=== PATIENT | male | born 1940 | race Caucasian/White ===

== ENCOUNTER 2016-06-24 12:53 | Emergency (ER) | payer BC ==
[~2016-06-24] VITALS: Ht 177.8 cm; Wt 77.2 kg
[~2016-06-24 12:53] MED LIST: ACET650S10 PO; BECL0.3A INH; CETI10TA84 PO; CRG125 PO; MGNO400 PO
[2016-06-24 13:03] VITALS: TEMP 37.3; Ht 177.8 cm; Wt 77.2 kg
[2016-06-24] MEDS ORDERED: ACETAMINOPHEN 325 MG TAB PO STA (14:11)
[2016-06-24] MEDS ORDERED: CYCLOBENZAPRINE HCL 10 MG TAB PO STA (14:11)
[2016-06-24] MEDS ORDERED: TRAMADOL HCL 50 MG TAB PO STA (14:11)
--- NOTE | 2016-06-24 14:40 | EMERGENCY ROOM VISIT NOTE ---
History Report prepared by Kimi: Lashawn Dickinson Under the Supervision of: Dr. Maxwell Aly M.D. First contact with patient: 14:04 Chief Complaint: HEAD PAIN Stated Complaint: SEVERE HEAD PAIN History of Present Illness The patient is a 76 year old male who presents to the Emergency Room with complaints of worsening head pain over the past week. The patient states that the pain initially started in his left ear and radiated down the side of his left neck and left shoulder. Since then, it has also spread through the top of his head and down the right side of his head and neck. This morning, he had difficulty getting out of bed due to his symptoms. He notes that the pain is worse when he talks for a while and seems to improve with rest. The patient also notes that he had right arm pain recently that radiated from his shoulder all the way down his arm. The patient had similar symptoms when he was camping this past January and was hospitalized overnight. He has since been following up with his PCP regarding his symptoms but has not seen any specialists. He has been on a muscle relaxer in the past with some relief of his pain. He has also had physical therapy. He had physical therapy a week ago and his pain seemed to get worse afterwards. The patient does not recall any trauma or falls that could have caused his symptoms to flare up. Per patient's , the patient's pain seems to be worse during this flare up than it was in January initially. He had an MRI on April 15 of the C-spine which revealed arthritis and bone spurs but was otherwise unrevealing. The patient takes diazepam at night but it has not helped his symptoms. He has not used a neck collar. He has a history of hemophilia. Source of History: patient Onset: a few days ago Position: head Timing: worsening Modifying Factors (Worsening): other (talking) Modifying Factors (Relieving): rest Associated Symptoms: + neck pain Review of Systems See HPI for pertinent positives & negatives. A total of 10 systems reviewed and were otherwise negative. Past Medical & Surgical Medical Problems: (1) Chronic Kidney Disease, Unspecified (2) Diaphragmatic Hernia (3) Elevated troponin (4) Esophageal Reflux (5) Factor VIII deficiency hemophilia (6) Gout Nos (7) Hypertension Nos (8) Intractable headache (9) Von Willebrand's Disease (10) Von Willebrand's Disease Surgical Problems: (1) History of cholecystectomy Family History Cancer Diabetes mellitus Gallbladder disease Heart disease Hypertension Social History Smoking Status: Unknown if Ever Smoked Alcohol Use: none Marital Status: Housing Status: lives with significant other Occupation Status: retired Current/Historical Medications Scheduled Allopurinol (Zyloprim), 200 MG PO DAILY Aspirin (Aspirin Chewable), 81 MG PO DAILY Atorvastatin (Lipitor), 80 MG PO HS Beclomethasone Dip (Qvar), 2 PUFF INH BID Dorzolamide Hcl (Trusopt Oph), 1 DROP OPB HS Duloxetine Hcl (Cymbalta), 30 MG PO DAILY Esomeprazole Magnesium (Nexium), 40 MG PO DAILY Finasteride (Proscar), 5 MG PO DAILY Magnesium Oxide (Magnesium-Oxide), 400 MG PO BID Metolazone (Metolazone), 5 MG PO DAILY Multiple Vitamins W/ Minerals (Centrum Silver Adult 50+), 1 TAB PO DAILY [place]-3 Fatty Acids ([place] 3), 1 CAP PO DAILY Oxybutynin Chloride (Oxybutynin Chloride), 5 MG PO TID Scheduled PRN Acetaminophen (Tylenol), 1,000 MG PO Q6 PRN for Pain Aminocaproic Acid (Amicar), 500 MG PO UD PRN for coagulation Carvedilol (Carvedilol), 12.5 MG PO BID PRN for HR > 55 BPM Diazepam (Valium), 2-4 MG PO Q6H PRN for Pain Nitroglycerin (Nitrostat), 0.4 MG SL UD PRN for Chest Pain Tizanidine Hcl (Zanaflex), 1 TAB PO TID PRN for Muscle Spasms Tramadol (Ultram), 50 MG PO Q6H PRN for Pain Allergies Coded Allergies: Adhesives (Verified Allergy, Unknown, BANDAID, 06/24/16) Codeine (Verified Allergy, Unknown, SOB/ N/V, 06/24/16) Homatropine (Unverified Allergy, Unknown, UNKNOWN, 06/24/16) Horse Serum Proteins (Unverified Allergy, Unknown, ILLNESS, 06/24/16) Hydrocodone (Unverified Allergy, Unknown, UNKNOWN, 06/24/16) Niacin (Unverified Allergy, Unknown, UNKNOWN, 06/24/16) Tetanus Toxoid (Verified Allergy, Unknown, 06/24/16) Uncoded Allergies: RECOMBINENT FACTOR 8 (Allergy, Unknown, 05/08/05) Physical Exam Vital Signs Date Time Temp Pulse Resp B/P Pulse Ox O2 Delivery O2 Flow Rate FiO2 06/24/16 16:48 66 18 136/79 96 Room Air 06/24/16 15:02 66 18 139/76 96 Room Air 06/24/16 13:03 37.3 81 20 160/94 99 Room Air Physical Exam GENERAL: Patient is in no acute distress. HEENT: No acute trauma, normocephalic atraumatic, mucous membranes moist, no nasal congestion, no scleral icterus. NECK: Trachea is midline. No stridor. Patient has pain to move his head in any direction and desires to hold his head still. There is some discomfort to palpate the posterior neck muscles bilaterally and they do seem in spasm. There is no adenopathy. LUNGS: Clear to auscultation bilaterally, no wheeze, no rhonchi, breath sounds equal. HEART: Without murmurs gallops or rubs, regular rate and rhythm. ABDOMEN: Soft, nontender, bowel sounds positive, no hernias, no peritonitis. EXTREMITIES: No cyanosis or edema, full range of motion of all the joints without pain or difficulty, no signs for acute trauma. +2 radial pulse in both upper extremities. NEUROLOGIC: Oriented x 3, no acute motor or sensory deficits, no focal weakness. SKIN: No rash, no jaundice, no diaphoresis. Medical Decision & Procedures ER Provider Diagnostic Interpretation: Radiology results and stated below per my review and radiologist interpretation: MRI OF THE CERVICAL SPINE 6 VIEWS: CLINICAL HISTORY: Chronic neck pain. FINDINGS: AP, lateral, bilateral oblique, Avilez', and odontoid views of the cervical spine are correlated with CT scan of the cervical spine dated 01/18/2016. The skeletal structures are osteopenic. There is no radiographic evidence of fracture or malalignment. Vertebral body height is maintained throughout the cervical spine. There is minimal anterolisthesis of C4-C5. Alignment is otherwise preserved. There is mild straightening of the cervical lordosis. Anterior osteophytes are noted in the lower cervical region. The odontoid process and lateral masses appear intact. The spinolaminar line is preserved. Productive degenerative change is noted at the atlantodental articulation. There is moderate degenerative disc space narrowing at C5-C6 and C6-C7. Posterior disc osteophyte complex at these levels likely contribute to acquired compromise of the central canal. There is bilateral neural foraminal stenosis seen at C5-C6 and C6-C7 on the oblique views. The prevertebral soft tissues are within normal limits. Calcification is incidentally noted in the nuchal ligament. The partially imaged apical lung parenchyma appears clear. IMPRESSION: 1. No acute bony abnormality is seen involving the cervical spine. There has been no significant change from prior studies. 2. Osteopenia and spondylotic change as above, greatest at C5-C6 and C6-C7. Dictated: 06/24/2016 4:12 PM Transcribed: 06/24/2016 4:40 PM [id number] Electronically signed by: Maxwell Simon M.D. 06/24/2016 4:50 PM Dictated Date/Time: 06/24/2016 4:12 PM SPINE ONE VIEW, ANY LEVEL CLINICAL HISTORY: COLLAR trauma. Pain. COMPARISON STUDY: 11/28/2013 FINDINGS: Degenerative change. No acute bony abnormality. IMPRESSION: No acute process lateral single projection of the cervical spine Electronically signed by: Jr Ramachandran M.D. 06/24/2016 3:11 PM Dictated Date/Time: 06/24/2016 3:10 PM Medications Administered Medications (Trade) Dose Ordered Sig/Braxton Route Start Time Stop Time Status Last Admin Dose Admin Acetaminophen (Tylenol Tab) 650 mg NOW STAT PO 06/24/16 14:11 06/24/16 14:24 DC 06/24/16 14:38 650 MG Cyclobenzaprine HCl (Flexeril Tab) 5 mg NOW STAT PO 06/24/16 14:11 06/24/16 14:24 DC 06/24/16 14:37 5 MG Tramadol HCl (Ultram Tab) 50 mg NOW STAT PO 06/24/16 14:11 06/24/16 14:24 DC 06/24/16 14:38 50 MG ED Course 1405: The patient was evaluated in room C1. A complete history and physical exam was performed. 1411: Ordered Ultram 50 mg PO, Flexeril Tab 5 mg PO, Tylenol Tab 650 mg PO. 1420: I discussed the case with Dr. Yoder. 1520: I reassessed the patient. He feels better with stiffer collar on but will also try a soft one to see which feels better. 1644: Reevaluated the patient. He was feeling better in the soft collar and after the medications. Discussed results and discharge instructions: He verbalized understanding and agreement. The patient is ready for discharge. Medical Decision Differential includes muscle spasm , nerve impingement, arthritis, cervical disc disease, intracranial bleeding, trauma, cervical fracture, stroke. The patient presents with bilateral posterior neck pain with pain radiating to his head. This has been an ongoing issue since late last year. The patient started physical therapy last week and he thinks that the activity and exercises he's been doing have worsened his discomfort. He describes the pain as severe. He does not want to turn his head because turning his head causes things do worsen. He has not suffered a fall or trauma. There's been no fever. He had some pain down the right arm at one point yesterday, this has resolved. No right arm weakness. I discussed the case with the patient's primary doctor, Dr. Yoder. The patient has been following with Dr. Yoder for this issue. He recommended a C- spine series which was done, this showed significant arthritis, no fracture or bony malalignment. The patient was placed in a soft collar, he felt better in this collar. He received oral Tylenol, oral tramadol and oral Flexeril. The patient is being discharged on a muscle relaxer, tramadol, heat to the neck and also the soft collar for support. He will be seeing his doctor in the office in a few days. It does appear that the patient's symptoms are from spasm of his posterior neck muscles. [place] Drug Monitoring Program Search Results: patient reviewed within database, no issues identified Consults Time Called: 1413 Consulting Physician: Dr. Yoder Returned Call: 1420 I discussed the case with him. Impression Primary Impression: Headache Additional Impression: Neck pain Scribe Attestation The scribe's documentation has been prepared under my direction and personally reviewed by me in its entirety. I confirm that the note above accurately reflects all work, treatment, procedures, and medical decision making performed by me. Departure Information Dispostion Home / Self-Care Prescriptions Tizanidine Hcl (ZANAFLEX) 4 Mg Tab 1 TAB PO TID Y for Muscle Spasms for 10 Days, #30 TAB Prov: Maxwell Aly M.D. 06/24/16 Tramadol (Ultram) 50 Mg Tab 50 MG PO Q6H Y for Pain, #15 TAB Prov: Maxwell Aly M.D. 06/24/16 Referrals Timothy Yoder M.D. (PCP) Patient Instructions My [facility] Additional Instructions use Zanaflex 3x per day as needed to relax the muscles tramadol 1 tab every 6 hours for pain may use tylenol otc for pain control as well heat to the neck will help contact Dr. Yoder tomorrow for an appt in the office Problem Qualifiers
--- NOTE | 2016-06-24 15:12 | DIAGNOSTIC IMAGING REPORT ---
SPINE ONE VIEW, ANY LEVEL CLINICAL HISTORY: COLLAR trauma. Pain. COMPARISON STUDY: 11/28/2013 FINDINGS: Degenerative change. No acute bony abnormality. IMPRESSION: No acute process lateral single projection of the cervical spine Electronically signed by: Jr Ramachandran M.D. 06/24/2016 3:11 PM Dictated Date/Time: 06/24/2016 3:10 PM
--- NOTE | 2016-06-24 16:40 | DIAGNOSTIC IMAGING REPORT ---
MRI OF THE CERVICAL SPINE 6 VIEWS: CLINICAL HISTORY: Chronic neck pain. FINDINGS: AP, lateral, bilateral oblique, Avilez', and odontoid views of the cervical spine are correlated with CT scan of the cervical spine dated 01/18/2016. The skeletal structures are osteopenic. There is no radiographic evidence of fracture or malalignment. Vertebral body height is maintained throughout the cervical spine. There is minimal anterolisthesis of C4-C5. Alignment is otherwise preserved. There is mild straightening of the cervical lordosis. Anterior osteophytes are noted in the lower cervical region. The odontoid process and lateral masses appear intact. The spinolaminar line is preserved. Productive degenerative change is noted at the atlantodental articulation. There is moderate degenerative disc space narrowing at C5-C6 and C6-C7. Posterior disc osteophyte complex at these levels likely contribute to acquired compromise of the central canal. There is bilateral neural foraminal stenosis seen at C5-C6 and C6-C7 on the oblique views. The prevertebral soft tissues are within normal limits. Calcification is incidentally noted in the nuchal ligament. The partially imaged apical lung parenchyma appears clear. IMPRESSION: 1. No acute bony abnormality is seen involving the cervical spine. There has been no significant change from prior studies. 2. Osteopenia and spondylotic change as above, greatest at C5-C6 and C6-C7. Dictated: 06/24/2016 4:12 PM Transcribed: 06/24/2016 4:40 PM Anusha Electronically signed by: Maxwell Simon M.D. 06/24/2016 4:50 PM Dictated Date/Time: 06/24/2016 4:12 PM
[2016-06-24 16:48] VITALS: BP 136/79; PULSE 66; O2SAT 96
[2016-06-24] MEDS ORDERED: TRAM-10 PO (16:58)
[2016-06-24] MEDS ORDERED: TIZA4TAB3 PO (16:58)
[2016-06-30] MEDS ORDERED: PRD20 PO (09:25)
[2016-06-30] MEDS ORDERED: NRV5 PO ×2 (09:28→09:35)
[2016-08-11] MEDS ORDERED: ASPCH81X PO (09:07)
[2016-08-11] MEDS ORDERED: OMEG12006 PO (09:21)
[2016-08-11] MEDS ORDERED: ATOR-26 PO (09:21)
[2016-08-11] MEDS ORDERED: AMIN1TAB5 PO (09:21)
[2016-08-11] MEDS ORDERED: CYM/30 PO (13:17)
[2016-08-11] MEDS ORDERED: ALLO100T PO (13:17)
[2016-08-11] MEDS ORDERED: ZRX5 PO (13:21)
[2016-08-11] MEDS ORDERED: DTR5 PO (13:21)
[2016-08-11] MEDS ORDERED: MULT-845 PO (13:30)
[2016-08-11] MEDS ORDERED: FINA5TAB PO (13:54)
== END 2016-06-24 17:19 | disposition home or self-care (01) ==
LOC: C.EDB 12:55 → C.EDC 17:19
DX: R51 Headache (principal); M54.2 Cervicalgia; N18.9 Chronic kidney disease, unspecified; K21.9 Gastro-esophageal reflux disease without esophagitis; M10.9 Gout, unspecified; I12.9 Hypertensive chronic kidney disease with stage 1 through stage 4 chronic kidney disease, or unspecified chronic kidney disease; D68.0 Von Willebrand disease; Z79.82 Long term (current) use of aspirin

== ENCOUNTER → 2016-06-27 | Outpatient (CLI) | payer BC ==
[~2016-06-27] MED LIST changes: +ACET-1256 PO; -ACET650S10 PO; +ALLO100T PO; +AMIN1TAB5 PO; +ASPCH81X PO; +ATOR-26 PO; -BECL0.3A INH; +BRIM0.2S18 OPB; -CETI10TA84 PO; +CYM/30 PO; +DIAZ2TAB PO; +DORZ2SOL17 OPB; +DTR5 PO; +FINA5TAB PO; +MULT-845 PO; +NRV5 PO; +NTRGSL/4 SL; +NXM/40 PO; +OMEG12006 PO; +PRD20 PO; +PRED10TA PO; +QVRINH40 INH; +TIZA4TAB3 PO; +TRAM-10 PO; +XLTOPS OPB; +ZNF/4 PO; +ZRX5 PO
--- NOTE | 2016-06-27 17:03 | DIAGNOSTIC IMAGING REPORT ---
LEFT WRIST MIN 3 VIEWS ROUTINE CLINICAL HISTORY: M54.12 Cervical radiculopathy pain. Neuropathy. COMPARISON: None. DISCUSSION: Moderate generalized degenerative change. Minimal calcification triangular fibrocartilage. No erosive process. There is no evidence for soft tissue swelling. IMPRESSION: Moderate generalized degenerative change. No acute bony abnormality. Electronically signed by: Jr Ramachandran M.D. 06/27/2016 5:02 PM Dictated Date/Time: 06/27/2016 4:59 PM
== END | disposition home or self-care (01) ==
LOC: C.RAD1850 15:49
PROVIDERS: ATTEND Internal Medicine
DX: M54.12 Radiculopathy, cervical region (principal)

== ENCOUNTER 2016-06-28 11:50 | Inpatient (IN) | payer BC, OTHER ==
[~2016-06-28] VITALS: Ht 170.2 cm; Wt 78.4 kg
[~2016-06-28 11:50] MED LIST changes: -ACET-1256 PO; -ALLO100T PO; -AMIN1TAB5 PO; -ASPCH81X PO; -ATOR-26 PO; -BRIM0.2S18 OPB; -CYM/30 PO; -DIAZ2TAB PO; -DORZ2SOL17 OPB; -DTR5 PO; -FINA5TAB PO; -MULT-845 PO; -NRV5 PO; -NTRGSL/4 SL; -NXM/40 PO; -OMEG12006 PO; -PRD20 PO; -PRED10TA PO; -QVRINH40 INH; -XLTOPS OPB; -ZNF/4 PO; -ZRX5 PO
[2016-06-28] MEDS ORDERED: MoRPHine SULFATE 10 MG/ML CARP/VIAL IV STA (12:35)
[2016-06-28] MEDS ORDERED: SODIUM CHLORIDE 0.9% 500ML 500 ML IV STA (12:35)
[2016-06-28] MEDS ORDERED: MoRPHine SULFATE 2 MG/ML CARP ONE (12:51)
[2016-06-28] MEDS ORDERED: MoRPHine SULFATE 4 MG/ML 1 ML CARP\\VIAL ONE (12:51)
[2016-06-28 13:03] LABS: HEMATOCRIT 29.5 % (42-52); MEAN CELL VOLUME 86.5 fL (80-100); MEAN CORPUSCULAR HEMOGLOBIN 31.4 pg (25-34); MEAN CORPUSCULAR HGB CONC 36.3 g/dl (32-36); MEAN PLATELET VOLUME 9.6 fL (7.4-10.4); PLATELET COUNT 198 K/uL (130-400); RED BLOOD COUNT 3.41 M/uL (4.7-6.1); WHITE BLOOD COUNT 8.96 K/uL (4.8-10.8)
[2016-06-28 13:25] LABS: PARTIAL THROMBOPLASTIN RATIO 1.8; PROTHROMBIN TIME (PATIENT) 10.7 SECONDS (9.0-12.0)
[2016-06-28 13:26] LABS: BASO % 0.2 %; BASO ABS # 0.02 K/uL (0-0.2); CALCIUM 9.2 mg/dl (8.5-10.1); COMPLETE YES; EOS % 0.9 %; IG% 0.3 %; LYMPH % 11.5 %; LYMPH ABS # 1.03 K/uL (1.2-3.4); MONO % 7.4 %; NEUT % 79.7 %; POTASSIUM 3.8 mmol/L (3.5-5.1)
[2016-06-28 13:31] LABS: URIC ACID 4.4 mg/dl (2.6-7.2)
--- NOTE | 2016-06-28 13:32 | DIAGNOSTIC IMAGING REPORT ---
SINGLE VIEW CHEST CLINICAL HISTORY: Left arm pain. FINDINGS: An AP, portable, upright chest radiograph is compared to study dated 01/18/2016. Correlation is made with chest CT dated 10/25/2011. The heart is enlarged and there is atherosclerotic calcification of the thoracic aorta. The pulmonary vasculature is noncongested. Chronic interstitial thickening is similar to previous. No airspace consolidation or pleural effusion is seen. There is minimal dependent atelectasis at the left lung base. No pneumothorax is seen. The skeletal structures are osteopenic. The bony thorax is grossly intact. IMPRESSION: Cardiomegaly with no acute cardiopulmonary abnormality. Electronically signed by: Maxwell Simon M.D. 06/28/2016 1:30 PM Dictated Date/Time: 06/28/2016 1:29 PM
--- NOTE | 2016-06-28 13:35 | DIAGNOSTIC IMAGING REPORT ---
CT OF THE HEAD WITHOUT CONTRAST CLINICAL HISTORY: Headache. COMPARISON STUDY: Head CT January 18, 2016. CT DOSE: 638.56 mGycm TECHNIQUE: Helical axial images of the head were obtained without IV contrast. Automated exposure control was utilized for the study. FINDINGS: No acute intracranial hemorrhage, midline shift or mass effect is present. Brain volume is normal. Ventricular system is normal. Dc-white differentiation is maintained. There are no findings to suggest acute dural sinus thrombosis or acute territorial infarct. White matter hypodensity suggests small vessel disease. Visualized portions of the mastoid air cells are clear. There is minimal mucosal thickening of the ethmoid sinuses. IMPRESSION: No acute intracranial findings. Electronically signed by: Hernán Estrada M.D. 06/28/2016 1:34 PM Dictated Date/Time: 06/28/2016 1:32 PM
--- NOTE | 2016-06-28 13:48 | DIAGNOSTIC IMAGING REPORT ---
LEFT WRIST 4 VIEWS CLINICAL HISTORY: Left wrist pain. FINDINGS: 4 views of left wrist are compared to study performed one day previously on 06/27/2016. The skeletal structures are osteopenic. No fracture is identified. Minimal narrowing is seen at the radiocarpal articulation. There is mild arthritic change at the first carpometacarpal joint. Mild soft tissue swelling is present around the wrist. There is atherosclerotic calcification of the regional arteries. A ring is noted on the fourth finger. IMPRESSION: 1. Mild soft tissue swelling with no acute bony abnormality seen in the left wrist. There has been no significant change from yesterday. 2. Osteopenia and mild degenerative change as above. Electronically signed by: Maxwell Simon M.D. 06/28/2016 1:47 PM Dictated Date/Time: 06/28/2016 1:45 PM
[2016-06-28] MEDS ORDERED: METHYLPREDNISOLONE IV 60 MG in SYRINGE 0 ML IV STA (13:49)
[2016-06-28 17:14] LABS: URINE APPEARANCE CLEAR (CLEAR); URINE BILIRUBIN NEG (NEG); URINE COLOR YELLOW; URINE EPITHELIAL CELL AUTO 0-5 /lpf (0-5); URINE NITRITE NEG (NEG); URINE PH 6.5 (4.5-7.5); URINE SPECIFIC GRAVITY 1.013 (1.000-1.030); UROBILINOGEN NEG (NEG)
[2016-06-28 17:15] LABS: MANUAL MICROSCOPIC REQUIRED? NO; REVIEW REQ? NO
--- NOTE | 2016-06-28 17:15 | CONSULTATION REPORT ---
DATE OF CONSULTATION: 06/28/2016 REASON FOR CONSULT: Left wrist pain. HISTORY OF PRESENT ILLNESS: The patient is a 76-year-old white male with history of left wrist pain over the last several days that has worsened to the point where he cannot move his wrist and the patient is somewhat of a poor historian; however, he has been having aches and pains off and on, mostly around his head and neck region for some time now that come and go, but he feels they seem to be progressing over the last several days though he seems focused on his left wrist which began hurting a few days ago. He states that the pain worsened and he has been unable to use the wrist and wanted to be seen. He denies any mechanical falls, no overt swelling or bruising of the area. He has not bump the wrist in any way that he knows of. PAST MEDICAL HISTORY: CAD with myocardial infarction in the past with stenting, hemophilia, and history of gout. PAST SURGICAL HISTORY: Chest wall tumor excision, cholecystectomy, above noted cardiac catheterization with stent placement. FAMILY HISTORY: CAD. SOCIAL HISTORY: The patient is . Does not use tobacco or alcohol. MEDICATIONS: Acetaminophen 1000 mg p.o. q. 6 hours p.r.n., allopurinol 200 mg p.o. daily, Amicar 500 mg p.o. as directed p.r.n., aspirin 81 mg p.o. daily, atorvastatin 80 mg p.o. at bedtime, beclomethasone 2 puffs inhaled b.i.d., carvedilol one p.o. b.i.d. p.r.n., diazepam 2-4 mg p.o. q. 6 hours p.r.n., Trusopt ophthalmic 2% one drop OPB at bedtime, Cymbalta 30 mg p.o. daily, Nexium 40 mg p.o. daily, finasteride 5 mg p.o. daily, Mag-Ox 400 mg p.o. b.i.d., metolazone 5 mg p.o. daily, multivitamin 1 tab p.o. daily, nitroglycerin 0.4 mg sublingually as directed p.r.n., omega 3 one cap p.o. daily, oxybutynin 5 mg p.o. t.i.d., Zanaflex 1 tab p.o. t.i.d., tramadol 50 mg q. 6 hours p.r.n. ALLERGIES: ADHESIVES, CODEINE, HOMATROPINE, HORSE SERUM PROTEINS, HYDROCODONE, NIACIN, RECOMBINANT FACTOR 8, TETANUS TOXOID. REVIEW OF SYSTEMS: No recent fevers or chills. No unusual night sweats. No shortness of breath or chest pain. No increased cough or sputum production. No nausea, vomiting, diarrhea. The patient does relate a history of musculoskeletal pain mostly surrounding the head and neck area which has been ongoing for off and on for the last few weeks. No hematuria, pyuria, or dysuria. No seizures. PHYSICAL EXAMINATION: EXTREMITIES: On examination of the patient's left wrist, there is some noticeable swelling in the dorsum of the wrist compared to the right. He has very minimal erythema noted. He has minimal ability to flex and extend the wrist at this time actively. I can get him to go through a little bit of passive range of motion a little bit more but it essentially causing him moderate pain in the left wrist. He has no pain whatsoever with passive extension of any of his fingers that travels up over the dorsum of hand into the wrist. He can make almost a full fist, but this causes him discomfort in the wrist as he tries to complete that. Sensation is intact with all of his fingers and he has full range of motion of all of his fingers at this time of the left hand. He has no palmar erythema, no pain in the hypothenar eminences or in the thenar eminences and most of his pain is dorsally and none on the volar aspect. I can find one spot over the carpal radial joint that is exquisitely tender when doing deep palpation making the patient jump a little bit with pain. He has some mild joint pain over the lateral portion of his ulnar joint, but is minimal at best. LABORATORY VALUES: White count is 8.96, H\T\H is 10.7 and 29.5. Sed rate is 55. Chemistry shows a BUN of 40 and a creatinine of 2.0, alkaline phosphatase is 119 and a C-reactive protein is 3.16, PTT is 46.6, INR is 1.0, uric acid is 4.4 and essentially normal. IMAGING DATA: X-rays of the left wrist and essentially show some mild soft tissue swelling over the dorsum of the wrist with no fracture or significant bony changes and mild degenerative changes are noted. ASSESSMENT: Possible infected left wrist joint versus gouty flare versus hemarthrosis. PLAN: I discussed the case with Dr. Damaso Magdaleno who was fiberglass insulation installer this evening. Plans will be to aspirate the left carpal radial joint and try and see if we can get any fluid from the joint and send it off for possible microbiology and/or cell count if we have enough fluid. PROCEDURES DONE IN THE EMERGENCY ROOM: At this point in time, the area over the distal radius at the joint line was palpated and the most tender spot was found and marked with a pressure indentation at that point. Alcohol swabs were used to wipe the area and then 3 Betadine swabs were used to cleanse tears as well. These were let to dry. A 20-gauge needle was then inserted into the radial joint successfully and approximately 1 mL of light yellow fluid was withdrawn that was slightly blood tinged and only slightly cloudy at bedside. The needle was then withdrawn and pressure was applied to the aspiration site and then 2 x 2 dressing with Coban was placed on the aspiration site. The patient tolerated the procedure well. Dr. Tobin was notified of the aspirate, which will be sent for above noted cell count if possible with crystal analysis and/or microbiology. Dr. Magdaleno is fiberglass insulation installer this evening and can be notified of the pending results. [facility]
[2016-06-28 17:36] LABS: SYNOVIAL FLUID MONONUC RELAT 7.8 %; SYNOVIAL FLUID POLYNUC RELAT 92.2 %
[2016-06-28 17:37] LABS: SYNOVIAL FLUID APPEARANCE CLOUDY; SYNOVIAL FLUID COLOR PALE YELLOW
[2016-06-28] MEDS ORDERED: VANCOMYCIN INJ 1,500 MG in SODIUM CHLORIDE 0.9% 500ML 500 ML IV STA (19:29)
[2016-06-28] MEDS ORDERED: CEFTRIAXONE SOD INJ 1 GM ADDVIAL IV STA (19:29)
--- NOTE | 2016-06-28 20:24 | EMERGENCY ROOM VISIT NOTE ---
History Report prepared by Kimi: Maged Tomas Under the Supervision of: Dr. Cristhian Tobin D.O. First contact with patient: 12:19 Chief Complaint: HAND PAIN/INJURY Stated Complaint: SEVERE PAIN L HAND/ARM, HEAD AND SHOULDERS History of Present Illness The patient is a 76 year old male who presents to the Emergency Room with complaints of persistent severe left arm pain for the past four days. The pain is mostly localized to the wrist area, but shoots up the arm. The patient was in the ED on Friday for head, neck, and shoulder pain. He also finds it difficult to move his fingers secondary to pain. The patient saw his PCP for these symptoms. He had a negative X-ray of the hand, and is scheduled for a CT head. The patient has a prescription for Tramadol. His last dose was at 0930 this morning. The patient has had intermittent pain since January in his head and neck. As per his , the patient has a history of memory impairment. He usually complains of head, neck and shoulder pain, and the arm pain is new. The patient has a history of gout, but cannot recall if his current pain feels like gout. He does take allopurinol. Patient denies change in vision, fevers, chest pain, shortness of breath, nausea, vomiting, diarrhea, and pain with urination. Source of History: patient, spouse/significant other Onset: four days ago Position: arm (left) Symptom Intensity: severe Timing: other (persistent) Associated Symptoms: No SOB, No chest pain, No diarrhea, No fevers, No melena, No nausea, No urinary symptoms Review of Systems See HPI for pertinent positives & negatives. A total of 10 systems reviewed and were otherwise negative. Past Medical & Surgical Medical Problems: (1) Chronic Kidney Disease, Unspecified (2) Diaphragmatic Hernia (3) Elevated troponin (4) Esophageal Reflux (5) Factor VIII deficiency hemophilia (6) Gout Nos (7) Hypertension Nos (8) Intractable headache (9) Von Willebrand's Disease (10) Von Willebrand's Disease Surgical Problems: (1) History of cholecystectomy Family History Cancer Diabetes mellitus Gallbladder disease Heart disease Hypertension Social History Smoking Status: Never Smoker Alcohol Use: none Marital Status: Housing Status: lives with significant other Occupation Status: retired Current/Historical Medications Scheduled Allopurinol (Zyloprim), 200 MG PO DAILY Aspirin (Aspirin Chewable), 81 MG PO DAILY Atorvastatin (Lipitor), 80 MG PO HS Beclomethasone Dip (Qvar), 2 PUFF INH BID Dorzolamide Hcl (Trusopt Oph), 1 DROP OPB HS Duloxetine Hcl (Cymbalta), 30 MG PO DAILY Esomeprazole Magnesium (Nexium), 40 MG PO DAILY Finasteride (Proscar), 5 MG PO DAILY Magnesium Oxide (Magnesium-Oxide), 400 MG PO BID Metolazone (Metolazone), 5 MG PO DAILY Multiple Vitamins W/ Minerals (Centrum Silver Adult 50+), 1 TAB PO DAILY [place]-3 Fatty Acids ([place] 3), 1 CAP PO DAILY Oxybutynin Chloride (Oxybutynin Chloride), 5 MG PO TID Scheduled PRN Acetaminophen (Tylenol), 1,000 MG PO Q6 PRN for Pain Aminocaproic Acid (Amicar), 500 MG PO UD PRN for coagulation Carvedilol (Carvedilol), 12.5 MG PO BID PRN for HR > 55 BPM Diazepam (Valium), 2-4 MG PO Q6H PRN for Pain Nitroglycerin (Nitrostat), 0.4 MG SL UD PRN for Chest Pain Tizanidine Hcl (Zanaflex), 1 TAB PO TID PRN for Muscle Spasms Tramadol (Ultram), 50 MG PO Q6H PRN for Pain Allergies Coded Allergies: Adhesives (Verified Allergy, Unknown, BANDAID, 06/28/16) Codeine (Verified Allergy, Unknown, SOB/ N/V, 06/28/16) Homatropine (Unverified Allergy, Unknown, UNKNOWN, 06/28/16) Horse Serum Proteins (Unverified Allergy, Unknown, ILLNESS, 06/28/16) Hydrocodone (Unverified Allergy, Unknown, UNKNOWN, 06/28/16) Niacin (Unverified Allergy, Unknown, UNKNOWN, 06/28/16) Tetanus Toxoid (Verified Allergy, Unknown, 06/28/16) Uncoded Allergies: RECOMBINENT FACTOR 8 (Allergy, Unknown, 05/08/05) Physical Exam Vital Signs Date Time Temp Pulse Resp B/P Pulse Ox O2 Delivery O2 Flow Rate FiO2 06/28/16 19:18 84 18 144/78 96 Room Air 06/28/16 17:01 88 18 141/78 91 Room Air 06/28/16 14:09 73 20 172/77 99 Room Air 06/28/16 12:08 36.8 53 16 132/72 97 Room Air Physical Exam GENERAL: Sitting up in bed, disheveled, crying, holding left wrist. EYE EXAM: normal conjunctiva, PERRL and EOM's intact OROPHARYNX: no exudate, no erythema, lips, buccal mucosa, and tongue normal and mucous membranes are moist NECK: supple, no adenopathy, mild left paraspinal tenderness and pain with movement of the neck. LUNGS: Clear to auscultation. Normal chest wall mechanics HEART: no murmurs, S1 normal and S2 normal ABDOMEN: abdomen soft, non-tender, normo-active bowel sounds, no masses, no rebound or guarding. BACK: Back is symmetrical on inspection and there is no deformity, no midline tenderness, no CVA tenderness. SKIN: no rashes and no bruising UPPER EXTREMITIES: full passive range of motion of the left elbow and shoulder without tenderness, significantly tender with range of motion of the left wrist with swelling, no significant erythema, joint is warm, grasp intact along with abduction of the digits, radial pulse 2/4, gross sensation intact. LOWER EXTREMITIES: No pitting edema. NEURO EXAM: No gross weakness of arms exception of the left wrist, alert, unable to recall complete history, at baseline per . Medical Decision & Procedures ER Provider Diagnostic Interpretation: Xray results per the radiologist and my interpretation. Other results have been interpreted by the radiologist and reviewed by me. SINGLE VIEW CHEST CLINICAL HISTORY: Left arm pain. FINDINGS: An AP, portable, upright chest radiograph is compared to study dated 01/18/2016. Correlation is made with chest CT dated 10/25/2011. The heart is enlarged and there is atherosclerotic calcification of the thoracic aorta. The pulmonary vasculature is noncongested. Chronic interstitial thickening is similar to previous. No airspace consolidation or pleural effusion is seen. There is minimal dependent atelectasis at the left lung base. No pneumothorax is seen. The skeletal structures are osteopenic. The bony thorax is grossly intact. IMPRESSION: Cardiomegaly with no acute cardiopulmonary abnormality. Electronically signed by: Maxwell Simon M.D. 06/28/2016 1:30 PM Dictated Date/Time: 06/28/2016 1:29 PM LEFT WRIST 4 VIEWS CLINICAL HISTORY: Left wrist pain. FINDINGS: 4 views of left wrist are compared to study performed one day previously on 06/27/2016. The skeletal structures are osteopenic. No fracture is identified. Minimal narrowing is seen at the radiocarpal articulation. There is mild arthritic change at the first carpometacarpal joint. Mild soft tissue swelling is present around the wrist. There is atherosclerotic calcification of the regional arteries. A ring is noted on the fourth finger. IMPRESSION: 1. Mild soft tissue swelling with no acute bony abnormality seen in the left wrist. There has been no significant change from yesterday. 2. Osteopenia and mild degenerative change as above. Electronically signed by: Maxwell Simon M.D. 06/28/2016 1:47 PM Dictated Date/Time: 06/28/2016 1:45 CT OF THE HEAD WITHOUT CONTRAST CLINICAL HISTORY: Headache. COMPARISON STUDY: Head CT January 18, 2016. CT DOSE: 638.56 mGycm TECHNIQUE: Helical axial images of the head were obtained without IV contrast. Automated exposure control was utilized for the study. FINDINGS: No acute intracranial hemorrhage, midline shift or mass effect is present. Brain volume is normal. Ventricular system is normal. Dc-white differentiation is maintained. There are no findings to suggest acute dural sinus thrombosis or acute territorial infarct. White matter hypodensity suggests small vessel disease. Visualized portions of the mastoid air cells are clear. There is minimal mucosal thickening of the ethmoid sinuses. IMPRESSION: No acute intracranial findings. Electronically signed by: Hernán Estrada M.D. 06/28/2016 1:34 PM Dictated Date/Time: 06/28/2016 1:32 PM Laboratory Results 06/28/16 12:30 Red Blood Count 3.41, Mean Corpuscular Volume 86.5, Mean Corpuscular Hemoglobin 31.4, Mean Corpuscular Hemoglobin Concent 36.3, Mean Platelet Volume 9.6, Neutrophils (%) (Auto) 79.7, Lymphocytes (%) (Auto) 11.5, Monocytes (%) (Auto) 7.4, Eosinophils (%) (Auto) 0.9, Basophils (%) (Auto) 0.2, Neutrophils # (Auto) 7.14, Lymphocytes # (Auto) 1.03, Monocytes # (Auto) 0.66, Eosinophils # (Auto) 0.08, Basophils # (Auto) 0.02 06/28/16 12:30 Test 06/28/16 12:30 06/28/16 15:45 06/28/16 16:50 White Blood Count 8.96 K/uL (4.8-10.8) Red Blood Count 3.41 M/uL (4.7-6.1) Hemoglobin 10.7 g/dL (14.0-18.0) Hematocrit 29.5 % (42-52) Mean Corpuscular Volume 86.5 fL (80-100) Mean Corpuscular Hemoglobin 31.4 pg (25-34) Mean Corpuscular Hemoglobin Concent 36.3 g/dl (32-36) Platelet Count 198 K/uL (130-400) Mean Platelet Volume 9.6 fL (7.4-10.4) Neutrophils (%) (Auto) 79.7 % Lymphocytes (%) (Auto) 11.5 % Monocytes (%) (Auto) 7.4 % Eosinophils (%) (Auto) 0.9 % Basophils (%) (Auto) 0.2 % Neutrophils # (Auto) 7.14 K/uL (1.4-6.5) Lymphocytes # (Auto) 1.03 K/uL (1.2-3.4) Monocytes # (Auto) 0.66 K/uL (0.11-0.59) Eosinophils # (Auto) 0.08 K/uL (0-0.5) Basophils # (Auto) 0.02 K/uL (0-0.2) RDW Standard Deviation 43.6 fL (36.4-46.3) RDW Coefficient of Variation 13.8 % (11.5-14.5) Immature Granulocyte % (Auto) 0.3 % Immature Granulocyte # (Auto) 0.03 K/uL (0.00-0.02) Erythrocyte Sedimentation Rate 55 mm/hr (0-14) Prothrombin Time 10.7 SECONDS (9.0-12.0) Prothromb Time International Ratio 1.0 (0.9-1.1) Activated Partial Thromboplast Time 46.6 SECONDS (21.0-31.0) Partial Thromboplastin Ratio 1.8 Anion Gap 12.0 mmol/L (3-11) Est Creatinine Clear Calc Drug Dose 29.4 ml/min Estimated GFR () 36.5 Estimated GFR (Non- 31.5 BUN/Creatinine Ratio 20.0 (10-20) Uric Acid 4.4 mg/dl (2.6-7.2) Calcium Level 9.2 mg/dl (8.5-10.1) Total Bilirubin 0.5 mg/dl (0.2-1) Direct Bilirubin 0.2 mg/dl (0-0.2) Aspartate Amino Transf (AST/SGOT) 20 U/L (15-37) Alanine Aminotransferase (ALT/SGPT) 23 U/L (12-78) Alkaline Phosphatase 119 U/L (45-117) C-Reactive Protein 3.16 mg/dl (0-0.29) Total Protein 6.9 gm/dl (6.4-8.2) Albumin 3.2 gm/dl (3.4-5.0) Synovial Fluid Source L WRIST Synovial Fluid Color PALE YELLOW Synovial Fluid Appearance CLOUDY Synovial Fluid WBC 61009 /uL (0-200) Synovial Fluid RBC 85744 /uL Synovial Fluid Polynuclear WBCs % 92.2 % Synovial Fluid Mononuclear WBCs % 7.8 % Urine Color YELLOW Urine Appearance CLEAR (CLEAR) Urine pH 6.5 (4.5-7.5) Urine Specific Sutton 1.013 (1.000-1.030) Urine Protein NEG (NEG) Urine Glucose (UA) NEG (NEG) Urine Ketones NEG (NEG) Urine Occult Blood NEG (NEG) Urine Nitrite NEG (NEG) Urine Bilirubin NEG (NEG) Urine Urobilinogen NEG (NEG) Urine Leukocyte Esterase NEG (NEG) Urine WBC (Auto) 0 /hpf (0-5) Urine RBC (Auto) 0-4 /hpf (0-4) Urine Hyaline Casts (Auto) 0 /lpf (0-5) Urine Epithelial Cells (Auto) 0-5 /lpf (0-5) Urine Bacteria (Auto) NEG (NEG) Laboratory results per my review. Medications Administered Medications (Trade) Dose Ordered Sig/Braxton Route Start Time Stop Time Status Last Admin Dose Admin Sodium Chloride (Nss 500ml) 500 ml @ 999 mls/hr Q31M STAT IV 06/28/16 12:35 06/28/16 13:05 DC 06/28/16 12:56 999 MLS/HR Morphine Sulfate (MoRPHine SULFATE INJ) 4 mg STK-MED ONCE .ROUTE 06/28/16 12:51 06/28/16 12:53 DC 06/28/16 12:58 4 MG Morphine Sulfate 2 mg 2 mg STK-MED ONCE .ROUTE 06/28/16 12:51 06/28/16 12:53 DC 06/28/16 12:57 2 MG Methylprednisolone Sodium Succinate 60 mg/Syringe 0.96 ml @ 1.5 mls/min NOW STAT IV 06/28/16 13:49 06/28/16 13:51 DC 06/28/16 14:14 1.5 MLS/MIN Vancomycin HCl/ Sodium Chloride (Vancomycin Inj/ Nss 500ml) 530 ml @ 200 mls/hr ONE STAT IV 06/28/16 19:29 06/28/16 22:07 06/28/16 20:16 200 MLS/HR Ceftriaxone Sodium (Rocephin Inj) 1 gm NOW STAT IV 06/28/16 19:29 06/28/16 19:31 DC 06/28/16 19:46 1 GM ED Course ED COURSE: Vital signs were reviewed and showed bradycardia. The patients medical record was reviewed The above diagnostic studies were performed and reviewed. ED treatments and interventions as stated above. 1221: The patient was evaluated in room B9. A complete history and physical examination was performed. 1230: Patient's records show that he has had a headache for several weeks that is worse after PT. He had an MRI of the C-spine on April 15 that showed arthritis and bone spurs. He also had X-rays of the neck that showed no obvious fractures. 1235: NSS 500 ml @ 999 mls/hr, Morphine Sulfate 6 mg IV. 1250: Discussed the case with the estimation manager ENT at [facility]. 1349: Methylprednisolone Sodium Succinate 60 mg 0.96 ml @ 1.5 mls/hr. 1355: The patient is much more comfortable. He does not have head or neck pain as long as he isn't moving. His wrist is still painful on palpation. 1409: Spoke with Juan Morton PA-C, Orthopedics. The patient will be evaluated. 1625: Spoke with Dr. Magdaleno, Orthopedics. He recommended outpatient follow up. 1835: Discussed the case with Pathology. 192: Pathology is in with the patient now. 1927: Spoke with pathology again. There were no crystals present in the synovial fluid. 192: Rocephin 1 gm IV, Vancomycin 1500 mg / NSS 530 ml @ 200 mls/hr. 1931: Updated the patient. 2011: Discussed the case with Dr. Mcmahon, [facility] Hospitalist. The patient will be evaluated. 2029: Upon reevaluation, the patient is stable.I discussed my findings with the patient and he understands and agrees with the treatment plan. Based on the patients age, coexisting illnesses, exam and lab findings the decision to treat as an inpatient was made. The patient remained stable while under my care. The patient will be evaluated for further management. Medical Decision Differential diagnosis: Etiologies such as fracture, dislocation, neurovascular compromise, compartment syndrome, soft tissue injury, as well as others were entertained. Patient is a 76-year-old male who presents the ER for severe left arm pain. Patient is difficult to obtain history from. He gives a history of neck and headaches which has been present since January intermittently. I discussed this with his primary care doctor. On my exam his main complaint is his left arm pain which appears to be focal around his left wrist. There is swelling and mild erythema. As he is a hemophiliac along with a history of gout I obtain a uric acid level and said and CRP. Said and CRP were elevated. Uric acid was normal. X-rays were unremarkable. Good pulses. Discussed case with orthopedics and was evaluated bedside. Tap was performed by orthopedics. He has a white count of 66,000. We are unable to obtain a uric acid and consequently I called the pathologist. He was gracious enough to come in and read the smear. He reported no crystals to me via the phone. This will be entered into the computer later. Based on this I favor that this likely infected joint. Uncertain of the true cause of this. He was given Rocephin and vancomycin. I admitted him to internal medicine with the orthopedic consult and place. There is no significant leukocytosis. He does have a chronic anemia. He also has chronic CKD on labs. Consults Time Called: 1240 Consulting Physician: ENT Returned Call: 1250 1250: Discussed the case with the estimation manager ENT at [facility]. Additional Consults: Time Called: 1400 Consulted Physician: Juan Morton PA-C, Orthopedics. Returned Call: 1409 Additional Comments: 1409: Spoke with Juan Brunomer, PA-C, Orthopedics. The patient will be evaluated. Time Called: 1620 Consulted Physician: Dr. Magdaleno, Orthopedics Returned Call: 1625 Additional Comments: 162: Spoke with Dr. Magdaleno, Orthopedics. He says it is unlikely that the patient has a septic joint and recommends that the patient follows up as an outpatient. Impression Primary Impression: Septic joint of left wrist Additional Impressions: CKD (chronic kidney disease) Anemia Scribe Attestation The scribe's documentation has been prepared under my direction and personally reviewed by me in its entirety. I confirm that the note above accurately reflects all work, treatment, procedures, and medical decision making performed by me. Departure Information Dispostion Being Evaluated By Hospitalist Referrals Timothy Yoder M.D. (PCP) Patient Instructions My [facility] Problem Qualifiers Primary Impression: Septic joint of left wrist Septic arthritis organism: due to unspecified organism Qualified Codes: M00.9 - Pyogenic arthritis, unspecified Additional Impressions: CKD (chronic kidney disease) Chronic kidney disease stage: unspecified stage Qualified Codes: N18.9 - Chronic kidney disease, unspecified Anemia Anemia type: unspecified type Qualified Codes: D64.9 - Anemia, unspecified
[2016-06-28] MEDS ORDERED: DIAZEPAM 2MG TAB PO PRN (20:30)
[2016-06-28] MEDS ORDERED: NITROGLYCERIN 0.4 MG SL PER TAB CHARGE SL PRN (20:30)
[2016-06-28] MEDS ORDERED: MoRPHine SULFATE 4 MG/ML 1 ML CARP\\VIAL IV PRN (20:30)
[2016-06-28] MEDS ORDERED: AMINOCAPROIC ACID 500 MG TAB PO PRN (20:30)
[2016-06-28] MEDS ORDERED: CARVEDILOL 12.5 MG TAB PO PRN (20:30)
[2016-06-28] MEDS ORDERED: TRAMADOL HCL 50 MG TAB PO PRN (20:30)
[2016-06-28] MEDS ORDERED: POLYETHYLENE (MIRALAX) 17 GM PACK PO PRN (20:45)
[2016-06-28] MEDS ORDERED: ACETAMINOPHEN 325 MG TAB PO PRN (20:45)
[2016-06-28] MEDS ORDERED: ONDANSETRON INJ 2 MG/ML 2 ML VIAL IV PRN (20:45)
[2016-06-28] MEDS ORDERED: MAGNESIUM HYDROXIDE SUSP 30 ML UDC PO PRN (20:45)
[2016-06-28] MEDS ORDERED: ALUMINUM/MAGNESIUM/SIMETH (MAALOX MAX) 30 ML UDC PO PRN (20:45)
[2016-06-28] MEDS ORDERED: VANCOMYCIN INJ 1,000 MG in SODIUM CHLORIDE 0.9% 250ML 250 ML IV SCH (21:00)
[2016-06-28 22:00] VITALS: BP 167/81; PULSE 93; TEMP 36.9; Ht 170.2 cm; Wt 78.4 kg
--- NOTE | 2016-06-28 22:46 | HISTORY & PHYSICAL EXAMINATION ---
DATE OF ADMISSION: 06/28/2016 REASON FOR ADMISSION: Septic arthritis of the left wrist. HISTORY OF PRESENT ILLNESS: This is a 76-year-old male. He has history of CAD, CKD, hemophilia. The patient has had pain and swelling in his left wrist for approximately 1 week, which he initially thought was a gout flare. This persisted and he presented to his primary physician for evaluation. He was sent to the hospital where he was evaluated by orthopedics who performed an aspiration of the joint. Initial results did confirm a septic arthritis of the left wrist. He is admitted for IV antibiotics, pending culture results. He does not have any current fevers. Denies shortness of breath, chest pain or dysuria. PAST MEDICAL HISTORY: 1. Hemophilia. 2. CAD. The patient had an PA in February 2015, requiring a stent. 3. Major depressive disorder with a history of psychiatric admissions. 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 5. Gout. 6. Hep-C, which was treated. 7. GERD. 8. History of cataracts. 9. CKD III, baseline creatinine is approximately 2. 10. Von Willebrand's disease. 11. History of cholecystectomy. 12. Glaucoma. 13. Asthma. 14. BPH. MEDICATIONS: 1. Multivitamin daily. 2. Allopurinol 200 mg daily. 3. Amicar 500 mg p.r.n. 4. Aspirin 81 mg daily. 5. Lipitor 80 mg at bedtime. 6. QVAR 2 puffs b.i.d. 7. Carvedilol 12.5 mg b.i.d. 8. Valium 2 mg q. 6 hours p.r.n. 9. Dorzolamide 2% OPB at bedtime. 10. Duloxetine 30 mg daily. 11. Omeprazole 40 mg daily. 12. Proscar 5 mg daily. 13. Magnesium oxide 400 mg b.i.d. 14. Metolazone 5 mg daily. 15. NTG p.r.n. 16. Fish oil capsules daily 17. Oxybutynin chloride 5 mg t.i.d. 18. Tizanidine 4 mg t.i.d. p.r.n. 19. Tramadol 50 mg q. 6 hours p.r.n. SOCIAL HISTORY: The patient does not drink or smoke. He lives with family. FAMILY HISTORY: Positive for unspecified cancer, diabetes, hypertension and CAD. REVIEW OF SYSTEMS: A complete review of systems was performed and is negative, aside from what is listed in the HPI. PHYSICAL EXAMINATION: VITAL SIGNS: Blood pressure is 147/78, heart rate 84, respirations 18, satting 96% on room air. The patient is afebrile. GENERAL: This is a pleasant elderly male, who is awake, alert, oriented x3 and in no distress. HEAD AND NECK: No JVD, bruits, thrush or icterus. HEART: S1, S2 regular. No murmurs. LUNGS: Clear to auscultation bilaterally. ABDOMEN: Nontender, nondistended. Bowel sounds present. EXTREMITIES: No clubbing, cyanosis or edema. There is erythema overlying the left wrist, which has been pressure bandaged due to his hemophilia following aspiration. NEUROLOGIC: He is ambulatory and maintains coordination; does not exhibit any focal deficits. SKIN: Negative for rashes or ulcers, aside from erythema overlying at the left wrist joint. LABORATORY DATA: White count 8.9, hemoglobin 10.7, platelets 198. Sodium 138, potassium 3.8, chloride 102, CO2 24, BUN 40, creatinine 2, glucose 132. The fluid aspirated [place] [address]. Culture results are pending. ASSESSMENT AND PLAN: This is a 76-year-old male, with a history of hemophilia, CAD, CKD, gout, who presents with left wrist pain and is diagnosed with septic arthritis. The patient will be admitted with the followin. Septic arthritis. The joint was aspirated. We are pending culture results. We will monitor for hemorrhage at the site of the aspiration, the patient will receive ceftriaxone and vancomycin, pending the culture results. He received morphine for pain control. 2. Coronary artery disease. No current evidence of acute coronary syndrome. The patient has a statin sensitivity. We will hold his ASA for 1 day, considering his joint aspiration and underlying hemophilia, he will receive omega-3 fatty acids and a beta-marco a, as scheduled. 3. Chronic kidney disease. Creatinine is at baseline. Labs will be trended. 4. Depression. We will continue his home medications. 5. Regarding his hemophilia, again, we will monitor for bleeding. He has a listed ALLERGY TO RECOMBINANT FACTOR VIII. However, he has tolerated that with the addition of steroids in the past, so that this can be administered, if necessary. The total time for this admit, including chart review, discussion with the ER physician, review of labs, imaging, previous records, discussion with the patient and family, 38 minutes. The patient is a full code. SCDs only will be employed for prophylaxis, considering his underlying Hemophilia. MTDD
[2016-06-28] MEDS ORDERED: VANCOMYCIN CONSULT ACTIVE PRN (23:15)
[2016-06-28] MEDS: DORZOLAMIDE HCL 2% OPH SOLN 10 ML BTL OPB SCH (23:15)
[2016-06-28] MEDS: OXYBUTYNIN CHLORIDE 5 MG TAB PO SCH (23:15)
[2016-06-28] MEDS: MAGNESIUM OXIDE 400 MG TAB PO SCH (23:15)
[2016-06-28] MEDS: BECLOMETHASONE HFA 40 MCG INHALER INH SCH (23:15)
[2016-06-28] MEDS: ATORVASTATIN 40 MG TAB PO SCH (23:16)
[2016-06-28 23:29] VITALS: BP 158/76; PULSE 86; TEMP 36.8; O2SAT 91
[2016-06-29 06:14] LABS: HEMATOCRIT 27.1 % (42-52); MEAN CELL VOLUME 88.9 fL (80-100); MEAN CORPUSCULAR HEMOGLOBIN 31.1 pg (25-34); MEAN CORPUSCULAR HGB CONC 35.1 g/dl (32-36); MEAN PLATELET VOLUME 10.2 fL (7.4-10.4); PLATELET COUNT 202 K/uL (130-400); RED BLOOD COUNT 3.05 M/uL (4.7-6.1); WHITE BLOOD COUNT 8.67 K/uL (4.8-10.8)
[2016-06-29 06:47] LABS: BUN/CREATININE RATIO 21.4 (10-20); CALCIUM 8.7 mg/dl (8.5-10.1); CREATININE 1.8 mg/dl (0.60-1.40); POTASSIUM 3.8 mmol/L (3.5-5.1)
[2016-06-29 07:32] VITALS: BP 128/66; PULSE 56; TEMP 36.6; O2SAT 94
[2016-06-29] MEDS: BECLOMETHASONE HFA 40 MCG INHALER INH SCH ×2 (08:10→21:48)
[2016-06-29] MEDS: ASPIRIN 81 MG ECTAB PO SCH (08:11)
[2016-06-29] MEDS: FINASTERIDE 5 MG TAB PO SCH (08:12)
[2016-06-29] MEDS: PANTOprazole SOD 40 MG TAB PO SCH (08:12)
[2016-06-29] MEDS: ALLOPURINOL 100 MG TAB PO SCH (08:13)
[2016-06-29] MEDS: OXYBUTYNIN CHLORIDE 5 MG TAB PO SCH ×3 (08:14→21:48)
[2016-06-29] MEDS: METOLAZONE 5 MG TAB PO SCH (08:14)
[2016-06-29] MEDS: DULOXETINE (CYMBALTA) 30 MG CAP PO SCH (08:14)
[2016-06-29] MEDS: CEFTRIAXONE SOD INJ 1 GM in DEXTROSE 5% ADD-VANTAGE 50ML 50 ML IV SCH (08:15)
[2016-06-29] MEDS: MAGNESIUM OXIDE 400 MG TAB PO SCH ×2 (08:15→21:48)
[2016-06-29] MEDS ORDERED: OMEGA PO SCH (09:00)
--- NOTE | 2016-06-29 09:01 | Progress Note ---
Subjective Date of Service: Jun 29, 2016. Subjective Pt evaluation today including: conversation w/ patient, conversation w/ family , physical exam, chart review, lab review, review of studies, review of inpatient medication list Voiding: no voiding problems Patient reported left wrist pain and swelling is significantly improving, has no limitation range of motions, no fever and chill Problem List Medical Problems: (1) Anemia Status: Acute (2) Anxiety Status: Acute (3) CKD (chronic kidney disease) Status: Acute (4) Headache Status: Acute (5) Hyperventilation Status: Acute (6) Hypomagnesemia Status: Acute (7) Neck pain Status: Acute (8) Precordial chest pain Status: Acute (9) Septic joint of left wrist Status: Acute (10) SOB (shortness of breath) Status: Acute Review of Systems Constitutional: No chills, No fatigue, No fever, No problem reported, No sweats , No weakness, No weight loss Eyes: No diplopia, No discharge, No eye pain, No redness, No worsening of vision ENT: No dental problems, No hearing loss, No nasal symptoms, No sore throat, No tinnitus, No trouble swallowing, No unusual epistaxis Respiratory: No cough, No dyspnea at rest, No dyspnea on exertion, No hemoptysis, No shortness of breath, No sputum, No wheezing Cardiac: No PND, No chest pain, No claudication, No edema, No orthopnea, No palpitations Abdomen: No constipation, No diarrhea, No nausea, No pain, No vomiting Musculoskeletal: No calf pain, No joint pain, No muscle pain, No swelling Male : No dysuria, No hematuria, No incontinence, No nocturia more than once/ night, No slowing stream, No urinary frequency Neurologic: No balance problems, No memory loss, No numbness/tingling, No paralysis, No vertigo, No weakness Psychiatric: No anhedonism, No anxiety, No depression symptoms, No insomnia, No substance abuse Heme: No abnormal bleeding/bruising, No clotting problems, No night sweats, No swollen lymph nodes Endo: No excessive thirst, No excessive urination, No fatigue Skin: No bleeding, No color change, No itch, No new/changing skin lesions, No rash Objective Vital Signs Date Time Temp Pulse Resp B/P Pulse Ox O2 Delivery O2 Flow Rate FiO2 06/29/16 07:40 Room Air 06/29/16 07:32 36.6 56 16 128/66 94 Room Air 06/28/16 23:29 36.8 86 16 158/76 91 Room Air 06/28/16 22:00 36.9 93 16 167/81 Room Air 06/28/16 21:00 85 18 143/75 96 Room Air 06/28/16 19:18 84 18 144/78 96 Room Air 06/28/16 17:01 88 18 141/78 91 Room Air 06/28/16 14:09 73 20 172/77 99 Room Air 06/28/16 12:08 36.8 53 16 132/72 97 Room Air Physical Exam General Appearance: WD/WN, no apparent distress Eyes: normal inspection, PERRL, EOMI, sclerae normal ENT: normal ENT inspection, hearing grossly normal, pharynx normal Neck: supple, no adenopathy, thyroid normal, no JVD, no carotid bruits, trachea midline Respiratory/Chest: chest non-tender, lungs clear, normal breath sounds, no respiratory distress, no accessory muscle use Cardiovascular: regular rate, rhythm, no edema, no gallop, no JVD, no murmur Abdomen: normal bowel sounds, non tender, soft, no organomegaly, no pulsatile mass Extremities: normal range of motion, non-tender, normal inspection, no pedal edema, no calf tenderness, normal capillary refill, pelvis stable, + pertinent finding (left wrist local in dressing after aspiration, no tender/ no red, local no swelling) 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, no motor/sensory deficits, alert, normal mood/affect, oriented x 3 Skin: normal color, warm/dry, no rash Lymphatic: no adenopathy Laboratory Results Last 24 Hours Test 06/28/16 12:30 06/28/16 15:45 06/28/16 16:50 06/29/16 05:25 White Blood Count 8.96 K/uL 8.67 K/uL Red Blood Count 3.41 M/uL 3.05 M/uL Hemoglobin 10.7 g/dL 9.5 g/dL Hematocrit 29.5 % 27.1 % Mean Corpuscular Volume 86.5 fL 88.9 fL Mean Corpuscular Hemoglobin 31.4 pg 31.1 pg Mean Corpuscular Hemoglobin Concent 36.3 g/dl 35.1 g/dl Platelet Count 198 K/uL 202 K/uL Mean Platelet Volume 9.6 fL 10.2 fL Neutrophils (%) (Auto) 79.7 % Lymphocytes (%) (Auto) 11.5 % Monocytes (%) (Auto) 7.4 % Eosinophils (%) (Auto) 0.9 % Basophils (%) (Auto) 0.2 % Neutrophils # (Auto) 7.14 K/uL Lymphocytes # (Auto) 1.03 K/uL Monocytes # (Auto) 0.66 K/uL Eosinophils # (Auto) 0.08 K/uL Basophils # (Auto) 0.02 K/uL RDW Standard Deviation 43.6 fL 44.1 fL RDW Coefficient of Variation 13.8 % 13.6 % Immature Granulocyte % (Auto) 0.3 % Immature Granulocyte # (Auto) 0.03 K/uL Erythrocyte Sedimentation Rate 55 mm/hr Prothrombin Time 10.7 SECONDS Prothromb Time International Ratio 1.0 Activated Partial Thromboplast Time 46.6 SECONDS Partial Thromboplastin Ratio 1.8 Sodium Level 138 mmol/L 141 mmol/L Potassium Level 3.8 mmol/L 3.8 mmol/L Chloride Level 102 mmol/L 103 mmol/L Carbon Dioxide Level 24 mmol/L 25 mmol/L Anion Gap 12.0 mmol/L 13.0 mmol/L Blood Urea Nitrogen 40 mg/dl 39 mg/dl Creatinine 2.00 mg/dl 1.80 mg/dl Est Creatinine Clear Calc Drug Dose 29.4 ml/min 32.6 ml/min Estimated GFR () 36.5 41.4 Estimated GFR (Non- 31.5 35.8 BUN/Creatinine Ratio 20.0 21.4 Random Glucose 132 mg/dl 125 mg/dl Uric Acid 4.5 mg/dl Calcium Level 9.2 mg/dl 8.7 mg/dl Total Bilirubin 0.5 mg/dl Direct Bilirubin 0.2 mg/dl Aspartate Amino Transf (AST/SGOT) 20 U/L Alanine Aminotransferase (ALT/SGPT) 23 U/L Alkaline Phosphatase 119 U/L C-Reactive Protein 3.16 mg/dl Total Protein 6.9 gm/dl Albumin 3.2 gm/dl Synovial Fluid Source L WRIST Synovial Fluid Color PALE YELLOW Synovial Fluid Appearance CLOUDY Synovial Fluid WBC 78104 /uL Synovial Fluid RBC 22349 /uL Synovial Fluid Polynuclear WBCs % 92.2 % Synovial Fluid Mononuclear WBCs % 7.8 % Synovial Fluid Crystals Urine Color YELLOW Urine Appearance CLEAR Urine pH 6.5 Urine Specific Thomas 1.013 Urine Protein NEG Urine Glucose (UA) NEG Urine Ketones NEG Urine Occult Blood NEG Urine Nitrite NEG Urine Bilirubin NEG Urine Urobilinogen NEG Urine Leukocyte Esterase NEG Urine WBC (Auto) 0 /hpf Urine RBC (Auto) 0-4 /hpf Urine Hyaline Casts (Auto) 0 /lpf Urine Epithelial Cells (Auto) 0-5 /lpf Urine Bacteria (Auto) NEG Test 06/29/16 08:40 Assessment and Plan 76-year-old male, admitted on 06/28/2016 with the hospital septic left wrist arthritis with left wrist pain and is diagnosed with septic arthritis. Left wrist pain with possible Septic arthritis. Other differential diagnosis include gout or pseudogout , He has history of gout The joint was aspirated. White blood cells in the synovial fluid was more than 65,000, We are pending culture results. Continue current antibiotics ceftriaxone and vancomycin, follow-up culture results. He received morphine for pain control. Patient has no fever or chill, no leukocytosis, ESR CRP lactase was not checked , we'll order Possible has gout, with history of gout, got 1 dose of Solu-Medrol in the emergency known, I will give oral prednisone for the gout flaring treatment, GI prophylaxis ordered I will not give any colchicine for now because patient has impaired renal function which has risk of worsening renal function, actually patient's condition is improving , so not consider colchicine for now Coronary artery disease. Chronic kidney disease. Depression. 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 GI and DVT prophylaxis is ordered Out of bed and walk, discussed with orthopedic surgeon Continued [facility] stay due to: multiple IV medications needed Discharge planning: home
--- NOTE | 2016-06-29 09:22 | ORTHOPEDIC CONSULTATION ---
DATE OF CONSULTATION: 06/29/2016 DATE OF CONSULTATION: 06/29/2016. CHIEF COMPLAINT: Left wrist pain. HISTORY OF PRESENT ILLNESS: This patient is a 76-year-old male who was admitted through the medical service last night for suspected septic arthritis of the left wrist. He has an extensive history which includes coronary artery disease, chronic kidney disease, hemophilia, who presented with swelling and pain in his left wrist for approximately 1 week. He has been treated by his primary physician and was not getting better when he presented to the Emergency Room. He was actually seen by our physician's cafeteria assistant last evening and aspirated for 1 mL of cloudy fluid for what was suspected to be an acute attack of gout. The patient was subsequently admitted and placed on IV antibiotics; however, he did not have any history of fever, chills or any other systemic symptoms to suggest infection. Today, the patient is much more comfortable in bed. He is moving his wrist and states the pain is less. PAST MEDICAL HISTORY AND MEDICATIONS: See recent history. Note, patient is on allopurinol chronically for history of gout. PHYSICAL EXAMINATION: The patient today is in bed. He has his arm behind his head. He can flex and move his wrist. There is a small bandage on the wrist. Today, I can move the wrist without really any discomfort and there is no significant erythema. LABORATORY VALUES: Microbiology Gram stain shows moderate WBCs and no organisms seen. The fluid analysis showed 65,000 white cells with 12,000 red cells. There was a shift in the fluid with 92 polys. X-rays of the wrist were essentially unremarkable. IMPRESSION: It is very doubtful that this patient would have an acute septic arthritis without some type of source. The patient has a history of gout and the most likely diagnosis is gouty arthritis of the wrist. Currently, the patient is on vancomycin pending the results of his cultures. He is not under any treatment right now for an acute attack of gout. With the history of hemophilia I would avoid Indocin. Recommend either using colchicine or prednisone to treat this inflammatory flare. Again, this is highly unlikely to be septic arthritis. The patient has no constitutional symptoms, has no fever and his white count is normal. Granted there are white cells in the fluid but this would be typical for gout. We will follow him along with you, but again recommend treatment for acute attack of gout. Thank you for this consult.
[2016-06-29] MEDS: VANCOMYCIN INJ 1,200 MG in SODIUM CHLORIDE 0.9% 250ML 250 ML IV SCH (11:36)
--- NOTE | 2016-06-29 11:39 | Pharmacy Progress Note ---
Pharmacy Antibiotic Consult Date of Service: Jun 29, 2016. Pharmacy Dosing Scope Pharmacy is consulted to initiate Vancomycin IV dosing therapy, order appropriate labs and adjust drug dose/frequency. Subjective The patient is a 76 year old male admitted on Jun 28, 2016 at 20:39. Objective Height (Feet): 5 Height (Inches): 7.00 Weight (Kilograms): 78.400 Lab Results (24hrs): Item Value Date Time Random Vancomycin Level 15.3 mcg/ml 06/29/16 0840 Laboratory Tests Test 06/28/16 12:30 06/29/16 05:25 BUN/Creatinine Ratio 20.0 21.4 Blood Urea Nitrogen 40 mg/dl 39 mg/dl Creatinine 2.00 mg/dl 1.80 mg/dl White Blood Count 8.96 K/uL 8.67 K/uL Red Blood Count 3.41 M/uL Hemoglobin 10.7 g/dL Hematocrit 29.5 % Mean Corpuscular Volume 86.5 fL Mean Corpuscular Hemoglobin 31.4 pg Mean Corpuscular Hemoglobin Concent 36.3 g/dl Platelet Count 198 K/uL Mean Platelet Volume 9.6 fL Neutrophils (%) (Auto) 79.7 % Lymphocytes (%) (Auto) 11.5 % Monocytes (%) (Auto) 7.4 % Eosinophils (%) (Auto) 0.9 % Basophils (%) (Auto) 0.2 % Neutrophils # (Auto) 7.14 K/uL Lymphocytes # (Auto) 1.03 K/uL Monocytes # (Auto) 0.66 K/uL Eosinophils # (Auto) 0.08 K/uL Basophils # (Auto) 0.02 K/uL Micro Results: Item Value Date Time Gram Stain - Final Resulted 06/28/16 1545 Joint Fluid/Space (Synovial) Wrist GRAM STAIN Final 06/28/16-1847 RESULT MODERATE WBCs SEEN Assessment & Plan Assessment * 76 y/o M on empiric IV Vancomycin and Ceftriaxone (not a consult) for possible L wrist septic arthritis. Orthopedics was consulted and they do not think this is septic arthritis as patient does not have any systemic s/sx infection. They are suspecting that the patient's problem is related to gout. Culture from synovial aspiration is pending. * Patient with CKD. Most recent sCr = 1.8 mg/mL with estimated CrCl ~33 mL/ min. * Patient received Vancomycin 1500mg (~20mg/kg) IV x 1 on 06/28 @ 2016 as a loading dose. * Random Vancomycin level (obtained ~12 hours after last dose) on 06/29 @ 0840 was 15.3 mcg/mL * Patient appears to be eliminating Vancomycin much more rapidly than would be anticipated based on his renal function. His "peak" Vancomycin level was likely ~27 mcg/mL. His estimated half-life based on population pharmacokinetics was ~22 hours. However, it appears that it may actually be ~ 14 hours (based on random level obtained 12 hours after dose). Given the random level, patient is due for another dose. Plan * Initiate Vancomycin 1200mg (~15mg/kg) IV q16 * Goal Vancomycin trough 15-20 mcg/mL (higher trough for joint infection) * Trough level ordered for 06/30 @ 1930 (only prior to the 3rd dose and therefore not reflective of steady state but would like to assess dosing regimen earlier due to patient's age, renal function, and dosing more frequently than his estimated half-life). Pharmacy will continue to follow and will adjust dose/frequency as necessary. Thank you
[2016-06-29 15:08] VITALS: BP 157/73; PULSE 62; TEMP 36.7; O2SAT 94
[2016-06-29] MEDS: DORZOLAMIDE HCL 2% OPH SOLN 10 ML BTL OPB SCH (21:48)
[2016-06-29] MEDS: ATORVASTATIN 40 MG TAB PO SCH (21:48)
[2016-06-29 23:24] VITALS: BP 182/76; PULSE 58; TEMP 36.8; O2SAT 93
[2016-06-29 23:25] VITALS: BP 176/79
[2016-06-29 23:56] VITALS: BP 183/85; PULSE 62
[2016-06-30] VITALS (9 sets, daily range): BP systolic 152–194; BP diastolic 71–86; PULSE 60–71; TEMP 36.6; O2SAT 98–99
[2016-06-30] MEDS ORDERED: HydrALAZINE HCL 20 MG/ML VIAL IV. PRN (03:15)
[2016-06-30] MEDS ORDERED: HydrALAZINE HCL 20 MG/ML VIAL ONE (03:23)
[2016-06-30] MEDS: VANCOMYCIN INJ 1,200 MG in SODIUM CHLORIDE 0.9% 250ML 250 ML IV SCH (04:39)
[2016-06-30 06:34] LABS: CREATININE 1.7 mg/dl (0.60-1.40)
[2016-06-30] MEDS: BECLOMETHASONE HFA 40 MCG INHALER INH SCH (07:28)
[2016-06-30] MEDS: ASPIRIN 81 MG ECTAB PO SCH (07:29)
[2016-06-30] MEDS: ALLOPURINOL 100 MG TAB PO SCH (07:29)
[2016-06-30] MEDS: PANTOprazole SOD 40 MG TAB PO SCH (07:29)
[2016-06-30] MEDS: MAGNESIUM OXIDE 400 MG TAB PO SCH (07:29)
[2016-06-30] MEDS: DULOXETINE (CYMBALTA) 30 MG CAP PO SCH (07:29)
[2016-06-30] MEDS: OXYBUTYNIN CHLORIDE 5 MG TAB PO SCH ×2 (07:30→13:51)
[2016-06-30] MEDS: FINASTERIDE 5 MG TAB PO SCH (07:30)
[2016-06-30] MEDS: METOLAZONE 5 MG TAB PO SCH (07:30)
[2016-06-30] MEDS: CEFTRIAXONE SOD INJ 1 GM in DEXTROSE 5% ADD-VANTAGE 50ML 50 ML IV SCH (08:24)
[2016-06-30] MEDS ORDERED: PRD20 PO (09:25)
[2016-06-30] MEDS ORDERED: NRV5 PO ×2 (09:28→09:35)
[2016-06-30] MEDS ORDERED: AMLODIPINE BESYLATE 5 MG TAB PO ONE ×2 (09:30→09:45)
--- NOTE | 2016-06-30 09:42 | Discharge Instructions ---
Discharge Instructions Admission Reason for Admission: Septic Arthritis Discharge Discharge Diagnosis / Problem: Left wrist pain with possible from gout Discharge Goals Goal(s): Decrease discomfort, Improve function, Increase independence, Improve disease control, Learn about illness, Diagnostic testing, Therapeutic intervention, Prevent Disease Progression, Specific goals Activity Recommendations Activity Limitations: resume your previous activity . Instructions / Follow-Up Instructions / Follow-Up you have left wrist arthritis likely from gout I am giving you oral prednisone tapering dose for the gout flaring treatment your testing so far has no indication for septic arthritis, however , you need to follow up with Dr. Yoder in 2-3 days to make sure everything is ok you have accelerated hypertension, I add new medication of Amlodipine - take medication as instructed, never overdose or any misuse, or take with alcohol, because misuse of medicine may cause organ damage or , call your primary care physician if have questions of medicaitons. - call your primary care physician OR go to local emergency room if has any fever/chill, chest pain, shortness of breathing, nausea/vomiting/abdominal pain , facial droop/slurry speech/local weakness, or if has any questions. - fall precaution - diet as instructed - you should understand that it is important to follow up the above instruction , and "not following the above instruction" may cause delayed or missed care of your medical conditions which may cause permanent organ damage and even . Current Hospital Diet Patient's current hospital diet: AHA Diet (Heart Healthy) Discharge Diet Recommended Diet: AHA Diet (Heart Healthy) Pending Studies Studies pending at discharge: no Medical Emergencies . Who to Call and When: Medical Emergencies: If at any time you feel your situation is an emergency, please call 911 immediately. . Non-Emergent Contact Non-Emergency issues call your: Primary Care Provider . . "Provider Documentation" section prepared by Parvez De La Rosa. VTE Core Measure Inpt VTE Proph given/why not?: SCD's
--- NOTE | 2016-06-30 16:35 | Discharge Summary ---
Discharge Summary Admission Date: Jun 28, 2016 at 20:39 Discharge Date: Jun 30, 2016 Principal Diagnosis: left wrist arthritis likely from gout Problems/Secondary Diagnoses: accelerated hypertension Immunizations: Have You Had Influenza Vaccine: Yes History of Tetanus Vaccine?: No History of Pneumococcal: 2000 History of Hepatitis B Vaccine: No Procedures: Left wrist joint aspiration Consultations: Orthopedic Medication Reconciliation New Medications: Amlodipine Besylate (Amlodipine Besylate) 5 Mg Tab 2.5 MG PO DAILY, #30 TAB Prednisone (Prednisone) 20 Mg Tab 40 MG PO Q12 for 7 Days, #11 TAB 2 tab po bid for 1 day then 1 tab po bid for 2 days then 1 tab po daily for 2 day thne 1/2 tab po daily for 2 day then stop Continued Medications: Acetaminophen (Tylenol) 500 Mg Tab 1000 MG PO Q6 PRN for Pain, TAB Allopurinol (Zyloprim) 100 Mg Tab 200 MG PO DAILY, TAB Aminocaproic Acid (Amicar) 500 Mg Tab 500 MG PO UD PRN for coagulation Aspirin (Aspirin Chewable) 81 Mg Chew 81 MG PO DAILY Atorvastatin (Lipitor) 80 Mg Tab 80 MG PO HS, TAB Beclomethasone Dip (Qvar) 120 Puffs/4800 Mcg Aers 2 PUFF INH BID Carvedilol (Carvedilol) 12.5 Mg Tab 12.5 MG PO BID PRN for HR > 55 BPM for 30 Days, #60 TAB 3 Refills Diazepam (Valium) 2 Mg Tab 2-4 MG PO Q6H PRN for Pain Dorzolamide Hcl (Trusopt Oph) 2 % Vidhya 1 DROP OPB HS Duloxetine Hcl (Cymbalta) 30 Mg Cap 30 MG PO DAILY, CAP Esomeprazole Magnesium (Nexium) 40 Mg Capcr 40 MG PO DAILY Finasteride (Proscar) 5 Mg Tab 5 MG PO DAILY, TAB Magnesium Oxide (Magnesium-Oxide) 400 Mg Tab 400 MG PO BID for 30 Days, 6 Refills Metolazone (Metolazone) 5 Mg Tab 5 MG PO DAILY Multiple Vitamins W/ Minerals (Centrum Silver Adult 50+) 1 Tab Tab 1 TAB PO DAILY Nitroglycerin (Nitrostat) 0.4 Mg Tab 0.4 MG SL UD PRN for Chest Pain PLACE ONE TABLET UNDER THE TONGUE EVERY 5 MINUTES FOR UP TO 3 DOSES OVER 15 MINUTES IF NEEDED FOR CHEST PAIN [place]-3 Fatty Acids ([place] 3) 1 Cap Cap 1 CAP PO DAILY Oxybutynin Chloride (Oxybutynin Chloride) 5 Mg Tab 5 MG PO TID Tizanidine Hcl (Zanaflex) 4 Mg Tab 1 TAB PO TID PRN for Muscle Spasms for 10 Days, #30 TAB Tramadol (Ultram) 50 Mg Tab 50 MG PO Q6H PRN for Pain, #15 TAB Discharge Exam Doing well, no pain, no swelling no limited range of motion in left wrist Review of Systems: Constitutional: No chills, No fatigue, No fever, No problem reported, No sweats, No weakness, No weight loss Eyes: No diplopia, No discharge, No eye pain, No problem reported, No redness, No worsening of vision ENT: No dental problems, No hearing loss, No nasal symptoms, No problem reported, No sore throat, No tinnitus, No trouble swallowing, No unusual epistaxis Respiratory: No cough, No dyspnea at rest, No dyspnea on exertion, No hemoptysis, No problem reported, No shortness of breath, No sputum, No wheezing Cardiovascular: No PND, No chest pain, No claudication, No edema, No orthopnea, No palpitations, No problem reported Abdomen: No GI bleeding, No constipation, No diarrhea, No nausea, No pain, No problem reported, No vomiting Musculoskeletal: No calf pain, No joint pain, No muscle pain, No problem reported, No swelling Genitourinary - Male: No dysuria, No hematuria, No impotence, No lesions, No penile discharge, No problem reported, No urinary frequency, No urinary hesitancy, No urinary incontinence, No urinary retention, No urinary urgency Neurologic: No balance problems, No memory loss, No numbness/tingling, No paralysis, No problem reported, No vertigo, No weakness Psychiatric: No anhedonism, No anxiety, No depression symptoms, No insomnia , No problem reported, No substance abuse Endocrine: No excessive thirst, No excessive urination, No fatigue, No problem reported Integumentary: No bleeding, No color change, No itch, No new/changing skin lesions, No problem reported, No rash Hospital Course 76-year-old male, admitted on 06/28/2016 with the possible septic left wrist arthritis with left wrist pain and is diagnosed with septic arthritis. Left wrist pain with possible Septic arthritis. Other differential diagnosis include gout or pseudogout , He has history of gout The joint was aspirated. White blood cells in the synovial fluid was more than 65,000, culture has no growth Has been on antibiotics ceftriaxone and vancomycin, which will be discontinued He received morphine for pain control. Patient has no fever or chill, no leukocytosis, Possible has gout, with history of gout, got 1 dose of Solu-Medrol in the emergency known, give oral prednisone for the gout flaring treatment, Seems responds well , continue tapering dose of prednisone upon discharge GI prophylaxis ordered I did not give any colchicine because patient has impaired renal function which has risk of worsening renal function, actually patient's left wrist pain condition has been improving , so not consider colchicine for now Coronary artery disease. Chronic kidney disease. Depression. 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 GI and DVT prophylaxis is ordered Out of bed and walk, discussed with orthopedic surgeon Instructions / Follow-Up you have left wrist arthritis likely from gout I am giving you oral prednisone tapering dose for the gout flaring treatment your testing so far has no indication for septic arthritis, however , you need to follow up with Dr. Yoder in 2-3 days to make sure everything is ok you have accelerated hypertension, I add new medication of Amlodipine - take medication as instructed, never overdose or any misuse, or take with alcohol, because misuse of medicine may cause organ damage or , call your primary care physician if have questions of medicaitons. - call your primary care physician OR go to local emergency room if has any fever/chill, chest pain, shortness of breathing, nausea/vomiting/abdominal pain , facial droop/slurry speech/local weakness, or if has any questions. - fall precaution - diet as instructed - you should understand that it is important to follow up the above instruction , and "not following the above instruction" may cause delayed or missed care of your medical conditions which may cause permanent organ damage and even . Total Time Spent: Less than 30 minutes This includes examination of the patient, discharge planning, medication reconciliation, and communication with other providers. Discharge Instructions Please refer to the electronic Patient Visit Report (Discharge Instructions) for additional information. Additional Copies To Chano Magdaleno M.D.; Timothy Yoder M.D.
[2016-06-30] MEDS ORDERED: VANCOMYCIN TROUGH ONE (19:30)
[2016-07-01] MEDS ORDERED: AMLODIPINE BESYLATE 5 MG TAB PO SCH ×2 (09:00)
[2016-08-11] MEDS ORDERED: ASPCH81X PO (09:07)
[2016-08-11] MEDS ORDERED: ATOR-26 PO (09:21)
[2016-08-11] MEDS ORDERED: OMEG12006 PO (09:21)
[2016-08-11] MEDS ORDERED: AMIN1TAB5 PO (09:21)
[2016-08-11] MEDS ORDERED: CYM/30 PO (13:17)
[2016-08-11] MEDS ORDERED: ALLO100T PO (13:17)
[2016-08-11] MEDS ORDERED: DTR5 PO (13:21)
[2016-08-11] MEDS ORDERED: ZRX5 PO (13:21)
[2016-08-11] MEDS ORDERED: MULT-845 PO (13:30)
[2016-08-11] MEDS ORDERED: FINA5TAB PO (13:54)
== END 2016-06-30 15:45 | disposition home or self-care (01) | DRG 553 ==
LOC: ENRESERVDT → ENRESERVTM → C.EDB 11:52 → C.MSW 20:39
PROVIDERS: ADMIT Internal Medicine; ATTEND Hospitalist
PROC: 0R9P3ZX Drainage of Left Wrist Joint, Percutaneous Approach, Diagnostic (ICD-10-PCS; principal; 2016-06-28)
DX: M10.9 Gout, unspecified (principal); D66 Hereditary factor VIII deficiency; J45.909 Unspecified asthma, uncomplicated; I12.9 Hypertensive chronic kidney disease with stage 1 through stage 4 chronic kidney disease, or unspecified chronic kidney disease; N18.3 Chronic kidney disease, stage 3 (moderate); K21.9 Gastro-esophageal reflux disease without esophagitis; F32.9 Major depressive disorder, single episode, unspecified; I25.10 Atherosclerotic heart disease of native coronary artery without angina pectoris; N40.0 Benign prostatic hyperplasia without lower urinary tract symptoms; H40.9 Unspecified glaucoma; I25.2 Old myocardial infarction; Z95.5 Presence of coronary angioplasty implant and graft; Z86.19 Personal history of other infectious and parasitic diseases; Z88.8 Allergy status to other drugs, medicaments and biological substances; Z79.82 Long term (current) use of aspirin; Z79.51 Long term (current) use of inhaled steroids; Z79.891 Long term (current) use of opiate analgesic; M54.12 Radiculopathy, cervical region

== ENCOUNTER → 2016-07-15 | Outpatient (CLI) | payer BC ==
[~2016-07-15] MED LIST changes: +ACET-1256 PO; +ALLO100T PO; +AMIN1TAB5 PO; +ASPCH81X PO; +ATOR-26 PO; +BRIM0.2S18 OPB; +CYM/30 PO; +DIAZ2TAB PO; +DORZ2SOL17 OPB; +DTR5 PO; +FINA5TAB PO; +MULT-845 PO; +NRV5 PO; +NTRGSL/4 SL; +NXM/40 PO; +OMEG12006 PO; +PRD20 PO; +PRED10TA PO; +QVRINH40 INH; -TIZA4TAB3 PO; +XLTOPS OPB; +ZNF/4 PO; +ZRX5 PO
[2016-07-15 17:35] LABS: HEMATOCRIT 31.6 % (42-52); MEAN CELL VOLUME 92.1 fL (80-100); MEAN CORPUSCULAR HEMOGLOBIN 30.6 pg (25-34); MEAN CORPUSCULAR HGB CONC 33.2 g/dl (32-36); MEAN PLATELET VOLUME 10.2 fL (7.4-10.4); PLATELET COUNT 164 K/uL (130-400); RED BLOOD COUNT 3.43 M/uL (4.7-6.1); WHITE BLOOD COUNT 8.45 K/uL (4.8-10.8)
[2016-07-15 18:04] LABS: BASO % 0.1 %; BASO ABS # 0.01 K/uL (0-0.2); COMPLETE YES; EOS % 1.1 %; IG% 0.4 %; LYMPH % 13.3 %; LYMPH ABS # 1.12 K/uL (1.2-3.4); MONO % 6.5 %; NEUT % 78.6 %
== END | disposition home or self-care (01) ==
LOC: C.LAB1850 17:01
PROVIDERS: ATTEND Internal Medicine
DX: D64.9 Anemia, unspecified (principal)

== ENCOUNTER 2016-08-11 14:30 | Emergency (ER) | payer BC ==
[~2016-08-11] VITALS: Ht 170.2 cm; Wt 88.2 kg
[~2016-08-11 14:30] MED LIST changes: -ACET-1256 PO; -BRIM0.2S18 OPB; -DIAZ2TAB PO; -DORZ2SOL17 OPB; -NTRGSL/4 SL; -NXM/40 PO; -PRED10TA PO; -QVRINH40 INH; -XLTOPS OPB; -ZNF/4 PO
[2016-08-11] MEDS ORDERED: ACET-1256 PO (14:31)
[2016-08-11] MEDS ORDERED: QVRINH40 INH (14:31)
[2016-08-11 14:32] VITALS: TEMP 36.7; Ht 170.2 cm; Wt 88.2 kg
--- NOTE | 2016-08-11 14:56 | EMERGENCY ROOM VISIT NOTE ---
History Report prepared by Kimi: Oscar Bush Under the Supervision of: Dr. Dustin Ward D.O. First contact with patient: 14:40 Chief Complaint: BLEEDING Stated Complaint: BLEEDING, HAD A BLOOD DISORDER History of Present Illness The patient is a 76 year old male who presents to the Emergency Room with concerns over worsening bleeding that began on Friday, four days prior to this visit. The patient states that he was trying to fix a light in the ground when he fell backwards onto his backside. He states that the bruising on his back and sides has not stopped worsening since this episode. He denies hitting his head during the fall or lose consciousness, and has not experienced any recent headaches. The patient did see Ophthalmology on to resolve the bleeding in his right eye. 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 The patient does note that he seems to have some increased fluid on his legs lately. Source of History: patient Onset: Four days Position: back Quality: other (Bleeding/Bruising) Timing: worsening Associated Symptoms: No LOC, No headache Review of Systems See HPI for pertinent positives & negatives. A total of 10 systems reviewed and were otherwise negative. Past Medical & Surgical Medical Problems: (1) Chronic Kidney Disease, Unspecified (2) Diaphragmatic Hernia (3) Elevated troponin (4) Esophageal Reflux (5) Factor VIII deficiency hemophilia (6) Gout Nos (7) Hypertension Nos (8) Intractable headache (9) Septic arthritis (10) Von Willebrand's Disease (11) Von Willebrand's Disease Surgical Problems: (1) History of cholecystectomy Family History Cancer Diabetes mellitus Gallbladder disease Heart disease Hypertension Social History Smoking Status: Never Smoker Alcohol Use: none Marital Status: Housing Status: lives with significant other Occupation Status: retired Current/Historical Medications Scheduled Allopurinol (Zyloprim), 200 MG PO DAILY Amlodipine Besylate (Amlodipine Besylate), 2.5 MG PO DAILY Aspirin (Aspirin Chewable), 81 MG PO DAILY Atorvastatin (Lipitor), 80 MG PO HS Beclomethasone Dip (Qvar), 2 PUFF INH BID Brimonidine Tartrate (Brimonidine Tartrate), 1 DROP OPB UD Dorzolamide Hcl (Trusopt Oph), 1 DROP OPB HS Duloxetine Hcl (Cymbalta), 30 MG PO DAILY Esomeprazole Magnesium (Nexium), 40 MG PO DAILY Finasteride (Proscar), 5 MG PO DAILY Latanoprost (Latanoprost), 1 DROP OPB UD Magnesium Oxide (Magnesium-Oxide), 400 MG PO BID Metolazone (Metolazone), 5 MG PO DAILY Multiple Vitamins W/ Minerals (Centrum Silver Adult 50+), 1 TAB PO DAILY Bowbells-3 Fatty Acids (Bowbells 3), 1 CAP PO DAILY Oxybutynin Chloride (Oxybutynin Chloride), 5 MG PO TID Prednisone (Prednisone), 10 MG PO TAPER UD Scheduled PRN Acetaminophen (Tylenol), 1,000 MG PO Q6 PRN for Pain Aminocaproic Acid (Amicar), 500 MG PO UD PRN for coagulation Carvedilol (Carvedilol), 12.5 MG PO BID PRN for HR > 55 BPM Diazepam (Valium), 2-4 MG PO Q6H PRN for Pain Nitroglycerin (Nitrostat), 0.4 MG SL UD PRN for Chest Pain Tizanidine (Tizanidine HCl), 4 MG PO TID PRN for Muscle Spasms Allergies Coded Allergies: Adhesives (Verified Allergy, Unknown, BANDAID, 06/28/16) Antihemophilic Factor (Verified Allergy, Unknown, UNKNOWN, 06/28/16) Codeine (Verified Allergy, Unknown, SOB/ N/V, 06/28/16) Homatropine (Unverified Allergy, Unknown, UNKNOWN, 06/28/16) Horse Serum Proteins (Unverified Allergy, Unknown, ILLNESS, 06/28/16) Hydrocodone (Unverified Allergy, Unknown, UNKNOWN, 06/28/16) Niacin (Unverified Allergy, Unknown, UNKNOWN, 06/28/16) Tetanus Toxoid (Verified Allergy, Unknown, 06/28/16) Physical Exam Vital Signs Date Time Temp Pulse Resp B/P Pulse Ox O2 Delivery O2 Flow Rate FiO2 08/11/16 15:42 60 18 137/78 96 Room Air 08/11/16 15:30 57 18 130/63 95 Room Air 08/11/16 15:24 61 08/11/16 14:32 36.7 68 20 136/79 96 Room Air Physical Exam GENERAL: Patient is awake, alert, and in no acute distress. Patient is resting comfortably and showing no signs of anxiety EYES: There is right periorbital ecchymosis with hemorrhagic chemosis noted. No tenderness in the periorbital region. The pupils are round and reactive. EARS, NOSE, MOUTH AND THROAT: The nose is without any evidence of any deformity. Mucous membranes are moist tongue is midline NECK: The neck is nontender and supple. RESPIRATORY: Normal respiratory effort is noted there is no evidence of wheezing rhonchi or rales CARDIOVASCULAR: Regular rate and rhythm noted there no murmurs rubs or gallops normal S1 normal S2 GASTROINTESTINAL: The abdomen is soft. Bowel sounds are present in all quadrants. Abdomen is nontender PELVIS: The Pelvis is stable. No tenderness to palpation is noted. BACK: No midline tenderness or or step-off noted range of motion in flexion extension as well as rotation no signs of muscle spasm noted MUSCULOSKELETAL/EXTREMITIES: There is full range of motion in the right shoulder. Ecchymosis is noted in the axilla and the right lateral chest wall and in the RUE. Pulses were equal and symmetric. There is no evidence of gross deformity full range of motion is noted in the hips and shoulders SKIN: No pedal edema was noted. There is no obvious evidence of any rash. There are no petechiae, pallor or cyanosis noted. NEUROLOGIC: Patient is awake alert and oriented x3 strength is symmetric patellar reflexes are 2+ bilaterally Medical Decision & Procedures ER Provider Diagnostic Interpretation: Radiology results as stated below per my review and radiologist interpretation: CHEST 2 VIEWS ROUTINE CLINICAL HISTORY: Shoulder and chest pain status post trauma COMPARISON STUDY: 06/28/2016 FINDINGS: The heart is at the upper limits of normal in size. There is no failure. There is no focal pulmonary consolidation.[ No pleural effusions are visualized. There is no pneumothorax. IMPRESSION: No active disease in the chest. Electronically signed by: Trey Amaro M.D. 08/11/2016 4:11 PM Dictated Date/Time: 08/11/2016 4:09 PM RIGHT SHOULDER MIN 2 VIEWS ROUTINE CLINICAL HISTORY: Right shoulder pain status post trauma COMPARISON: None. DISCUSSION: The bones are osteopenic. There are mild degenerative changes present. No fractures or dislocations are visualized. IMPRESSION: No fractures or dislocations identified. Electronically signed by: Trey Amaro M.D. 08/11/2016 4:12 PM Dictated Date/Time: 08/11/2016 4:11 PM Laboratory Results 08/11/16 15:06 Red Blood Count 3.05, Mean Corpuscular Volume 92.8, Mean Corpuscular Hemoglobin 30.8, Mean Corpuscular Hemoglobin Concent 33.2, Mean Platelet Volume 10.1, Neutrophils (%) (Auto) 75.7, Lymphocytes (%) (Auto) 14.5, Monocytes (%) (Auto) 7.0, Eosinophils (%) (Auto) 1.8, Basophils (%) (Auto) 0.1, Neutrophils # (Auto) 6.77, Lymphocytes # (Auto) 1.30, Monocytes # (Auto) 0.63, Eosinophils # (Auto) 0.16, Basophils # (Auto) 0.01 08/11/16 15:06 Test 08/11/16 15:06 White Blood Count 8.95 K/uL (4.8-10.8) Red Blood Count 3.05 M/uL (4.7-6.1) Hemoglobin 9.4 g/dL (14.0-18.0) Hematocrit 28.3 % (42-52) Mean Corpuscular Volume 92.8 fL (80-100) Mean Corpuscular Hemoglobin 30.8 pg (25-34) Mean Corpuscular Hemoglobin Concent 33.2 g/dl (32-36) Platelet Count 108 K/uL (130-400) Mean Platelet Volume 10.1 fL (7.4-10.4) Neutrophils (%) (Auto) 75.7 % Lymphocytes (%) (Auto) 14.5 % Monocytes (%) (Auto) 7.0 % Eosinophils (%) (Auto) 1.8 % Basophils (%) (Auto) 0.1 % Neutrophils # (Auto) 6.77 K/uL (1.4-6.5) Lymphocytes # (Auto) 1.30 K/uL (1.2-3.4) Monocytes # (Auto) 0.63 K/uL (0.11-0.59) Eosinophils # (Auto) 0.16 K/uL (0-0.5) Basophils # (Auto) 0.01 K/uL (0-0.2) RDW Standard Deviation 57.1 fL (36.4-46.3) RDW Coefficient of Variation 16.8 % (11.5-14.5) Immature Granulocyte % (Auto) 0.9 % Immature Granulocyte # (Auto) 0.08 K/uL (0.00-0.02) Prothrombin Time 10.8 SECONDS (9.0-12.0) Prothromb Time International Ratio 1.0 (0.9-1.1) Activated Partial Thromboplast Time 36.7 SECONDS (21.0-31.0) Partial Thromboplastin Ratio 1.4 Anion Gap 8.0 mmol/L (3-11) Est Creatinine Clear Calc Drug Dose 41.6 ml/min Estimated GFR () 47.8 Estimated GFR (Non- 41.2 BUN/Creatinine Ratio 20.5 (10-20) Calcium Level 8.1 mg/dl (8.5-10.1) Total Bilirubin 0.8 mg/dl (0.2-1) Direct Bilirubin 0.2 mg/dl (0-0.2) Aspartate Amino Transf (AST/SGOT) 18 U/L (15-37) Alanine Aminotransferase (ALT/SGPT) 35 U/L (12-78) Alkaline Phosphatase 83 U/L (45-117) Total Protein 5.6 gm/dl (6.4-8.2) Albumin 2.9 gm/dl (3.4-5.0) Laboratory results per my review. Medications Administered Medications (Trade) Dose Ordered Sig/Braxton Route Start Time Stop Time Status Last Admin Dose Admin Antihemophilic/ von Willebr. Factors/Syringe (Antihemo/ Vonwillebrand Factor/Syringe) ml @ 4 mls/min 1545 ONCE IV 08/11/16 15:45 08/11/16 15:46 DC 08/11/16 15:32 4 MLS/MIN ED Course 1447: The patient was evaluated in room A9B. A complete history and physical examination were performed. 1515: Ordered Antihemophilic 2,320. 1545: Ordered Antihemophili @ 4 mL/min per Protocol. 1633: Upon reevaluation, the patient is resting in bed. I discussed the results and treatment plan with him. he verbalized agreement of the treatment plan. The patient was discharged home. Medical Decision Nursing notes reviewed. Additional history is obtained from the patient's family member. The patient is a 76-year-old male who presented to the emergency department for an evaluation of pain and ecchymosis over his right chest right shoulder and right eye. The patient has a history of hemophilia. 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 The patient did not have any decreased range of motion in the shoulder. He did have significant hemorrhagic chemosis in his right eye but he had no visual difficulties was already seen by an marine service operator. The patient did not have a headache or any focal neurologic deficits. He did not want to have a CAT scan of the head and I'm not sure that this is indicated at this time. I discussed the patient's factor VIII dosing with the pharmacist. I also used the patient's bleeding disorder plan of care that his brought with him. The patient was treated in the emergency department. He was encouraged to rest and avoid any strenuous activity. He was also encouraged follow-up with his primary care physician for further evaluation or return the emergency Department immediately if symptoms change worsen or the need arises. The patient was found have some anemia as well as elevation in his creatinine however these were not significantly changed from baseline for him. Impression Primary Impression: Hematoma of right chest wall Additional Impressions: Periorbital ecchymosis of right eye Hemophilia A Scribe Attestation The scribe's documentation has been prepared under my direction and personally reviewed by me in its entirety. I confirm that the note above accurately reflects all work, treatment, procedures, and medical decision making performed by me. Departure Information Dispostion Home / Self-Care Referrals Timothy Yoder M.D. (PCP) Forms HOME CARE DOCUMENTATION FORM, IMPORTANT VISIT INFORMATION Patient Instructions My [facility] Additional Instructions Call your school custodian tomorrow to schedule follow-up appointment. Rest and avoid any strenuous activity. Return to the emergency apartment immediately if any signs of head injury develop or if need arises. Problem Qualifiers Primary Impression: Hematoma of right chest wall Encounter type: initial encounter Qualified Codes: S20.211A - Contusion of right front wall of thorax, initial encounter Additional Impressions: Periorbital ecchymosis of right eye Encounter type: initial encounter Qualified Codes: S00.11XA - Contusion of right eyelid and periocular area, initial encounter
[2016-08-11] MEDS ORDERED: FACTOR 8/HUMATE-P/RECOMBINATE ONE (15:15)
[2016-08-11 15:19] LABS: HEMATOCRIT 28.3 % (42-52); MEAN CELL VOLUME 92.8 fL (80-100); MEAN CORPUSCULAR HEMOGLOBIN 30.8 pg (25-34); MEAN CORPUSCULAR HGB CONC 33.2 g/dl (32-36); MEAN PLATELET VOLUME 10.1 fL (7.4-10.4); PLATELET COUNT 108 K/uL (130-400); RED BLOOD COUNT 3.05 M/uL (4.7-6.1); WHITE BLOOD COUNT 8.95 K/uL (4.8-10.8)
[2016-08-11] MEDS ORDERED: XLTOPS OPB (15:26)
[2016-08-11] MEDS ORDERED: PRED10TA PO (15:26)
[2016-08-11] MEDS ORDERED: ZNF/4 PO (15:26)
[2016-08-11] MEDS ORDERED: BRIM0.2S18 OPB (15:26)
[2016-08-11 15:29] LABS: PARTIAL THROMBOPLASTIN RATIO 1.4; PROTHROMBIN TIME (PATIENT) 10.8 SECONDS (9.0-12.0)
[2016-08-11 15:39] LABS: BASO % 0.1 %; BASO ABS # 0.01 K/uL (0-0.2); BUN/CREATININE RATIO 20.5 (10-20); CALCIUM 8.1 mg/dl (8.5-10.1); COMPLETE YES; CREATININE 1.6 mg/dl (0.60-1.40); EOS % 1.8 %; IG% 0.9 %; LYMPH % 14.5 %; NEUT % 75.7 %; POTASSIUM 4.2 mmol/L (3.5-5.1)
[2016-08-11] MEDS ORDERED: HUMATE P IV ONE ×2 (15:45)
--- NOTE | 2016-08-11 16:12 | DIAGNOSTIC IMAGING REPORT ---
CHEST 2 VIEWS ROUTINE CLINICAL HISTORY: Shoulder and chest pain status post trauma COMPARISON STUDY: 06/28/2016 FINDINGS: The heart is at the upper limits of normal in size. There is no failure. There is no focal pulmonary consolidation.[ No pleural effusions are visualized. There is no pneumothorax. IMPRESSION: No active disease in the chest. Electronically signed by: Trey Amaro M.D. 08/11/2016 4:11 PM Dictated Date/Time: 08/11/2016 4:09 PM
--- NOTE | 2016-08-11 16:14 | DIAGNOSTIC IMAGING REPORT ---
RIGHT SHOULDER MIN 2 VIEWS ROUTINE CLINICAL HISTORY: Right shoulder pain status post trauma COMPARISON: None. DISCUSSION: The bones are osteopenic. There are mild degenerative changes present. No fractures or dislocations are visualized. IMPRESSION: No fractures or dislocations identified. Electronically signed by: Trey Amaro M.D. 08/11/2016 4:12 PM Dictated Date/Time: 08/11/2016 4:11 PM
[2016-08-11 17:00] VITALS: BP 140/76; PULSE 68; O2SAT 98
[2016-08-11] MEDS ORDERED: DORZ2SOL17 OPB (18:00)
[2016-08-11] MEDS ORDERED: NTRGSL/4 SL (19:42)
[2016-08-11] MEDS ORDERED: DIAZ2TAB PO (22:30)
[2016-08-11] MEDS ORDERED: NXM/40 PO (22:30)
== END 2016-08-11 17:09 | disposition home or self-care (01) ==
LOC: C.EDB 14:31 → C.EDA 17:09
DX: S20.211A Contusion of right front wall of thorax, initial encounter (principal); S00.11XA Contusion of right eyelid and periocular area, initial encounter; W19.XXXA Unspecified fall, initial encounter; D66 Hereditary factor VIII deficiency; N18.9 Chronic kidney disease, unspecified; K21.9 Gastro-esophageal reflux disease without esophagitis; M10.9 Gout, unspecified; I12.9 Hypertensive chronic kidney disease with stage 1 through stage 4 chronic kidney disease, or unspecified chronic kidney disease; Z80.9 Family history of malignant neoplasm, unspecified; Z83.3 Family history of diabetes mellitus; Z83.79 Family history of other diseases of the digestive system; Z82.49 Family history of ischemic heart disease and other diseases of the circulatory system; Z79.82 Long term (current) use of aspirin; Z79.52 Long term (current) use of systemic steroids; Z79.899 Other long term (current) drug therapy

== ENCOUNTER → 2016-08-26 | Outpatient (CLI) | payer BC ==
[~2016-08-26] MED LIST changes: +ACET-1256 PO; +BRIM0.2S18 OPB; +DIAZ2TAB PO; +DORZ2SOL17 OPB; +NMN10 PO; +NTRGSL/4 SL; +NXM/40 PO; +OXYC-57 PO; -PRD20 PO; +PRED10TA PO; +QVRINH40 INH; -TRAM-10 PO; +XLTOPS OPB; +ZNF/4 PO
[2016-08-26 15:00] LABS: BASO % 0.3 %; BASO ABS # 0.02 K/uL (0-0.2); COMPLETE YES; EOS % 1.2 %; IG% 1.4 %; LYMPH % 14.7 %; LYMPH ABS # 1.06 K/uL (1.2-3.4); MEAN CORPUSCULAR HEMOGLOBIN 30.6 pg (25-34); MEAN CORPUSCULAR HGB CONC 32.9 g/dl (32-36); MEAN PLATELET VOLUME 9.7 fL (7.4-10.4); MONO % 8.9 %; NEUT % 73.5 %; PLATELET COUNT 173 K/uL (130-400); RED BLOOD COUNT 3.01 M/uL (4.7-6.1); WHITE BLOOD COUNT 7.22 K/uL (4.8-10.8)
[2016-08-26 15:32] LABS: THYROID STIMULATING HORMONE 1.42 uIu/ml (0.300-4.500)
[2016-08-30 10:39] LABS: CREATININE UR 56.7 mg/dL (20-370); VITAMIN B1 WHOLE BLD** 5042X 135 nmol/L (78-185)
--- NOTE | 2016-08-30 13:05 | CODING QUERY MEDICAL NECESSITY ---
CQSUPPORTING DIAGNOSIS NEEDED A supporting diagnosis is required for the test/procedure performed on this patient in order for us to be reimbursed by the patient's insurance. Please provide a supporting diagnosis for the following test/procedure listed below next to the test name along with your signature. *If there is no additional diagnosis for this patient that would support the following test/procedure please document that below next to the test/procedure. Test(s)/Procedure(s) that require a supporting diagnosis: DOS 08/26/16 SCREENING SEXUALLY TRANSMITTED DISEASE-TREPONEMAL AB SCREENING PELON THURSTON IS A PA PLEASE HAVE THE SUPERVISING PHYSICIAN SIGN THE QUERY THANKS YOU Provider Signature: Date: Thank you Kayla Betts Health Information Management Once completed, please kindly fax back to [phone] For questions please call [phone]
== END | disposition home or self-care (01) ==
LOC: C.LAB1850 13:16
PROVIDERS: ATTEND Physician Assistant
DX: M54.12 Radiculopathy, cervical region (principal); R41.3 Other amnesia; R20.0 Anesthesia of skin

== ENCOUNTER → 2016-09-20 | Outpatient (CLI) | payer BC ==
--- NOTE | 2016-09-20 09:19 | DIAGNOSTIC IMAGING REPORT ---
BILATERAL CAROTID DOPPLER STUDY HISTORY: I25.10 Coronary artery disease, occlusive COMPARISON: None. TECHNIQUE: Real-time, grayscale, and color Doppler sonography of the carotid arteries was performed. Imaging reviewed in the transverse and longitudinal planes. All measurements were calculated based on NASCET criteria. FINDINGS: Antegrade flow is seen in the bilateral vertebral arteries. The brachial pressures are hemodynamically similar. Mild plaque formation bilaterally The peak systolic velocity within the right ICA is 61. The right systolic ratio is 1.2. The peak systolic velocity within the left ICA is 49. The left systolic ratio is 0.9. IMPRESSION: No hemodynamically significant stenosis seen within the carotid arteries. Electronically signed by: Jr Ramachandran M.D. 09/20/2016 9:18 AM Dictated Date/Time: 09/20/2016 9:16 AM
== END | disposition home or self-care (01) ==
LOC: C.ULTRBC 08:33
PROVIDERS: ATTEND Surgery
DX: I25.10 Atherosclerotic heart disease of native coronary artery without angina pectoris (principal)

== ENCOUNTER → 2016-10-21 | Outpatient (CLI) | payer BC ==
--- NOTE | 2016-10-21 09:07 | DIAGNOSTIC IMAGING REPORT ---
MRI OF THE BRAIN WITHOUT CONTRAST CLINICAL HISTORY: NUMBNESS, MEMORY LOSS HEADACHES COMPARISON STUDY: None. FINDINGS: Sagittal T1, axial diffusion, proton density and T2 weighted axial, coronal FLAIR, and axial T1-weighted images were acquired. No intra or extra-axial mass lesions are visualized Axial diffusion-weighted images reveal no evidence of acute or subacute infarction. There is no evidence of ventricular dilatation. Proton density T2-weighted and FLAIR images reveal scattered foci of increased T2 signal within the white matter, likely on a small vessel basis. 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 There are no abnormal flow voids. IMPRESSION: 1. No acute intracranial findings 2. No evidence of intracranial mass on this noncontrast study 3. No evidence of acute or subacute infarction 4. Old left temporal lobe infarct 5. Scattered foci of increased T2 signal within the white matter likely on a small vessel basis Electronically signed by: Trey Amaro M.D. 10/21/2016 9:06 AM Dictated Date/Time: 10/21/2016 9:03 AM
== END | disposition home or self-care (01) ==
LOC: C.MRI 07:45
PROVIDERS: ATTEND Physician Assistant
DX: R41.3 Other amnesia (principal); R20.0 Anesthesia of skin; R90.82 White matter disease, unspecified

== ENCOUNTER → 2016-11-22 | Outpatient (CLI) | payer BC ==
[~2016-11-22] MED LIST changes: -NMN10 PO; -OXYC-57 PO
[2016-11-22 12:06] LABS: BASO % 0.3 %; BASO ABS # 0.02 K/uL (0-0.2); COMPLETE YES; EOS % 3.7 %; HEMATOCRIT 29.1 % (42-52); IG% 0.4 %; LYMPH ABS # 1.33 K/uL (1.2-3.4); MEAN CELL VOLUME 93.6 fL (80-100); MEAN CORPUSCULAR HEMOGLOBIN 29.9 pg (25-34); MEAN PLATELET VOLUME 10.4 fL (7.4-10.4); MONO % 7.1 %; NEUT % 70.5 %; PLATELET COUNT 189 K/uL (130-400); RED BLOOD COUNT 3.11 M/uL (4.7-6.1); WHITE BLOOD COUNT 7.37 K/uL (4.8-10.8)
[2016-11-22 12:24] LABS: FERRITIN 265.1 ng/ml (8.0-388.0)
[2016-11-27 13:37] LABS: ALBUMIN 3.5 G/DL (3.8-4.8); GAMMA GLOBULIN 0.8 G/DL (0.8-1.7); HAPTOGLOBIN TC 45427W 173 MG/DL (43-212); HEPATITIS C VIRAL RNA BY PCR <15 NOT DETECTED IU/ML (<15); HEPATITIS C VIRAL RNA(LOG) PCR <1.18 NOT DETECTED LOG IU/ML (<1.18); TOTAL PROTEIN 6.1 G/DL (6.2-8.3)
== END | disposition home or self-care (01) ==
LOC: C.LAB1850 10:06
PROVIDERS: ATTEND Internal Medicine
DX: I10 Essential (primary) hypertension (principal)

== ENCOUNTER → 2017-01-08 | Outpatient (CLI) | payer BC ==
[~2017-01-08] MED LIST changes: -NRV5 PO
[2017-01-08 12:14] LABS: BASO % 0.3 %; BASO ABS # 0.02 K/uL (0-0.2); COMPLETE YES; EOS % 2.2 %; HEMATOCRIT 29.8 % (42-52); IG% 0.6 %; LYMPH % 16.5 %; LYMPH ABS # 1.04 K/uL (1.2-3.4); MEAN CELL VOLUME 92.8 fL (80-100); MEAN CORPUSCULAR HEMOGLOBIN 31.5 pg (25-34); MEAN CORPUSCULAR HGB CONC 33.9 g/dl (32-36); MEAN PLATELET VOLUME 10.5 fL (7.4-10.4); MONO % 8.6 %; NEUT % 71.8 %; PLATELET COUNT 168 K/uL (130-400); RED BLOOD COUNT 3.21 M/uL (4.7-6.1); WHITE BLOOD COUNT 6.31 K/uL (4.8-10.8)
[2017-01-08 13:14] LABS: ALT/SGPT 21 U/L (12-78); AST/SGOT 20 U/L (15-37); BLOOD UREA NITROGEN 28 mg/dl (7-18); BUN/CREATININE RATIO 15.7 (10-20); CALCIUM 8.7 mg/dl (8.5-10.1); CARBON DIOXIDE 28 mmol/L (21-32); CHLORIDE 108 mmol/L (98-107); GLUCOSE 98 mg/dl (70-99); POTASSIUM 3.8 mmol/L (3.5-5.1); SODIUM 143 mmol/L (136-145)
[2017-01-08 13:16] LABS: ALB/GLOB RATIO 1.1 (0.9-2); ALKALINE PHOSPHATASE 121 U/L (45-117)
--- NOTE | 2017-01-14 12:45 | CODING QUERY NO DIAGNOSIS ---
TREATMENT RENDERED WITHOUT A DIAGNOSIS 40 To promote full compliance with coding requirements relating to patient care, physician participation is requested in all cases of dropper tank storage uncertainty. Please assist us with providing a diagnosis/symptom for the test(s) below: A diagnosis/symptom was not documented on your Order. A valid diagnosis/symptom is required to bill all insurances. Please remember that we are unable to code a diagnosis of rule out, probable, possible, questionable, or suspected. DOS 01/08/17 Tests that require a diagnosis: * CBC W/AUTO DIFF DIAGNOSIS: * COMPREHENSIVE METABOLIC DIAGNOSIS: Provider Signature: Date: Thank you Ayana Ramey Health Information Management Once completed, please kindly fax back to [phone] For questions please call [phone]
== END | disposition home or self-care (01) ==
LOC: C.LAB1850 11:09
PROVIDERS: ATTEND Internal Medicine Hematology & Oncology
DX: N18.9 Chronic kidney disease, unspecified (principal); D63.1 Anemia in chronic kidney disease

== ENCOUNTER → 2017-01-27 | Outpatient (CLI) | payer BC ==
[2017-01-27 13:12] LABS: HEMATOCRIT 30.9 % (42-52)
== END | disposition home or self-care (01) ==
LOC: C.LAB1850 12:04
PROVIDERS: ATTEND Internal Medicine
DX: N18.9 Chronic kidney disease, unspecified (principal); D64.9 Anemia, unspecified

== ENCOUNTER → 2017-02-10 | Outpatient (CLI) | payer BC ==
[2017-02-10 13:01] LABS: BASO % 0.4 %; BASO ABS # 0.02 K/uL (0-0.2); COMPLETE YES; EOS % 2.5 %; HEMATOCRIT 33.1 % (42-52); IG% 0.2 %; LYMPH % 19.8 %; MEAN CELL VOLUME 93.5 fL (80-100); MEAN CORPUSCULAR HEMOGLOBIN 29.9 pg (25-34); MEAN PLATELET VOLUME 10.3 fL (7.4-10.4); MONO % 8.5 %; NEUT % 68.6 %; PLATELET COUNT 166 K/uL (130-400); RED BLOOD COUNT 3.54 M/uL (4.7-6.1); WHITE BLOOD COUNT 5.55 K/uL (4.8-10.8)
[2017-02-10 13:22] LABS: BLOOD UREA NITROGEN 29 mg/dl (7-18); BUN/CREATININE RATIO 14.3 (10-20); CALCIUM 9.2 mg/dl (8.5-10.1); CARBON DIOXIDE 25 mmol/L (21-32); CHLORIDE 109 mmol/L (98-107); GLUCOSE 103 mg/dl (70-99); POTASSIUM 4.2 mmol/L (3.5-5.1); SODIUM 142 mmol/L (136-145)
== END | disposition home or self-care (01) ==
LOC: C.LAB1850 11:27
PROVIDERS: ATTEND Internal Medicine
DX: D64.9 Anemia, unspecified (principal)

== ENCOUNTER → 2017-02-24 | Outpatient (CLI) | payer BC | END | disposition home or self-care (01) | LOC: C.LAB1850 12:24 | PROVIDERS: ATTEND Urology | DX: N40.1 Benign prostatic hyperplasia with lower urinary tract symptoms (principal) ==

== ENCOUNTER → 2017-03-31 | Outpatient (CLI) | payer BC ==
[2017-03-31 14:43] LABS: BASO % 0.6 %; BASO ABS # 0.03 K/uL (0-0.2); COMPLETE YES; EOS % 1.9 %; HEMATOCRIT 36.6 % (42-52); IG% 0.2 %; LYMPH % 18.6 %; MEAN CELL VOLUME 91.7 fL (80-100); MEAN CORPUSCULAR HEMOGLOBIN 30.3 pg (25-34); MEAN CORPUSCULAR HGB CONC 33.1 g/dl (32-36); MEAN PLATELET VOLUME 10.8 fL (7.4-10.4); MONO % 10.4 %; NEUT % 68.3 %; PLATELET COUNT 142 K/uL (130-400); RED BLOOD COUNT 3.99 M/uL (4.7-6.1); WHITE BLOOD COUNT 5.37 K/uL (4.8-10.8)
[2017-03-31 14:57] LABS: ALT/SGPT 28 U/L (12-78); BLOOD UREA NITROGEN 25 mg/dl (7-18); BUN/CREATININE RATIO 13.3 (10-20); CALCIUM 9.3 mg/dl (8.5-10.1); CARBON DIOXIDE 26 mmol/L (21-32); CHLORIDE 104 mmol/L (98-107); CHOLESTEROL 92 mg/dl (0-200); CREATININE 1.84 mg/dl (0.60-1.40); GLUCOSE 100 mg/dl (70-99); POTASSIUM 4.1 mmol/L (3.5-5.1); SODIUM 140 mmol/L (136-145)
[2017-03-31 15:07] LABS: ALKALINE PHOSPHATASE 161 U/L (45-117); AST/SGOT 23 U/L (15-37); CHOLESTEROL/HDL RATIO 1.9; FERRITIN 139.2 ng/ml (8.0-388.0); HDL CHOLESTEROL 48 mg/dl; LDL CHOLESTEROL CALCULATED 17 mg/dl; TOTAL IRON BINDING CAPACITY 254 mcg/dl (250-450); TRIGLYCERIDES 135 mg/dl (0-150); VERY LOW DENSITY LIPOPROT CALC 27 mg/dl
== END | disposition home or self-care (01) ==
LOC: C.LAB1850 13:19
PROVIDERS: ATTEND Internal Medicine
DX: M54.12 Radiculopathy, cervical region (principal)

== ENCOUNTER 2017-04-14 12:14 | Emergency (ER) | payer BC ==
[~2017-04-14] VITALS: Ht 170.2 cm; Wt 79.7 kg
[~2017-04-14 12:14] MED LIST changes: -NMN10 PO; -OXYC-57 PO
[2017-04-14 12:20] VITALS: Ht 170.2 cm; Wt 79.7 kg
[2017-04-14] MEDS ORDERED: OXYCODONE/ACETAMINOPHEN 5-325 TAB PO ONE (13:00)
[2017-04-14] MEDS ORDERED: NMN10 PO (13:16)
[2017-04-14 14:14] VITALS: TEMP 36.2
--- NOTE | 2017-04-14 14:32 | DIAGNOSTIC IMAGING REPORT ---
SINGLE VIEW PELVIS; 2 VIEWS RIGHT HIP CLINICAL HISTORY: Right hip pain. No history of trauma. FINDINGS: An AP view of the pelvis with AP and frog-leg views of the right hip are compared to study dated 12/06/2013. The skeletal structures are osteopenic. No fracture is seen in the hips or bony pelvis. Mild to moderate arthritic change and joint space narrowing is noted in the hips. The sacroiliac joints appear preserved. A small presumed osteochondroma is again seen in the right supra-acetabular region. Lumbosacral spondylosis is partially imaged. Enthesophytes arise from the anterior superior iliac spine bilaterally. There is no bowel obstruction. The overlying soft tissues are normal in appearance. IMPRESSION: 1. No acute bony abnormality seen in the hips or pelvis. 2. Osteopenia and degenerative change as above. Electronically signed by: Maxwell Simon M.D. 04/14/2017 2:30 PM Dictated Date/Time: 04/14/2017 2:28 PM
[2017-04-14] MEDS ORDERED: OXYC-57 PO (14:45)
--- NOTE | 2017-04-14 14:56 | EMERGENCY ROOM VISIT NOTE ---
History Report prepared by Kimi: Hong Castillo Under the Supervision of: Dr. Liam Ma D.O. First contact with patient: 12:49 Chief Complaint: HIP PAIN Stated Complaint: EXTREME PAIN IN BOTH HIPS,LEGS AND ANKLES History of Present Illness The patient is a 76 year old male who presents to the Emergency Room with complaints of constant right hip pain for the past three months which worsened today. He currently rates his discomfort as a 9/10 in severity. The patient states that he was at a basketball game yesterday watching in the stands, and he could not get comfortable, though today the pain was much worse. The patient also states that he has pain in the left his which is not as bad, and he also states that the pain is worsened with sneezing. He states that the pain goes down his leg to his ankle. He states that he has seen different doctors for the pain, and he was given muscles relaxers and Tylenol, and he has not had any physical therapy. The patient denies any recent falls or traumas. The patient has a history of dementia and hemophilia, though he does not have diabetes. Source of History: patient Onset: 3 months ago worsened today Position: other (right hip) Symptom Intensity: 9/10 Timing: constant, worsening Modifying Factors (Worsening): other (sneezing) Review of Systems See HPI for pertinent positives & negatives. A total of 10 systems reviewed and were otherwise negative. Past Medical & Surgical Medical Problems: (1) Chronic Kidney Disease, Unspecified (2) Diaphragmatic Hernia (3) Elevated troponin (4) Esophageal Reflux (5) Factor VIII deficiency hemophilia (6) Gout Nos (7) Hypertension Nos (8) Intractable headache (9) Septic arthritis (10) Von Willebrand's Disease (11) Von Willebrand's Disease Surgical Problems: (1) History of cholecystectomy Family History Cancer Diabetes mellitus Gallbladder disease Heart disease Hypertension Social History Smoking Status: Never Smoker Alcohol Use: none Marital Status: Housing Status: lives with significant other Occupation Status: retired Current/Historical Medications Scheduled Allopurinol (Zyloprim), 200 MG PO DAILY Aspirin (Aspirin Chewable), 81 MG PO QAM Atorvastatin (Lipitor), 80 MG PO HS Beclomethasone Dip (Qvar), 2 PUFF INH BID Brimonidine Tartrate (Brimonidine Tartrate), 1 DROP OPB UD Dorzolamide Hcl (Trusopt Oph), 1 DROP OPB HS Duloxetine Hcl (Cymbalta), 30 MG PO QAM Esomeprazole Magnesium (Nexium), 40 MG PO DAILY Finasteride (Proscar), 5 MG PO DAILY Latanoprost (Latanoprost), 1 DROP OPB HS Magnesium Oxide (Magnesium-Oxide), 400 MG PO BID Memantine (Namenda), 10 MG PO BID Metolazone (Metolazone), 5 MG PO DAILY Multiple Vitamins W/ Minerals (Centrum Silver Adult 50+), 1 TAB PO QAM Austin-3 Fatty Acids (Austin 3), 1 CAP PO QAM Oxybutynin Chloride (Oxybutynin Chloride), 5 MG PO TID Prednisone (Prednisone), 10 MG PO TAPER UD Scheduled PRN Acetaminophen (Tylenol), 1,000 MG PO Q6 PRN for Pain Aminocaproic Acid (Amicar), 500 MG PO UD PRN for coagulation Carvedilol (Carvedilol), 12.5 MG PO BID PRN for HR > 55 BPM Diazepam (Valium), 2-4 MG PO Q6H PRN for Pain Nitroglycerin (Nitrostat), 0.4 MG SL UD PRN for Chest Pain Oxycodone/Acetaminophen 5MG/325MG (Percocet 5MG/325MG), 1 TAB PO Q12 PRN for Pain Tizanidine (Tizanidine HCl), 4 MG PO TID PRN for Muscle Spasms Allergies Coded Allergies: Adhesives (Verified Allergy, Unknown, BANDAID-SKIN IRRITATION, 09/16/16) Antihemophilic Factor (Verified Allergy, Unknown, see comments for details from 08/13/16, 09/16/16) 08/13/16: spoke with [facility] at [facility] (Rachell Mcduffie phone: [phone]). Pt DOES NOT have von Willebrand Disease. He is Factor-8 deficient. 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 This still needs to be confirmed. AJodon. Update: Avoid 1st generation Factor-8 replacement products includikng Recombinate) Note: if have to use Humate-P, make sure it's dosed on Factor-8 units (not vWF units) Codeine (Verified Allergy, Unknown, SOB/ N/V, 09/16/16) Homatropine (Unverified Allergy, Unknown, UNKNOWN, 09/16/16) Horse Serum Proteins (Unverified Allergy, Unknown, ILLNESS-ALMOST IN , 09/16/16) Hydrocodone (Unverified Allergy, Unknown, UNKNOWN, 09/16/16) Niacin (Unverified Allergy, Unknown, SKIN FLUSH, 09/16/16) Tetanus Toxoid (Verified Allergy, Unknown, ILLNESS-ALMOST IN , 09/16/16) Physical Exam Vital Signs Date Time Temp Pulse Resp B/P (MAP) Pulse Ox O2 Delivery O2 Flow Rate FiO2 04/14/17 14:14 36.2 64 19 158/77 100 Room Air 04/14/17 12:20 36.4 65 16 164/79 98 Room Air Physical Exam CONSTITUTIONAL/VITAL SIGNS: Reviewed / noted above. GENERAL: Non-toxic in appearance. INTEGUMENTARY: Warm, dry, and Alligator. HEAD: Normocephalic. EYES: without scleral icterus or trauma. ENT/OROPHARYNX: clear and moist. LYMPHADENOPATHY/NECK: Is supple without lymphadenopathy or meningismus. RESPIRATORY: Lungs clear and equal. CARDIOVASCULAR: Regular rate and rhythm. GI/ABDOMEN: Soft and nontender. No organomegaly or pulsatile mass. No rebound or guarding. Normal bowel sounds. EXTREMITIES: No discomfort with full range of motion of the right hip, right knee, and right ankle. No pain with axial loading of the right leg. No obvious trauma or infection. Warm and well perfused. BACK: No CVA tenderness. NEUROLOGICAL: Intact without focal deficits. PSYCHIATRIC: normal affect. MUSCULOSKELETAL: Normally developed with good muscle tone. Medical Decision & Procedures ER Provider Diagnostic Interpretation: Radiology results as stated below per my review and radiologist interpretation: SINGLE VIEW PELVIS; 2 VIEWS RIGHT HIP CLINICAL HISTORY: Right hip pain. No history of trauma. FINDINGS: An AP view of the pelvis with AP and frog-leg views of the right hip are compared to study dated 12/06/2013. The skeletal structures are osteopenic. No fracture is seen in the hips or bony pelvis. Mild to moderate arthritic change and joint space narrowing is noted in the hips. The sacroiliac joints appear preserved. A small presumed osteochondroma is again seen in the right supra-acetabular region. Lumbosacral spondylosis is partially imaged. Enthesophytes arise from the anterior superior iliac spine bilaterally. There is no bowel obstruction. The overlying soft tissues are normal in appearance. IMPRESSION: 1. No acute bony abnormality seen in the hips or pelvis. 2. Osteopenia and degenerative change as above. Electronically signed by: Maxwell Simon M.D. 04/14/2017 2:30 PM Dictated Date/Time: 04/14/2017 2:28 PM Medications Administered Medications (Trade) Dose Ordered Sig/Braxton Route Start Time Stop Time Status Last Admin Dose Admin Oxycodone/ Acetaminophen (Percocet 5-325mg Tab) 1 tab NOW ONCE PO 04/14/17 13:00 04/14/17 13:01 DC 04/14/17 13:23 1 TAB ED Course 1249: Previous medical records were reviewed. The patient was evaluated in room B11. A complete history and physical examination was performed. 1300: Oxycodone/ Acetaminophen 1 Tab PO 1435: On reevaluation, the patient is stable and doing well. I discussed the results and findings with the patient. He verbalized agreement of the treatment plan. He was discharged home. Medical Decision Differential diagnosis: Etiologies such as fracture, dislocation, neurovascular compromise, compartment syndrome, soft tissue injury, as well as others were entertained. This is a 76-year-old male who presents to the ED with a chief complaint of right hip pain that he has had for the past 2-3 months. He states that he has seen Dr. Yoder for this but the medication that was prescribed did not seem to help. He reports that he is currently only taking Tylenol or Motrin for pain. The patient states that it is uncomfortable to get in certain positions. He reports that there is not been any recent trauma. He denies any fevers or chills. His exam reveals normal vital signs. He has no significant discomfort with full range of motion of the right hip, knee, ankle. The patient has normal vascularity. The patient has an unremarkable x-ray of the pelvis and right hip. The patient was given a Percocet here. He states this did help his pain. He will be discharged on Percocet. Medication Reconcilliation Current Medication List: was personally reviewed by me Blood Pressure Screening Patient's blood pressure: Elevated blood pressure Blood pressure disposition: Referred to PCP Impression Primary Impression: Right hip pain Scribe Attestation The scribe's documentation has been prepared under my direction and personally reviewed by me in its entirety. I confirm that the note above accurately reflects all work, treatment, procedures, and medical decision making performed by me. Departure Information Dispostion Home / Self-Care Prescriptions Oxycodone/Acetaminophen 5MG/325MG (PERCOCET 5MG/325MG) Tab 1 TAB PO Q12 Y for Pain, #20 TAB Prov: Liam Ma D.O. 04/14/17 Referrals Timothy Yoder M.D. (PCP) Forms HOME CARE DOCUMENTATION FORM, IMPORTANT VISIT INFORMATION, WORK / SCHOOL INSTRUCTIONS Patient Instructions My [facility] Additional Instructions Follow-up with your doctor for further care and evaluation in 1-2 days. Return to the emergency department for worsening or new symptoms or any concerns. You have been examined and treated today on an emergency basis only. This is not a substitute for, or an effort to provide, complete comprehensive medical care. It is impossible to recognize and treat all injuries or illnesses in a single emergency department visit. It is therefore important that you follow up closely with your doctor. Call as soon as possible for an appointment. Percocet as prescribed. No driving within 12 hours of use. Do not take additional Tylenol while taking Percocet. See your doctor for orthopedic referral and for physical therapy referral.
[2017-04-14 15:24] VITALS: BP 131/71; PULSE 82; O2SAT 95
== END 2017-04-14 15:34 | disposition home or self-care (01) ==
LOC: C.EDB 12:15
DX: M25.551 Pain in right hip (principal); M25.552 Pain in left hip; F03.90 Unspecified dementia, unspecified severity, without behavioral disturbance, psychotic disturbance, mood disturbance, and anxiety; D66 Hereditary factor VIII deficiency; N18.9 Chronic kidney disease, unspecified; K21.9 Gastro-esophageal reflux disease without esophagitis; I12.9 Hypertensive chronic kidney disease with stage 1 through stage 4 chronic kidney disease, or unspecified chronic kidney disease; Z79.82 Long term (current) use of aspirin; Z79.899 Other long term (current) drug therapy; Z86.19 Personal history of other infectious and parasitic diseases; Z82.49 Family history of ischemic heart disease and other diseases of the circulatory system; Z83.3 Family history of diabetes mellitus; Z83.79 Family history of other diseases of the digestive system

== ENCOUNTER → 2017-04-14 | Outpatient (CLI) | payer BC ==
[~2017-04-14] MED LIST changes: +NMN10 PO; +OXYC-57 PO
[2017-04-14 13:07] LABS: HEMATOCRIT 34.2 % (42-52)
== END | disposition home or self-care (01) ==
LOC: C.LAB1850 11:40
PROVIDERS: ATTEND Internal Medicine
DX: N18.9 Chronic kidney disease, unspecified (principal); D64.9 Anemia, unspecified

== ENCOUNTER 2017-04-18 13:46 | Emergency (ER) | payer BC ==
[~2017-04-18] VITALS: Ht 170.2 cm; Wt 81.2 kg
[~2017-04-18 13:46] MED LIST changes: +NMN10 PO; +OXYC-57 PO
[2017-04-18 13:48] VITALS: TEMP 36.4; Ht 170.2 cm; Wt 81.2 kg
[2017-04-18] MEDS ORDERED: FENTANYL CITRATE INJ 50 MCG/1 ML 2 ML VIAL IV STA (14:41)
[2017-04-18] MEDS ORDERED: ONDANSETRON INJ 2 MG/ML 2 ML VIAL IV STA (14:41)
[2017-04-18 15:03] LABS: HEMATOCRIT 31.2 % (42-52); MEAN CELL VOLUME 89.9 fL (80-100); MEAN CORPUSCULAR HEMOGLOBIN 31.1 pg (25-34); MEAN CORPUSCULAR HGB CONC 34.6 g/dl (32-36); MEAN PLATELET VOLUME 11.1 fL (7.4-10.4); PLATELET COUNT 171 K/uL (130-400); RED BLOOD COUNT 3.47 M/uL (4.7-6.1); WHITE BLOOD COUNT 8.06 K/uL (4.8-10.8)
[2017-04-18 15:13] LABS: PARTIAL THROMBOPLASTIN RATIO 1.6; PROTHROMBIN TIME (PATIENT) 10.8 SECONDS (9.0-12.0)
--- NOTE | 2017-04-18 15:16 | DIAGNOSTIC IMAGING REPORT ---
R ELBOW MIN 3 VIEWS ROUTINE CLINICAL HISTORY: RIGHT, EVAL PAIN AFTER FALL trauma. Pain. COMPARISON: None. DISCUSSION: Deformity distal humerus presumably secondary to old trauma. No well-defined acute bony abnormality. No significant joint effusion. No fat fluid level. There is no evidence for soft tissue swelling. IMPRESSION: No acute process. Mild deformity distal humerus most likely secondary to old trauma. The above report was generated using voice recognition software. It may contain grammatical, syntax or spelling errors. Electronically signed by: Jr Ramachandran M.D. 04/18/2017 3:14 PM Dictated Date/Time: 04/18/2017 3:14 PM
--- NOTE | 2017-04-18 15:17 | DIAGNOSTIC IMAGING REPORT ---
R SHOULDER MIN 2 VIEWS ROUTINE CLINICAL HISTORY: RIGHT, FALL YESTERDAY, R ARM PAIN trauma. Pain. COMPARISON: None. DISCUSSION: Generalized degenerative changes of glenohumeral and acromioclavicular joints. Narrowing acromiohumeral space indicating indicative of a deterioration of the rotator cuff. No abnormal soft tissue calcifications. There is no evidence for soft tissue swelling. IMPRESSION: Moderate generalized degenerative change of the right shoulder. Narrowing of the acromiohumeral joint space suggesting deterioration of the rotator cuff. The above report was generated using voice recognition software. It may contain grammatical, syntax or spelling errors. Electronically signed by: Jr Ramachandran M.D. 04/18/2017 3:16 PM Dictated Date/Time: 04/18/2017 3:15 PM
[2017-04-18 15:19] LABS: BUN/CREATININE RATIO 15.2 (10-20); CALCIUM 8.9 mg/dl (8.5-10.1); CREATININE 2.03 mg/dl (0.60-1.40); POTASSIUM 3.5 mmol/L (3.5-5.1)
[2017-04-18 15:30] LABS: BASO % 0.2 %; BASO ABS # 0.02 K/uL (0-0.2); COMPLETE YES; IG% 0.4 %; LYMPH % 19.9 %; MONO % 8.8 %; NEUT % 69.7 %; OVALOCYTES 1+
--- NOTE | 2017-04-18 15:33 | DIAGNOSTIC IMAGING REPORT ---
HEAD WITHOUT CONTRAST (CT) CT DOSE: HISTORY: Trauma. Mental status change. EVAL TRAUMA TECHNIQUE: Multiaxial CT images of the head were performed without the use of intravenous contrast. A dose lowering technique was utilized adhering to the principles of ALARA. Comparison: 06/28/2016 Findings: Moderate mucosal thickening of the maxillary and ethmoid sinuses. The calvarium and skull base are intact. The ventricles and sulci are within normal limits. There is no mass, hematoma, midline shift, or acute infarct. Impression: No acute intracranial abnormality. The above report was generated using voice recognition software. It may contain grammatical, syntax or spelling errors. Electronically signed by: Jr Ramachandran M.D. 04/18/2017 3:32 PM Dictated Date/Time: 04/18/2017 3:31 PM
--- NOTE | 2017-04-18 15:35 | DIAGNOSTIC IMAGING REPORT ---
CERVICAL SPINE W/O CT DOSE: 1125.23 mGy.cm HISTORY: Trauma NECK PAIN AFTER A FALL TECHNIQUE: Multiaxial CT images of the cervical spine were performed and reformatted in the sagittal and coronal plane without the use of contrast. A dose lowering technique was utilized adhering to the principles of ALARA. COMPARISON: 01/18/2016 FINDINGS: No fractures. No subluxation. Prevertebral soft tissues and the C1-C2 interval are intact. No pneumothorax. Degenerative disc changes throughout. Minimal grade 1 anterolisthesis C4 on C5 felt to be on the basis of degenerative changes of posterior elements. No acute posttraumatic abnormality. IMPRESSION: No fractures within the cervical spine. Degenerative change. The above report was generated using voice recognition software. It may contain grammatical, syntax or spelling errors. Electronically signed by: Jr Ramachandran M.D. 04/18/2017 3:34 PM Dictated Date/Time: 04/18/2017 3:32 PM
[2017-04-18] MEDS ORDERED: FACTOR 8/HUMATE-P/RECOMBINATE ONE (16:15)
[2017-04-18] MEDS ORDERED: [UNRECOGNIZED DRUG - MIXTURE] IV SCH (16:15)
--- NOTE | 2017-04-18 16:41 | EMERGENCY ROOM VISIT NOTE ---
History First contact with patient: 13:57 Chief Complaint: FALL Stated Complaint: FELL YESTERDAY, CANT MOVE R SHOULDER, PAIN History of Present Illness Patient is a 76-year-old white male with factor VIII deficiency, coronary artery disease status post IN and stenting, hypertension, chronic kidney disease , GERD, gout, dyslipidemia, BPH, dementia, among other medical problems who is brought to the emergency department by his for evaluation of right shoulder pain after a fall 24 hours ago. Patient is felt to be a poor historian secondary to his dementia, but he provides the history with help from his . Patient was reportedly on the deck with their dog on a leash, when he lost his balance and fell. He denies that the dog pulled him. He denies that he was lightheaded or dizzy or experiencing any palpitations prior to the fall. He does feel that he got both of his arms up to brace his fall. He feels like he has complete recollection of the incident. He may have bumped his head or face slightly, but he did not lose consciousness. There is no epistaxis or bleeding from the face or mouth. He had immediate onset of right shoulder pain. He called for his but she did not hear him. He was unable to get up for a few minutes, but was ultimately able to get up on his own and went back into his house. He can complains of pain in the right shoulder that radiates towards the right elbow. It is worse with any attempts at movement. It got worse this morning. He had tramadol and Tylenol several hours ago. He rates his pain a 9/10. Upon further questioning, the patient does admit to a mild right-sided headache. He has some neck pain with range of motion as well. He denies any chest or rib pain. No shortness of breath. He normally does not walk with the assistance of a cane or a walker, but apparently he should. 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 There has been no vomiting, patient's reports that cognitively, there has been no significant change from his baseline. Review of Systems Review of systems as per HPI. All other systems reviewed were negative. 10 systems reviewed. Past Medical/Surgical History Medical Problems: (1) SOLEDAD (acute kidney injury) (2) Anemia (3) Anxiety (4) Chronic Kidney Disease, Unspecified (5) Chronic Kidney Disease, Unspecified (6) Chronic Kidney Disease, Unspecified (7) Contusion of buttock (8) Diaphragmatic Hernia (9) Elevated troponin (10) Esophageal Reflux (11) Factor VIII deficiency hemophilia (12) Gout Nos (13) Headache (14) Hemophilia (15) Hemophilia (16) Hyperkalemia (17) Hypertension Nos (18) Hyperventilation (19) Hypomagnesemia (20) Intractable headache (21) NSTEMI (non-ST elevated myocardial infarction) (22) Sciatica, right side (23) Sciatica, right side (24) Septic arthritis (25) STEMI (ST elevation myocardial infarction) (26) Von Willebrand's Disease (27) Von Willebrand's Disease Surgical Problems: (1) History of cholecystectomy Electronic medical records are reviewed and summarized as above/below. See Problem List. Family History Cancer Diabetes mellitus Gallbladder disease Heart disease Hypertension Social History Smoking Status: Never Smoker Alcohol Use: none Marital Status: Housing Status: lives with significant other Occupation Status: retired Current/Historical Medications Scheduled Allopurinol (Zyloprim), 200 MG PO DAILY Aspirin (Aspirin Chewable), 81 MG PO QAM Atorvastatin (Lipitor), 80 MG PO HS Beclomethasone Dip (Qvar), 2 PUFF INH BID Brimonidine Tartrate (Brimonidine Tartrate), 1 DROP OPB UD Dorzolamide Hcl (Trusopt Oph), 1 DROP OPB HS Duloxetine Hcl (Cymbalta), 30 MG PO QAM Esomeprazole Magnesium (Nexium), 40 MG PO DAILY Finasteride (Proscar), 5 MG PO DAILY Latanoprost (Latanoprost), 1 DROP OPB HS Magnesium Oxide (Magnesium-Oxide), 400 MG PO BID Memantine (Namenda), 10 MG PO BID Metolazone (Metolazone), 5 MG PO DAILY Multiple Vitamins W/ Minerals (Centrum Silver Adult 50+), 1 TAB PO QAM Drumore-3 Fatty Acids (Drumore 3), 1 CAP PO QAM Oxybutynin Chloride (Oxybutynin Chloride), 5 MG PO TID Prednisone (Prednisone), 10 MG PO TAPER UD Scheduled PRN Acetaminophen (Tylenol), 1,000 MG PO Q6 PRN for Pain Aminocaproic Acid (Amicar), 500 MG PO UD PRN for coagulation Carvedilol (Carvedilol), 12.5 MG PO BID PRN for HR > 55 BPM Diazepam (Valium), 2-4 MG PO Q6H PRN for Pain Nitroglycerin (Nitrostat), 0.4 MG SL UD PRN for Chest Pain Oxycodone/Acetaminophen 5MG/325MG (Percocet 5MG/325MG), 1 TAB PO Q12 PRN for Pain Tizanidine (Tizanidine HCl), 4 MG PO TID PRN for Muscle Spasms Physical Exam Vital Signs Date Time Temp Pulse Resp B/P (MAP) Pulse Ox O2 Delivery O2 Flow Rate FiO2 04/18/17 17:02 61 16 127/71 93 Room Air 04/18/17 16:43 60 18 143/66 95 Room Air 04/18/17 15:02 52 18 140/64 97 Room Air 04/18/17 13:48 36.4 59 20 155/75 98 Room Air Physical Exam GENERAL: Patient is a well-appearing 76-year-old white male who is awake and alert and in moderate distress due to his right shoulder pain. HEENT: Head - normocephalic and atraumatic. Pupils are equal, round, and reactive to light. Extraocular eye muscles are intact and sclera are anicteric. Ears - bilaterally patent canals with no evidence of hemotympanum. Nose - moist nasal mucosa without evidence of trauma or discharge. Mouth - moist buccal mucosa with no trauma to the teeth or signs of malocclusion. Neck: The neck is supple and there is no pain to palpation over the posterior cervical spine and no obvious step-offs or deformities. There is no JVD or tracheal deviation. Chest: There are no signs of deformities, contusions or abrasions to the chest wall. There is no obvious crepitus or paradoxical chest rise. Heart: Regular rate, and regular rhythm. Lungs: Breath sounds equal and clear to auscultation without wheezes, rales, or rhonchi heard. Abdomen: Soft, completely nontender, nondistended, with good bowel sounds. There is no sign of trauma such as contusions, abrasions or penetrations. There are no palpable pulsatile masses or hepatosplenomegaly. There is no guarding, rigidity, or rebound noted. Pelvis: Stable to rock and compression. Extremities: Examination of the right upper extremity no mild generalized soft tissue swelling of the proximal humerus, which is globally tender to palpation. There is no palpable hematoma, no visible ecchymosis. He has discomfort with any attempt at range of motion of the right upper extremity. He does not have any pain over the clavicle or the acromioclavicular joint. He does have some reproducible tenderness in the right trapezius muscle distribution. Shoulder range of motion is unable to be assessed due to patient guarding. He does report some discomfort to palpation over the lateral aspect of the right elbow, but elbow passively can be flexed and extended, pronated and supinated fully. The right upper extremity is neurovascularly intact. Distal pulses are easily palpable. No other obvious trauma, deformities, contusions, or edema. There are easily palpable peripheral pulses. Neuro: The patient is awake and alert and easily able to follow commands. Muscle strength is 5 out of 5 in the remaining 3 extremities. Patient is alert , oriented 4. No other gross neurologic deficits noted. Back: The entire thoracic, lumbar, and sacral spine were palpated. No discomfort over the thoracic spine and lumbar spine. There are no obvious step- offs or deformities noted. There are no obvious signs of trauma such as contusions abrasions penetrations noted to the back. Medical Decision & Procedures ER Provider Diagnostic Interpretation: HEAD WITHOUT CONTRAST (CT) CT DOSE: HISTORY: Trauma. Mental status change. EVAL TRAUMA TECHNIQUE: Multiaxial CT images of the head were performed without the use of intravenous contrast. A dose lowering technique was utilized adhering to the principles of ALARA. Comparison: 06/28/2016 Findings: Moderate mucosal thickening of the maxillary and ethmoid sinuses. The calvarium and skull base are intact. The ventricles and sulci are within normal limits. There is no mass, hematoma, midline shift, or acute infarct. Impression: No acute intracranial abnormality. CERVICAL SPINE W/O CT DOSE: 1125.23 mGy.cm HISTORY: Trauma NECK PAIN AFTER A FALL TECHNIQUE: Multiaxial CT images of the cervical spine were performed and reformatted in the sagittal and coronal plane without the use of contrast. A dose lowering technique was utilized adhering to the principles of ALARA. COMPARISON: 01/18/2016 FINDINGS: No fractures. No subluxation. Prevertebral soft tissues and the C1-C2 interval are intact. No pneumothorax. Degenerative disc changes throughout. Minimal grade 1 anterolisthesis C4 on C5 felt to be on the basis of degenerative changes of posterior elements. No acute posttraumatic abnormality. IMPRESSION: No fractures within the cervical spine. Degenerative change. R ELBOW MIN 3 VIEWS ROUTINE CLINICAL HISTORY: RIGHT, EVAL PAIN AFTER FALL trauma. Pain. COMPARISON: None. DISCUSSION: Deformity distal humerus presumably secondary to old trauma. No well-defined acute bony abnormality. No significant joint effusion. No fat fluid level. There is no evidence for soft tissue swelling. IMPRESSION: No acute process. Mild deformity distal humerus most likely secondary to old trauma. R SHOULDER MIN 2 VIEWS ROUTINE CLINICAL HISTORY: RIGHT, FALL YESTERDAY, R ARM PAIN trauma. Pain. COMPARISON: None. DISCUSSION: Generalized degenerative changes of glenohumeral and acromioclavicular joints. Narrowing acromiohumeral space indicating indicative of a deterioration of the rotator cuff. No abnormal soft tissue calcifications. There is no evidence for soft tissue swelling. IMPRESSION: Moderate generalized degenerative change of the right shoulder. Narrowing of the acromiohumeral joint space suggesting deterioration of the rotator cuff. Laboratory Results 04/18/17 14:45 Red Blood Count 3.47, Mean Corpuscular Volume 89.9, Mean Corpuscular Hemoglobin 31.1, Mean Corpuscular Hemoglobin Concent 34.6, Mean Platelet Volume 11.1, Neutrophils (%) (Auto) 69.7, Lymphocytes (%) (Auto) 19.9, Monocytes (%) (Auto) 8.8, Eosinophils (%) (Auto) 1.0, Basophils (%) (Auto) 0.2, Neutrophils # (Auto) 5.62, Lymphocytes # (Auto) 1.60, Monocytes # (Auto) 0.71, Eosinophils # (Auto) 0.08, Basophils # (Auto) 0.02 04/18/17 14:45 Test 04/18/17 14:45 White Blood Count 8.06 K/uL (4.8-10.8) Red Blood Count 3.47 M/uL (4.7-6.1) Hemoglobin 10.8 g/dL (14.0-18.0) Hematocrit 31.2 % (42-52) Mean Corpuscular Volume 89.9 fL (80-100) Mean Corpuscular Hemoglobin 31.1 pg (25-34) Mean Corpuscular Hemoglobin Concent 34.6 g/dl (32-36) Platelet Count 171 K/uL (130-400) Mean Platelet Volume 11.1 fL (7.4-10.4) Neutrophils (%) (Auto) 69.7 % Lymphocytes (%) (Auto) 19.9 % Monocytes (%) (Auto) 8.8 % Eosinophils (%) (Auto) 1.0 % Basophils (%) (Auto) 0.2 % Neutrophils # (Auto) 5.62 K/uL (1.4-6.5) Lymphocytes # (Auto) 1.60 K/uL (1.2-3.4) Monocytes # (Auto) 0.71 K/uL (0.11-0.59) Eosinophils # (Auto) 0.08 K/uL (0-0.5) Basophils # (Auto) 0.02 K/uL (0-0.2) RDW Standard Deviation 48.8 fL (36.4-46.3) RDW Coefficient of Variation 14.9 % (11.5-14.5) Immature Granulocyte % (Auto) 0.4 % Immature Granulocyte # (Auto) 0.03 K/uL (0.00-0.02) Ovalocytes 1+ Prothrombin Time 10.8 SECONDS (9.0-12.0) Prothromb Time International Ratio 1.0 (0.9-1.1) Activated Partial Thromboplast Time 42.4 SECONDS (21.0-31.0) Partial Thromboplastin Ratio 1.6 Anion Gap 10.0 mmol/L (3-11) Est Creatinine Clear Calc Drug Dose 31.6 ml/min Estimated GFR () 35.8 Estimated GFR (Non- 30.9 BUN/Creatinine Ratio 15.2 (10-20) Calcium Level 8.9 mg/dl (8.5-10.1) Total Bilirubin 0.7 mg/dl (0.2-1) Aspartate Amino Transf (AST/SGOT) 18 U/L (15-37) Alanine Aminotransferase (ALT/SGPT) 19 U/L (12-78) Alkaline Phosphatase 136 U/L (45-117) Total Protein 6.4 gm/dl (6.4-8.2) Albumin 3.2 gm/dl (3.4-5.0) Globulin 3.2 gm/dl (2.5-4.0) Albumin/Globulin Ratio 1.0 (0.9-2) Medications Administered Medications (Trade) Dose Ordered Sig/Braxton Route Start Time Stop Time Status Last Admin Dose Admin Fentanyl Citrate (Fentanyl Inj) 50 mcg NOW STAT IV 04/18/17 14:41 04/18/17 14:44 DC 04/18/17 15:04 50 MCG Ondansetron HCl (Zofran Inj) 4 mg NOW STAT IV 04/18/17 14:41 04/18/17 14:44 DC 04/18/17 15:03 4 MG Antihemophilic Factor 3260 inter.unit/Syringe ml @ 10 mls/min TODAY@1615 IV 04/18/17 16:15 04/18/17 18:00 04/18/17 16:42 10 MLS/MIN ED Course The patient was seen and evaluated as above. Old records were reviewed, including his ED visit from just 4 days ago, at which point he was here for right hip pain that had been several months in duration and was attributed to "sciatica." The patient had an allergic reaction to the oxycodone and has not had any since area and Present History and physical exam were reviewed with attending physician and ED course workup was agreed upon. IV lock was initiated. CBC, coags and CMP were drawn. The patient was medicated with fentanyl 50 g IV for pain. He was medicated with Zofran to prevent nausea. Right shoulder and right elbow x-rays were obtained. Head and cervical spine CTs were performed. Laboratory studies note a chronic, stable anemia, H&H is 10.8 and 31.2, platelet count 171,000. Coags are within normal limits. Electrolytes are without significant abnormality. The abdomen is 2.03, stable and consistent with his chronic kidney disease. LFTs are normal. Right shoulder and right elbow x-rays and noted mild arthritic changes, chronic in nature, no evidence for acute fracture or dislocation. Head and cervical spine CT were negative for acute fracture or bony abnormality. X-ray findings were reviewed with the patient and his . The patient seemed more comfortable with the IV fentanyl on board, and was moving the right arm more freely to position himself on the bed, and to grasp his cup. I was able to speak with VIRGINIA Gusman with the patient's hemophilia clinic, she is familiar with the patient and well versed with his situation. We did review his bleeding disorder plan of care, a copy of which is in the chart. It was her recommendation given his delayed presentation, that the patient should be dosed at 100% of his factor VIII. With help from ED Pharmacist, Dasia, we were able to confirm that there was Hemofil-M Factor VIII concentrate in our pharmacy , specifically reserved for him. There were 4 vials, which is enough for 2 doses at the 100% level. The patient was treated with 3260 international units of Hemofil-M Factor VIII concentrate. It was the Uzma's recommendation, given the roughly 12 hour half-life, that repeat dosing should be clinically based, and she suspected that 1 dose would be inadequate, and that he should be rechecked in the morning, and if he is still experiencing pain and swelling, he should receive an additional dose of the factor VIII. This was discussed with the patient and his and she was in agreement. Treatment plan was also reviewed with attending physician. The patient IV lock was left in place, with anticipation for repeat dosing tomorrow morning. With regards to the right shoulder, the patient was placed in an arm sling to use for comfort. He cannot tolerate narcotics due to a codeine allergy, and has tramadol at home that they will use in addition to Tylenol and ice. Differential diagnoses entertained included shoulder dislocation, clavicle fracture, proximal humerus fracture, AC separation, joint effusion, hemarthrosis , soft tissue injury including rotator cuff tear, hematoma, C-spine fracture, ligamentous injury, acute intracranial bleed, among others. The patient was discharged home with his in stable condition. He will return to the Emergency Department are morning for reassessment. Medical Decision See ED Course. Medication Reconcilliation Current Medication List: was personally reviewed by me Blood Pressure Screening Patient's blood pressure: Normal blood pressure Blood pressure disposition: Did not require urgent referral Impression Primary Impression: Right shoulder injury Additional Impressions: Fall Factor VIII deficiency Departure Information Referrals Timothy Yoder M.D. (PCP) Patient Instructions My [facility] Additional Instructions DO NOT drive, drink alcohol, operate machinery, or perform dangerous activities today. You were given medications in the ER that can affect your ability to safely function or operate a vehicle. Tramadol (Ultram) 50mg: Take 1-2 pills every four hours for breakthrough pain. Avoid alcohol, operating machinery or dangerous equipment, working on ladders or roofs, DRIVING, or situations where being under the influence may be dangerous. It is recommended to use an somo-azn-qzpegar stool softener such as Colace, 100mg twice daily while taking this medication to avoid constipation. Acetaminophen(Tylenol) may be used for fever or pain. Use 1000mg every six hours as needed. Avoid using more than 3000mg in a 24 hour period. This medication can be taken if you need to drive, work, or perform activities which may be dangerous when taking narcotic pain medication. Ice compresses for 20 minutes at a time four times daily for 2-3 days. Use the sling as instructed. Remove your arm from the sling 4-6 times a day and move all the joints around to keep them loose. Rest and elevate your injury. Continue current medications. Return to the ER immediately for any numbness, tingling, severe pain, extreme swelling in the extremity or as needed. Return to the emergency department Friday, 04/19, for reevaluation, and likely repeat dose of factor VIII. Problem Qualifiers
[2017-04-18 17:02] VITALS: BP 127/71; PULSE 61; O2SAT 93
== END 2017-04-18 17:24 | disposition home or self-care (01) ==
LOC: C.EDB 13:47 → C.EDD 17:24
DX: S49.91XA Unspecified injury of right shoulder and upper arm, initial encounter (principal); W19.XXXA Unspecified fall, initial encounter; D66 Hereditary factor VIII deficiency; I25.10 Atherosclerotic heart disease of native coronary artery without angina pectoris; I25.2 Old myocardial infarction; I12.9 Hypertensive chronic kidney disease with stage 1 through stage 4 chronic kidney disease, or unspecified chronic kidney disease; N18.9 Chronic kidney disease, unspecified; F03.90 Unspecified dementia, unspecified severity, without behavioral disturbance, psychotic disturbance, mood disturbance, and anxiety; N40.0 Benign prostatic hyperplasia without lower urinary tract symptoms; M10.9 Gout, unspecified; E78.5 Hyperlipidemia, unspecified; F41.9 Anxiety disorder, unspecified; K21.9 Gastro-esophageal reflux disease without esophagitis; Z90.49 Acquired absence of other specified parts of digestive tract; Z83.3 Family history of diabetes mellitus; Z82.49 Family history of ischemic heart disease and other diseases of the circulatory system; Z79.82 Long term (current) use of aspirin; Z79.899 Other long term (current) drug therapy

== ENCOUNTER 2017-04-19 10:09 | Emergency (ER) | payer BC ==
[2017-04-19] MEDS ORDERED: SODIUM CHLORIDE 0.9% 1000ML 1,000 ML IV STA (10:53)
--- NOTE | 2017-04-19 10:53 | EMERGENCY ROOM VISIT NOTE ---
History Report prepared by Kimi: Tonny Moore Under the Supervision of: Dr. Tommy Hernandez M.D. First contact with patient: 10:43 Chief Complaint: OTHER COMPLAINT Stated Complaint: FACTOR TREATMENT History of Present Illness The patient is a 76 year old male who presents to the Emergency Room with complaints of persistent extremity pain after a mechanical fall that occurred 2 days ago. Per the patient's , the patient has a history of hemophilia. The patient has had chronic hip pain for a few months, and then fell 2 days ago on their wooden deck, and ever since then he has had right arm and shoulder pain. His pain has been "extreme", and has had trouble using his right arm. Per the patient's , the patient is also very confused that is worse from his baseline dementia. The patient was seen here yesterday after the fall, and had an x-ray of his right arm and shoulder done. He had a factor 8 treatment here yesterday, and was supposed to get another treatment today. Per the patient's , the patient has never hurt his right shoulder before. Source of History: patient, spouse/significant other Onset: 2 days ago Position: other (global - extremity pain) Symptom Intensity: extreme pain Quality: other (history of hemophilia) Timing: other (persistent) Note: Associated symptoms: Worsened confusion. Right arm and shoulder pain. Hip pain for a few months. Review of Systems See HPI for pertinent positives and negatives. A total of ten systems were reviewed and were otherwise negative. 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 (12) Gout Nos (13) Headache (14) Hemophilia (15) Hemophilia (16) Hyperkalemia (17) Hypertension Nos (18) Hyperventilation (19) Hypomagnesemia (20) Intractable headache (21) NSTEMI (non-ST elevated myocardial infarction) (22) Sciatica, right side (23) Sciatica, right side (24) Septic arthritis (25) STEMI (ST elevation myocardial infarction) (26) Von Willebrand's Disease (27) Von Willebrand's Disease Surgical Problems: (1) History of cholecystectomy Family History Cancer Diabetes mellitus Gallbladder disease Heart disease Hypertension Social History Smoking Status: Never Smoker Alcohol Use: none Marital Status: Housing Status: lives with significant other Occupation Status: retired Current/Historical Medications Scheduled Allopurinol (Zyloprim), 200 MG PO DAILY Aspirin (Aspirin Chewable), 81 MG PO QAM Atorvastatin (Lipitor), 80 MG PO HS Beclomethasone Dip (Qvar), 2 PUFF INH BID Brimonidine Tartrate (Brimonidine Tartrate), 1 DROP OPB UD Dorzolamide Hcl (Trusopt Oph), 1 DROP OPB HS Duloxetine Hcl (Cymbalta), 30 MG PO QAM Esomeprazole Magnesium (Nexium), 40 MG PO DAILY Finasteride (Proscar), 5 MG PO DAILY Latanoprost (Latanoprost), 1 DROP OPB HS Magnesium Oxide (Magnesium-Oxide), 400 MG PO BID Memantine (Namenda), 10 MG PO BID Metolazone (Metolazone), 5 MG PO DAILY Multiple Vitamins W/ Minerals (Centrum Silver Adult 50+), 1 TAB PO QAM Florence-3 Fatty Acids (Florence 3), 1 CAP PO QAM Oxybutynin Chloride (Oxybutynin Chloride), 5 MG PO TID Prednisone (Prednisone), 10 MG PO TAPER UD Scheduled PRN Acetaminophen (Tylenol), 1,000 MG PO Q6 PRN for Pain Aminocaproic Acid (Amicar), 500 MG PO UD PRN for coagulation Carvedilol (Carvedilol), 12.5 MG PO BID PRN for HR > 55 BPM Diazepam (Valium), 2-4 MG PO Q6H PRN for Pain Nitroglycerin (Nitrostat), 0.4 MG SL UD PRN for Chest Pain Oxycodone/Acetaminophen 5MG/325MG (Percocet 5MG/325MG), 1 TAB PO Q12 PRN for Pain Tizanidine (Tizanidine HCl), 4 MG PO TID PRN for Muscle Spasms Allergies Coded Allergies: Adhesives (Verified Allergy, Unknown, BANDAID-SKIN IRRITATION, 09/16/16) Antihemophilic Factor (Verified Allergy, Unknown, see comments for details from 08/13/16, 09/16/16) 08/13/16: spoke with [facility] at [facility] (Rachell Mcduffie phone: [phone]). Pt DOES NOT have von Willebrand Disease. He is Factor-8 deficient. 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 This still needs to be confirmed. AJhammad. Update: Avoid 1st generation Factor-8 replacement products includikng Recombinate) Note: if have to use Humate-P, make sure it's dosed on Factor-8 units (not vWF units) Codeine (Verified Allergy, Unknown, SOB/ N/V, 09/16/16) Homatropine (Unverified Allergy, Unknown, UNKNOWN, 09/16/16) Horse Serum Proteins (Unverified Allergy, Unknown, ILLNESS-ALMOST IN , 09/16/16) Hydrocodone (Unverified Allergy, Unknown, UNKNOWN, 09/16/16) Niacin (Unverified Allergy, Unknown, SKIN FLUSH, 09/16/16) Tetanus Toxoid (Verified Allergy, Unknown, ILLNESS-ALMOST IN , 09/16/16) Physical Exam Vital Signs Date Time Temp Pulse Resp B/P (MAP) Pulse Ox O2 Delivery O2 Flow Rate FiO2 04/19/17 13:48 36.5 80 22 154/92 96 04/19/17 13:43 36.5 80 22 154/92 96 04/19/17 13:30 154/92 04/19/17 13:09 80 22 96 Nasal Cannula 4.0 04/19/17 13:00 150/69 04/19/17 12:41 137/69 04/19/17 12:39 81 23 100 04/19/17 12:09 77 29 99 04/19/17 12:04 74 04/19/17 10:25 36.5 68 20 131/82 100 Room Air Physical Exam GENERAL: Awake, alert and oriented x2, demented at baseline. Uncomfortable appearing but no acute distress. HENT: Normocephalic, atraumatic. Oropharynx dry mm otherwise unremarkable. EYES: Normal conjunctiva. Sclera non-icteric. NECK: Supple. No nuchal rigidity. FROM. No JVD. RESPIRATORY: Clear to auscultation. CARDIAC: Regular rate, normal rhythm. Extremities warm and well perfused. Pulses equal. ABDOMEN: Soft, non-distended. No tenderness to palpation. No rebound or guarding. No masses. RECTAL: Deferred. MUSCULOSKELETAL: Pain limiting with active and passive range of motion in the right shoulder and elbow. Distal PMS intact. Full range of motion at the hips bilaterally. Chest examination reveals no tenderness. LOWER EXTREMITIES: Calves are equal size bilaterally and non-tender. No edema. No discoloration. NEURO: Alert and oriented x2, demented at baseline. Moving all extremities although right shoulder and elbow ROM limited 2/2 pain. SKIN: No rash or jaundice noted. Medical Decision & Procedures ER Provider Diagnostic Interpretation: Radiology results as stated below per my review and radiologist interpretation: R SHOULDER MIN 2 VIEWS ROUTINE CLINICAL HISTORY: Right shoulder pain following fall. COMPARISON: Right shoulder radiograph April 18, 2017. FINDINGS: No acute fracture is identified. Elevation of the right humeral head may reflect a chronic rotator cuff tear. There is moderate arthritis of the acromioclavicular and glenohumeral joints. IMPRESSION: No acute fracture or dislocation of the right shoulder. Electronically signed by: Hernán Estrada M.D. 04/19/2017 12:09 PM Dictated Date/Time: 04/19/2017 12:08 PM R ELBOW MIN 3 VIEWS ROUTINE CLINICAL HISTORY: Right elbow pain following fall. COMPARISON: Right elbow radiographs April 18, 2017. FINDINGS: Alignment of the right elbow is anatomic. No acute fracture is identified. Sensitivity for detection of joint effusion is diminished on this exam but a joint effusion is not identified. IMPRESSION: No acute fracture. Electronically signed by: Hernán Estrada M.D. 04/19/2017 12:10 PM Dictated Date/Time: 04/19/2017 12:[address] OF THE HEAD WITHOUT CONTRAST CLINICAL HISTORY: Fall. Confusion. COMPARISON STUDY: Head CT April 18, 2017 and June 28, 2016 and MRI of the brain October 21, 2016. TECHNIQUE: Helical axial images of the head were obtained without IV contrast. Automated exposure control was utilized for the study. A dose lowering technique was utilized adhering to the principles of ALARA. FINDINGS: No acute intracranial hemorrhage, midline shift or mass effect is present. Ventricular system is normal for age. Basilar cisterns are patent. There are no extra-axial collections. White matter hypodensity suggests small vessel disease. There are no findings to suggest acute dural sinus thrombosis or acute territorial infarct. There is moderate mucosal thickening of the frontal, ethmoid and left maxillary sinuses. Mastoid air cells are clear. IMPRESSION: 1. No acute intracranial findings. 2. No calvarial fracture. 3. Moderate frontal, ethmoid and left maxillary sinus mucosal thickening. Electronically signed by: Hernán Estrada M.D. 04/19/2017 12:57 PM Dictated Date/Time: 04/19/2017 12:[address] OF THE CERVICAL SPINE WITHOUT CONTRAST CLINICAL HISTORY: Neck pain following fall. COMPARISON STUDY: Cervical spine CT April 18, 2017. TECHNIQUE: Helical axial images of the cervical spine were obtained without IV contrast. Sagittal and coronal reconstructions were viewed. A dose lowering technique was utilized adhering to the principles of ALARA. FINDINGS: Slight anterolisthesis of C4 on C5 is chronic. This is likely due to facet arthrosis. There is no cervical spine fracture or subluxation. The craniocervical junction is intact. There is moderate multilevel degenerative disc disease and facet arthrosis of the cervical spine. IMPRESSION: No acute cervical spine fracture or subluxation. Electronically signed by: Hernán Estrada M.D. 04/19/2017 1:02 PM Dictated Date/Time: 04/19/2017 12:57 PM Laboratory Results 04/19/17 11:10 Red Blood Count 3.72, Mean Corpuscular Volume 91.4, Mean Corpuscular Hemoglobin 30.9, Mean Corpuscular Hemoglobin Concent 33.8, Mean Platelet Volume 10.5, Neutrophils (%) (Auto) 70.6, Lymphocytes (%) (Auto) 19.0, Monocytes (%) (Auto) 8.6, Eosinophils (%) (Auto) 1.3, Basophils (%) (Auto) 0.2, Neutrophils # (Auto) 6.36, Lymphocytes # (Auto) 1.71, Monocytes # (Auto) 0.78, Eosinophils # (Auto) 0.12, Basophils # (Auto) 0.02 04/19/17 11:24 Test 04/19/17 11:10 04/19/17 11:24 04/19/17 12:05 White Blood Count 9.02 K/uL (4.8-10.8) Red Blood Count 3.72 M/uL (4.7-6.1) Hemoglobin 11.5 g/dL (14.0-18.0) Hematocrit 34.0 % (42-52) Mean Corpuscular Volume 91.4 fL (80-100) Mean Corpuscular Hemoglobin 30.9 pg (25-34) Mean Corpuscular Hemoglobin Concent 33.8 g/dl (32-36) Platelet Count 179 K/uL (130-400) Mean Platelet Volume 10.5 fL (7.4-10.4) Neutrophils (%) (Auto) 70.6 % Lymphocytes (%) (Auto) 19.0 % Monocytes (%) (Auto) 8.6 % Eosinophils (%) (Auto) 1.3 % Basophils (%) (Auto) 0.2 % Neutrophils # (Auto) 6.36 K/uL (1.4-6.5) Lymphocytes # (Auto) 1.71 K/uL (1.2-3.4) Monocytes # (Auto) 0.78 K/uL (0.11-0.59) Eosinophils # (Auto) 0.12 K/uL (0-0.5) Basophils # (Auto) 0.02 K/uL (0-0.2) RDW Standard Deviation 50.0 fL (36.4-46.3) RDW Coefficient of Variation 15.0 % (11.5-14.5) Immature Granulocyte % (Auto) 0.3 % Immature Granulocyte # (Auto) 0.03 K/uL (0.00-0.02) Tear Drop Cells 1+ Ovalocytes 1+ Prothrombin Time 10.7 SECONDS (9.0-12.0) Prothromb Time International Ratio 1.0 (0.9-1.1) Activated Partial Thromboplast Time 33.6 SECONDS (21.0-31.0) Partial Thromboplastin Ratio 1.3 Anion Gap 8.0 mmol/L (3-11) Estimated GFR () 32.5 Estimated GFR (Non- 28.1 BUN/Creatinine Ratio 14.2 (10-20) Calcium Level 9.6 mg/dl (8.5-10.1) Total Bilirubin 1.1 mg/dl (0.2-1) Direct Bilirubin 0.3 mg/dl (0-0.2) Aspartate Amino Transf (AST/SGOT) 18 U/L (15-37) Alanine Aminotransferase (ALT/SGPT) 19 U/L (12-78) Alkaline Phosphatase 150 U/L (45-117) Total Protein 7.0 gm/dl (6.4-8.2) Albumin 3.5 gm/dl (3.4-5.0) Lipase 207 U/L (73-393) Urine Color YELLOW Urine Appearance CLEAR (CLEAR) Urine pH >= 9.0 (4.5-7.5) Urine Specific [place] 1.009 (1.000-1.030) Urine Protein 1+ (NEG) Urine Glucose (UA) NEG (NEG) Urine Ketones NEG (NEG) Urine Occult Blood NEG (NEG) Urine Nitrite NEG (NEG) Urine Bilirubin NEG (NEG) Urine Urobilinogen NEG (NEG) Urine Leukocyte Esterase NEG (NEG) Urine WBC (Auto) 1-5 /hpf (0-5) Urine RBC (Auto) 0-4 /hpf (0-4) Urine Hyaline Casts (Auto) 1-5 /lpf (0-5) Urine Epithelial Cells (Auto) 10-20 /lpf (0-5) Urine Bacteria (Auto) NEG (NEG) Laboratory results reviewed by me Medications Administered Medications (Trade) Dose Ordered Sig/Braxton Route Start Time Stop Time Status Last Admin Dose Admin Sodium Chloride 1,000 ml @ 125 mls/hr Q8H STAT IV 04/19/17 10:53 04/19/17 14:35 DC 04/19/17 10:53 125 MLS/HR Antihemophilic Factor 3260 inter.unit/Syringe 20 ml @ 10 mls/min NOW ONCE IV 04/19/17 11:15 04/19/17 11:16 DC 04/19/17 11:51 10 MLS/MIN Fentanyl Citrate (Fentanyl Inj) 50 mcg NOW STAT IV 04/19/17 11:20 04/19/17 11:21 DC 04/19/17 12:41 50 MCG ECG Indication: altered mental status Rate (beats per minute): 65 Rhythm: normal sinus Findings: no acute ischemic change, other (normal axis) ED Course 1044: The patient was evaluated in room C4. A complete history and physical exam was performed. 1053: Ordered NSS 1000 ml @ 125 mls/hr IV. 1100: Ordered Factor 8/Humate-P/Recombinate 1 N/A. 1120: Ordered Fentanyl Inj 50 mcg IV. 1234: I discussed the patient with Dr. Tiara Urbano [facility] - he is familiar with the patient. I also discussed the patient with Dr. Perez - [facility] - he will accept the patient for ED transfer for evaluation of possible hemarthrosis. 1245: Upon reexamination, the patient was resting. I discussed the test results and treatment plan with him and his . The patient expressed understanding and agreement with the plan. He will be transferred to the ED at [facility]. Medical Decision I reviewed the patient's past medical history, medications, and the nursing notes as described above. Differential diagnosis includes but is not limited to: fracture, dislocation, ligamentous injury, hemarthrosis. Patient is a 76-year-old gentleman with a past medical history of hemophilia A who presents to the emergency department with persistent right shoulder and elbow pain after being seen in the emergency department yesterday for a presumed mechanical fall onto his right shoulder and elbow per history of present illness. On yesterday's ED visit the patient's hemophilia clinic at [facility] was consulted and recommended administration of factor VIII per his treatment plan, which was subsequently reserved and in stock for the patient here. He is instructed to return for reevaluation and repeat dose if still with pain. On exam here the patient has significant pain even with passive range of motion in the right elbow and right shoulder. Plain films without any gross effusion. However given patient's significant pain repeat dose of factor VIII was given. Repeat CT head as well given that reports the patient's baseline dementia is slightly worse over the past week. CT head shows no bleed. CT cspine negative for acute fx. Patient unable to go home due to significant pain however given the patient's significant pain and concern that he may require repeat doses of factor VIII,of which he was given his last dose of reserved supply that is here, [place] [facility] [place]. Case was discussed with Dr. Menjivar welder 2nd shift at [facility] who is familiar with the patient, who agrees it is reasonable to admit the patient at [facility] for further observation and possible repeat dose of factor VIII. Case was additionally discussed with Dr. Perez in the ED who accepts the patient for transfer. Patient transferred via ALS. Medication Reconcilliation Current Medication List: was personally reviewed by me Blood Pressure Screening Patient's blood pressure: Normal blood pressure Consults Time Called: 1230 Consulting Physician: Dr. Tiara Alford hematology and Dr. Chris Alford Returned Call: 1234 I discussed the patient with Dr. Tiara Alford hematology - he is familiar with the patient. I also discussed the patient with Dr. Chris [facility] - he will accept the patient for ED transfer for evaluation of possible hemarthrosis. Impression Primary Impression: Hemarthrosis Critical Care I have personally spent greater than 35 minutes of critical care time in the direct management of this patient. This includes bedside care, interpretation of diagnostic studies, and testing, discussion with consultants, patient, and family members, and other required patient management activities. This 35 minutes is in excess of all separately billable procedures. Scribe Attestation The scribe's documentation has been prepared under my direction and personally reviewed by me in its entirety. I confirm that the note above accurately reflects all work, treatment, procedures, and medical decision making performed by me. Departure Information Dispostion Transfer Acute Care Facility (to [facility]) Referrals No Doctor, Assigned (PCP) Patient Instructions My [facility]
[2017-04-19] MEDS ORDERED: FACTOR 8/HUMATE-P/RECOMBINATE ONE (11:00)
[2017-04-19] MEDS ORDERED: [UNRECOGNIZED DRUG - MIXTURE] IV ONE (11:15)
[2017-04-19] MEDS ORDERED: FENTANYL CITRATE INJ 50 MCG/1 ML 2 ML VIAL IV STA (11:20)
[2017-04-19 11:29] LABS: MEAN CELL VOLUME 91.4 fL (80-100); MEAN CORPUSCULAR HEMOGLOBIN 30.9 pg (25-34); MEAN CORPUSCULAR HGB CONC 33.8 g/dl (32-36); MEAN PLATELET VOLUME 10.5 fL (7.4-10.4); PLATELET COUNT 179 K/uL (130-400); RED BLOOD COUNT 3.72 M/uL (4.7-6.1); WHITE BLOOD COUNT 9.02 K/uL (4.8-10.8)
[2017-04-19 11:40] LABS: PARTIAL THROMBOPLASTIN RATIO 1.3; PROTHROMBIN TIME (PATIENT) 10.7 SECONDS (9.0-12.0)
[2017-04-19 11:48] LABS: BASO % 0.2 %; BASO ABS # 0.02 K/uL (0-0.2); COMPLETE YES; EOS % 1.3 %; IG% 0.3 %; LYMPH ABS # 1.71 K/uL (1.2-3.4); MONO % 8.6 %; NEUT % 70.6 %; OVALOCYTES 1+; TEAR DROP CELLS 1+
[2017-04-19 11:59] LABS: ALKALINE PHOSPHATASE 150 U/L (45-117); ALT/SGPT 19 U/L (12-78); AST/SGOT 18 U/L (15-37); BLOOD UREA NITROGEN 31 mg/dl (7-18); BUN/CREATININE RATIO 14.2 (10-20); CALCIUM 9.6 mg/dl (8.5-10.1); CARBON DIOXIDE 29 mmol/L (21-32); CHLORIDE 102 mmol/L (98-107); GLUCOSE 94 mg/dl (70-99); POTASSIUM 4.3 mmol/L (3.5-5.1); SODIUM 139 mmol/L (136-145)
--- NOTE | 2017-04-19 12:10 | DIAGNOSTIC IMAGING REPORT ---
R SHOULDER MIN 2 VIEWS ROUTINE CLINICAL HISTORY: Right shoulder pain following fall. COMPARISON: Right shoulder radiograph April 18, 2017. FINDINGS: No acute fracture is identified. Elevation of the right humeral head may reflect a chronic rotator cuff tear. There is moderate arthritis of the acromioclavicular and glenohumeral joints. IMPRESSION: No acute fracture or dislocation of the right shoulder. Electronically signed by: Hernán Estrada M.D. 04/19/2017 12:09 PM Dictated Date/Time: 04/19/2017 12:08 PM
--- NOTE | 2017-04-19 12:11 | DIAGNOSTIC IMAGING REPORT ---
R ELBOW MIN 3 VIEWS ROUTINE CLINICAL HISTORY: Right elbow pain following fall. COMPARISON: Right elbow radiographs April 18, 2017. FINDINGS: Alignment of the right elbow is anatomic. No acute fracture is identified. Sensitivity for detection of joint effusion is diminished on this exam but a joint effusion is not identified. IMPRESSION: No acute fracture. Electronically signed by: Hernán Estrada M.D. 04/19/2017 12:10 PM Dictated Date/Time: 04/19/2017 12:09 PM
[2017-04-19 12:18] LABS: URINE APPEARANCE CLEAR (CLEAR); URINE BILIRUBIN NEG (NEG); URINE COLOR YELLOW; URINE NITRITE NEG (NEG); URINE PH >= 9.0 (4.5-7.5); URINE SPECIFIC GRAVITY 1.009 (1.000-1.030); UROBILINOGEN NEG (NEG); ZZURINE CULT IF INDIC CATH NO
[2017-04-19 12:27] LABS: MANUAL MICROSCOPIC REQUIRED? NO; REVIEW REQ? NO; SULFASALICYLIC ACID POS (NEG)
--- NOTE | 2017-04-19 12:58 | DIAGNOSTIC IMAGING REPORT ---
CT OF THE HEAD WITHOUT CONTRAST CLINICAL HISTORY: Fall. Confusion. COMPARISON STUDY: Head CT April 18, 2017 and June 28, 2016 and MRI of the brain October 21, 2016. TECHNIQUE: Helical axial images of the head were obtained without IV contrast. Automated exposure control was utilized for the study. A dose lowering technique was utilized adhering to the principles of ALARA. FINDINGS: No acute intracranial hemorrhage, midline shift or mass effect is present. Ventricular system is normal for age. Basilar cisterns are patent. There are no extra-axial collections. White matter hypodensity suggests small vessel disease. There are no findings to suggest acute dural sinus thrombosis or acute territorial infarct. There is moderate mucosal thickening of the frontal, ethmoid and left maxillary sinuses. Mastoid air cells are clear. IMPRESSION: 1. No acute intracranial findings. 2. No calvarial fracture. 3. Moderate frontal, ethmoid and left maxillary sinus mucosal thickening. Electronically signed by: Hernán Estrada M.D. 04/19/2017 12:57 PM Dictated Date/Time: 04/19/2017 12:53 PM
--- NOTE | 2017-04-19 13:04 | DIAGNOSTIC IMAGING REPORT ---
CT OF THE CERVICAL SPINE WITHOUT CONTRAST CLINICAL HISTORY: Neck pain following fall. COMPARISON STUDY: Cervical spine CT April 18, 2017. TECHNIQUE: Helical axial images of the cervical spine were obtained without IV contrast. Sagittal and coronal reconstructions were viewed. A dose lowering technique was utilized adhering to the principles of ALARA. FINDINGS: Slight anterolisthesis of C4 on C5 is chronic. This is likely due to facet arthrosis. There is no cervical spine fracture or subluxation. The craniocervical junction is intact. There is moderate multilevel degenerative disc disease and facet arthrosis of the cervical spine. IMPRESSION: No acute cervical spine fracture or subluxation. Electronically signed by: Hernán Estrada M.D. 04/19/2017 1:02 PM Dictated Date/Time: 04/19/2017 12:57 PM
[2017-04-19 13:48] VITALS: BP 154/92; PULSE 80; TEMP 36.5; O2SAT 96
== END 2017-04-19 13:47 | disposition short-term general hospital (02) ==
LOC: C.EDB 10:10 → C.EDC 13:47
DX: S43.401A Unspecified sprain of right shoulder joint, initial encounter (principal); W18.30XA Fall on same level, unspecified, initial encounter; F03.90 Unspecified dementia, unspecified severity, without behavioral disturbance, psychotic disturbance, mood disturbance, and anxiety; D66 Hereditary factor VIII deficiency; I12.9 Hypertensive chronic kidney disease with stage 1 through stage 4 chronic kidney disease, or unspecified chronic kidney disease; N18.9 Chronic kidney disease, unspecified; M10.9 Gout, unspecified; F41.9 Anxiety disorder, unspecified; K21.9 Gastro-esophageal reflux disease without esophagitis; I25.2 Old myocardial infarction; Z90.49 Acquired absence of other specified parts of digestive tract; Z83.3 Family history of diabetes mellitus; Z82.49 Family history of ischemic heart disease and other diseases of the circulatory system; Z79.82 Long term (current) use of aspirin; Z79.899 Other long term (current) drug therapy

== ENCOUNTER → 2017-05-09 | Outpatient (CLI) | payer BC ==
[~2017-05-09] MED LIST changes: -DORZ2SOL17 OPB; +DORZ2SOL19 OPB
[2017-05-09 16:14] LABS: HEMATOCRIT 33.3 % (42-52); HEMOGLOBIN 11.2 g/dL (14.0-18.0)
[2017-05-09 16:48] LABS: BLOOD UREA NITROGEN 36 mg/dl (7-18); CALCIUM 9.2 mg/dl (8.5-10.1); CARBON DIOXIDE 26 mmol/L (21-32); GLUCOSE 126 mg/dl (70-99); POTASSIUM 3.7 mmol/L (3.5-5.1); SODIUM 140 mmol/L (136-145)
== END | disposition home or self-care (01) ==
LOC: C.LAB1850 15:36
PROVIDERS: ATTEND Physician Assistant
DX: N18.9 Chronic kidney disease, unspecified (principal)

== ENCOUNTER → 2017-06-09 | Outpatient (CLI) | payer BC ==
[~2017-06-09] MED LIST changes: +DORZ2SOL17 OPB; -DORZ2SOL19 OPB
[2017-06-09 14:42] LABS: HEMATOCRIT 32.4 % (42-52); HEMOGLOBIN 10.8 g/dL (14.0-18.0)
== END | disposition home or self-care (01) ==
LOC: C.LAB1850 12:13
PROVIDERS: ATTEND Internal Medicine
DX: D64.9 Anemia, unspecified (principal); N18.9 Chronic kidney disease, unspecified

== ENCOUNTER → 2017-06-30 | Outpatient (CLI) | payer BC ==
[2017-06-30 15:39] LABS: BASO % 0.5 %; BASO ABS # 0.03 K/uL (0-0.2); EOS ABS # 0.13 K/uL (0-0.5); HEMATOCRIT 35.3 % (42-52); HEMOGLOBIN 11.9 g/dL (14.0-18.0); IG# 0.01 K/uL (0.00-0.02); LYMPH % 21.7 %; LYMPH ABS # 1.38 K/uL (1.2-3.4); MEAN CELL VOLUME 94.1 fL (80-100); MEAN CORPUSCULAR HEMOGLOBIN 31.7 pg (25-34); MEAN CORPUSCULAR HGB CONC 33.7 g/dl (32-36); MEAN PLATELET VOLUME 10.5 fL (7.4-10.4); MONO % 8.3 %; MONO ABS # 0.53 K/uL (0.11-0.59); NEUT % 67.3 %; NEUT ABS # 4.27 K/uL (1.4-6.5); PLATELET COUNT 153 K/uL (130-400); RED CELL DISTRIBUTION WIDTH SD 51.3 fL (36.4-46.3); WHITE BLOOD COUNT 6.35 K/uL (4.8-10.8)
[2017-06-30 16:25] LABS: ALBUMIN 3.6 gm/dl (3.4-5.0); ALT/SGPT 18 U/L (12-78); AST/SGOT 16 U/L (15-37); BLOOD UREA NITROGEN 32 mg/dl (7-18); CALCIUM 9.2 mg/dl (8.5-10.1); CARBON DIOXIDE 27 mmol/L (21-32); CREATININE 1.93 mg/dl (0.60-1.40); GLUCOSE 87 mg/dl (70-99); SODIUM 141 mmol/L (136-145)
[2017-06-30 16:28] LABS: ALKALINE PHOSPHATASE 121 U/L (45-117)
== END | disposition home or self-care (01) ==
LOC: C.LAB1850 14:11
PROVIDERS: ATTEND Internal Medicine
DX: D63.1 Anemia in chronic kidney disease (principal)

== ENCOUNTER 2018-12-21 19:19 | Inpatient (IN) ==
[2018-12-21 19:38] LABS: Basophils # (auto) 0.02 K/uL (0-0.2); Basophils % (auto) 0.3 %; Eosinophils % (auto) 2.7 %; Hematocrit (blood only) 38.4 % (42-52); Hemoglobin 13.2 g/dL (14.0-18.0); Immature Granulocytes # (auto) 0.02 K/uL (0.00-0.02); Immature Granulocytes % (auto) 0.3 %; Lymphocytes # (auto) 1.54 K/uL (1.2-3.4); Mean Corpuscular Hgb Conc 34.4 g/dL (32-36); Mean Corpuscular Volume 90.6 fL (80-100); Mean Platelet Volume 9.9 fL (7.4-10.4); Monocytes # (auto) 0.51 K/uL (0.11-0.59); Monocytes % (auto) 6.9 %; Neutrophils # (auto) 5.05 K/uL (1.4-6.5); Neutrophils % (auto) 68.8 %; Platelet Count 170 K/uL (130-400); RDW Coefficient of Variation 15.9 % (11.5-14.5); Red Blood Count 4.24 M/uL (4.7-6.1); White Blood Count 7.34 K/uL (4.8-10.8)
[2018-12-21 19:51] LABS: Partial Thromboplastin Ratio 1.5; Partial Thromboplastin Time 41.9 Seconds (21.0-31.0); Prothrombin Time 10.3 Seconds (9.0-12.0)
[2018-12-21 19:55] LABS: Albumin Level 3.9 gm/dl (3.4-5.0); BUN Creatinine Ratio 14.7 (10-20); Calcium 9.5 mg/dl (8.5-10.1); Creatinine Clr Calc Pharmacy 28.3 ml/min; Est GFR (African American) 30.5; Est GFR (Non-African American) 26.4; Potassium 3.7 mmol/L (3.5-5.1)
[2018-12-21 19:57] LABS: Albumin Globulin Ratio 1.1 (0.9-2); Bilirubin,Total 0.7 mg/dl (0.2-1); Globulin 3.7 gm/dl (2.5-4.0); Total Protein 7.6 gm/dl (6.4-8.2)
--- NOTE | 2018-12-21 20:03 | CT Scan Report ---
HEAD CT NONCONTRAST CT DOSE: 537.48 mGy.cm HISTORY: fall TECHNIQUE: Multiaxial CT images of the head were performed without the use of intravenous contrast. A utomated exposure control was utilized for this study. A dose lowering technique was utilized adheri ng to the principles of ALARA. Comparison: Head CT 05/06/2018. Findings: The paranasal sinuses and mastoid air cells are clear. The calvarium and skull base are int act. There is no mass, hematoma, midline shift, acute infarct. White matter hypodensity is nonspecifi c but suggestive of microvascular ischemic change. The ventricles and sulci demonstrate mild age-rela martell involutional changes. 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 This remains unc hanged. Impression: No significant change compared to the prior study. No acute intracranial abnormality. Electronically signed by: Austen Renee M.D. 12/21/2018 8:01 PM
--- NOTE | 2018-12-21 20:08 | XRay Report ---
XR chest 1V portable HISTORY: Sepsis COMPARISON: Chest 05/06/2018. FINDINGS: There are low lung volumes. A few bibasilar linear densities favor subsegmental atelectasis are scarring. This is similar to the prior study. No new focal lung consolidations to suggest pneumo tim. No evidence for pulmonary edema. The heart remains mildly enlarged. No pleural effusions. No pne umothorax. IMPRESSION: No significant change compared to the prior study. No acute process. Stable mild cardiomegaly. Electronically signed by: Austen Renee M.D. 12/21/2018 8:07 PM
[2018-12-21 22:08] LABS: Appearance Urine Clear (Clear); Bacteria Urine Automated Negative (Negative); Bilirubin Urine Negative (Negative); Blood Urine Negative (Negative); Cast Urine Automated 0 /lpf (0-5); Color Urine Yellow; Epithelial Cell Urine Auto 0-5 /lpf (0-5); Glucose Urine UA Negative (Negative); Ketones Urine Negative (Negative); Leukocyte Esterase Urine Negative (Negative); Nitrite Urine Negative (Negative); RBC Urine Automated 0-4 /hpf (0-4); Specific Gravity Urine 1.013 (1.000-1.030); Urobilinogen Urine Negative (Negative); WBC Urine Automated 0 /hpf (0-5); pH Urine 7.5 (4.5-7.5)
[2018-12-21 22:15] LABS: Protein Urine 3+ (Negative)
--- NOTE | 2018-12-22 00:11 | Emergency Department Note ---
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 The patient reports that he had fallen a week ago. He states that he has right forearm laceration and pain. Patient was taken to the PCPs office where he was found to have a new murmur and found to have pitting edema and they noted EKG changes in the inferior leads. They sent him over here for admission and further evaluation of these findings. He denies any headache, neck pain, chest pain, shortness of breath, nausea, vomiting, or abdominal pain. He reports that he has pain in right shoulder. He notes that he has swelling in left leg. Home Medications Home Medications Medication Instructions Recorded Confirmed Type acetaminophen [Tylenol Extra 1,000 mg PO Q6H PRN 05/06/18 12/21/18 History Strength] allopurinol 200 mg PO DAILY 05/06/18 12/21/18 History amlodipine 5 mg PO Q12H 05/06/18 12/21/18 History aspirin 81 mg PO DAILY 05/06/18 12/21/18 History atorvastatin 80 mg PO HS 05/06/18 12/21/18 History beclomethasone dipropionate [Qvar 2 puff INHALATION BID 05/06/18 12/21/18 Hist ory RediHaler] brimonidine 1 drp OPB Q12H 05/06/18 12/21/18 History carvedilol 6.25 mg PO BID 05/06/18 12/21/18 History diazepam 2 mg PO HS 05/06/18 12/21/18 History dorzolamide 1 drp OPB TID 05/06/18 12/21/18 History duloxetine 30 mg PO QAM 05/06/18 12/21/18 History esomeprazole magnesium 40 mg PO DAILY 05/06/18 12/21/18 History finasteride 5 mg PO DAILY 05/06/18 12/21/18 History latanoprost 1 drp OPB HS 05/06/18 12/21/18 History magnesium oxide 400 mg PO BID 05/06/18 12/21/18 History memantine 10 mg PO BID 05/06/18 12/21/18 History metolazone 5 mg PO DAILY 05/06/18 12/21/18 History lkyozjiajkfg-ncyhxsaf-fhwgei 1 tab PO DAILY 05/06/18 12/21/18 History [Multivitamin 50 Plus] nitroglycerin [Nitrostat] 0.4 mg SUBLINGUAL Q5M PRN 05/06/18 12/21/18 History omega-3 fatty acids 1,000 mg PO QAM 05/06/18 12/21/18 History oxybutynin chloride 5 mg PO TID 05/06/18 12/21/18 History tizanidine 4 mg PO TID PRN 05/06/18 12/21/18 History Allergies Allergy/AdvReac Type Severity Reaction Status Date / Time adhesive Allergy Unknown BANDAID-SKIN Verified 12/21/18 21:45 IRRITATION antihemophilic factor Allergy Unknown reaction Verified 12/21/18 21:46 (FVIII) rec, full length to recombinate products made in hamster, mice codeine Allergy Unknown SOB/ N/V Verified 12/21/18 21:46 homatropine Allergy Unknown UNKNOWN Unverified 12/21/18 21:47 Horse/Equine Containing Allergy Unknown ILLNESS-ALMOST Unverified 12/21/18 21:46 Products IN 1950S hydrocodone Allergy Unknown UNKNOWN Unverified 12/21/18 21:47 niacin Allergy Unknown SKIN FLUSH Unverified 12/21/18 21:47 tetanus toxoid, adsorbed Allergy Unknown ILLNESS-ALMOST Verified 12/21/18 21:47 IN 1950S Past Med/Surg History Medical History Sciatica, right side (Chronic) Hemophilia (Chronic) Family History Other No significant family history Social History Preferred Language: Syrian Feels Safe at Home: Yes Smoking Status: Never smoker Review of Systems See HPI for pertinent positives & negatives. and A total of 10 systems reviewed and were otherwise negative Physical Exam Vital Signs Vital Signs - 24 hr 12/21/18 19:31 12/21/18 19:39 12/21/18 20:19 Temperature 36.6 C Temperature Source Oral Sepsis Recent Fever Within 48 Hours No Sepsis New/Unexplained Change in Mental Status No Sepsis Action Taken by Nursing No Action Required Pulse Rate 67 Pulse Rate [Apical] 61 Respiratory Rate 18 18 Respiratory Effort / Characteristics Respiratory Depth Blood Pressure 179/114 H Blood Pressure [Left Arm] 153/72 H Blood Pressure Mean 135 Blood Pressure Mean [Left Arm] 99 Pulse Oximetry 100 100 95 Oxygen Delivery Method Room Air Room Air Room Air 12/21/18 21:10 12/21/18 22:07 12/21/18 22:31 Temperature Temperature Source Sepsis Recent Fever Within 48 Hours Sepsis New/Unexplained Change in Mental Status Sepsis Action Taken by Nursing Pulse Rate Pulse Rate [Apical] 66 62 57 L Respiratory Rate 18 18 18 Respiratory Effort / Characteristics Non-Labored Respiratory Depth Normal Blood Pressure Blood Pressure [Left Arm] 157/70 H 179/84 H 169/89 H Blood Pressure Mean Blood Pressure Mean [Left Arm] 99 115 115 Pulse Oximetry 94 95 95 Oxygen Delivery Method Room Air Room Air Room Air 12/21/18 23:30 Temperature Temperature Source Sepsis Recent Fever Within 48 Hours Sepsis New/Unexplained Change in Mental Status Sepsis Action Taken by Nursing Pulse Rate Pulse Rate [Apical] 54 L Respiratory Rate 18 Respiratory Effort / Characteristics Respiratory Depth Blood Pressure Blood Pressure [Left Arm] 148/69 H Blood Pressure Mean Blood Pressure Mean [Left Arm] 95 Pulse Oximetry 94 Oxygen Delivery Method Room Air GENERAL: alert, sitting up in bed, chronically-ill appearing, no distress, non- toxic EYE EXAM: normal conjunctiva OROPHARYNX: no exudate, no erythema, lips, buccal mucosa, and tongue normal and mucous membranes are moist NECK: supple, no nuchal rigidity, no adenopathy, non-tender LUNGS: Clear to auscultation. Normal chest wall mechanics HEART: Positive JAMEEL, S1 normal and S2 normal ABDOMEN: abdomen soft, non-tender, normo-active bowel sounds, no masses, no rebound or guarding. SKIN: Laceration on right dorsal surface of forearm. Multiple brusining on abdomen and upper extremities. UPPER EXTREMITIES: upper extremities are grossly normal. LOWER EXTREMITIES: Mild pitting edema. NEURO EXAM: Awake, alert, and oriented to place, not year, cranial nerves II-XII grossly intact, normal speech, no gross weakness of arms, no gross weakness of legs. Course ED COURSE: Vital signs were reviewed and showed hypertension The patients medical record was reviewed The above diagnostic studies were performed and reviewed. ED treatments and interventions as stated above. . Based on the patients age, coexisting illnesses, exam and lab findings the d ecision to treat as an inpatient was made. The patient remained stable while under my care. 1924: The patient was evaluated in room B12B, and a complete history and physical examination were performed. 2029: I reevaluated the patient and updated him on his results. 2099: I discussed the patient's case with Dr. Kacie Hayes [facility] Hospitalist, she will accept the patient for further evaluation. Consultations Consultation #1: Dr. Kacie Hayes [facility] Hospitalist Time: 21:00 Medical Decision Making Differential Diagnosis Differential diagnosis: Etiologies such as metabolic, infection, hypo/hyperglycemia, electrolyte abnormalities, cardiac sources, intracerebral event, toxicologic, neurologic, as well as others were entertained. Medical Records Attestation: I reviewed the patient's medical records. Home Medications Current Medication List: was personally reviewed by me Laboratory Data Attestation: I reviewed the patient's lab results. Result diagrams: 12/21/18 19:04 12/21/18 19:04 Lab Results 12/21/18 12/21/18 12/21/18 Range/Units 19:04 19:04 19:04 WBC 7.34 (4.8-10.8) K/uL RBC 4.24 L (4.7-6.1) M/uL Hgb 13.2 L (14.0-18.0) g/dL Hct 38.4 L (42-52) % MCV 90.6 (80-100) fL MCH 31.1 (25-34) pg MCHC 34.4 (32-36) g/dL RDW Std Deviation 52.0 H (36.4-46.3) fL RDW Coeff of Agatha 15.9 H (11.5-14.5) % Plt Count 170 (130-400) K/uL MPV 9.9 (7.4-10.4) fL Immature Gran % (Auto) 0.3 % Neut % (Auto) 68.8 % Lymph % (Auto) 21.0 % Alcorn % (Auto) 6.9 % Eos % (Auto) 2.7 % Baso % (Auto) 0.3 % Immature Gran # (Auto) 0.02 (0.00-0.02) K/uL Neut # (Auto) 5.05 (1.4-6.5) K/uL Lymph # (Auto) 1.54 (1.2-3.4) K/uL Alcorn # (Auto) 0.51 (0.11-0.59) K/uL Eos # (Auto) 0.20 (0-0.5) K/uL Baso # (Auto) 0.02 (0-0.2) K/uL PT 10.3 (9.0-12.0) Seconds INR 1.0 (0.9-1.1) APTT 41.9 H (21.0-31.0) Seconds PTT Ratio 1.5 Sodium 142 (136-145) mmol/L Potassium 3.7 (3.5-5.1) mmol/L Chloride 106 (98-107) mmol/L Carbon Dioxide 28 (21-32) mmol/L Anion Gap 8.0 (3-11) BUN 34 H (7-18) mg/dl Creatinine 2.29 H (0.6-1.4) mg/dl Est Cr Clr Drug Dosing 28.3 ml/min Est GFR ( Amer) 30.5 Est GFR (Non-Af Amer) 26.4 BUN/Creatinine Ratio 14.7 (10-20) Glucose 115 H (70-99) mg/dl Lactate (0.4-2.0) mmol/L Calcium 9.5 (8.5-10.1) mg/dl Total Bilirubin 0.7 (0.2-1) mg/dl AST 27 (15-37) U/L ALT 33 (12-78) U/L Alkaline Phosphatase 182 H (45-117) U/L Troponin I (0-0.045) ng/ml Total Protein 7.6 (6.4-8.2) gm/dl Albumin 3.9 (3.4-5.0) gm/dl Globulin 3.7 (2.5-4.0) gm/dl Albumin/Globulin Ratio 1.1 (0.9-2) Urine Color Urine Appearance (Clear) Urine pH (4.5-7.5) Ur Specific [place] (1.000-1.030) Urine Protein (Negative) Urine Glucose (UA) (Negative) Urine Ketones (Negative) Urine Blood (Negative) Urine Nitrite (Negative) Urine Bilirubin (Negative) Urine Urobilinogen (Negative) Ur Leukocyte Esterase (Negative) Urine WBC (Auto) (0-5) /hpf Urine RBC (Auto) (0-4) /hpf U Hyaline Cast (Auto) (0-5) /lpf U Epithel Cells (Auto) (0-5) /lpf Urine Bacteria (Auto) (Negative) 12/21/18 12/21/18 12/21/18 Range/Units 19:52 20:42 22:00 WBC (4.8-10.8) K/uL RBC (4.7-6.1) M/uL Hgb (14.0-18.0) g/dL Hct (42-52) % MCV (80-100) fL MCH (25-34) pg MCHC (32-36) g/dL RDW Std Deviation (36.4-46.3) fL RDW Coeff of Agatha (11.5-14.5) % Plt Count (130-400) K/uL MPV (7.4-10.4) fL Immature Gran % (Auto) % Neut % (Auto) % Lymph % (Auto) % Alcorn % (Auto) % Eos % (Auto) % Baso % (Auto) % Immature Gran # (Auto) (0.00-0.02) K/uL Neut # (Auto) (1.4-6.5) K/uL Lymph # (Auto) (1.2-3.4) K/uL Alcorn # (Auto) (0.11-0.59) K/uL Eos # (Auto) (0-0.5) K/uL Baso # (Auto) (0-0.2) K/uL PT (9.0-12.0) Seconds INR (0.9-1.1) APTT (21.0-31.0) Seconds PTT Ratio Sodium (136-145) mmol/L Potassium (3.5-5.1) mmol/L Chloride (98-107) mmol/L Carbon Dioxide (21-32) mmol/L Anion Gap (3-11) BUN (7-18) mg/dl Creatinine (0.6-1.4) mg/dl Est Cr Clr Drug Dosing ml/min Est GFR ( Amer) Est GFR (Non-Af Amer) BUN/Creatinine Ratio (10-20) Glucose (70-99) mg/dl Lactate 1.4 (0.4-2.0) mmol/L Calcium (8.5-10.1) mg/dl Total Bilirubin (0.2-1) mg/dl AST (15-37) U/L ALT (12-78) U/L Alkaline Phosphatase (45-117) U/L Troponin I < 0.015 (0-0.045) ng/ml Total Protein (6.4-8.2) gm/dl Albumin (3.4-5.0) gm/dl Globulin (2.5-4.0) gm/dl Albumin/Globulin Ratio (0.9-2) Urine Color Yellow Urine Appearance Clear (Clear) Urine pH 7.5 (4.5-7.5) Ur Specific [place] 1.013 (1.000-1.030) Urine Protein 3+ H (Negative) Urine Glucose (UA) Negative (Negative) Urine Ketones Negative (Negative) Urine Blood Negative (Negative) Urine Nitrite Negative (Negative) Urine Bilirubin Negative (Negative) Urine Urobilinogen Negative (Negative) Ur Leukocyte Esterase Negative (Negative) Urine WBC (Auto) 0 (0-5) /hpf Urine RBC (Auto) 0-4 (0-4) /hpf U Hyaline Cast (Auto) 0 (0-5) /lpf U Epithel Cells (Auto) 0-5 (0-5) /lpf Urine Bacteria (Auto) Negative (Negative) Imaging Data Radiologist's Impression: Radiology results as stated below per my review and the radiologist's interpretation: HEAD CT NONCONTRAST CT DOSE: 537.48 mGy.cm HISTORY: fall TECHNIQUE: Multiaxial CT images of the head were performed without the use of intravenous contrast. Automated exposure control was utilized for this study. A dose lowering technique was utilized adhering to the principles of ALARA. Comparison: Head CT 05/06/2018. Findings: The paranasal sinuses and mastoid air cells are clear. The calvarium and skull base are intact. There is no mass, hematoma, midline shift, acute infarct. White matter hypodensity is nonspecific but suggestive of microvascular ischemic change. The ventricles and sulci demonstrate mild age-related involutional changes. 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 This remains unchanged. Impression: No significant change compared to the prior study. No acute intracranial abnormality. Electronically signed by: Austen Renee M.D. 12/21/2018 8:01 PM XR chest 1V portable HISTORY: Sepsis COMPARISON: Chest 05/06/2018. FINDINGS: There are low lung volumes. A few bibasilar linear densities favor subsegmental atelectasis are scarring. This is similar to the prior study. No new focal lung consolidations to suggest pneumonia. No evidence for pulmonary edema. The heart remains mildly enlarged. No pleural effusions. No pneumothorax. IMPRESSION: No significant change compared to the prior study. No acute process. Stable mild cardiomegaly. Electronically signed by: Austen Renee M.D. 12/21/2018 8:07 PM ECG Data Attestation: I personally reviewed and interpreted this ECG as follows: Indication: weakness Rate (beats per minute): 64 Rhythm: sinus rhythm Findings: + other (normal aixs, ST changes in inferior leads, ST wave changes in anterior and lateral leads), + RBBB and + T-wave inversion (septal); no PVC Comparison ECG Date: from (05/06/18) Change: the following changes noted (lateral, anterior, inferior leads worsened) Blood Pressure Blood Pressure Findings: Elevated blood pressure Blood Pressure Disposition: further management by hospitalist NEELA Gerber Patient is a 78-year-old male who presents the ER for new systolic ejection murmur along with pitting edema in the lower extremities and JVD along with EKG changes from the PCPs office. IV was established blood work was obtained. Labs show no significant leukocytosis or anemia. BMP was remarkable for creatinine of 2.29 consistent with previous. LFTs bilirubin and troponin was negative. UA was negative. CT head was unremarkable. Chest x-ray unremarkable. EKG did not feel was significant change from previous. Patient does have a new systolic ejection murmur upon review of his previous chart and auscultation. He does have some mild JVD. Based on this and being sent in by the PCP to discuss with the hospitalist for possible observation for echo in the a.m. Impression & Plan Newly recognized murmur, Fall, Abrasion of arm, right Discharge Plan Visit Data Chief Complaint: Weakness ED Provider: Cristhian Tobin Discharge Problem: Newly recognized murmur, Fall, Abrasion of arm, right Patient Disposition: Being Evaluated by Hospitalist Forms Stand Alone Forms: My [facility] Prescriptions Prescriptions: No Action latanoprost 0.005 % drops 1 drp OPB HS RF: 0 atorvastatin 80 mg tablet 80 mg PO HS RF: 0 carvedilol 6.25 mg Tablet 6.25 mg PO BID RF: 0 omega-3 fatty acids 1,000 mg Capsule 1,000 mg PO QAM RF: 0 tizanidine 4 mg Tablet 4 mg PO TID PRN (Reason: Muscle Spasm) RF: 0 metolazone 5 mg tablet 5 mg PO DAILY RF: 0 amlodipine 5 mg tablet 5 mg PO Q12H RF: 0 allopurinol 100 mg tablet 200 mg PO DAILY RF: 0 acetaminophen [Tylenol Extra Strength] 500 mg Tablet 1,000 mg PO Q6H PRN (Reason: Pain) RF: 0 diazepam 2 mg Tablet 2 mg PO HS RF: 0 esomeprazole magnesium 40 mg capsule,delayed release(DR/EC) 40 mg PO DAILY RF: 0 brimonidine 0.2 % drops 1 drp OPB Q12H RF: 0 nitroglycerin [Nitrostat] 0.4 mg Tablet, Sublingual 0.4 mg Sublingual Q5M PRN (Reason: Chest Pain) RF: 0 aspirin 81 mg Tablet,Chewable 81 mg PO DAILY RF: 0 oxybutynin chloride 5 mg tablet 5 mg PO TID RF: 0 finasteride 5 mg tablet 5 mg PO DAILY RF: 0 dorzolamide 2 % drops 1 drp OPB TID RF: 0 Multivitamin 50 Plus Tablet 1 tab PO DAILY RF: 0 memantine 10 mg tablet 10 mg PO BID RF: 0 duloxetine 30 mg capsule,delayed release(DR/EC) 30 mg PO QAM RF: 0 Qvar RediHaler 80 mcg/actuation HFA aerosol breath activated 2 puff Inhalation BID RF: 0 magnesium oxide 400 mg magnesium Tablet 400 mg PO BID RF: 0 Referrals Referrals: Timothy Yoder MD [Primary Care Provider] - Discharge Problem: Fall Qualifiers: Encounter type: initial encounter Qualified Code(s): W19.XXXA - Unspecified fall, initial encounter Abrasion of arm, right Qualifiers: Encounter type: initial encounter Qualified Code(s): S40.811A - Abrasion of right upper arm, initial encounter The scribe's documentation has been prepared under my direction and personally reviewed by me in its entirety. I confirm that the note above accurately reflects all work, treatment, procedures, and medical decision making performed by me.
--- NOTE | 2018-12-22 01:18 | History & Physical Report ---
Date of Service December 22, 2018 Assessment & Plan (1) Weakness: 78-year-old male was admitted on 22 December 2018 after reportedly being referred by his primary care provider for weakness and a newly diagnosed heart murmur. History is significantly limited by patient's underlying dementia and lack of access to caregivers at time of admission. Please see ED record for further background. Weakness: Per report. Patient has underlying dementia and presently is unsure why he was sent over to the hospital. He notes occasional recent falls but denies any current pains or focal weakness. No overt focal extremity weakness on exam, though he moves all extremities slowly. Question of underlying spasticity (and he is on tizanidine at home). - In ED, afebrile, borderline bradycardic, moderately hypertensive, with mildly decreased room SpO2. WBC 7, Lactate 1.4. Hemoglobin 13 (recent comparisons around 11). Troponin negative. 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 pCXR suggestive of atelectasis and cardiomegaly without acute findings. Newly diagnosed systolic ejection murmur, BLE pitting edema, inferior lead EKG changes: By report. Patient denies any chest pain or difficulty breathing. In ED, EKG NSR 64 with RBBB (appears similar to comparison in Apr 2018) but no ST segment abnormalities seen. - Will order an echocardiogram. Keep on hall monitor. Check a TSH in the morning. Ongoing medical issues: - Hypertension: Continue home amlodipine, aspirin, atorvastatin, Coreg, - Asthma: Continue home qvar. - Gallbladder disease: Chronically elevated alk phos, admit AP 182. - Gout: Continue home allopurinol. - Chronic kidney disease, proteinuria: Admit Cr 2.29 with comparisons perhaps around 2.0. Proteinuria on UA. - Dementia: Continue home amantadine. - GERD: Continue home omeprazole. - History of hemophilia A and von Willebrand's disease. Question of history of hepatitis. Code status: Full code. Diet: Heart healthy. DVT prophy: SCDs. Holding chemical prophylaxis due to history of hemophilia. PT/OT: Ordered. Disbo: Admit to PCU (as telemetry beds are currently occupied). (2) Newly recognized murmur: (3) Peripheral edema: (4) Hypertension: (5) Abrasion of arm, right: (6) Asthma: (7) Gallbladder disease: (8) Gout: (9) Chronic kidney disease (CKD): (10) Dementia: (11) GERD (gastroesophageal reflux disease): (12) Hemophilia: (13) Von Willebrand disease: History of Present Illness Primary Care Provider: Timothy Yoder MD 78-year-old male presents the emergency department after reportedly being referred from his primary care provider's office after being found to have a new murmur, pitting edema, and EKG changes in the inferior leads. The patient himself has underlying dementia. He says that he is not sure why he was brought over to the hospital and presently denies any acute pain or concerns. He also notes that his takes care of him but that she has already gone home for the evening. Per the medical record: - Past medical history includes anemia, lower extremity edema, cellulitis of foot, ingrown toenails, hemophilia A, peripheral vascular disease, plantar fasciitis, arthritis, asthma, gallbladder disease, gout, hearing difficulty, heart disease, hepatitis, hypertension, neuropathy, GERD, and STEMI, von Willebrand's disease. - Past surgical history includes cholecystectomy, coronary stent, shoulder repair. - Social history includes no reported history of tobacco or alcohol use. Lives at home with . Allergies Allergy/AdvReac Type Severity Reaction Status Date / Time adhesive Allergy Unknown BANDAID-SKIN Verified 12/21/18 21:45 IRRITATION antihemophilic factor Allergy Unknown reaction Verified 12/21/18 21:46 (FVIII) rec, full length to recombinate products made in hamster, mice codeine Allergy Unknown SOB/ N/V Verified 12/21/18 21:46 homatropine Allergy Unknown UNKNOWN Unverified 12/21/18 21:47 Horse/Equine Containing Allergy Unknown ILLNESS-ALMOST Unverified 12/21/18 21:46 Products IN 1950 hydrocodone Allergy Unknown UNKNOWN Unverified 12/21/18 21:47 niacin Allergy Unknown SKIN FLUSH Unverified 12/21/18 21:47 tetanus toxoid, adsorbed Allergy Unknown ILLNESS-ALMOST Verified 12/21/18 21:47 IN 1950 Home Medications Home Medications Medication Instructions Recorded Confirmed Type acetaminophen [Tylenol Extra 1,000 mg PO Q6H PRN 05/06/18 12/21/18 History Strength] allopurinol 200 mg PO DAILY 05/06/18 12/21/18 History amlodipine 5 mg PO Q12H 05/06/18 12/21/18 History aspirin 81 mg PO DAILY 05/06/18 12/21/18 History atorvastatin 80 mg PO HS 05/06/18 12/21/18 History beclomethasone dipropionate [Qvar 2 puff INHALATION BID 05/06/18 12/21/18 History RediHaler] brimonidine 1 drp OPB Q12H 05/06/18 12/21/18 History carvedilol 6.25 mg PO BID 05/06/18 12/21/18 History diazepam 2 mg PO HS 05/06/18 12/21/18 History dorzolamide 1 drp OPB TID 05/06/18 12/21/18 History duloxetine 30 mg PO QAM 05/06/18 12/21/18 History esomeprazole magnesium 40 mg PO DAILY 05/06/18 12/21/18 History finasteride 5 mg PO DAILY 05/06/18 12/21/18 History latanoprost 1 drp OPB HS 05/06/18 12/21/18 History magnesium oxide 400 mg PO BID 05/06/18 12/21/18 History memantine 10 mg PO BID 05/06/18 12/21/18 History metolazone 5 mg PO DAILY 05/06/18 12/21/18 History sudkondatiln-ubopkucl-nbztub 1 tab PO DAILY 05/06/18 12/21/18 History [Multivitamin 50 Plus] nitroglycerin [Nitrostat] 0.4 mg SUBLINGUAL Q5M PRN 05/06/18 12/21/18 History omega-3 fatty acids 1,000 mg PO QAM 05/06/18 12/21/18 History oxybutynin chloride 5 mg PO TID 05/06/18 12/21/18 History tizanidine 4 mg PO TID PRN 05/06/18 12/21/18 History Past Med/Surg History Medical History Sciatica, right side (Chronic) Hemophilia (Chronic) Family History Other No significant family history Social History (Reviewed 12/21/18 @ 21:08 by Nidhi Chicas Preferred Language: Turkish Communication Ability: Effective Beliefs That Will Affect Care: None Current Living Situation: Spouse Other Information That Helps Us Care for You: No Feels Safe at Home: Yes Safety Concerns: Feels Safe At This Time Smoking Status: Unknown if ever smoked Hx Alcohol Use: No Hx Substance Use: No Review of Systems Review of Systems: Unable to obtain full ROS due to underlying dementia. Limited ROS is negative for any chest pain, shortness of breath, abdominal pain, recent vomiting or diarrhea, known acute bleeding, or extremity pains. Physical Exam Physical Exam: GENERAL: Awake, alert but pleasantly confused, oriented to self and month/year, in no acute distress HENT: Normocephalic, atraumatic. Oropharynx slightly dry. EYES: Normal conjunctiva. Sclera non-icteric. NECK: Inspection normal. CARDIAC: +S1S2 regular but borderline bradycardia, positive 2/6 systolic murmur. RESPIRATORY: Clear to auscultation. No wheezes or rales. Normal respiratory effort. GI: +BS, soft, non-distended. No tenderness to palpation. No rebound or guarding. There is a significant contusion overlying the right upper quadrant. EXTREMITIES: No calf tenderness. Moving all extremities slowly. Some question of underlying muscle spasticity. Positive skin avulsive injury to the dorsal right forearm that is presently dressed and not actively bleeding. 2+ bilateral lower extremity pitting edema to shins. NEURO: No gross neuro deficits. Moving all four extremities on command with distal strength 5/5 throughout. Results & Data Vital Signs (Past 12 Hours) Vital Signs Temp Pulse Pulse Resp BP BP Pulse Ox 12/22/18 01:02 56 L 18 137/93 96 12/21/18 23:30 54 L 18 148/69 H 94 12/21/18 22:31 57 L 18 169/89 H 95 12/21/18 22:07 62 18 179/84 H 95 12/21/18 21:10 66 18 157/70 H 94 12/21/18 20:19 61 18 153/72 H 95 12/21/18 19:39 100 12/21/18 19:31 36.6 C 67 18 179/114 H 100 Laboratory Results 12/21/18 12/21/18 12/21/18 Range/Units 22:00 20:42 19:52 WBC (4.8-10.8) K/uL RBC (4.7-6.1) M/uL Hgb (14.0-18.0) g/dL Hct (42-52) % MCV (80-100) fL MCH (25-34) pg MCHC (32-36) g/dL RDW Std Deviation (36.4-46.3) fL RDW Coeff of Agatha (11.5-14.5) % Plt Count (130-400) K/uL MPV (7.4-10.4) fL Immature Gran % (Auto) % Neut % (Auto) % Lymph % (Auto) % Johnston % (Auto) % Eos % (Auto) % Baso % (Auto) % Immature Gran # (Auto) (0.00-0.02) K/uL Neut # (Auto) (1.4-6.5) K/uL Lymph # (Auto) (1.2-3.4) K/uL Johnston # (Auto) (0.11-0.59) K/uL Eos # (Auto) (0-0.5) K/uL Baso # (Auto) (0-0.2) K/uL PT (9.0-12.0) Seconds INR (0.9-1.1) APTT (21.0-31.0) Seconds PTT Ratio Sodium (136-145) mmol/L Potassium (3.5-5.1) mmol/L Chloride (98-107) mmol/L Carbon Dioxide (21-32) mmol/L Anion Gap (3-11) BUN (7-18) mg/dl Creatinine (0.6-1.4) mg/dl Est Cr Clr Drug Dosing ml/min Est GFR ( Amer) Est GFR (Non-Af Amer) BUN/Creatinine Ratio (10-20) Glucose (70-99) mg/dl Lactate 1.4 (0.4-2.0) mmol/L Calcium (8.5-10.1) mg/dl Total Bilirubin (0.2-1) mg/dl AST (15-37) U/L ALT (12-78) U/L Alkaline Phosphatase (45-117) U/L Troponin I < 0.015 (0-0.045) ng/ml Total Protein (6.4-8.2) gm/dl Albumin (3.4-5.0) gm/dl Globulin (2.5-4.0) gm/dl Albumin/Globulin Ratio (0.9-2) Urine Color Yellow Urine Appearance Clear (Clear) Urine pH 7.5 (4.5-7.5) Ur Specific Kinnear 1.013 (1.000-1.030) Urine Protein 3+ H (Negative) Urine Glucose (UA) Negative (Negative) Urine Ketones Negative (Negative) Urine Blood Negative (Negative) Urine Nitrite Negative (Negative) Urine Bilirubin Negative (Negative) Urine Urobilinogen Negative (Negative) Ur Leukocyte Esterase Negative (Negative) Urine WBC (Auto) 0 (0-5) /hpf Urine RBC (Auto) 0-4 (0-4) /hpf U Hyaline Cast (Auto) 0 (0-5) /lpf U Epithel Cells (Auto) 0-5 (0-5) /lpf Urine Bacteria (Auto) Negative (Negative) 12/21/18 12/21/18 12/21/18 Range/Units 19:04 19:04 19:04 WBC 7.34 (4.8-10.8) K/uL RBC 4.24 L (4.7-6.1) M/uL Hgb 13.2 L (14.0-18.0) g/dL Hct 38.4 L (42-52) % MCV 90.6 (80-100) fL MCH 31.1 (25-34) pg MCHC 34.4 (32-36) g/dL RDW Std Deviation 52.0 H (36.4-46.3) fL RDW Coeff of Agatha 15.9 H (11.5-14.5) % Plt Count 170 (130-400) K/uL MPV 9.9 (7.4-10.4) fL Immature Gran % (Auto) 0.3 % Neut % (Auto) 68.8 % Lymph % (Auto) 21.0 % Johnston % (Auto) 6.9 % Eos % (Auto) 2.7 % Baso % (Auto) 0.3 % Immature Gran # (Auto) 0.02 (0.00-0.02) K/uL Neut # (Auto) 5.05 (1.4-6.5) K/uL Lymph # (Auto) 1.54 (1.2-3.4) K/uL Johnston # (Auto) 0.51 (0.11-0.59) K/uL Eos # (Auto) 0.20 (0-0.5) K/uL Baso # (Auto) 0.02 (0-0.2) K/uL PT 10.3 (9.0-12.0) Seconds INR 1.0 (0.9-1.1) APTT 41.9 H (21.0-31.0) Seconds PTT Ratio 1.5 Sodium 142 (136-145) mmol/L Potassium 3.7 (3.5-5.1) mmol/L Chloride 106 (98-107) mmol/L Carbon Dioxide 28 (21-32) mmol/L Anion Gap 8.0 (3-11) BUN 34 H (7-18) mg/dl Creatinine 2.29 H (0.6-1.4) mg/dl Est Cr Clr Drug Dosing 28.3 ml/min Est GFR ( Amer) 30.5 Est GFR (Non-Af Amer) 26.4 BUN/Creatinine Ratio 14.7 (10-20) Glucose 115 H (70-99) mg/dl Lactate (0.4-2.0) mmol/L Calcium 9.5 (8.5-10.1) mg/dl Total Bilirubin 0.7 (0.2-1) mg/dl AST 27 (15-37) U/L ALT 33 (12-78) U/L Alkaline Phosphatase 182 H (45-117) U/L Troponin I (0-0.045) ng/ml Total Protein 7.6 (6.4-8.2) gm/dl Albumin 3.9 (3.4-5.0) gm/dl Globulin 3.7 (2.5-4.0) gm/dl Albumin/Globulin Ratio 1.1 (0.9-2) Urine Color Urine Appearance (Clear) Urine pH (4.5-7.5) Ur Specific Kinnear (1.000-1.030) Urine Protein (Negative) Urine Glucose (UA) (Negative) Urine Ketones (Negative) Urine Blood (Negative) Urine Nitrite (Negative) Urine Bilirubin (Negative) Urine Urobilinogen (Negative) Ur Leukocyte Esterase (Negative) Urine WBC (Auto) (0-5) /hpf Urine RBC (Auto) (0-4) /hpf U Hyaline Cast (Auto) (0-5) /lpf U Epithel Cells (Auto) (0-5) /lpf Urine Bacteria (Auto) (Negative) Code Status & VTE Plan Code Status Full code VTE Prophylaxis Plan VTE Prophylaxis will be ordered: Yes Supervising Physician Co-Signing Physician Notes Patient seen and examined, chart reviewed, case discussed with Dr. Mello and I agree with his assessment and plan as documented above. Briefly, patient is a 78yo C male who was sent by his PCP for newly discovered cardiac murmur and bilateral LE pitting edema, report of EKG changes in the inferior leads. Patient denies prior history of LE edema. He denies CP, weight gain, orthopnea. He does note a decrease in his exercise tolerance and becoming more easily short of breath over the last 1-2 months. No additional complaints. Patient is pleasantly demented On exam he is afebrile, hemodynamically stable, NAD Skin - intact HEENT - no JVD Heart - +S1/S2, regular, 3/6 JAMEEL at 2nd right ICS, no radiation to carotids or precordium Lungs - CTA, no rales/rhonchi/wheezes Abd - +BS, soft, NT/ND Ext - 2+ pitting edema of bilateral LEs to knees Labs and images reviewed. EKG with no acute ischemic changes. Assessment/Plan: 78yo C male sent by PCP due to concern for new onset CHF - edema +new cardiac murmur EKG changes -Check 2D echo -Check urine protein:Cr ratio -Telemetry monitoring -Remainder of plan as above PG Care Time/CCT Total # of Minutes Spent Total Time Spent with Patient: Total time spent is greater than 50% in coordination of care (as documented) at patient's floor/unit and/or counseling patient: Resident Activity Tracking Resident Involvement: Resident Care Provided Care Provided: Adult Hospital Medicine (1) Abrasion of arm, right Encounter type: initial encounter Qualified Code(s): S40.811A - Abrasion of right upper arm, initial encounter
[2018-12-22] MEDS ORDERED: NITROGLYCERIN SL 0.4 MG/TAB TAB SL PRN (02:26)
[2018-12-22] MEDS ORDERED: TIZANIDINE HCL 4 MG TABLET PO PRN (02:26)
[2018-12-22] MEDS ORDERED: ACETAMINOPHEN 500 MG TAB PO PRN (02:26)
[2018-12-22] MEDS: AMLODIPINE BESYLATE 5 MG TAB PO SCH ×2 (03:51→15:59)
[2018-12-22 06:38] LABS: BUN Creatinine Ratio 14.6 (10-20); Creatinine Clr Calc Pharmacy 25.4 ml/min; Est GFR (African American) 30.1; Est GFR (Non-African American) 25.9; Potassium 3.6 mmol/L (3.5-5.1)
[2018-12-22] MEDS ORDERED: PANTOprazole 40 MG TAB PO SCH (09:00)
[2018-12-22] MEDS ORDERED: BECLOMETHASONE DIP HFA 80 MCG 8.7G INH INH SCH (09:00)
[2018-12-22] MEDS ORDERED: ALLOPURINOL 100 MG TAB PO SCH (09:00)
[2018-12-22] MEDS ORDERED: metOLazone 5 MG TABLET PO SCH (09:00)
[2018-12-22] MEDS ORDERED: BRIMONIDINE TARTRATE 0.2% 5ML OPB SCH (09:00)
[2018-12-22] MEDS ORDERED: DULOXETINE HCL 30 MG CAP PO SCH (09:00)
[2018-12-22] MEDS ORDERED: MAGNESIUM OXIDE 400 MG TAB PO SCH (09:00)
[2018-12-22] MEDS ORDERED: CEROVITE ADV FORMULA TAB PO SCH (09:00)
[2018-12-22] MEDS ORDERED: FINASTERIDE 5 MG TAB PO SCH (09:00)
[2018-12-22] MEDS ORDERED: ASPIRIN 81 MG ECTAB PO SCH (09:00)
[2018-12-22] MEDS ORDERED: BRIMONIDINE TART 0.2% OP SOLN PER DROP CHARGE OPB SCH (09:00)
[2018-12-22] MEDS ORDERED: MEMANTINE HCL 10 MG TAB PO SCH (09:00)
[2018-12-22] MEDS ORDERED: OMEGA-3 (PURIFIED FISH OIL) 1 GM CAP PO SCH (09:00)
[2018-12-22] MEDS ORDERED: CARVEDILOL 6.25 MG TAB PO SCH (09:00)
[2018-12-22] MEDS: DORZOLAMIDE HCL 2% OPH SOLN 10 ML BTL OPB SCH ×2 (09:10→15:56)
[2018-12-22] MEDS: OXYBUTYNIN CHLORIDE 5 MG TAB PO SCH ×2 (09:15→15:56)
[2018-12-22] MEDS ORDERED: LATANOPROST 0.005% OP SOLN 2.5 ML BTL OPB SCH (21:00)
[2018-12-22] MEDS ORDERED: ATORVASTATIN 40 MG TAB PO SCH (21:00)
[2018-12-22] MEDS ORDERED: diazePAM 2 MG TABLET PO SCH (21:00)
--- NOTE | 2018-12-28 21:36 | Discharge Summary ---
Date of Service December 22, 2018 Admission HPI Per Admitting Provider 78-year-old male presents the emergency department after reportedly being referred from his primary care provider's office after being found to have a new murmur, pitting edema, and EKG changes in the inferior leads. The patient himself has underlying dementia. He says that he is not sure why he was brought over to the hospital and presently denies any acute pain or concerns. He also notes that his takes care of him but that she has already gone home for the evening. Per the medical record: - Past medical history includes anemia, lower extremity edema, cellulitis of foot, ingrown toenails, hemophilia A, peripheral vascular disease, plantar fasciitis, arthritis, asthma, gallbladder disease, gout, hearing difficulty, heart disease, hepatitis, hypertension, neuropathy, GERD, and STEMI, von Willebrand's disease. - Past surgical history includes cholecystectomy, coronary stent, shoulder repair. - Social history includes no reported history of tobacco or alcohol use. Lives at home with . Principal Diagnosis weakness Discharge Exam GENERAL: Awake, alert oriented to self and month/year, in no acute distress HENT: Normocephalic, atraumatic. EYES: Normal conjunctiva. Sclera non-icteric. NECK: Inspection normal. CARDIAC: +S1S2 regular but borderline bradycardia, positive 2/6 systolic murmur. RESPIRATORY: Clear to auscultation. No wheezes or rales. Normal respiratory effort. GI: +BS, soft, non-distended. No tenderness to palpation. No rebound or guarding. There is a significant contusion overlying the right upper quadrant. EXTREMITIES: No calf tenderness. Moving all extremities slowly. Some question of underlying muscle spasticity. Positive skin avulsive injury to the dorsal right forearm that is presently dressed and not actively bleeding. 2+ bilateral lower extremity pitting edema to shins. NEURO: No gross neuro deficits. Moving all four extremities on command with distal strength 5/5 throughout. Discharge Data Allergies Allergy/AdvReac Type Severity Reaction Status Date / Time adhesive Allergy Unknown BANDAID-SKIN Verified 12/21/18 21:45 IRRITATION antihemophilic factor Allergy Unknown reaction Verified 12/21/18 21:46 (FVIII) rec, full length to recombinate products made in hamster, mice codeine Allergy Unknown SOB/ N/V Verified 12/21/18 21:46 homatropine Allergy Unknown UNKNOWN Unverified 12/21/18 21:47 Horse/Equine Containing Allergy Unknown ILLNESS-ALMOST Unverified 12/21/18 21:46 Products IN 1950S hydrocodone Allergy Unknown UNKNOWN Unverified 12/21/18 21:47 niacin Allergy Unknown SKIN FLUSH Unverified 12/21/18 21:47 tetanus toxoid, adsorbed Allergy Unknown ILLNESS-ALMOST Verified 12/21/18 21:47 IN 1949'S Consultations 12/21/18 22:43 ED Decision to Admit Stat Ordered Studies 12/21/18 19:31 CT head/brain wo con Stat Hospital Course (1) Weakness: 78-year-old male was admitted on 22 December 2018 after reportedly being referred by his primary care provider for weakness and a newly diagnosed heart murmur. History is significantly limited by patient's underlying dementia and lack of access to caregivers at time of admission. Please see ED record for further background. Weakness: Per report. Patient has underlying dementia and presently is unsure why he was sent over to the hospital. He notes occasional recent falls but denies any current pains or focal weakness. No overt focal extremity weakness on exam, though he moves all extremities slowly. Question of underlying spasticity (and he is on tizanidine at home). - In ED, afebrile, borderline bradycardic, moderately hypertensive, with mildly decreased room SpO2. WBC 7, Lactate 1.4. Hemoglobin 13 (recent comparisons around 11). Troponin negative. 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 pCXR suggestive of atelectasis and cardiomegaly without acute findings. Hospital course: Patient was seen by his PCP. Appears to be back to his baseline. Murmur also odes not appear to be different. Patient was not sent in by PCP office, but by an urgent care. No changes on Echocardiogram. Patient will be discharged home. agrees with plan. Newly diagnosed systolic ejection murmur, BLE pitting edema, inferior lead EKG changes: By report. Patient denies any chest pain or difficulty breathing. Patient appears to be at baseline. Ongoing medical issues: - Hypertension: Continue home amlodipine, aspirin, atorvastatin, Coreg, - Asthma: Continue home qvar. - Gallbladder disease: Chronically elevated alk phos, admit AP 182. - Gout: Continue home allopurinol. - Chronic kidney disease, proteinuria: Admit Cr 2.29 with comparisons perhaps around 2.0. Proteinuria on UA. - Dementia: Continue home amantadine. - GERD: Continue home omeprazole. - History of hemophilia A and von Willebrand's disease. Question of history of hepatitis. Code status: Full code. Diet: Heart healthy. DVT prophy: SCDs. Holding chemical prophylaxis due to history of hemophilia. (2) Newly recognized murmur: (3) Peripheral edema: (4) Hypertension: (5) Abrasion of arm, right: (6) Asthma: (7) Gallbladder disease: (8) Gout: (9) Chronic kidney disease (CKD): (10) Dementia: (11) GERD (gastroesophageal reflux disease): (12) Hemophilia: (13) Von Willebrand disease: Total Time Total Time Spent Total Time Spent (In Minutes): 32 Total Time Includes: Examination of the Patient, Discharge Planning and Medicati on Reconciliation Discharge Plan Discharge Items Patient Disposition: Home - Self-Care Reason For Visit: WEAKNESS Discharge Diagnosis: New murmur Discharge Goals: Decrease discomfort Activity: Resume your previous activity Non-emergency contact: Primary Care Provider Call non-emergency contact if: you have any medication questions Follow-up/Referrals: Timothy Yoder MD [Primary Care Provider] - Diet: Heart Healthy Addtl Provider Instructions: You were seen by your PCP during the hospital stay. It appears you are at your baseline. Echo did not reveal any new structural damage. Ok to discharge Prescriptions: Continued latanoprost 0.005 % drops 1 drp OPB HS RF: 0 atorvastatin 80 mg tablet 80 mg PO HS RF: 0 carvedilol 6.25 mg Tablet 6.25 mg PO BID RF: 0 omega-3 fatty acids 1,000 mg Capsule 1,000 mg PO QAM RF: 0 tizanidine 4 mg Tablet 4 mg PO TID PRN (Reason: Muscle Spasm) RF: 0 metolazone 5 mg tablet 5 mg PO DAILY RF: 0 amlodipine 5 mg tablet 5 mg PO Q12H RF: 0 allopurinol 100 mg tablet 200 mg PO DAILY RF: 0 acetaminophen [Tylenol Extra Strength] 500 mg Tablet 1,000 mg PO Q6H PRN (Reason: Pain) RF: 0 diazepam 2 mg Tablet 2 mg PO HS RF: 0 esomeprazole magnesium 40 mg capsule,delayed release(DR/EC) 40 mg PO DAILY RF: 0 brimonidine 0.2 % drops 1 drp OPB Q12H RF: 0 nitroglycerin [Nitrostat] 0.4 mg Tablet, Sublingual 0.4 mg Sublingual Q5M PRN (Reason: Chest Pain) RF: 0 aspirin 81 mg Tablet,Chewable 81 mg PO DAILY RF: 0 oxybutynin chloride 5 mg tablet 5 mg PO TID RF: 0 finasteride 5 mg tablet 5 mg PO DAILY RF: 0 dorzolamide 2 % drops 1 drp OPB TID RF: 0 Multivitamin 50 Plus Tablet 1 tab PO DAILY RF: 0 memantine 10 mg tablet 10 mg PO BID RF: 0 duloxetine 30 mg capsule,delayed release(DR/EC) 30 mg PO QAM RF: 0 beclomethasone dipropionate 80 mcg/actuation HFA aerosol breath activated 2 puff Inhalation BID RF: 0 magnesium oxide 400 mg magnesium Tablet 400 mg PO BID RF: 0 Stand-Alone Forms: [facility] Discharge Orders: Discharge Order (Routine); Ordered 12/22/18 Ordered By: Tre Olivarez Admission Data Admit Date/Time: 12/22/18 01:07 Attending Provider: Tre Olivarez Admit Provider: Kleber Mello Primary Care Provider: Timothy Yoder Other Providers: Chen Paulson Service: Telemetry Other Interventions: Discharge Summary Assessment (RN) Last Done: 12/22/18 18:38 DC Date/Time DO NOT enter until pt leaves facility: 12/22/18 19:05
== END 2018-12-22 19:05 | disposition home or self-care (01) | DRG 315 ==
LOC: ED 19:19 → 2S 12-22 01:07 → SUATTDRO 12-22 01:07 → 2S 12-22 02:21

== ENCOUNTER 2019-01-29 14:35 | Observation (INO) ==
[2019-01-29 15:16] LABS: Basophils # (auto) 0.03 K/uL (0-0.2); Basophils % (auto) 0.3 %; Eosinophils # (auto) 0.15 K/uL (0-0.5); Eosinophils % (auto) 1.6 %; Hemoglobin 12.2 g/dL (14.0-18.0); Immature Granulocytes # (auto) 0.03 K/uL (0.00-0.02); Immature Granulocytes % (auto) 0.3 %; Lymphocytes # (auto) 1.55 K/uL (1.2-3.4); Lymphocytes % (auto) 16.5 %; Mean Corpuscular Hemoglobin 30.3 pg (25-34); Mean Platelet Volume 10.7 fL (7.4-10.4); Monocytes # (auto) 0.67 K/uL (0.11-0.59); Monocytes % (auto) 7.2 %; Neutrophils # (auto) 6.94 K/uL (1.4-6.5); Neutrophils % (auto) 74.1 %; Platelet Count 189 K/uL (130-400); RDW Coefficient of Variation 16.1 % (11.5-14.5); RDW Standard Deviation 54.1 fL (36.4-46.3); Red Blood Count 4.02 M/uL (4.7-6.1); White Blood Count 9.37 K/uL (4.8-10.8)
--- NOTE | 2019-01-29 15:22 | CT Scan Report ---
CT head/brain wo con CLINICAL HISTORY: headache COMPARISON STUDY: 12/21/2018 TECHNIQUE: Axial CT of the brain is performed from the vertex to the skull base. IV contrast was not administered for this examination. A dose lowering technique was utilized adhering to the principles of ALARA. CT DOSE: 537.48 mGy.cm FINDINGS: No intra or extra-axial mass lesions are visualized. There is no CT evidence of acute cortical infarc tion. There is no evidence of midline shift. There is no acute hemorrhage. No calvarial fractures ar e visualized. There are patchy white matter hypodensities likely on a small vessel basis. There is no evidence of pathologic ventricular dilatation. There is no evidence of acute sinusitis IMPRESSION: No acute intracranial findings Electronically signed by: Trey Amaro M.D. 01/29/2019 3:21 PM
[2019-01-29 15:31] LABS: Alanine Aminotransferase 21 U/L (12-78); Albumin Level 3.8 gm/dl (3.4-5.0); Aspartate Aminotransferase 18 U/L (15-37); BUN Creatinine Ratio 15.9 (10-20); Blood Urea Nitrogen 37 mg/dl (7-18); Carbon Dioxide 27 mmol/L (21-32); Chloride 107 mmol/L (98-107); Creatinine Clr Calc Pharmacy 27.4 ml/min; Est GFR (African American) 29.6; Est GFR (Non-African American) 25.5; Glucose 95 mg/dl (70-99); Lipase 272 U/L (73-393); Magnesium 1.5 mg/dl (1.8-2.4); Potassium 3.8 mmol/L (3.5-5.1); Sodium 140 mmol/L (136-145)
--- NOTE | 2019-01-29 15:33 | XRay Report ---
XR chest 1V portable CLINICAL HISTORY: Atypical chest pain COMPARISON STUDY: 12/21/2018 FINDINGS: The heart is at the upper limits of normal in size. There is no failure. There is no focal pulmonary consolidation. There are no pleural effusions.[ IMPRESSION: No active disease in the chest. Electronically signed by: Trey Amaro M.D. 01/29/2019 3:32 PM
[2019-01-29] MEDS ORDERED: MAGNESIUM SULFATE / D5W 1 GM/100 ML BAG IV ONE (15:39)
[2019-01-29 15:42] LABS: Alkaline Phosphatase 160 U/L (45-117); Bilirubin,Total 0.6 mg/dl (0.2-1); Globulin 3.7 gm/dl (2.5-4.0); NT Pro B Type Natriuretic Pept 1920 pg/ml (0-1800); Total Protein 7.5 gm/dl (6.4-8.2); Troponin I < 0.015 ng/ml (0-0.045)
[2019-01-29] MEDS ORDERED: NITROGLYCERIN 2% OINTMENT 30GM TUBE EXT STA (16:49)
--- NOTE | 2019-01-29 20:36 | History & Physical Report ---
Date of Service January 29, 2019 Assessment & Plan (1) Unstable angina: 78 yo M PMHx CAD, CKD stage 3, GERD, Gout, Asthma, hypomagnesemia, dementia admitted for possible unstable angina, without chest pain at this time. Questionable Unstable Angina - Troponin ordered at 8AM, follow ups Q4H until 8AM tomorrow morning. - Cardiology consult placed with Dr. Nichols; pt follows with Paras Cheney in the outpatient setting. - Continue home carvedilol 6.25mg BID, amlodipine 5mg BID, metolazone 5mg daily, atorvastatin 80mg daily. - Heparin 5000u BID. - Nitro PRN. EKG PRN chest pain. - Mg 1.5 in ED, given 1000mg IV. Will check AM. CKD - at baseline Cr at this time. - BMP AM. HTN - Continue home medications. - [id number] at this time. Asthma - Continue home Qvar Gout - Continue home allopurinol 100mg daily Dispo: Telemetry FEN: Heart Healthy Diet, Magnesium repleted will recheck tomorrow AM DVT ppx: SCDs, Heparin 5000u SQ BID Code Status: FULL CODE (2) GERD (gastroesophageal reflux disease): (3) Chronic kidney disease (CKD): (4) Gout: (5) Asthma: (6) Hypertension: (7) Dementia: History of Present Illness Chief Complaint: chest pain Primary Care Provider: Timothy Yoder MD 78 yo M PMHx CAD, CKD stage 3, GERD, Gout, Asthma, hypomagnesemia, dementia presented initially to the ED with his with complaints of chest pain and headaches. In ED trops negative, EKG without ST changes or signs of active ischemia, CXR negative for infection, PE. CTHead negative for bleed. HR 50s, BP 150s/70s. Admit team consulted. Some history to follow provided by as the patient has fairly profound dementia. On interview pt reports that he has some discomfort in his chest which is worst when he sits up, otherwise is comfortable lying down. No shortness of breath. No diaphoresis. No fevers or chills. No abdominal pain, nausea, vomiting, diarrhea, constipation. Allergies Allergy/AdvReac Type Severity Reaction Status Date / Time adhesive Allergy Unknown BANDAID-SKIN Verified 01/29/19 16:47 IRRITATION antihemophilic factor Allergy Unknown reaction Verified 01/29/19 16:47 (FVIII) rec, full length to recombinate products made in hamster, mice antihemophilic factor VIII, Allergy Unknown Verified 01/29/19 16:47 human recombinant [From Recombinate] codeine Allergy Unknown SOB/ N/V Verified 01/29/19 16:47 homatropine Allergy Unknown UNKNOWN Unverified 01/29/19 16:47 Horse/Equine Containing Allergy Unknown ILLNESS-ALMOST Unverified 01/29/19 16:47 Products IN 1949'S hydrocodone Allergy Unknown UNKNOWN Unverified 01/29/19 16:47 niacin Allergy Unknown SKIN FLUSH Unverified 01/29/19 16:47 tetanus toxoid, adsorbed Allergy Unknown ILLNESS-ALMOST Verified 01/29/19 16:47 IN Home Medications Home Medications Medication Instructions Recorded Confirmed Type allopurinol 100 mg tablet 200 mg PO DAILY #180 tab 01/26/19 01/29/19 History amlodipine 5 mg tablet 5 mg PO BID #180 tab 01/26/19 01/29/19 History atorvastatin 80 mg tablet 80 mg PO DAILY #90 tab 01/26/19 01/29/19 History beclomethasone diprop 80 2 puffs INHALATION BID #3 gm 01/26/19 01/29/19 History mcg/actuation HFA breath activated aerosol brimonidine 0.2 % eye drops 1 drops OP TID ml 01/26/19 01/29/19 History carvedilol 6.25 mg tablet 6.25 mg PO BID #180 tab 01/26/19 01/29/19 History darbepoetin martha 200 mcg/mL in 200 mcg SUBCUT .Q2W #0 ml 01/26/19 01/29/19 History polysorbate injection diazepam 2 mg tablet 2 mg PO Q6H PRN #270 tab 01/26/19 01/29/19 History dorzolamide 2 % eye drops 1 drops OP TID ml 01/26/19 01/29/19 History duloxetine 30 mg capsule,delayed 30 mg PO DAILY cap 01/26/19 01/29/19 History release esomeprazole magnesium 40 mg 40 mg PO DAILY #90 cap 01/26/19 01/29/19 History capsule,delayed release finasteride 5 mg tablet 5 mg PO DAILY #90 tab 01/26/19 01/29/19 History latanoprost 0.005 % eye drops 1 drops OP DAILY ml 01/26/19 01/29/19 History magnesium 400 mg (as magnesium 400 mg PO BID tab 01/26/19 01/29/19 History oxide) tablet memantine 10 mg tablet 10 mg PO BID #180 tab 01/26/19 01/29/19 History metolazone 5 mg tablet 5 mg PO DAILY #90 tab 01/26/19 01/29/19 History nitroglycerin 0.4 mg sublingual 0.4 mg SL Q5M PRN #25 tab 01/26/19 01/29/19 History tablet oxybutynin chloride 5 mg tablet 5 mg PO TID #270 tab 01/26/19 01/29/19 History acetaminophen [Tylenol Extra 1,000 mg PO Q6H PRN 01/29/19 01/29/19 History Strength] aspirin 81 mg PO DAILY 01/29/19 01/29/19 History Past Med/Surg History Medical History Dyslipidemia Chest pain CAD (coronary artery disease) GERD (gastroesophageal reflux disease) Dementia Chronic kidney disease (CKD) Gout Gallbladder disease Asthma Hypertension Peripheral edema Weakness Newly recognized murmur (Acute) Fall (Acute) Abrasion of arm, right (Acute) Hemophilia (Resolved) STEMI (ST elevation myocardial infarction) (Resolved) SOLEDAD (acute kidney injury) (Resolved) Hyperkalemia (Resolved) Sciatica, right side (Chronic) Sciatica, right side (Resolved) Contusion of buttock (Resolved) Hemophilia (Chronic) Hyperventilation (Resolved) Hypomagnesemia (Resolved) Elevated troponin (Resolved) Intractable headache (Resolved) Anemia (Resolved) Septic arthritis (Resolved) Surgical History S/P coronary artery stent placement No pertinent past surgical history Family History Other No significant family history Social History Preferred Language: Guatemalan Communication Ability: Effective Design Architect Required: No Beliefs That Will Affect Care: None Current Living Situation: Spouse Current Living Situation Comment: House Other Information That Helps Us Care for You: No Feels Safe at Home: Yes Safety Concerns: Feels Safe At This Time Smoking Status: Never smoker Do You Dip or Chew Tobacco: No ; Second Hand Exposure: No ; Hx Alcohol Use: No Hx Substance Use: No Review of Systems Constitutional: no fever and no chills Respiratory: no cough, no dyspnea and no wheezing Cardiovascular: + chest pain and + edema (some edema but not increased from his baseline.); no palpitations and no syncope Additional Comments: pain starts in center of chest and sometimes go up towards the neck. Gastrointestinal: no abdominal pain, no nausea, no vomiting, no constipation and no diarrhea/loose stools Genitourinary: no dysuria and no hematuria Integumentary: no rash Physical Exam Constitutional: WD/WN, vitals as above Eyes: PERRL, conjunctivae normal, anicteric sclerae ENMT: external ear and nose normal, oropharynx normal Respiratory: normal respiratory effort, lungs clear to auscultation Cardiovascular: Rate/Rhythm: regular rate and regular rhythm Heart Sounds: no murmur Extremities: + edema (1+ peripheral edema bilateral LE) Gastrointestinal (Abdomen): normal bowel sounds, soft, nontender, no hepa tosplenomegaly Skin: no rashes, warm and dry Psychiatric: demented at baseline, alert, somewhat confused. Results & Data Vital Signs (Past 12 Hours) Vital Signs Temp Pulse Resp BP Pulse Ox 01/29/19 20:18 56 L 15 156/71 H 94 01/29/19 19:30 56 L 15 156/71 H 94 01/29/19 19:00 68 26 H 148/75 H 94 01/29/19 18:30 56 L 15 159/77 H 97 01/29/19 18:00 60 16 159/79 H 96 01/29/19 17:30 56 L 24 142/74 H 96 01/29/19 17:00 58 L 18 142/73 H 93 01/29/19 16:30 60 15 142/74 H 94 01/29/19 16:00 60 14 145/71 H 94 01/29/19 15:30 54 L 20 145/71 H 95 01/29/19 15:22 55 L 15 144/71 H 95 01/29/19 15:00 64 15 139/72 95 01/29/19 14:42 36.9 C 53 L 16 151/73 H 97 Laboratory Results Laboratory Results - last 24 hr 01/29/19 01/29/19 15:00 15:00 WBC 9.37 RBC 4.02 L Hgb 12.2 L Hct 37.0 L MCV 92.0 MCH 30.3 MCHC 33.0 RDW Std Deviation 54.1 H RDW Coeff of Agatha 16.1 H Plt Count 189 MPV 10.7 H Immature Gran % (Auto) 0.3 Neut % (Auto) 74.1 Lymph % (Auto) 16.5 Preston % (Auto) 7.2 Eos % (Auto) 1.6 Baso % (Auto) 0.3 Immature Gran # (Auto) 0.03 H Neut # (Auto) 6.94 H Lymph # (Auto) 1.55 Preston # (Auto) 0.67 H Eos # (Auto) 0.15 Baso # (Auto) 0.03 Sodium 140 Potassium 3.8 Chloride 107 Carbon Dioxide 27 Anion Gap 6.0 BUN 37 H Creatinine 2.35 H Est Cr Clr Drug Dosing 27.4 Est GFR ( Amer) 29.6 Est GFR (Non-Af Amer) 25.5 BUN/Creatinine Ratio 15.9 Glucose 95 Calcium 9.0 Magnesium 1.5 L Total Bilirubin 0.6 AST 18 ALT 21 Alkaline Phosphatase 160 H Troponin I < 0.015 NT-Pro-B Natriuret Pep 1920 H Total Protein 7.5 Albumin 3.8 Globulin 3.7 Albumin/Globulin Ratio 1.0 Lipase 272 TSH 1.630 Diagnostic Findings CTHead 01/29/19: IMPRESSION: No acute intracranial findings CXR 01/29/19: IMPRESSION: No active disease in the chest. Code Status & VTE Plan Code Status FULL CODE VTE Prophylaxis Plan VTE Prophylaxis will be ordered: Yes Supervising Physician Co-Signing Physician Notes Attending addendum: I have supervised the medical residents activities, and agree with the H&P unless as otherwise noted. Assessment and Plan: Unstable angina/hypertension- The patient will be admitted to telemetry for serial cardiac enzymes, serial EKG's, cardiac rhythm monitoring and a 2-D echocardiogram with Dopplers. Continue carvedilol 6.5 mg p.o. twice daily, amlodipine 5 mg p.o. twice daily, metolazone 5 mg p.o. daily with hold parameters. Nitroglycerin sublingual PRN. Optimize magnesium level. Cardiology consult with Dr. Nichols. Hyperlipidemia- Continue atorvastatin 80 mg daily Check a fasting lipid panel and hemoglobin A1c. Remaining orders and notations as noted. PG Care Time/CCT Total # of Minutes Spent Total Time Spent with Patient: Total time spent is greater than 50% in coordination of care (as documented) at patient's floor/unit and/or counseling patient: Resident Activity Tracking Resident Involvement: Resident Care Provided Care Provided: [facility] (1) Gout Chronicity: chronic Gout etiology: unspecified cause Gout site: unspecified site Presence of tophus: without tophus Qualified Code(s): M1A.9XX0 - Chronic gout, unspecified, without tophus (tophi) (2) Dementia Dementia behavioral disturbance: without behavioral disturbance Dementia type: unspecified type Qualified Code(s): F03.90 - Unspecified dementia without behavioral disturbance (3) Chronic kidney disease (CKD) Chronic kidney disease stage: stage 3 (moderate) Qualified Code(s): N18.3 - Chronic kidney disease, stage 3 (moderate) (4) GERD (gastroesophageal reflux disease) Esophagitis presence: esophagitis presence not specified Qualified Code(s): K21.9 - Gastro-esophageal reflux disease without esophagitis (5) Hypertension Hypertension type: essential hypertension Qualified Code(s): I10 - Essential (primary) hypertension (6) Asthma Asthma complication type: unspecified Asthma persistence: intermittent Asthma severity: unspecified severity Qualified Code(s): J45.20 - Mild intermittent asthma, uncomplicated
[2019-01-29] MEDS ORDERED: NITROGLYCERIN SL 0.4 MG/TAB TAB SL PRN (20:39)
[2019-01-29] MEDS ORDERED: ACETAMINOPHEN 500 MG TAB PO PRN (20:39)
[2019-01-29] MEDS ORDERED: diazePAM 2 MG TABLET PO PRN (20:39)
[2019-01-29] MEDS ORDERED: MAGNESIUM HYDROXIDE SUSP 30 ML UDC PO PRN (20:39)
[2019-01-29] MEDS ORDERED: ACETAMINOPHEN 325 MG TAB PO PRN (20:39)
[2019-01-29] MEDS ORDERED: ALUMINUM/MAGNESIUM SUSP 30 ML UDC PO PRN (20:39)
[2019-01-29] MEDS ORDERED: POLYETHYLENE (MIRALAX) 17 GM PACK PO PRN (20:39)
[2019-01-29] MEDS ORDERED: BRIMONIDINE TART 0.2% OP SOLN PER DROP CHARGE OP SCH (21:00)
--- NOTE | 2019-01-29 21:53 | Communication Note ---
Date of Service: January 29, 2019 I personally interviewed and examined the patient. I agree with history of present illness and physical exam mentioned above, I also performed my own history taking and examination. Past medical history and review of system has been obtained by myself I reviewed all pertinent labs and studies Reviewed current medications I discussed and formulated of the assessment and plan mentioned above. Please refer to the Summary mentioned below. 78-year-old man with past medical history of chronic kidney disease stage III, gout, GERD, asthma, advanced dementia and coronary artery disease with known lesion and stable angina that he has been treating with sublingual nitro. History taking is very challenging due to patient baseline dementia, but in the last 2 days he has been requiring much more nitroglycerin sublingual, his has been giving it to him constantly and he also started to develop the pain on rest. Again history taking is not very accurate with him but it seems that his pain gets worse when he sits up. Patient came to the ED and will since his pain started to be coming addressed and he is requiring much more sublingual nitro will be admitted with unstable angina. Review of system Unobtainable due to patient dementia, unfortunately the has already left. But he was able to say that he gets some substernal chest tightness worse with leaning forward. Assessment CAD with unstable angina Continue sublingual nitro Trend troponin Consult regional office coordinator Aspirin and statin Check hemoglobin A1c and lipids panel Hypertension/CKD/asthma All appears to be stable at this time continue home meds. General Appearance: not in acute distress Eyes: normal Sclerae, extraocular muscle intact ENT: hearing grossly normal Neck: supple Respiratory/Chest: normal air entry bilateral ,no respiratory distress, no accessory muscle use Cardiovascular: regular rate, rhythm, no murmur Abdomen: non tender, soft, no masses Extremities: no edema musculoskeletal: no significant swelling or inflammation in any joint Neurologic/Psychiatric: Awake alert oriented times place and person moves all extremities sensation intact cranial nerves II-12 appear to be intact Skin: normal color, warm/dry, no rash Pratik Jack MD, [facility]
[2019-01-29] MEDS: OXYBUTYNIN CHLORIDE 5 MG TAB PO SCH (22:40)
[2019-01-29] MEDS: MEMANTINE HCL 10 MG TAB PO SCH (22:41)
[2019-01-29] MEDS: CARVEDILOL 6.25 MG TAB PO SCH (22:41)
[2019-01-29] MEDS: BECLOMETHASONE DIP HFA 80 MCG 8.7G INH INH SCH (22:42)
[2019-01-29] MEDS: AMLODIPINE BESYLATE 5 MG TAB PO SCH (22:42)
[2019-01-29] MEDS: DORZOLAMIDE HCL 2% OPH SOLN 10 ML BTL OP SCH (22:42)
[2019-01-29] MEDS: HEPARIN SOD 5,000 UNIT/0.5 ML VIAL SQ SCH (22:43)
--- NOTE | 2019-01-29 23:58 | Emergency Department Note ---
Entered by Rekha Solomon acting as a scribe for Quin Nicole DO History of Present Illness General Chief complaint: Chest Pain Stated complaint: CHEST PAIN Time Seen by Provider: 01/29/19 14:50 Source: patient and family () History of Present Illness Onset (ago): day(s) (several) Location: chest Pain Consistency: + intermittent Maximum Pain Intensity: 1 Relieved By: + medication (nitroglycerin ) Associated symptoms: no denies other symptoms (loss of consciousness, a cold, sweating), no fever/chills and no nausea/vomiting The patient is a 78 year old male who presents to the Emergency Room with complaints of intermittent chest pain beginning several days ago. The patient's notes the patient was told to come to the ER by his relief worker Paras Cheney. The patient's states she has been giving the patient nitroglycerin several times a day for the past several days. She notes the nitroglycerin temporarily relieves the patient's pain. The patient also reports an intermitten t headache, with increased frequency in the past few days. He denies sweating, nausea, loss of consciousness, fever, chills, and a cold. The patient's reports a history of a IN two years ago, and had stents placed. 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 She states the patient has been gritting his teeth since having dementia. No other change in medications or recent illness. She states patient has had prior episodes of chest pain although these were usually with exertion. Home Medications Home Medications Medication Instructions Recorded Confirmed Type allopurinol 100 mg tablet 200 mg PO DAILY #180 tab 01/26/19 01/29/19 History amlodipine 5 mg tablet 5 mg PO BID #180 tab 01/26/19 01/29/19 History atorvastatin 80 mg tablet 80 mg PO DAILY #90 tab 01/26/19 01/29/19 History beclomethasone diprop 80 2 puffs INHALATION BID #3 gm 01/26/19 01/29/19 History mcg/actuation HFA breath activated aerosol brimonidine 0.2 % eye drops 1 drops OP TID ml 01/26/19 01/29/19 History carvedilol 6.25 mg tablet 6.25 mg PO BID #180 tab 01/26/19 01/29/19 History darbepoetin martha 200 mcg/mL in 200 mcg SUBCUT .Q2W #0 ml 01/26/19 01/29/19 History polysorbate injection diazepam 2 mg tablet 2 mg PO Q6H PRN #270 tab 01/26/19 01/29/19 History dorzolamide 2 % eye drops 1 drops OP TID ml 01/26/19 01/29/19 History duloxetine 30 mg capsule,delayed 30 mg PO DAILY cap 01/26/19 01/29/19 History release esomeprazole magnesium 40 mg 40 mg PO DAILY #90 cap 01/26/19 01/29/19 History capsule,delayed release finasteride 5 mg tablet 5 mg PO DAILY #90 tab 01/26/19 01/29/19 History latanoprost 0.005 % eye drops 1 drops OP DAILY ml 01/26/19 01/29/19 History magnesium 400 mg (as magnesium 400 mg PO BID tab 01/26/19 01/29/19 History oxide) tablet memantine 10 mg tablet 10 mg PO BID #180 tab 01/26/19 01/29/19 History metolazone 5 mg tablet 5 mg PO DAILY #90 tab 01/26/19 01/29/19 History nitroglycerin 0.4 mg sublingual 0.4 mg SL Q5M PRN #25 tab 01/26/19 01/29/19 History tablet oxybutynin chloride 5 mg tablet 5 mg PO TID #270 tab 01/26/19 01/29/19 History acetaminophen [Tylenol Extra 1,000 mg PO Q6H PRN 01/29/19 01/29/19 History Strength] aspirin 81 mg PO DAILY 01/29/19 01/29/19 History Allergies Allergy/AdvReac Type Severity Reaction Status Date / Time adhesive Allergy Unknown BANDAID-SKIN Verified 01/29/19 16:47 IRRITATION antihemophilic factor Allergy Unknown reaction Verified 01/29/19 16:47 (FVIII) rec, full length to recombinate products made in hamster, mice antihemophilic factor VIII, Allergy Unknown Verified 01/29/19 16:47 human recombinant [From Recombinate] codeine Allergy Unknown SOB/ N/V Verified 01/29/19 16:47 homatropine Allergy Unknown UNKNOWN Unverified 01/29/19 16:47 Horse/Equine Containing Allergy Unknown ILLNESS-ALMOST Unverified 01/29/19 16:47 Products IN 1950'S hydrocodone Allergy Unknown UNKNOWN Unverified 01/29/19 16:47 niacin Allergy Unknown SKIN FLUSH Unverified 01/29/19 16:47 tetanus toxoid, adsorbed Allergy Unknown ILLNESS-ALMOST Verified 01/29/19 16:47 IN Past Med/Surg History Medical History Von Willebrand disease GERD (gastroesophageal reflux disease) Dementia Chronic kidney disease (CKD) Gout Gallbladder disease Asthma Hypertension Peripheral edema Weakness Newly recognized murmur (Acute) Fall (Acute) Abrasion of arm, right (Acute) Hemophilia (Resolved) STEMI (ST elevation myocardial infarction) (Resolved) SOLEDAD (acute kidney injury) (Resolved) Hyperkalemia (Resolved) Sciatica, right side (Chronic) Sciatica, right side (Resolved) Contusion of buttock (Resolved) Hemophilia (Chronic) Hyperventilation (Resolved) Hypomagnesemia (Resolved) Elevated troponin (Resolved) Intractable headache (Resolved) Anemia (Resolved) Septic arthritis (Resolved) Surgical History No pertinent past surgical history Family History Other No significant family history Social History Preferred Language: Sami Communication Ability: Effective Racing Secretary Required: No Beliefs That Will Affect Care: None Current Living Situation: Spouse Current Living Situation Comment: House Other Information That Helps Us Care for You: No Feels Safe at Home: Yes Safety Concerns: Feels Safe At This Time Smoking Status: Never smoker Do You Dip or Chew Tobacco: No ; Second Hand Exposure: No ; Hx Alcohol Use: No Hx Substance Use: No Review of Systems See HPI for pertinent positives & negatives. and A total of 10 systems reviewed and were otherwise negative Physical Exam Vital Signs Vital Signs - 24 hr 01/29/19 14:42 01/29/19 15:00 01/29/19 15:22 Temperature 36.9 C Temperature Source Oral Sepsis Recent Fever Within 48 Hours No Sepsis New/Unexplained Change in Mental Status No Sepsis Action Taken by Nursing No Action Required Pulse Rate 53 L 64 55 L Pulse Rate from SpO2 Sensor 59 L 55 L Respiratory Rate 16 15 15 Blood Pressure 151/73 H 139/72 144/71 H Blood Pressure Mean 99 94 95 Pulse Oximetry 97 95 95 Oxygen Delivery Method Room Air Room Air 01/29/19 15:30 01/29/19 16:00 01/29/19 16:30 Temperature Temperature Source Sepsis Recent Fever Within 48 Hours Sepsis New/Unexplained Change in Mental Status Sepsis Action Taken by Nursing Pulse Rate 54 L 60 60 Pulse Rate from SpO2 Sensor 54 L 61 60 Respiratory Rate 20 14 15 Blood Pressure 145/71 H 145/71 H 142/74 H Blood Pressure Mean 95 95 96 Pulse Oximetry 95 94 94 Oxygen Delivery Method Room Air Room Air Room Air 01/29/19 17:00 01/29/19 17:30 01/29/19 18:00 Temperature Temperature Source Sepsis Recent Fever Within 48 Hours Sepsis New/Unexplained Change in Mental Status Sepsis Action Taken by Nursing Pulse Rate 58 L 56 L 60 Pulse Rate from SpO2 Sensor 58 L 55 L 60 Respiratory Rate 18 24 16 Blood Pressure 142/73 H 142/74 H 159/79 H Blood Pressure Mean 96 96 105 Pulse Oximetry 93 96 96 Oxygen Delivery Method Room Air Room Air Room Air 01/29/19 18:30 01/29/19 19:00 01/29/19 19:30 Temperature Temperature Source Sepsis Recent Fever Within 48 Hours Sepsis New/Unexplained Change in Mental Status Sepsis Action Taken by Nursing Pulse Rate 56 L 68 56 L Pulse Rate from SpO2 Sensor 57 L 61 57 L Respiratory Rate 15 26 H 15 Blood Pressure 159/77 H 148/75 H 156/71 H Blood Pressure Mean 104 99 99 Pulse Oximetry 97 94 94 Oxygen Delivery Method Room Air Room Air GENERAL: alert, well appearing, well nourished, no distress, non-toxic EYE EXAM: normal conjunctiva, PERRL and EOM's grossly intact OROPHARYNX: no exudate, no erythema, lips, buccal mucosa, and tongue normal and mucous membranes are moist NECK: supple, no nuchal rigidity, no adenopathy, non-tender LUNGS: Clear to auscultation. Normal chest wall mechanics, no w/r/r HEART: no murmurs, S1 normal and S2 normal ABDOMEN: abdomen soft, non-tender, normo-active bowel sounds, no masses, no rebound or guarding. BACK: Back is symmetrical on inspection and there is no deformity, no midline tenderness, no CVA tenderness. SKIN: no rashes and no bruising UPPER EXTREMITIES: upper extremities are grossly normal. FROM, nml pulses b/l. LOWER EXTREMITIES: 2+ lower extremity edema. FROM, nml pulses b/l. NEURO EXAM: Patient pleasantly confused. Normal sensorium, cranial nerves II-XII grossly intact, normal speech, no gross weakness of arms, no gross weakness of legs. Gross sensation intact. Course 1500: Past medical records reviewed. The patient was evaluated in room C12B. A complete history and physical exam was performed. 1516: I reviewed the patient's recent cardiology note EMR. 1640: Discussed the patient's case with Dr. Post -[facility] Hospitalist. No heparin drip is needed at this time. 1646:Upon reevaluation, the patient is resting more comfortably. 1656: Upon reevaluation, I discussed findings and results with the patient. The patient verbalized agreement of the treatment plan. I spoke with Dr. Hamilton of the [facility] Hospitalist Service. The patient will be evaluated for further management and care. Administered Medications Amlodipine Besylate (Norvasc) 5 mg PO BID ZOE Stop: 02/28/19 20:59 Last Admin: 01/29/19 22:42 Dose: 5 mg Documented by: [id number] Beclomethasone Dipropionate (Qvar 80mcg) 2 puffs INH BID ZOE Stop: 02/28/19 20:59 Last Admin: 01/29/19 22:42 Dose: 2 puffs Documented by: [id number] Carvedilol (Coreg) 6.25 mg PO BID ZOE Stop: 02/28/19 20:59 Last Admin: 01/29/19 22:41 Dose: Not Given Documented by: [id number] Dorzolamide HCl (Trusopt 2% Oph) 1 drops OP TID ZOE Stop: 02/28/19 20:59 Last Admin: 01/29/19 22:42 Dose: 1 drops Documented by: [id number] Heparin Sodium (Porcine) (Heparin Sodium (Porcine)) 5,000 units SQ Q12 ZOE Stop: 02/28/19 20:59 Last Admin: 01/29/19 22:43 Dose: Not Given Documented by: [id number] Memantine (Namenda) 10 mg PO BID ZOE Stop: 02/28/19 20:59 Last Admin: 01/29/19 22:41 Dose: 10 mg Documented by: [id number] Oxybutynin Chloride (Ditropan) 5 mg PO TID ZOE Stop: 02/28/19 20:59 Last Admin: 01/29/19 22:40 Dose: 5 mg Documented by: [id number] Discontinued Medications Brimonidine Tartrate (Alphagan 0.2% (Per Drop Charge)) 1 drops OP TID ZOE Stop: 02/28/19 20:59 Last Admin: 01/29/19 23:18 Dose: Not Given Documented by: [id number] Magnesium Sulfate/Dextrose (Magnesium Sulfate / D5w) 1 gm in 100 mls @ 100 mls/hr IV ONE ONE Stop: 01/29/19 16:38 Last Infusion: 01/29/19 17:05 Dose: 0 mls/hr Documented by: [id number] Admin: 01/29/19 16:04 Dose: 100 mls/hr Documented by: [id number] Nitroglycerin (Nitro-Bid 2%) 1 inch EXT NOW STA Stop: 01/29/19 16:50 Last Admin: 01/29/19 16:52 Dose: 1 inch Documented by: [id number] Medical Decision Making Differential Diagnosis Differential diagnoses includes but is not limited to acute coronary syndrome, myocardial infarction, pericarditis, pulmonary embolus, aortic dissection, pneumonia, pneumothorax, musculoskeletal, shingles, esophageal. Medical Records Attestation: I reviewed the patient's medical records. Home Medications Current Medication List: was personally reviewed by me Laboratory Data Attestation: I reviewed the patient's lab results. Result diagrams: 01/29/19 15:00 01/29/19 15:00 Lab Results 01/29/19 01/29/19 Range/Units 15:00 15:00 WBC 9.37 (4.8-10.8) K/uL RBC 4.02 L (4.7-6.1) M/uL Hgb 12.2 L (14.0-18.0) g/dL Hct 37.0 L (42-52) % MCV 92.0 (80-100) fL MCH 30.3 (25-34) pg MCHC 33.0 (32-36) g/dL RDW Std Deviation 54.1 H (36.4-46.3) fL RDW Coeff of Agtaha 16.1 H (11.5-14.5) % Plt Count 189 (130-400) K/uL MPV 10.7 H (7.4-10.4) fL Immature Gran % (Auto) 0.3 % Neut % (Auto) 74.1 % Lymph % (Auto) 16.5 % [place] % (Auto) 7.2 % Eos % (Auto) 1.6 % Baso % (Auto) 0.3 % Immature Gran # (Auto) 0.03 H (0.00-0.02) K/uL Neut # (Auto) 6.94 H (1.4-6.5) K/uL Lymph # (Auto) 1.55 (1.2-3.4) K/uL [place] # (Auto) 0.67 H (0.11-0.59) K/uL Eos # (Auto) 0.15 (0-0.5) K/uL Baso # (Auto) 0.03 (0-0.2) K/uL Sodium 140 (136-145) mmol/L Potassium 3.8 (3.5-5.1) mmol/L Chloride 107 (98-107) mmol/L Carbon Dioxide 27 (21-32) mmol/L Anion Gap 6.0 (3-11) BUN 37 H (7-18) mg/dl Creatinine 2.35 H (0.6-1.4) mg/dl Est Cr Clr Drug Dosing 27.4 ml/min Est GFR ( Amer) 29.6 Est GFR (Non-Af Amer) 25.5 BUN/Creatinine Ratio 15.9 (10-20) Glucose 95 (70-99) mg/dl Calcium 9.0 (8.5-10.1) mg/dl Magnesium 1.5 L (1.8-2.4) mg/dl Total Bilirubin 0.6 (0.2-1) mg/dl AST 18 (15-37) U/L ALT 21 (12-78) U/L Alkaline Phosphatase 160 H (45-117) U/L Troponin I < 0.015 (0-0.045) ng/ml NT-Pro-B Natriuret Pep 1920 H (0-1800) pg/ml Total Protein 7.5 (6.4-8.2) gm/dl Albumin 3.8 (3.4-5.0) gm/dl Globulin 3.7 (2.5-4.0) gm/dl Albumin/Globulin Ratio 1.0 (0.9-2) Lipase 272 (73-393) U/L TSH 1.630 (0.300-4.500) uIu/ml Imaging Data Radiologist's Impression: Radiology results as stated below per my review and the radiologist's interpretation: CT head/brain wo con CLINICAL HISTORY: headache COMPARISON STUDY: 12/21/2018 TECHNIQUE: Axial CT of the brain is performed from the vertex to the skull base. IV contrast was not administered for this examination. A dose lowering technique was utilized adhering to the principles of ALARA. CT DOSE: 537.48 mGy.cm FINDINGS: No intra or extra-axial mass lesions are visualized. There is no CT evidence of acute cortical infarction. There is no evidence of midline shift. There is no acute hemorrhage. No calvarial fractures are visualized. There are patchy white matter hypodensities likely on a small vessel basis. There is no evidence of pathologic ventricular dilatation. There is no evidence of acute sinusitis IMPRESSION: No acute intracranial findings Electronically signed by: Trey Amaro M.D. 01/29/2019 3:21 PM XR chest 1V portable CLINICAL HISTORY: Atypical chest pain COMPARISON STUDY: 12/21/2018 FINDINGS: The heart is at the upper limits of normal in size. There is no failure. There is no focal pulmonary consolidation. There are no pleural effus ions.[ IMPRESSION: No active disease in the chest. Electronically signed by: Trey Amaro M.D. 01/29/2019 3:32 PM ECG Data Attestation: I personally reviewed and interpreted this ECG as follows: Indication: chest pain Rate (beats per minute): 51 Rhythm: sinus bradycardia Findings: + other (normal axis, low voltage throughout) and + RBBB; no ST depression, no ST elevation and no acute ischemic change Blood Pressure Blood Pressure Findings: Elevated blood pressure Blood Pressure Disposition: further management by hospitalist NEELA Narrative Patient well-appearing here initially had no pain on my evaluation. Patient did develop some pain while at rest and Nitropaste was applied with improvement of symptoms. Patient remained hemodynamically stable throughout. Patient with concerning story for possible unstable angina as his symptoms are now occurring at rest instead of just exertion. Patient with known multivessel coronary artery disease and one prior stent placement. Patient's troponin negative, BNP slightly elevated although I feel this is more likely secondary to his chronic kidney disease. Creatinine appears stable compared to prior. H&H appears stable compared to prior. I do not suspect PE, tamponade, effusion, occult pneumonia, AAA, dissection. I do not suspect hypertensive emergency. Patient and made aware of all results and were in agreement with plan. Case discussed with hospitalist for additional evaluation after my discussion with Dr. Post, patient's relief worker. Impression & Plan Unstable angina, Chronic kidney disease, Dementia Discharge Plan Visit Data *Final* Discharge Date/Time: 01/29/19 20:18 Chief Complaint: Chest Pain Stated Complaint: CHEST PAIN ED Provider: Quin Nicole Discharge Problem: Unstable angina, Chronic kidney disease, Dementia Patient Disposition: Admitted As Inpatient Discharge Instructions Interventions: ED Discharge Assessment Last Done: 01/29/19 20:18 Discharge Problem: Chronic kidney disease Qualifiers: Chronic kidney disease stage: unspecified stage Qualified Code(s): N18.9 - Chronic kidney disease, unspecified Dementia Qualifiers: Dementia type: unspecified type Dementia behavioral disturbance: without behavioral disturbance Qualified Code(s): F03.90 - Unspecified dementia without behavioral disturbance The scribe's documentation has been prepared under my direction and personally reviewed by me in its entirety. I confirm that the note above accurately reflects all work, treatment, procedures, and medical decision making performed by me.
[2019-01-30 04:16] LABS: Basophils # (auto) 0.04 K/uL (0-0.2); Basophils % (auto) 0.7 %; Eosinophils # (auto) 0.15 K/uL (0-0.5); Eosinophils % (auto) 2.5 %; Hematocrit (blood only) 31.6 % (42-52); Hemoglobin 10.5 g/dL (14.0-18.0); Immature Granulocytes # (auto) 0.01 K/uL (0.00-0.02); Immature Granulocytes % (auto) 0.2 %; Lymphocytes # (auto) 1.43 K/uL (1.2-3.4); Lymphocytes % (auto) 24.2 %; Mean Corpuscular Hemoglobin 30.3 pg (25-34); Mean Corpuscular Hgb Conc 33.2 g/dL (32-36); Mean Corpuscular Volume 91.1 fL (80-100); Mean Platelet Volume 10.1 fL (7.4-10.4); Monocytes # (auto) 0.37 K/uL (0.11-0.59); Monocytes % (auto) 6.3 %; Neutrophils % (auto) 66.1 %; Platelet Count 148 K/uL (130-400); Red Blood Count 3.47 M/uL (4.7-6.1)
[2019-01-30 04:32] LABS: BUN Creatinine Ratio 17.7 (10-20); Calcium 8.8 mg/dl (8.5-10.1); Creatinine Clr Calc Pharmacy 28.7 ml/min; Est GFR (African American) 31.9; Est GFR (Non-African American) 27.5; Magnesium 1.6 mg/dl (1.8-2.4)
[2019-01-30 04:44] LABS: Bilirubin,Total 0.5 mg/dl (0.2-1); Globulin 2.9 gm/dl (2.5-4.0); Total Protein 5.9 gm/dl (6.4-8.2)
[2019-01-30 07:40] LABS: Estimated Average Glucose 111 mg/dl; Hemoglobin A1C 5.5 % (4.5-5.6)
[2019-01-30] MEDS: BRIMONIDINE TARTRATE 0.2% 5ML OP SCH ×3 (09:22→20:56)
[2019-01-30] MEDS: DORZOLAMIDE HCL 2% OPH SOLN 10 ML BTL OP SCH ×3 (09:23→20:51)
[2019-01-30] MEDS: CARVEDILOL 6.25 MG TAB PO SCH ×2 (09:23→20:49)
[2019-01-30] MEDS: OXYBUTYNIN CHLORIDE 5 MG TAB PO SCH ×3 (09:24→20:54)
[2019-01-30] MEDS: ATORVASTATIN 40 MG TAB PO SCH (09:24)
[2019-01-30] MEDS: MEMANTINE HCL 10 MG TAB PO SCH ×2 (09:25→20:55)
[2019-01-30] MEDS: DULOXETINE HCL 30 MG CAP PO SCH (09:25)
[2019-01-30] MEDS: ASPIRIN 81 MG ECTAB PO SCH (09:25)
[2019-01-30] MEDS: PANTOprazole 40 MG TAB PO SCH (09:26)
[2019-01-30] MEDS: metOLazone 5 MG TABLET PO SCH (09:26)
[2019-01-30] MEDS: BECLOMETHASONE DIP HFA 80 MCG 8.7G INH INH SCH ×2 (09:27→20:50)
[2019-01-30] MEDS: AMLODIPINE BESYLATE 5 MG TAB PO SCH ×2 (09:28→20:55)
[2019-01-30] MEDS: FINASTERIDE 5 MG TAB PO SCH (09:28)
[2019-01-30] MEDS: ALLOPURINOL 100 MG TAB PO SCH (09:28)
[2019-01-30] MEDS: LATANOPROST 0.005% OP SOLN 2.5 ML BTL OP SCH (09:29)
[2019-01-30] MEDS: HEPARIN SOD 5,000 UNIT/0.5 ML VIAL SQ SCH (09:29)
--- NOTE | 2019-01-30 11:14 | Family Medicine Progress Note ---
Date of Service January 30, 2019 Assessment & Plan (1) Unstable angina: 78 yo M PMHx CAD, CKD stage 3, GERD, Gout, Asthma, hypomagnesemia, dementia admitted for possible unstable angina, without chest pain at this time. Questionable Unstable Angina - Troponins neg x4 - Cardiology consult placed with Dr. Nichols; pt follows with Paras Cheney in the outpatient setting. - Continue home carvedilol 6.25mg BID, amlodipine 5mg BID, metolazone 5mg daily, atorvastatin 80mg daily. - per cardiology consultation, intervention for chest pain at this time may provide more harm to patient than benefit. Added Ranexa 500 mg BID per their recommendation. - holding subQ Heparin DVT prophylaxis for now given pt's VWF history and low risk of clotting for now. - Nitro PRN. EKG PRN chest pain. - Mg 1.6 this AM. CKD - at baseline Cr 2.21 at this time. HTN - Continue home medications. - BP controlled at 138/68. Asthma - Continue home Qvar Gout - Continue home allopurinol 100mg daily Dispo: Telemetry FEN: Heart Healthy Diet, DVT ppx: SCDs, Code Status: FULL CODE (2) GERD (gastroesophageal reflux disease): (3) Chronic kidney disease (CKD): (4) Gout: (5) Asthma: (6) Hypertension: (7) Dementia: Supervising Physician Co-Signing Physician Notes I personally examined the patient and verified all steve points of history and exam, discussed case, and agree with decision making with Dr Perera. feeling ok now, but relates chest pain earlier. very limited HPI and ROS due to dementia vitals noted nad breathing unlabored. L sided intercostal reproducible tenderness decreased ROM - balanced ligamentous tension - improved some. pt tolerated well chest pain - does have MSK pain but can't rule out concomitant cardiac marry given limit in being able to take hx. agree w cardiology between vWF and CKD interventions would carry enough risk they should be reserved for basically severe NSTEMI or STEMI level ischemia, and agree adjusting med management somatic dysfunction rib region - OMT as above, voltaren gel otherwise as above Subjective Patient is a pleasant mildly demented 78-year-old here for complaints of chest pain per his . This morning he feels well is aware of person and place but intermittently thinks that it is the year 1997. He describes pain in his hips and low back as well as bilateral shoulder pain. When asked about chest pain specifically he does not comment on having any at the present moment. He denies any shortness of breath or trouble breathing. The was not in the room when I was able to see him so history was limited. Review of Systems Constitutional: see HPI Physical Exam Constitutional: Laying comfortably in bed with no acute distress Respiratory: Lungs are clear to auscultation bilaterally with no crackles, wheezes, rales, rhonchi. Does not appear to be in any respiratory distress and is breathing normally. Cardiovascular: Heart is regular rate and rhythm with no auscultated murmurs, click, gallops, or abnormal opening sounds. No peripheral calf tenderness or edema noted. Musculoskeletal: Patient was tender to palpation of bilateral costovertebral angles along ribs 4 through 8 anteriorly and also demonstrated some rib pain the mid clavicular region around the area of rib 5 and 6. It is possible that the patient's complaints of chest pain are largely musculoskeletal however given his dementia and poor history and reluctant to base treatment solely on these physical findings and his HPI. Results & Data Vital Signs (Past 12 Hours) Vital Signs Temp Pulse Resp BP BP Pulse Ox 01/30/19 11:07 36.4 C L 47 L 20 127/52 L 94 01/30/19 07:27 36.9 C 53 L 18 152/70 H 95 01/30/19 03:26 36.6 C 58 L 16 128/61 94 01/29/19 23:28 36.6 C 53 L 20 161/73 H 94 Laboratory Results WBC 5.90 K/uL (4.8-10.8) 01/30/19 04:07 RBC 3.47 M/uL (4.7-6.1) L 01/30/19 04:07 Hgb 10.5 g/dL (14.0-18.0) L 01/30/19 04:07 Hct 31.6 % (42-52) L 01/30/19 04:07 MCV 91.1 fL (80-100) 01/30/19 04:07 MCH 30.3 pg (25-34) 01/30/19 04:07 MCHC 33.2 g/dL (32-36) 01/30/19 04:07 RDW Std Deviation 53.0 fL (36.4-46.3) H 01/30/19 04:07 RDW Coeff of Agatha 16.0 % (11.5-14.5) H 01/30/19 04:07 Plt Count 148 K/uL (130-400) 01/30/19 04:07 MPV 10.1 fL (7.4-10.4) 01/30/19 04:07 Immature Gran % (Auto) 0.2 % 01/30/19 04:07 Neut % (Auto) 66.1 % 01/30/19 04:07 Lymph % (Auto) 24.2 % 01/30/19 04:07 [place] % (Auto) 6.3 % 01/30/19 04:07 Eos % (Auto) 2.5 % 01/30/19 04:07 Baso % (Auto) 0.7 % 01/30/19 04:07 Immature Gran # (Auto) 0.01 K/uL (0.00-0.02) 01/30/19 04:07 Neut # (Auto) 3.90 K/uL (1.4-6.5) 01/30/19 04:07 Lymph # (Auto) 1.43 K/uL (1.2-3.4) 01/30/19 04:07 [place] # (Auto) 0.37 K/uL (0.11-0.59) 01/30/19 04:07 Eos # (Auto) 0.15 K/uL (0-0.5) 01/30/19 04:07 Baso # (Auto) 0.04 K/uL (0-0.2) 01/30/19 04:07 Sodium 142 mmol/L (136-145) 01/30/19 04:07 Potassium 4.0 mmol/L (3.5-5.1) 01/30/19 04:07 Chloride 108 mmol/L (98-107) H 01/30/19 04:07 Carbon Dioxide 28 mmol/L (21-32) 01/30/19 04:07 Anion Gap 6.0 (3-11) 01/30/19 04:07 BUN 39 mg/dl (7-18) H 01/30/19 04:07 Creatinine 2.21 mg/dl (0.6-1.4) H 01/30/19 04:07 Est Cr Clr Drug Dosing 28.7 ml/min 01/30/19 04:07 Est GFR ( Amer) 31.9 01/30/19 04:07 Est GFR (Non-Af Amer) 27.5 01/30/19 04:07 BUN/Creatinine Ratio 17.7 (10-20) 01/30/19 04:07 Glucose 107 mg/dl (70-99) H 01/30/19 04:07 Estimat Average Glucose 111 mg/dl 01/30/19 04:07 Hemoglobin A1c 5.5 % (4.5-5.6) 01/30/19 04:07 Calcium 8.8 mg/dl (8.5-10.1) 01/30/19 04:07 Magnesium 1.6 mg/dl (1.8-2.4) L 01/30/19 04:07 Total Bilirubin 0.5 mg/dl (0.2-1) 01/30/19 04:07 AST 14 U/L (15-37) L 01/30/19 04:07 ALT 16 U/L (12-78) 01/30/19 04:07 Alkaline Phosphatase 137 U/L (45-117) H 01/30/19 04:07 Troponin I < 0.015 ng/ml (0-0.045) 01/30/19 10:04 NT-Pro-B Natriuret Pep 1920 pg/ml (0-1800) H 01/29/19 15:00 Total Protein 5.9 gm/dl (6.4-8.2) L D 01/30/19 04:07 Albumin 3.0 gm/dl (3.4-5.0) L 01/30/19 04:07 Globulin 2.9 gm/dl (2.5-4.0) 01/30/19 04:07 Albumin/Globulin Ratio 1.0 (0.9-2) 01/30/19 04:07 Triglycerides 187 mg/dl (0-150) H 01/30/19 04:07 Cholesterol 94 mg/dl (0-200) 01/30/19 04:07 LDL Cholesterol, Calc 20 mg/dl 01/30/19 04:07 VLDL Cholesterol, Calc 37 mg/dl 01/30/19 04:07 HDL Cholesterol 37 mg/dl 01/30/19 04:07 Cholesterol/HDL Ratio 3 09/21/19 04:07 Lipase 272 U/L (73-393) 01/29/19 15:00 TSH 1.630 uIu/ml (0.300-4.500) 01/29/19 15:00 PG Care Time/CCT Total # of Minutes Spent Total Time Spent with Patient: Total time spent is greater than 50% in coordination of care (as documented) at patient's floor/unit and/or counseling patient: Resident Activity Tracking Resident Involvement: Resident Care Provided Care Provided: [facility] Medicine (1) Gout Chronicity: chronic Gout etiology: unspecified cause Gout site: unspecified site Presence of tophus: without tophus Qualified Code(s): M1A.9XX0 - Chronic gout, unspecified, without tophus (tophi) (2) Dementia Dementia behavioral disturbance: without behavioral disturbance Dementia type: unspecified type Qualified Code(s): F03.90 - Unspecified dementia without behavioral disturbance (3) Chronic kidney disease (CKD) Chronic kidney disease stage: stage 3 (moderate) Qualified Code(s): N18.3 - Chronic kidney disease, stage 3 (moderate) (4) GERD (gastroesophageal reflux disease) Esophagitis presence: esophagitis presence not specified Qualified Code(s): K21.9 - Gastro-esophageal reflux disease without esophagitis (5) Hypertension Hypertension type: essential hypertension Qualified Code(s): I10 - Essential (primary) hypertension (6) Asthma Asthma complication type: unspecified Asthma persistence: intermittent Asthma severity: unspecified severity Qualified Code(s): J45.20 - Mild intermittent asthma, uncomplicated
--- NOTE | 2019-01-30 13:55 | Cardiology Consultation ---
Date of Consultation January 30, 2019 Assessment & Plan (1) CAD (coronary artery disease): Status post LAD PCI in 2015. Reported chest pain but given the fact that he is a very poor historian, details of the chest discomfort are not available. He does have residual CAD based on catheterization findings. GivenChallenges during his last cardiac catheterization, it has been recommended by interventional Cardiology to pursue intervention only if absolutely necessary such as STEMI or hemodynamic instability. In this circumstance, there is no objective findings to suggest ischemia as the cause of his chest pain. That being said, would treat medically for ischemic heart disease. He already is on high-dose calcium channel marco a. He is well beta blocked and did not tolerate higher doses of carvedilol. Nitroglycerin patch in place. Start Ranexa 500 mg twice daily. Continue high-intensity statin therapy. (2) Chest pain: Etiology uncertain as noted above. Starting Ranexa as above. Will defer to primary service to consider noncardiac possibilities. No objective findings at this time to suggest ischemia as the cause. (3) Dyslipidemia: Can continue high-intensity statin therapy. (4) S/P coronary artery stent placement: Continue anti-platelet therapy as above. Disposition: Dr. Post/Mr. Cheney will resume his cardiology care on Friday. In the meantime, please call for any other questions or concerns. Plan of care discussed with Dr. Trejo of the primary hospitalist service. 50 minutes spent, with greater than 50% time spent counseling patient, coordinating care, and discussing with primary service. Thank you for allowing me to participate in the care of your patient. Please call for any other questions or concerns. Sincerely, Honorio Nichols M.D. History of Present Illness Reason for Consultation: Chest pain Requesting Physician: Dr. Alfonso Jack Attending Physician: Cristhian Trejo DO History of Present Illness Mr. Hernandez is a pleasant 78-year-old gentleman with significant dementia, multivessel CAD with prior STEMI in 2015 status post LAD PCI, hypertension, dyslipidemia, and CKD. 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 Hemophilia previously complicated post stenting anti-platelet therapy requiring daily factor transfusions according to records. His primary electric sign wirer is Dr. Post and often is seen by Mr. Cheney. He has had the following studies/procedures: 1. Cardiac catheterization 03/09/2015: Mid LAD 99%. Distal LAD 70%. Ostial D2 70%. Mid circumflex tandem 80% lesions between OM1 and OM2. Ptku-oh-lierc collaterals. Proximal to mid RCA 100%. Mid LAD underwent PCI with 2.75 x 18 mm bare metal stent post dilated with stent balloon. D2 pinched by stent, slightly worse than prior. Unable to advance wire across RCA occlusion. 2. Echo 12/22/2018: Normal LV size, wall motion, systolic function. EF 60- 65%. Severe LVH. Mild left atrial dilation. Mild MR. Normal RVSP. He is quite demented and is unable to provide significant history. His is present at the bedside. She states that on Friday he developed chest dis comfort while sitting in a chair at rest. She gave nitroglycerin x1 and believes the chest pain quickly resolved as he did not want to take a second nitroglycerin. She states that he was holding his chest which indicated to her that he was having chest pain. He then agreed that he was having chest pain. He has had recurrent episodes since then, prompting evaluation and admission. He has had chest pain here according to nursing staff and his . Nitroglycerin patch in place but despite this, apparently continues to have chest discomfort at times. When asked by his if he was having chest pain while we were discussing his presentation, he did not initially indicate that he was having chest pain. In fact, he appeared to be quite comfortable while eating lunch. She inquired if you other times and he eventually stated yes that he was having chest pain, but once again appeared quite comfortable. When asked where his chest pain was, he initially pointed to his left abdomen and then later pointed to his right chest indicating that if he pushed in 1 focal area on his right lateral chest, the pain worsened. Nursing staff stated that when they were moving him in his bed and he was laying flat, he appeared to be more uncomfortable. His states that he has chronic dyspnea with exertion for a few years. He also has chronic but stable lower extremity edema. He is unable to characterize the pain. He indicated that he has occasional right-sided headache. Other history and review of systems are unobtainable due to dementia. His states that he forgets his grandchildren and at times also forgets his own Children's names. He continues to live at home with his . She uses a walker for ambulation. He is supposed to use a walker for ambulation but often does not use it. He apparently was on carvedilol 12.5 mg twice daily at 1 point but had dizziness. It was then reduced to 6.25 mg twice daily in the past. Review of systems: As above and otherwise unobtainable due to dementia. Family history: Brother with CAD in his 50s. Social history: his states that he does not smoke or consume alcohol. He lives at home with his . They have 2 children. His is present at the bedside. Allergies Allergy/AdvReac Type Severity Reaction Status Date / Time adhesive Allergy Unknown BANDAID-SKIN Verified 01/29/19 16:47 IRRITATION antihemophilic factor Allergy Unknown reaction Verified 01/29/19 16:47 (FVIII) rec, full length to recombinate products made in hamster, mice antihemophilic factor VIII, Allergy Unknown Verified 01/29/19 16:47 human recombinant [From Recombinate] codeine Allergy Unknown SOB/ N/V Verified 01/29/19 16:47 homatropine Allergy Unknown UNKNOWN Unverified 01/29/19 16:47 Horse/Equine Containing Allergy Unknown ILLNESS-ALMOST Unverified 01/29/19 16:47 Products IN 1950S hydrocodone Allergy Unknown UNKNOWN Unverified 01/29/19 16:47 niacin Allergy Unknown SKIN FLUSH Unverified 01/29/19 16:47 tetanus toxoid, adsorbed Allergy Unknown ILLNESS-ALMOST Verified 01/29/19 16:47 IN 1950S Home Medications Home Medications Medication Instructions Recorded Confirmed Type allopurinol 100 mg tablet 200 mg PO DAILY #180 tab 01/26/19 01/29/19 History amlodipine 5 mg tablet 5 mg PO BID #180 tab 01/26/19 01/29/19 History atorvastatin 80 mg tablet 80 mg PO DAILY #90 tab 01/26/19 01/29/19 History beclomethasone diprop 80 2 puffs INHALATION BID #3 gm 01/26/19 01/29/19 History mcg/actuation HFA breath activated aerosol brimonidine 0.2 % eye drops 1 drops OP TID ml 01/26/19 01/29/19 History carvedilol 6.25 mg tablet 6.25 mg PO BID #180 tab 01/26/19 01/29/19 History darbepoetin martha 200 mcg/mL in 200 mcg SUBCUT .Q2W #0 ml 01/26/19 01/29/19 History polysorbate injection diazepam 2 mg tablet 2 mg PO Q6H PRN #270 tab 01/26/19 01/29/19 History dorzolamide 2 % eye drops 1 drops OP TID ml 01/26/19 01/29/19 History duloxetine 30 mg capsule,delayed 30 mg PO DAILY cap 01/26/19 01/29/19 History release esomeprazole magnesium 40 mg 40 mg PO DAILY #90 cap 01/26/19 01/29/19 History capsule,delayed release finasteride 5 mg tablet 5 mg PO DAILY #90 tab 01/26/19 01/29/19 History latanoprost 0.005 % eye drops 1 drops OP DAILY ml 01/26/19 01/29/19 History magnesium 400 mg (as magnesium 400 mg PO BID tab 01/26/19 01/29/19 History oxide) tablet memantine 10 mg tablet 10 mg PO BID #180 tab 01/26/19 01/29/19 History metolazone 5 mg tablet 5 mg PO DAILY #90 tab 01/26/19 01/29/19 History nitroglycerin 0.4 mg sublingual 0.4 mg SL Q5M PRN #25 tab 01/26/19 01/29/19 History tablet oxybutynin chloride 5 mg tablet 5 mg PO TID #270 tab 01/26/19 01/29/19 History acetaminophen [Tylenol Extra 1,000 mg PO Q6H PRN 01/29/19 01/29/19 History Strength] aspirin 81 mg PO DAILY 01/29/19 01/29/19 History Patient History Medical History Dyslipidemia Chest pain CAD (coronary artery disease) Von Willebrand disease GERD (gastroesophageal reflux disease) Dementia Chronic kidney disease (CKD) Gout Gallbladder disease Asthma Hypertension Peripheral edema Weakness Newly recognized murmur (Acute) Fall (Acute) Abrasion of arm, right (Acute) Hemophilia (Resolved) STEMI (ST elevation myocardial infarction) (Resolved) SOLEDAD (acute kidney injury) (Resolved) Hyperkalemia (Resolved) Sciatica, right side (Chronic) Sciatica, right side (Resolved) Contusion of buttock (Resolved) Hemophilia (Chronic) Hyperventilation (Resolved) Hypomagnesemia (Resolved) Elevated troponin (Resolved) Intractable headache (Resolved) Anemia (Resolved) Septic arthritis (Resolved) Surgical History No pertinent past surgical history Family History Other No significant family history Social History Preferred Language: Hungarian Communication Ability: Effective 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 Alert. HEENT: Anicteric sclera. Neck: No JVD. Mild bilateral bruits. Normal carotid upstrokes bilaterally. Cardiac: PMI was nonpalpable. No ventricular heave. Regular. Normal S1-S2. 1/6 systolic murmur. No rubs, or gallops. Pulmonary: Clear to auscultation bilaterally without wheezes, rales, or rhonchi. Abdomen: Soft, nontender, nondistended, with normoactive bowel sounds. No bruits noted. Extremities: 2+ radial pulses bilaterally. 2+ posterior tibialis pulses bilate rally. Trace to 1+ bilateral lower extremity edema in dependent areas. No cyanosis. Chest: Possible tenderness right lateral chest wall without rash or mass palpable in that area. Results & Data Vital Signs (Past 12 Hours) Vital Signs Temp Pulse Resp BP BP Pulse Ox 01/30/19 11:07 36.4 C L 47 L 20 127/52 L 94 01/30/19 07:27 36.9 C 53 L 18 152/70 H 95 01/30/19 03:26 36.6 C 58 L 16 128/61 94 Laboratory Results Laboratory Results - last 24 hr 01/29/19 01/29/19 01/29/19 15:00 15:00 20:39 WBC 9.37 RBC 4.02 L Hgb 12.2 L Hct 37.0 L MCV 92.0 MCH 30.3 MCHC 33.0 RDW Std Deviation 54.1 H RDW Coeff of Agatha 16.1 H Plt Count 189 MPV 10.7 H Immature Gran % (Auto) 0.3 Neut % (Auto) 74.1 Lymph % (Auto) 16.5 [place] % (Auto) 7.2 Eos % (Auto) 1.6 Baso % (Auto) 0.3 Immature Gran # (Auto) 0.03 H Neut # (Auto) 6.94 H Lymph # (Auto) 1.55 [place] # (Auto) 0.67 H Eos # (Auto) 0.15 Baso # (Auto) 0.03 Sodium 140 Potassium 3.8 Chloride 107 Carbon Dioxide 27 Anion Gap 6.0 BUN 37 H Creatinine 2.35 H Est Cr Clr Drug Dosing 27.4 Est GFR ( Amer) 29.6 Est GFR (Non-Af Amer) 25.5 BUN/Creatinine Ratio 15.9 Glucose 95 Estimat Average Glucose Hemoglobin A1c Calcium 9.0 Magnesium 1.5 L Total Bilirubin 0.6 AST 18 ALT 21 Alkaline Phosphatase 160 H Troponin I < 0.015 < 0.015 NT-Pro-B Natriuret Pep 1920 H Total Protein 7.5 Albumin 3.8 Globulin 3.7 Albumin/Globulin Ratio 1.0 Triglycerides Cholesterol LDL Cholesterol, Calc VLDL Cholesterol, Calc HDL Cholesterol Cholesterol/HDL Ratio Lipase 272 TSH 1.630 01/30/19 01/30/19 01/30/19 00:25 04:07 04:07 WBC 5.90 RBC 3.47 L Hgb 10.5 L Hct 31.6 L MCV 91.1 MCH 30.3 MCHC 33.2 RDW Std Deviation 53.0 H RDW Coeff of Agatha 16.0 H Plt Count 148 MPV 10.1 Immature Gran % (Auto) 0.2 Neut % (Auto) 66.1 Lymph % (Auto) 24.2 [place] % (Auto) 6.3 Eos % (Auto) 2.5 Baso % (Auto) 0.7 Immature Gran # (Auto) 0.01 Neut # (Auto) 3.90 Lymph # (Auto) 1.43 [place] # (Auto) 0.37 Eos # (Auto) 0.15 Baso # (Auto) 0.04 Sodium 142 Potassium 4.0 Chloride 108 H Carbon Dioxide 28 Anion Gap 6.0 BUN 39 H Creatinine 2.21 H Est Cr Clr Drug Dosing 28.7 Est GFR ( Amer) 31.9 Est GFR (Non-Af Amer) 27.5 BUN/Creatinine Ratio 17.7 Glucose 107 H Estimat Average Glucose Hemoglobin A1c Calcium 8.8 Magnesium 1.6 L Total Bilirubin 0.5 AST 14 L ALT 16 Alkaline Phosphatase 137 H Troponin I < 0.015 NT-Pro-B Natriuret Pep Total Protein 5.9 L D Albumin 3.0 L Globulin 2.9 Albumin/Globulin Ratio 1.0 Triglycerides 187 H Cholesterol 94 LDL Cholesterol, Calc 20 VLDL Cholesterol, Calc 37 HDL Cholesterol 37 Cholesterol/HDL Ratio 3 Lipase TSH 01/30/19 01/30/19 01/30/19 04:07 04:07 10:04 WBC RBC Hgb Hct MCV MCH MCHC RDW Std Deviation RDW Coeff of Agatha Plt Count MPV Immature Gran % (Auto) Neut % (Auto) Lymph % (Auto) [place] % (Auto) Eos % (Auto) Baso % (Auto) Immature Gran # (Auto) Neut # (Auto) Lymph # (Auto) [place] # (Auto) Eos # (Auto) Baso # (Auto) Sodium Potassium Chloride Carbon Dioxide Anion Gap BUN Creatinine Est Cr Clr Drug Dosing Est GFR ( Amer) Est GFR (Non-Af Amer) BUN/Creatinine Ratio Glucose Estimat Average Glucose 111 Hemoglobin A1c 5.5 Calcium Magnesium Total Bilirubin AST ALT Alkaline Phosphatase Troponin I < 0.015 < 0.015 NT-Pro-B Natriuret Pep Total Protein Albumin Globulin Albumin/Globulin Ratio Triglycerides Cholesterol LDL Cholesterol, Calc VLDL Cholesterol, Calc HDL Cholesterol Cholesterol/HDL Ratio Lipase TSH Diagnostic Findings Echo report from 12/22/2018 reviewed as above. Cardiac catheterization report reviewed as above. Telemetry personally reviewed: Sinus. No arrhythmia. ECG personally reviewed: ECG 01/29/2019: Sinus bradycardia 51 bpm. RBBB. Chest x-ray 01/29/2019: No active disease per Radiology. Medications Administered Current Inpatient Medications Acetaminophen (Tylenol) 650 mg PO Q4H PRN PRN Reason: Pain or Fever Stop: 02/28/19 20:38 Al Hydrox/Mg Hydrox/Simethicone (Maalox) 15 ml PO Q4H PRN PRN Reason: Dyspepsia Stop: 02/28/19 20:38 Allopurinol (Zyloprim) 200 mg PO DAILY [facility] Stop: 03/01/19 08:59 Last Admin: 01/30/19 09:28 Dose: 200 mg Documented by: Amlodipine Besylate (Norvasc) 5 mg PO BID [facility] Stop: 02/28/19 20:59 Last Admin: 01/30/19 09:28 Dose: 5 mg Documented by: Aspirin (Ecotrin Ectab) 81 mg PO DAILY [facility] Stop: 03/01/19 08:59 Last Admin: 01/30/19 09:25 Dose: 81 mg Documented by: Atorvastatin Calcium (Lipitor) 80 mg PO DAILY [facility] Stop: 03/01/19 08:59 Last Admin: 01/30/19 09:24 Dose: 80 mg Documented by: Beclomethasone Dipropionate (Qvar 80mcg) 2 puffs INH BID [facility] Stop: 02/28/19 20:59 Last Admin: 01/30/19 09:27 Dose: 2 puffs Documented by: Brimonidine Tartrate (Alphagan 0.2%) 1 drops OP TID [facility] Stop: 03/01/19 08:59 Last Admin: 01/30/19 09:22 Dose: 1 drops Documented by: Carvedilol (Coreg) 6.25 mg PO BID [facility] Stop: 02/28/19 20:59 Last Admin: 01/30/19 09:23 Dose: 6.25 mg Documented by: Diazepam (Valium) 2 mg PO Q6H PRN PRN Reason: anxiety Stop: 02/28/19 20:38 Dorzolamide HCl (Trusopt 2% Oph) 1 drops OP TID [facility]OE Stop: 02/28/19 20:59 Last Admin: 01/30/19 09:23 Dose: 1 drops Documented by: Duloxetine HCl (Cymbalta) 30 mg PO DAILY [facility] Stop: 03/01/19 08:59 Last Admin: 01/30/19 09:25 Dose: 30 mg Documented by: Finasteride (Proscar) 5 mg PO DAILY [facility] Stop: 03/01/19 08:59 Last Admin: 01/30/19 09:28 Dose: 5 mg Documented by: Heparin Sodium (Porcine) (Heparin Sodium (Porcine)) 5,000 units SQ Q12 [facility] Stop: 02/28/19 20:59 Last Admin: 01/30/19 09:29 Dose: Not Given Documented by: Latanoprost (Xalatan Oph) 1 drops OP DAILY [facility] Stop: 03/01/19 08:59 Last Admin: 01/30/19 09:29 Dose: 1 drops Documented by: Magnesium Hydroxide (Milk Of Magnesia) 30 ml PO Q12H PRN PRN Reason: Constipation Stop: 02/28/19 20:38 Memantine (Namenda) 10 mg PO BID [facility]OE Stop: 02/28/19 20:59 Last Admin: 01/30/19 09:25 Dose: 10 mg Documented by: Metolazone (Zaroxolyn) 5 mg PO DAILY [facility] Stop: 03/01/19 08:59 Last Admin: 01/30/19 09:26 Dose: 5 mg Documented by: Nitroglycerin (Nitrostat) 0.4 mg SL Q5M PRN PRN Reason: chest pain Stop: 02/28/19 20:38 Oxybutynin Chloride (Ditropan) 5 mg PO TID [facility] Stop: 02/28/19 20:59 Last Admin: 01/30/19 09:24 Dose: 5 mg Documented by: Pantoprazole Sodium (Protonix) 40 mg PO QAM [facility] Stop: 03/01/19 08:59 Last Admin: 01/30/19 09:26 Dose: 40 mg Documented by: Polyethylene Glycol (Miralax Powder Packet) 17 gm PO DAILY PRN PRN Reason: Constipation Stop: 02/28/19 20:38 PG Care Time/CCT Total # of Minutes Spent Total Time Spent with Patient: Total time spent is greater than 50% in coordination of care (as documented) at patient's floor/unit and/or counseling patient:
[2019-01-30] MEDS ORDERED: Nursing to Pharmacy Communication ONE (16:40)
[2019-01-30] MEDS: RANOLAZINE 500 MG ER TAB PO SCH ×2 (17:00→21:57)
[2019-01-30 20:42] LABS: Appearance Urine Clear (Clear); Bacteria Urine Automated Negative (Negative); Bilirubin Urine Negative (Negative); Blood Urine Trace (Negative); Cast Urine Automated 0 /lpf (0-5); Color Urine Yellow; Glucose Urine UA Negative (Negative); Ketones Urine Negative (Negative); Leukocyte Esterase Urine Negative (Negative); Nitrite Urine Negative (Negative); Urobilinogen Urine Negative (Negative); pH Urine 7.5 (4.5-7.5)
[2019-01-30 20:52] LABS: Protein Urine 2+ (Negative)
[2019-01-31 07:34] LABS: Hematocrit (blood only) 32.3 % (42-52); Hemoglobin 10.6 g/dL (14.0-18.0); Mean Corpuscular Hemoglobin 29.9 pg (25-34); Mean Corpuscular Hgb Conc 32.8 g/dL (32-36); Mean Corpuscular Volume 91.2 fL (80-100); Mean Platelet Volume 10.5 fL (7.4-10.4); Platelet Count 169 K/uL (130-400); RDW Standard Deviation 53.8 fL (36.4-46.3); Red Blood Count 3.54 M/uL (4.7-6.1); White Blood Count 6.92 K/uL (4.8-10.8)
[2019-01-31] MEDS: DORZOLAMIDE HCL 2% OPH SOLN 10 ML BTL OP SCH ×2 (08:43→13:39)
[2019-01-31] MEDS: BECLOMETHASONE DIP HFA 80 MCG 8.7G INH INH SCH (08:45)
[2019-01-31] MEDS: ATORVASTATIN 40 MG TAB PO SCH (08:46)
[2019-01-31] MEDS: PANTOprazole 40 MG TAB PO SCH (08:46)
[2019-01-31] MEDS: FINASTERIDE 5 MG TAB PO SCH (08:47)
[2019-01-31] MEDS: CARVEDILOL 6.25 MG TAB PO SCH (08:47)
[2019-01-31] MEDS: DULOXETINE HCL 30 MG CAP PO SCH (08:47)
[2019-01-31] MEDS: metOLazone 5 MG TABLET PO SCH (08:48)
[2019-01-31] MEDS: AMLODIPINE BESYLATE 5 MG TAB PO SCH (08:48)
[2019-01-31] MEDS: ALLOPURINOL 100 MG TAB PO SCH (08:48)
[2019-01-31] MEDS: ASPIRIN 81 MG ECTAB PO SCH (08:48)
[2019-01-31] MEDS: OXYBUTYNIN CHLORIDE 5 MG TAB PO SCH ×2 (08:49→13:39)
[2019-01-31] MEDS: MEMANTINE HCL 10 MG TAB PO SCH (08:50)
[2019-01-31] MEDS: BRIMONIDINE TARTRATE 0.2% 5ML OP SCH ×2 (08:50→13:39)
[2019-01-31] MEDS: LATANOPROST 0.005% OP SOLN 2.5 ML BTL OP SCH (08:52)
--- NOTE | 2019-01-31 08:52 | Family Medicine Progress Note ---
Date of Service January 31, 2019 Subjective Pt continues to be a pleasant but unreliable historian. When asked about pain, he points to his hip and back before pointing to his 5th rib in the midclavicular region. He appears to be doing well overall today. Review of Systems Review of Systems: See HPI. Physical Exam Constitutional: well developed, well nourished and comfortable; no acute distress Respiratory: normal respiratory effort, lungs clear to auscultation no respiratory distress Auscultation: no crackles, no rales and no wheezes Cardiovascular: RRR, no murmur, no edema Musculoskeletal: Head/Neck/Chest: + localized rib tenderness (ribs 5 + 6 along midclavicular line); no chest tenderness (tenderness at costosternal angles resolved) Results & Data Vital Signs (Past 12 Hours) Vital Signs Temp Pulse Pulse Pulse Resp BP BP 01/31/19 07:34 36.6 C 59 L 18 149/71 H 01/31/19 03:01 37.1 C 65 16 128/55 L 01/31/19 00:00 53 L 01/30/19 23:02 37.0 C 53 L 18 149/68 H Pulse Ox 01/31/19 07:34 93 01/31/19 03:01 95 01/31/19 00:00 01/30/19 23:02 95 PG Care Time/CCT Total # of Minutes Spent Total Time Spent with Patient: Total time spent is greater than 50% in coordination of care (as documented) at patient's floor/unit and/or counseling patient:
[2019-01-31] MEDS: RANOLAZINE 500 MG ER TAB PO SCH (09:18)
--- NOTE | 2019-01-31 14:06 | Cardiology Progress Note ---
Date of Service January 31, 2019 Assessment & Plan (1) CAD (coronary artery disease): Status post LAD PCI in 2015. He does have residual CAD based on catheterization findings. Etiology of his chest discomfort is not certain and he does not recall details given his dementia. Given challenges during his last cardiac catheterization, it has been recommended by interventional Cardiology to pursue intervention only if absolutely necessary such as STEMI or hemodynamic instability. There are no objective findings to suggest ischemia as the cause of his chest pain. That being said, would treat medically for ischemic heart disease. He already is on high-dose calcium channel marco a. He is well beta blocked and did not tolerate higher doses of carvedilol. Continue Ranexa 500 mg twice daily. Can replace nitroglycerin patch with isosorbide mononitrate. (2) Chest pain: Etiology uncertain as noted above. If chest pain continues, would recommend the primary service investigate other noncardiac possibilities. (3) Dyslipidemia: Can continue high-intensity statin therapy. (4) S/P coronary artery stent placement: Continue anti-platelet therapy as above. Disposition: Dr. Post/Mr. Cheney will resume his cardiology care on Friday if he remains hospitalized. Plan of care discussed with Dr. Trejo of the hospitalist service. Subjective He was unaccompanied for our visit today and remains a poor historian. When asked if he has any pain, he talked about his left hip pain and then later men tioned chest pain when "moving the wrong way. He pointed to his substernal chest area and that the pain would radiate to the right side of his chest. He states that he feels tired. He denies syncope. No shortness of breath. Review of systems: As above, but difficult to obtain due to patient's memory. Physical Exam Physical Exam: Gen.: No acute distress. Alert. HEENT: Anicteric sclera. Neck: No JVD. Cardiac: Regular. Normal S1-S2. 1/6 systolic murmur. No rubs, or gallops. Pulmonary: Clear to auscultation bilaterally without wheezes, rales, or rhonchi. Abdomen: Soft, nontender, nondistended, with normoactive bowel sounds. No bruits noted. Extremities: Trace to 1+ bilateral lower extremity edema. No cyanosis. Chest: Nontender. Results & Data Vital Signs (Past 12 Hours) Vital Signs Temp Pulse Pulse Resp BP BP Pulse Ox 01/31/19 13:35 36.5 C 49 L 20 130/64 95 01/31/19 11:13 36.5 C 49 L 20 130/64 95 01/31/19 07:34 36.6 C 59 L 18 149/71 H 93 01/31/19 03:01 37.1 C 65 16 128/55 L 95 Laboratory Results Laboratory Results - last 24 hr 01/30/19 01/31/19 01/31/19 20:10 07:00 07:11 WBC 6.92 RBC 3.54 L Hgb 10.6 L Hct 32.3 L MCV 91.2 MCH 29.9 MCHC 32.8 RDW Std Deviation 53.8 H RDW Coeff of Agatha 16.0 H Plt Count 169 MPV 10.5 H POC Glucose 100 H Urine Color Yellow Urine Appearance Clear Urine pH 7.5 Ur Specific [place] 1.010 Urine Protein 2+ H Urine Glucose (UA) Negative Urine Ketones Negative Urine Blood Trace H Urine Nitrite Negative Urine Bilirubin Negative Urine Urobilinogen Negative Ur Leukocyte Esterase Negative Urine WBC (Auto) 1-5 Urine RBC (Auto) 5-10 H U Hyaline Cast (Auto) 0 U Epithel Cells (Auto) 5-10 H Urine Bacteria (Auto) Negative Diagnostic Findings Telemetry personally reviewed: Sinus bradycardia. Medications Administered Current Inpatient Medications Acetaminophen (Tylenol) 650 mg PO Q4H PRN PRN Reason: Pain or Fever Stop: 02/28/19 20:38 Al Hydrox/Mg Hydrox/Simethicone (Maalox) 15 ml PO Q4H PRN PRN Reason: Dyspepsia Stop: 02/28/19 20:38 Allopurinol (Zyloprim) 200 mg PO DAILY [facility] Stop: 03/01/19 08:59 Last Admin: 01/31/19 08:48 Dose: 200 mg Documented by: Amlodipine Besylate (Norvasc) 5 mg PO BID [facility] Stop: 02/28/19 20:59 Last Admin: 01/31/19 08:48 Dose: 5 mg Documented by: Aspirin (Ecotrin Ectab) 81 mg PO DAILY [facility] Stop: 03/01/19 08:59 Last Admin: 01/31/19 08:48 Dose: 81 mg Documented by: Atorvastatin Calcium (Lipitor) 80 mg PO DAILY [facility] Stop: 03/01/19 08:59 Last Admin: 01/31/19 08:46 Dose: 80 mg Documented by: Beclomethasone Dipropionate (Qvar 80mcg) 2 puffs INH BID [facility] Stop: 02/28/19 20:59 Last Admin: 01/31/19 08:45 Dose: 2 puffs Documented by: Brimonidine Tartrate (Alphagan 0.2%) 1 drops OP TID [facility] Stop: 03/01/19 08:59 Last Admin: 01/31/19 13:39 Dose: Not Given Documented by: Carvedilol (Coreg) 6.25 mg PO BID [facility] Stop: 02/28/19 20:59 Last Admin: 01/31/19 08:47 Dose: 6.25 mg Documented by: Diazepam (Valium) 2 mg PO Q6H PRN PRN Reason: anxiety Stop: 02/28/19 20:38 Dorzolamide HCl (Trusopt 2% Oph) 1 drops OP TID [facility] Stop: 02/28/19 20:59 Last Admin: 01/31/19 13:39 Dose: Not Given Documented by: Duloxetine HCl (Cymbalta) 30 mg PO DAILY [facility] Stop: 03/01/19 08:59 Last Admin: 01/31/19 08:47 Dose: 30 mg Documented by: Finasteride (Proscar) 5 mg PO DAILY [facility] Stop: 03/01/19 08:59 Last Admin: 01/31/19 08:47 Dose: 5 mg Documented by: Heparin Sodium (Porcine) (Heparin Sodium (Porcine)) 5,000 units SQ Q12 [facility] Stop: 02/28/19 20:59 Last Admin: 01/30/19 09:29 Dose: Not Given Documented by: Latanoprost (Xalatan Oph) 1 drops OP DAILY [facility] Stop: 03/01/19 08:59 Last Admin: 01/31/19 08:52 Dose: Not Given Documented by: Magnesium Hydroxide (Milk Of Magnesia) 30 ml PO Q12H PRN PRN Reason: Constipation Stop: 02/28/19 20:38 Memantine (Namenda) 10 mg PO BID [facility] Stop: 02/28/19 20:59 Last Admin: 01/31/19 08:50 Dose: 10 mg Documented by: Metolazone (Zaroxolyn) 5 mg PO DAILY [facility] Stop: 03/01/19 08:59 Last Admin: 01/31/19 08:48 Dose: 5 mg Documented by: Nitroglycerin (Nitrostat) 0.4 mg SL Q5M PRN PRN Reason: chest pain Stop: 02/28/19 20:38 Oxybutynin Chloride (Ditropan) 5 mg PO TID [facility] Stop: 02/28/19 20:59 Last Admin: 01/31/19 13:39 Dose: Not Given Documented by: Pantoprazole Sodium (Protonix) 40 mg PO QAM [facility] Stop: 03/01/19 08:59 Last Admin: 01/31/19 08:46 Dose: 40 mg Documented by: Polyethylene Glycol (Miralax Powder Packet) 17 gm PO DAILY PRN PRN Reason: Constipation Stop: 02/28/19 20:38 Ranolazine (Ranexa) 500 mg PO BID [facility] Stop: 03/01/19 20:59 Last Admin: 01/31/19 09:18 Dose: 500 mg Documented by: PG Care Time/CCT Total # of Minutes Spent Total Time Spent with Patient: Total time spent is greater than 50% in coordination of care (as documented) at patient's floor/unit and/or counseling patient:
--- NOTE | 2019-01-31 14:48 | Discharge Summary ---
Date of Service January 31, 2019 Admission HPI Per Admitting Provider 78 yo M PMHx CAD, CKD stage 3, GERD, Gout, Asthma, hypomagnesemia, dementia presented initially to the ED with his with complaints of chest pain and headaches. In ED trops negative, EKG without ST changes or signs of active ischemia, CXR negative for infection, PE. CTHead negative for bleed. HR 50s, BP 150s/70s. Admit team consulted. Some history to follow provided by as the patient has fairly profound dementia. On interview pt reports that he has some discomfort in his chest which is worst when he sits up, otherwise is comfortable lying down. No shortness of breath. No diaphoresis. No fevers or chills. No abdominal pain, nausea, vomiting, diarrhea, constipation. Admission Exam Per Admitting Provider WD/WN, vitals as above Eyes: PERRL, conjunctivae normal, anicteric sclerae ENMT: external ear and nose normal, oropharynx normal Respiratory: normal respiratory effort, lungs clear to auscultation Cardiovascular: Rate/Rhythm: regular rate and regular rhythm Heart Sounds: no murmur Extremities: + edema (1+ peripheral edema bilateral LE) Gastrointestinal (Abdomen): normal bowel sounds, soft, nontender, no hepatosplenomegaly Skin: no rashes, warm and dry Psychiatric: demented at baseline, alert, somewhat confused. Principal Diagnosis Chest pain Discharge Exam Constitutional Sitting comfortably in bed in no acute distress Respiratory Normal respiratory effort, lungs clear to auscultation bilaterally with no wheezes rhonchi rales or wheezes appreciated. Cardiovascular Regular rate and rhythm with no gallops, murmurs, or rubs appreciated. Gastrointestinal (Abdomen) Soft, nondistended, normal to inspection, nontender. Musculoskeletal Tenderness of costochondral junction by the sternum has resolved at this point. Patient still attest to tenderness to palpation near the fifth and sixth ribs in the midclavicular line. He also attest to continuing low back and hip pain. Neurologic Able to converse however tends to get lost in the middle of his sentence and appears to be mildly demented. Is alert and oriented to person and place however frequently gets the year wrong. Discharge Data Allergies Allergy/AdvReac Type Severity Reaction Status Date / Time adhesive Allergy Unknown BANDAID-SKIN Verified 01/29/19 16:47 IRRITATION antihemophilic factor Allergy Unknown reaction Verified 01/29/19 16:47 (FVIII) rec, full length to recombinate products made in hamster, mice antihemophilic factor VIII, Allergy Unknown Verified 01/29/19 16:47 human recombinant [From Recombinate] codeine Allergy Unknown SOB/ N/V Verified 01/29/19 16:47 homatropine Allergy Unknown UNKNOWN Unverified 01/29/19 16:47 Horse/Equine Containing Allergy Unknown ILLNESS-ALMOST Unverified 01/29/19 16:47 Products IN hydrocodone Allergy Unknown UNKNOWN Unverified 01/29/19 16:47 niacin Allergy Unknown SKIN FLUSH Unverified 01/29/19 16:47 tetanus toxoid, adsorbed Allergy Unknown ILLNESS-ALMOST Verified 01/29/19 16:47 IN Consultations 01/29/19 19:10 ED Decision to Admit Stat 01/29/19 21:46 Consult Cardiology Routine Ordered Studies 01/29/19 15:08 CT head/brain wo con Stat Hospital Course (1) Unstable angina: 78 yo M PMHx CAD, CKD stage 3, GERD, Gout, Asthma, hypomagnesemia, dementia admitted for possible unstable angina, without chest pain at this time. Patient underwent a cardiac work-up for unstable angina which found troponins to be negative x4 with normal EKGs. Cardiology was consulted and they recommended avoiding any acute intervention for chest pain at this time as it may provide more harm to the patient than benefit. Additionally per the recommendation we added Ranexa 500 mg twice daily as well as Imdur 30 mg daily to control and help for future episodes of chest pain. Patient is to follow-up with his lithopress operator either Dr. Post or Mr. reveles this week in order to continue cardiac care. During his stay patient also briefly complained of dysuria however UA was negative for leukocyte esterase and nitrites; concern for UTI was low and thus the patient was not treated with antibiotics. All other chronic medical conditions were controlled with home medication regimens. Given patient's short length of stay in the hospital, multiple allergies to recombinant factors, and hemophilia, Lovenox was held during stay for DVT prophylaxis. (2) GERD (gastroesophageal reflux disease): (3) Chronic kidney disease (CKD): (4) Gout: (5) Asthma: (6) Hypertension: (7) Dementia: Total Time Total Time Spent Total Time Spent (In Minutes): Less than 30 Discharge Plan Discharge Items Patient Disposition: Home - Self-Care Reason For Visit: UNSTABLE ANGINA Discharge Diagnosis: Unstable angina/Chest pain Activity: Resume your previous activity Non-emergency contact: Primary Care Provider Call non-emergency contact if: you have any medication questions, your symptoms worsen and your pain is concerning for you Follow-up/Referrals: Timothy Yoder MD [Primary Care Provider] - Diet: Heart Healthy Addtl Attending Provider Instructions: You were admitted to the hospital for chest pain. The cardiology team did a full work up to ensure that you were not having an active heart attack or that you had a heart attack prior to coming into the hospital. These all came back clear, and showed you did not have a heart attack or any damage to your heart muscle. It appears that the chest pain you had could have been a mix of non-ischemic chest pain (pain that did not cause damage to your heart) or muscular rib pain. Cardiology added Ranexa, a heart medication to your prescription list to help with future chest pain episodes. We also added Imdur, which is a nitroglycerin oral medication that can help with not having future episodes of chest pain. If you have chest pain that is crushing or pressure in the chest, radiates down your arm or neck, take a dissolvable nitro tab and return to the hospital or [facility]. Follow up with your lithopress operator and primary care physician in the next 2 weeks. Pending Studies at Discharge: No Stand-Alone Forms: Call Back Authorization, [facility] Medications and DC Order Prescriptions: New ranolazine [Ranexa] 500 mg Tablet Extended Release 12 Hr 500 mg PO BID 30 Days Qty: 60 RF: 0 isosorbide mononitrate 30 mg tablet extended release 24 hr 30 mg PO DAILY Qty: 30 RF: 0 Continued latanoprost 0.005 % drops 1 drops OP DAILY RF: 0 atorvastatin 80 mg tablet 80 mg PO DAILY Qty: 90 RF: 0 carvedilol 6.25 mg tablet 6.25 mg PO BID Qty: 180 RF: 0 metolazone 5 mg tablet 5 mg PO DAILY Qty: 90 RF: 0 amlodipine 5 mg tablet 5 mg PO BID Qty: 180 RF: 0 allopurinol 100 mg tablet 200 mg PO DAILY Qty: 180 RF: 0 diazepam 2 mg tablet 2 mg PO Q6H PRN (Reason: anxiety) Qty: 270 RF: 0 esomeprazole magnesium 40 mg capsule,delayed release(DR/EC) 40 mg PO DAILY Qty: 90 RF: 0 brimonidine 0.2 % drops 1 drops OP TID RF: 0 nitroglycerin 0.4 mg tablet, sublingual 0.4 mg SL Q5M PRN (Reason: chest pain) Qty: 25 RF: 0 oxybutynin chloride 5 mg tablet 5 mg PO TID Qty: 270 RF: 0 finasteride 5 mg tablet 5 mg PO DAILY Qty: 90 RF: 0 dorzolamide 2 % drops 1 drops OP TID RF: 0 memantine 10 mg tablet 10 mg PO BID Qty: 180 RF: 0 duloxetine 30 mg capsule,delayed release(DR/EC) 30 mg PO DAILY RF: 0 darbepoetin martha in polysorbat 200 mcg/mL solution 200 mcg subcut .Q2W Qty: 0 RF: 0 beclomethasone dipropionate 80 mcg/actuation HFA aerosol breath activated 2 puffs inhalation BID Qty: 3 RF: 0 magnesium oxide 400 mg magnesium tablet 400 mg PO BID RF: 0 aspirin 81 mg Tablet,Delayed Release (Dr/Ec) 81 mg PO DAILY RF: 0 acetaminophen [Tylenol Extra Strength] 500 mg Tablet 1,000 mg PO Q6H PRN (Reason: Pain) RF: 0 Discharge Orders: Discharge Order (Routine); Ordered 01/31/19 Ordered By: Chuyita Perera Admission Data Admit Date/Time: 01/29/19 20:01 Attending Provider: Cristhian Trejo Admit Provider: Azul Keith Primary Care Provider: Timothy Yoder Other Providers: Pratik Bob ; Sean Nichols ; Chuyita Perera Other Interventions: Discharge Summary Assessment (RN) Last Done: 01/31/19 13:35 DC Date/Time DO NOT enter until pt leaves facility: 01/31/19 15:21 Supervising Physician Co-Signing Physician Notes I personally examined the patient and verified all steve points of history and exam, discussed case, and agree with decision making with Dr Perera. No meaningful HPI review of systems obtainable from patient, although he does grasp his chest wall laterally in the area of the noted somatic dysfunction just as I am walking in the room. I have an extensive discussion with the on the fact that he easily could have musculoskeletal chest pain, she notes that with his dementia he easily could have had a fall that she does not know he had, we agree that certainly possible. Discussed over finding with somatic dysfunction, she asked if it could be fractured, I noted that certainly without dedicated rib films as possible, but given that he definitely has muscu loskeletal rib pain, and the treatment for a nondisplaced fracture or intercostal pain essentially would be the same, just that the duration of improvement would be slower for a fracture, we agreed that further extensive work-up would not really benefit the patient. Further we discussed that given that he is not able to give us any history, but he does have known coronary disease, it would be impossible to truly exclude unstable angina, hence the med management as initiated by cardiology. Vitals noted, in general he is awake and alert no distress. HEENT normal cephalic atraumatic mucous membranes are moist. Osteopathic structural exam shows left-sided ribs tender decreased range of motion, balanced ligamentous tensiontissue texture may be improved some. Patient tolerated well. Chest painmusculoskeletal versus angina versus bothagree with addition of Ranexa and Imdur were to protect him from worsening angina, did OMT, and directed on use of topical [id number] for the intercostal muscle dysfunction. Safe/stable for home. Resident Activity Tracking Resident Involvement: Resident Care Provided Care Provided: Adult Hospital Medicine
== END 2019-01-31 15:21 | disposition home or self-care (01) ==
LOC: ED 14:35 → 2S 14:35 → SUATTDRO 20:01 → 2S 20:18

== ENCOUNTER 2020-04-09 18:09 | Observation (INO) ==
[2020-04-09 19:21] LABS: Basophils # (auto) 0.02 K/uL (0-0.2); Basophils % (auto) 0.4 %; Eosinophils # (auto) 0.11 K/uL (0-0.5); Eosinophils % (auto) 2.2 %; Hematocrit (blood only) 26.1 % (42-52); Hemoglobin 9.4 g/dL (14.0-18.0); Immature Granulocytes # (auto) 0.01 K/uL (0.00-0.02); Immature Granulocytes % (auto) 0.2 %; Lymphocytes % (auto) 22.4 %; Mean Corpuscular Hemoglobin 30.7 pg (25-34); Mean Corpuscular Volume 85.3 fL (80-100); Mean Platelet Volume 11.4 fL (7.4-10.4); Monocytes # (auto) 0.42 K/uL (0.11-0.59); Monocytes % (auto) 8.5 %; Neutrophils # (auto) 3.26 K/uL (1.4-6.5); Neutrophils % (auto) 66.3 %; Platelet Count 188 K/uL (130-400); RDW Coefficient of Variation 17.6 % (11.5-14.5); RDW Standard Deviation 54.6 fL (36.4-46.3); Red Blood Count 3.06 M/uL (4.7-6.1); White Blood Count 4.92 K/uL (4.8-10.8)
[2020-04-09 19:35] LABS: Appearance Urine Clear (Clear); Bacteria Urine Automated Negative (Negative); Bilirubin Urine Negative (Negative); Blood Urine 1+ (Negative); Color Urine Dark Yellow; Epithelial Cell Urine Auto >30 /lpf (0-5); Glucose Urine UA Negative (Negative); Ketones Urine Negative (Negative); Leukocyte Esterase Urine Trace (Negative); Nitrite Urine Negative (Negative); Protein Urine 1+ (Negative); Specific Gravity Urine 1.014 (1.000-1.030); Urobilinogen Urine Negative (Negative)
[2020-04-09 19:38] LABS: Alanine Aminotransferase 15 U/L (12-78); Albumin Level 3.4 gm/dl (3.4-5.0); Aspartate Aminotransferase 19 U/L (15-37); BUN Creatinine Ratio 13.4 (10-20); Blood Urea Nitrogen 39 mg/dl (7-18); Carbon Dioxide 26 mmol/L (21-32); Chloride 104 mmol/L (98-107); Creatinine Clr Calc Pharmacy 17.9 ml/min; Est GFR (African American) 22.7; Est GFR (Non-African American) 19.6; Glucose 100 mg/dl (70-99); Lipase 151 U/L (73-393); Potassium 4.1 mmol/L (3.5-5.1); Sodium 138 mmol/L (136-145)
[2020-04-09 19:43] LABS: Alkaline Phosphatase 137 U/L (45-117); Bilirubin,Total 0.4 mg/dl (0.2-1); Globulin 3.3 gm/dl (2.5-4.0); Total Protein 6.7 gm/dl (6.4-8.2); Troponin I < 0.015 ng/ml (0-0.045)
--- NOTE | 2020-04-09 20:06 | XRay Report ---
KUB CLINICAL HISTORY: Constipation. Dementia. FINDINGS: An AP, portable, supine abdominal radiograph is correlated with abdominal CT dated 0. There is a nonobstructed abdominal bowel gas pattern noting moderate to severe constipation. No ev idence of intraperitoneal free air is seen on this supine image. Cholecystectomy clips are seen in th e right upper quadrant. A calcification the right mid abdomen is unchanged, as is a metallic foreign body in the right lower quadrant. The skeletal structures are osteopenic. Moderate to advanced lumbos acral spondylosis is noted. IMPRESSION: Moderate to severe constipation. Electronically signed by: Maxwell Simon M.D. 04/09/2020 8:05 PM
--- NOTE | 2020-04-09 20:07 | XRay Report ---
SINGLE VIEW CHEST CLINICAL HISTORY: Change in mental status. FINDINGS: An AP, portable, upright chest radiograph is compared to study dated 01/29/2019. The heart i s enlarged. The pulmonary vasculature is noncongested. Scarring/atelectasis is seen at the lung bases . No airspace consolidation or pleural effusion is identified. No pneumothorax is seen. The skeletal structures are osteopenic. The bony thorax is grossly intact. Cholecystectomy clips are seen in the r ight upper quadrant. IMPRESSION: Cardiomegaly with no active disease in the chest. ACT 112: Negative or not required by law. Electronically signed by: Maxwell Simon M.D. 04/09/2020 8:06 PM
--- NOTE | 2020-04-10 00:34 | History & Physical Report ---
Date of Service April 10, 2020 Assessment & Plan (1) Confusion: Confusion/SDAT with behavioral changes- Continue Haldol 4 mg p.o. daily, and memantine 10 mg p.o. twice daily Patient's family reports that they are no longer able to take care of him at home, and are asking for mcc placement Present on Admission?: Yes (2) Senile dementia of Alzheimer's type: See above Present on Admission?: Yes (3) CAD (coronary artery disease): CAD/hypertension- Continue aspirin 81 mg daily, carvedilol 3.125 mg p.o. twice daily, isosorbide mononitrate extended release 30 mg daily and ranolazine 500 mg p.o. twice daily. For now hold metolazone Present on Admission?: Yes (4) Chronic kidney disease: Creatinine 2.91 department admission, with range 2.18-3.04. Follow laboratory serially Present on Admission?: Yes (5) Sleep apnea: Wears CPAP at bedtime Present on Admission?: Yes (6) GERD (gastroesophageal reflux disease): Continue Nexium 40 mg p.o. daily or equivalent pantoprazole 40 mg daily Present on Admission?: Yes (7) Asthma: Continue home inhaler Present on Admission?: Yes (8) Hypertension: See above Present on Admission?: Yes (9) Factor VIII deficiency hemophilia: History of Present Illness Chief Complaint: The patient is brought to the emergency department by family due to concerns regarding change in mental status/confusion and decreased bowel movements. Primary Care Provider: Timothy Yoder MD The patient is a 79-year-old male with a past medical history including chronic kidney disease stage III, urinary incontinence, dementia, anemia, sleep apnea, stented coronary artery, SDAT, dyslipidemia, BPH with LUTS, peripheral neuropathy, reactive airway disease, sensory ataxia, CAD, von Willebrand disease, GERD, asthma, hypertension, STEMI, hypomagnesemia and hemophilia. Patient is brought to the emergency department due to issues with confusion, and family reports they are unable to Take care of him at home anymore and asking for mcc placement. Allergies Allergy/AdvReac Type Severity Reaction Status Date / Time adhesive Allergy Unknown BANDAID-SKIN Verified 04/04/20 10:06 IRRITATION antihemophilic factor Allergy Unknown reaction Verified 04/04/20 10:06 (FVIII) rec, full length to recombinate products made in hamster, mice antihemophilic factor VIII, Allergy Unknown Verified 04/04/20 10:06 human recombinant [From Recombinate] codeine Allergy Unknown SOB/ N/V Verified 04/04/20 10:06 homatropine Allergy Unknown UNKNOWN Unverified 04/04/20 10:06 Horse/Equine Containing Allergy Unknown ILLNESS-ALMOST Unverified 04/04/20 10:06 Products IN 1949'S hydrocodone Allergy Unknown UNKNOWN Unverified 04/04/20 10:06 niacin Allergy Unknown SKIN FLUSH Unverified 04/04/20 10:06 tetanus toxoid, adsorbed Allergy Unknown ILLNESS-ALMOST Verified 04/04/20 10:06 IN 1949'S Home Medications Medication Instructions Recorded Confirmed Type brimonidine 0.2 % eye drops 1 drops OP TID ml 01/26/19 04/09/20 History dorzolamide 2 % eye drops 1 drops OP TID ml 01/26/19 04/09/20 History latanoprost 0.005 % eye drops 1 drops OP DAILY ml 01/26/19 04/09/20 History nitroglycerin 0.4 mg sublingual 0.4 mg SL Q5M PRN #25 tab 01/26/19 04/09/20 History tablet acetaminophen [Tylenol Extra 1,000 mg PO Q6H PRN 01/29/19 04/09/20 History Strength] aspirin 81 mg PO DAILY 01/29/19 04/09/20 History allopurinol 100 mg tablet 200 mg PO DAILY #180 tab 07/09/19 04/09/20 Rx beclomethasone dipropionate 80 2 puffs INHALATION BID #31.8 gm 07/29/19 04/09/20 Rx mcg/actuation HFA breath activated aerosol esomeprazole magnesium 40 mg 40 mg PO DAILY #90 cap 07/29/19 04/09/20 Rx capsule,delayed release memantine 10 mg tablet 10 mg PO BID #180 tab 12/16/19 04/09/20 Rx isosorbide mononitrate 30 mg See Rx Instructions .ROUTE 12/20/19 04/09/20 Rx tablet,extended release 24 hr .COMPLEX #180 tab ranolazine 500 mg tablet,extended 500 mg PO BID #180 tab 03/07/20 04/09/20 Rx release,12 hr carvedilol 3.125 mg tablet 3.125 mg PO BID #180 tab 03/13/20 04/09/20 Rx haloperidol 2 mg tablet 4 mg PO DAILY #14 tab 03/20/20 04/09/20 Rx metolazone 5 mg tablet 5 mg PO .QOD #90 tab 04/04/20 04/09/20 Rx Past Med/Surg History Medical History (Updated 04/10/20 @ 03:22 by Sergio Olsen MD) Carpal tunnel syndrome, bilateral Clear cell carcinoma of kidney See [facility] note- 11/19/17 Diaphragmatic hernia Disc degeneration, lumbar Diverticulosis Dupuytren's contracture Fall Gout History of rib fracture Hx of hepatitis C See Dr. Yoder's note 06/10/2011 Sciatica, right side Septic arthritis Sleep apnea Wears CPAP Solitary thyroid nodule Spinal stenosis in cervical region Testicular hypofunction Surgical History Hx of cataract surgery Hx of cholecystectomy Hx of shoulder surgery S/P coronary artery stent placement Stented coronary artery Family History Other No significant family history Social History Smoking Status: Unknown if ever smoked Second Hand Exposure: No; Hx Alcohol Use: No Hx Substance Use: No Preferred Language: Kyrgyz Communication Ability: Effective Canoe Builder Required: No Beliefs That Will Affect Care: None Current Living Situation: Spouse Current Living Situation Comment: House Feels Safe at Home: Yes Assistive Devices: None Review of Systems Review of Systems: The patient denies chest pain, palpitations, shortness of breath, dyspnea on exertion, cough, lower extremity swelling, sore throat, fevers, chills, sweats, nausea, vomiting, diarrhea, blood in urine or stool, dysuria, urinary frequency or urgency, lightheadedness, dizziness, headache, loss of consciousness, rash, abnormal bruising or bleeding, imbalance, focal or generalized weakness, numbness or tingling in arms or legs, generalized arthralgias or myalgias, back or neck pain, or night sweats. The review of systems is otherwise negative other than for that already noted above, and at least 10 systems have been reviewed. Physical Exam Physical Exam: The patient is awake, alert and responsive, but intermittently confused, well developed and well nourished, normocephalic and atraumatic, lying in bed and in no acute distress. HEENT--PERRL, EOMI, mucous membranes and oropharynx dry. Neck--supple. No JVD. No bruits. Thyroid normal, trachea midline, no adenopathy. Heart--normal S1 and S2. No murmurs, rubs or gallops. Lungs--clear bilaterally, no respiratory distress, no accessory muscle use. Abdomen--normal bowel sounds and soft. Nontender. Nondistended. Extremities--no cyanosis or clubbing. No edema. Dermatologic--normal skin turgor, normal color, no abnormal lymph nodes, no rash. Neurologic--cranial nerves II through XII grossly intact. Rheumatologic--normal range of motion. Psychiatric--flat affect Results & Data Results & Data ([facility]) Vital Signs (Past 12 Hours) Vital Signs Temp Pulse Pulse Resp BP BP Pulse Ox 04/10/20 00:26 84 20 176/91 H 95 04/09/20 23:10 78 20 155/88 H 96 04/09/20 20:31 81 18 97 04/09/20 20:30 80 15 176/80 H 97 04/09/20 20:01 79 16 98 04/09/20 20:00 77 17 147/72 H 97 04/09/20 19:31 80 96 04/09/20 19:30 82 145/81 H 96 04/09/20 19:01 84 17 98 04/09/20 19:00 76 12 164/92 H 98 04/09/20 18:31 96 H 18 98 04/09/20 18:30 68 149/77 H 95 04/09/20 18:28 98.8 F 66 18 154/97 H 96 04/09/20 18:26 65 17 98 04/09/20 18:25 66 13 152/76 H 98 04/09/20 18:15 66 15 154/97 H 97 Laboratory Results Laboratory Results WBC 4.92 K/uL (4.8-10.8) 04/09/20 18:45 RBC 3.06 M/uL (4.7-6.1) L 04/09/20 18:45 Hgb 9.4 g/dL (14.0-18.0) L 04/09/20 18:45 Hct 26.1 % (42-52) L 04/09/20 18:45 MCV 85.3 fL (80-100) 04/09/20 18:45 MCH 30.7 pg (25-34) 04/09/20 18:45 MCHC 36.0 g/dL (32-36) 04/09/20 18:45 RDW Std Deviation 54.6 fL (36.4-46.3) H 04/09/20 18:45 RDW Coeff of Agatha 17.6 % (11.5-14.5) H 04/09/20 18:45 Plt Count 188 K/uL (130-400) 04/09/20 18:45 MPV 11.4 fL (7.4-10.4) H 04/09/20 18:45 Immature Gran % (Auto) 0.2 % 04/09/20 18:45 Neut % (Auto) 66.3 % 04/09/20 18:45 Lymph % (Auto) 22.4 % 04/09/20 18:45 [place] % (Auto) 8.5 % 04/09/20 18:45 Eos % (Auto) 2.2 % 04/09/20 18:45 Baso % (Auto) 0.4 % 04/09/20 18:45 Neut # (Auto) 3.26 K/uL (1.4-6.5) 04/09/20 18:45 Lymph # (Auto) 1.10 K/uL (1.2-3.4) L 04/09/20 18:45 [place] # (Auto) 0.42 K/uL (0.11-0.59) 04/09/20 18:45 Eos # (Auto) 0.11 K/uL (0-0.5) 04/09/20 18:45 Baso # (Auto) 0.02 K/uL (0-0.2) 04/09/20 18:45 Immature Gran # (Auto) 0.01 K/uL (0.00-0.02) 04/09/20 18:45 Sodium 138 mmol/L (136-145) 04/09/20 18:45 Potassium 4.1 mmol/L (3.5-5.1) 04/09/20 18:45 Chloride 104 mmol/L (98-107) 04/09/20 18:45 Carbon Dioxide 26 mmol/L (21-32) 04/09/20 18:45 Anion Gap 8.0 (3-11) 04/09/20 18:45 BUN 39 mg/dl (7-18) H 04/09/20 18:45 Creatinine 2.91 mg/dl (0.6-1.4) H 04/09/20 18:45 Est Cr Clr Drug Dosing 17.9 ml/min 04/09/20 18:45 Est GFR ( Amer) 22.7 04/09/20 18:45 Est GFR (Non-Af Amer) 19.6 04/09/20 18:45 BUN/Creatinine Ratio 13.4 (10-20) 04/09/20 18:45 Glucose 100 mg/dl (70-99) H 04/09/20 18:45 Lactate 1.0 mmol/L (0.4-2.0) 04/09/20 20:07 Calcium 9.0 mg/dl (8.5-10.1) 04/09/20 18:45 Total Bilirubin 0.4 mg/dl (0.2-1) 04/09/20 18:45 AST 19 U/L (15-37) 04/09/20 18:45 ALT 15 U/L (12-78) 04/09/20 18:45 Alkaline Phosphatase 137 U/L (45-117) H 04/09/20 18:45 Troponin I < 0.015 ng/ml (0-0.045) 04/09/20 18:45 Total Protein 6.7 gm/dl (6.4-8.2) 04/09/20 18:45 Albumin 3.4 gm/dl (3.4-5.0) 04/09/20 18:45 Globulin 3.3 gm/dl (2.5-4.0) 04/09/20 18:45 Albumin/Globulin Ratio 1.0 (0.9-2) 04/09/20 18:45 Lipase 151 U/L (73-393) 04/09/20 18:45 Urine Color Dark Yellow 04/09/20 18:40 Urine Appearance Clear (Clear) 04/09/20 18:40 Urine pH 6.0 (4.5-7.5) 04/09/20 18:40 Ur Specific [place] 1.014 (1.000-1.030) 04/09/20 18:40 Urine Protein 1+ (Negative) H 04/09/20 18:40 Urine Glucose (UA) Negative (Negative) 04/09/20 18:40 Urine Ketones Negative (Negative) 04/09/20 18:40 Urine Blood 1+ (Negative) H 04/09/20 18:40 Urine Nitrite Negative (Negative) 04/09/20 18:40 Urine Bilirubin Negative (Negative) 04/09/20 18:40 Urine Urobilinogen Negative (Negative) 04/09/20 18:40 Ur Leukocyte Esterase Trace (Negative) H 04/09/20 18:40 Urine WBC (Auto) 1-5 /hpf (0-5) 04/09/20 18:40 Urine RBC (Auto) 5-10 /hpf (0-4) H 04/09/20 18:40 U Hyaline Cast (Auto) 1-5 /lpf (0-5) 04/09/20 18:40 U Epithel Cells (Auto) >30 /lpf (0-5) H 04/09/20 18:40 Urine Bacteria (Auto) Negative (Negative) 04/09/20 18:40 Ur Renal Epithelial Cell Not Reportable 04/09/20 18:40 COVID-19 Eval Order Covid19 IDNow [facility] 04/09/20 19:49 SARS-CoV-2, RNA, NAAT NEGATIVE (NEGATIVE) 04/09/20 19:49 Diagnostic Findings [facility], [id number] XRay Report Patient: Justin SANDERS Date: 04/09/20MR#: [id number]: [address] Acct ID:[id number]: Date: [address] [place] [address] Zip: [place], [place] [address]Fzh: [id number]: EDSex: MRoom/Bed:Att Phy:Diagnosis: CONTIPATIONPri Phy: Timothy Yoder MDService Date: 04/09/20Fam Phy:Interpreting Phy: Maxwell Simon MDAdmit Phy: Ordering Phy: Ashley Delgado M.D. cc: ~ SINGLE VIEW CHEST CLINICAL HISTORY: Change in mental status. FINDINGS: An AP, portable, upright chest radiograph is compared to study dated 01/29/2019. The heart is enlarged. The pulmonary vasculature is noncongested. Scarring/atelectasis is seen at the lung bases. No airspace consolidation or pleural effusion is identified. No pneumothorax is seen. The skeletal structures are osteopenic. The bony thorax is grossly intact. Cholecystectomy clips are seen in the right upper quadrant. IMPRESSION: Cardiomegaly with no active disease in the chest. ACT 112: Negative or not required by law. Electronically signed by: Maxwell Simon M.D. 04/09/2020 8:06 PM Dictated: 04/09/202004Transcribed: 04/09/202004 [facility], [id number] XRay Report Patient: LINH SANDERSAdmit Date: 04/09/20MR#: [id number]: [address] Kevon ID:[id number]: Date: 1940[facility] Zip: [place], [place] [address]Rnv: 79Location: EDSex: MRoom/Bed:Att Phy:Diagnosis: CONTIPATIONPri Phy: Timothy Yoder MDService Date: 04/09/20Fa Phy:Interpreting Phy: Maxwell Simon MDAdmit Phy: Ordering Phy: Ashley Delgado M.D. cc: ~ KUB CLINICAL HISTORY: Constipation. Dementia. FINDINGS: An AP, portable, supine abdominal radiograph is correlated with abdominal CT dated 07/21/2019. There is a nonobstructed abdominal bowel gas pattern noting moderate to severe constipation. No evidence of intraperitoneal free air is seen on this supine image. Cholecystectomy clips are seen in the right upper quadrant. A calcification the right mid abdomen is unchanged, as is a metallic foreign body in the right lower quadrant. The skeletal structures are osteopenic. Moderate to advanced lumbosacral spondylosis is noted. IMPRESSION: Moderate to severe constipation. Electronically signed by: Maxwell Simon M.D. 04/09/2020 8:05 PM Dictated: 04/09/202002Transcribed: 04/09/202002 Code Status & VTE Plan Code Status Full code VTE Prophylaxis Plan VTE Prophylaxis will be ordered: Yes PG Care Time/CCT Total # of Minutes Spent Total Time Spent with Patient: Total time spent is greater than 50% in coordination of care (as documented) at patient's floor/unit and/or counseling patient: Coding Level of Care Code 84596 Initial Inpt Care Lvl 2 Diagnoses Confusion R41.0 Senile dementia of Alzheimer's type G30.1; F02.80 CAD (coronary artery disease) I25.10 Chronic kidney disease N18.9 Sleep apnea G47.30 GERD (gastroesophageal reflux disease) K21.9 Esophagitis presence: esophagitis presence not specified Asthma J45.20 Asthma severity: unspecified severity Asthma persistence: intermittent Asthma complication type: unspecified Hypertension I10 Hypertension type: essential hypertension Factor VIII deficiency hemophilia D66 (1) GERD (gastroesophageal reflux disease) Esophagitis presence: esophagitis presence not specified Qualified Code(s): K21.9 - Gastro-esophageal reflux disease without esophagitis (2) Asthma Asthma severity: unspecified severity Asthma persistence: intermittent Asthma complication type: unspecified Qualified Code(s): J45.20 - Mild intermittent asthma, uncomplicated (3) Hypertension Hypertension type: essential hypertension Qualified Code(s): I10 - Essential (primary) hypertension
[2020-04-10] MEDS ORDERED: bisacodyL 10 MG SUPP PR PRN (01:22)
[2020-04-10] MEDS ORDERED: ACETAMINOPHEN 325 MG TAB PO PRN (01:22)
[2020-04-10] MEDS ORDERED: POLYETHYLENE (MIRALAX) 17 GM PACK PO PRN (01:22)
[2020-04-10] MEDS ORDERED: ALUMINUM/MAGNESIUM SUSP 30 ML UDC PO PRN (01:22)
[2020-04-10] MEDS ORDERED: MAGNESIUM HYDROXIDE SUSP 30 ML UDC PO PRN (01:22)
[2020-04-10] MEDS ORDERED: ONDANSETRON INJ 2 MG/ML 2 ML VIAL IV PRN (01:22)
[2020-04-10] MEDS ORDERED: NITROGLYCERIN SL 0.4 MG/TAB TAB SL PRN (01:22)
[2020-04-10] MEDS: SODIUM CHLORIDE 0.9% 1000ML 1,000 ML IV SCH ×2 (01:25→14:20)
[2020-04-10] MEDS: carvediloL 3.125 MG TAB PO SCH ×3 (02:01→19:49)
[2020-04-10] MEDS: MEMANTINE HCL 10 MG TAB PO SCH ×3 (02:02→19:51)
[2020-04-10] MEDS: ISOSORBIDE MONO EXTENDED REL 30 MG TABCR PO SCH ×3 (02:02→19:51)
[2020-04-10] MEDS: RANOLAZINE 500 MG ER TAB PO SCH ×3 (02:02→19:52)
[2020-04-10] MEDS: HEPARIN SOD 5,000 UNIT/0.5 ML VIAL SQ SCH ×3 (08:02→20:32)
[2020-04-10] MEDS: FLUTICASONE FUROATE 200MCG 14 PUFFS/INHALER INH SCH (08:02)
[2020-04-10] MEDS: BRIMONIDINE TARTRATE 0.2% 5ML OP SCH ×3 (08:03→19:49)
[2020-04-10] MEDS: allopurinoL 100 MG TAB PO SCH (08:04)
[2020-04-10] MEDS: PANTOprazole 40 MG TAB PO SCH (08:04)
[2020-04-10] MEDS: ASPIRIN 81 MG ECTAB PO SCH (08:05)
[2020-04-10] MEDS: DORZOLAMIDE HCL 2% OPH SOLN 10 ML BTL OP SCH ×3 (08:05→19:52)
[2020-04-10] MEDS ORDERED: haloperidoL 1 MG TAB PO SCH (09:00)
--- NOTE | 2020-04-10 11:02 | Electrocardiogram Report ---
Test Reason : Blood Pressure : / mmHG Vent. Rate : 068 BPM Atrial Rate : 068 BPM P-R Int : 214 ms QRS Dur : 108 ms QT Int : 426 ms P-R-T Axes : 079 046 042 degrees QTc Int : 452 ms Sinus rhythm with 1st degree A-V block Low voltage QRS Incomplete right bundle branch block Borderline ECG When compared with ECG of 30-JAN-2019 12:43, Nonspecific T wave abnormality has replaced inverted T waves in Inferior leads Nonspecific T wave abnormality no longer evident in Anterior leads Confirmed by Dagoberto Crenshaw ([id number]) on 04/10/2020 11:01:37 AM Referred By: REFERRED SELF Confirmed By:Rene Crenshaw
[2020-04-10] MEDS: POLYETHYLENE (MIRALAX) 17 GM PACK PO SCH (11:52)
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
[2020-04-10] MEDS ORDERED: haloperidoL 1 MG TAB PO PRN (18:57)
[2020-04-10] MEDS: haloperidoL 1 MG TAB PO SCH (19:50)
[2020-04-10] MEDS: LATANOPROST 0.005% OP SOLN 2.5 ML BTL OP SCH (19:52)
[2020-04-11 08:37] LABS: BUN Creatinine Ratio 13.9 (10-20); Calcium 9.4 mg/dl (8.5-10.1); Creatinine Clr Calc Pharmacy 19.9 ml/min; Est GFR (African American) 25.8; Est GFR (Non-African American) 22.2
[2020-04-11] MEDS: allopurinoL 100 MG TAB PO SCH (09:29)
[2020-04-11] MEDS: carvediloL 3.125 MG TAB PO SCH ×2 (09:29→19:51)
[2020-04-11] MEDS: HEPARIN SOD 5,000 UNIT/0.5 ML VIAL SQ SCH ×2 (09:30→19:52)
[2020-04-11] MEDS: ISOSORBIDE MONO EXTENDED REL 30 MG TABCR PO SCH ×2 (09:30→19:51)
[2020-04-11] MEDS: PANTOprazole 40 MG TAB PO SCH (09:30)
[2020-04-11] MEDS: RANOLAZINE 500 MG ER TAB PO SCH ×2 (09:30→19:51)
[2020-04-11] MEDS: MEMANTINE HCL 10 MG TAB PO SCH ×2 (09:30→19:52)
[2020-04-11] MEDS: ASPIRIN 81 MG ECTAB PO SCH (09:30)
[2020-04-11] MEDS: POLYETHYLENE (MIRALAX) 17 GM PACK PO SCH (09:30)
[2020-04-11] MEDS: DORZOLAMIDE HCL 2% OPH SOLN 10 ML BTL OP SCH ×3 (09:31→19:53)
[2020-04-11] MEDS: BRIMONIDINE TARTRATE 0.2% 5ML OP SCH ×3 (09:31→19:53)
[2020-04-11] MEDS: FLUTICASONE FUROATE 200MCG 14 PUFFS/INHALER INH SCH (09:38)
--- NOTE | 2020-04-11 11:26 | Emergency Department Note ---
History of Present Illness General Chief complaint: Illness Stated complaint: CONTIPATION Time Seen by Provider: 04/09/20 18:12 Source: patient and RN notes reviewed Mode of arrival: EMS Limitations: altered mental status (dementia) History of Present Illness Provider complaint: Personality change, constipation, reported fever This pt is a 79 yo male who presents to the ED tearful stating he isn't sure why his sent him here. Pt apparently suffers from dementia. By report from EMS to the nursing staff the pt has has a "personality change lately." He has not had a BM in 2 days. Pt had a fever, but no report of a measurement. History is limited secondary to dementia. Home Medications Medication Instructions Recorded Confirmed Type brimonidine 0.2 % eye drops 1 drops OP TID ml 01/26/19 04/09/20 History dorzolamide 2 % eye drops 1 drops OP TID ml 01/26/19 04/09/20 History latanoprost 0.005 % eye drops 1 drops OP DAILY ml 01/26/19 04/09/20 History nitroglycerin 0.4 mg sublingual 0.4 mg SL Q5M PRN #25 tab 01/26/19 04/09/20 History tablet acetaminophen [Tylenol Extra 1,000 mg PO Q6H PRN 01/29/19 04/09/20 History Strength] aspirin 81 mg PO DAILY 01/29/19 04/09/20 History allopurinol 100 mg tablet 200 mg PO DAILY #180 tab 07/09/19 04/09/20 Rx beclomethasone dipropionate 80 2 puffs INHALATION BID #31.8 gm 07/29/19 04/09/20 Rx mcg/actuation HFA breath activated aerosol esomeprazole magnesium 40 mg 40 mg PO DAILY #90 cap 07/29/19 04/09/20 Rx capsule,delayed release memantine 10 mg tablet 10 mg PO BID #180 tab 12/16/19 04/09/20 Rx isosorbide mononitrate 30 mg See Rx Instructions .ROUTE 12/20/19 04/09/20 Rx tablet,extended release 24 hr .COMPLEX #180 tab ranolazine 500 mg tablet,extended 500 mg PO BID #180 tab 03/07/20 04/09/20 Rx release,12 hr carvedilol 3.125 mg tablet 3.125 mg PO BID #180 tab 03/13/20 04/09/20 Rx haloperidol 2 mg tablet 4 mg PO DAILY #14 tab 03/20/20 04/09/20 Rx metolazone 5 mg tablet 5 mg PO .QOD #90 tab 04/04/20 04/09/20 Rx Allergies Allergy/AdvReac Type Severity Reaction Status Date / Time adhesive Allergy Unknown BANDAID-SKIN Verified 04/04/20 10:06 IRRITATION antihemophilic factor Allergy Unknown reaction Verified 04/04/20 10:06 (FVIII) rec, full length to recombinate products made in hamster, mice antihemophilic factor VIII, Allergy Unknown Verified 04/04/20 10:06 human recombinant [From Recombinate] codeine Allergy Unknown SOB/ N/V Verified 04/04/20 10:06 homatropine Allergy Unknown UNKNOWN Unverified 04/04/20 10:06 Horse/Equine Containing Allergy Unknown ILLNESS-ALMOST Unverified 04/04/20 10:06 Products IN hydrocodone Allergy Unknown UNKNOWN Unverified 04/04/20 10:06 niacin Allergy Unknown SKIN FLUSH Unverified 04/04/20 10:06 tetanus toxoid, adsorbed Allergy Unknown ILLNESS-ALMOST Verified 04/04/20 10:06 IN 1949'S Past Med/Surg History Medical History (Updated 04/11/20 @ 11:26 by Ashley Delgado MD) Carpal tunnel syndrome, bilateral Clear cell carcinoma of kidney See [facility] note- 11/19/17 Diaphragmatic hernia Disc degeneration, lumbar Diverticulosis Dupuytren's contracture Fall Gout History of rib fracture Hx of hepatitis C See Dr. Yoder's note 06/10/2011 Sciatica, right side Septic arthritis Sleep apnea Wears CPAP Solitary thyroid nodule Spinal stenosis in cervical region Testicular hypofunction Surgical History Hx of cataract surgery Hx of cholecystectomy Hx of shoulder surgery S/P coronary artery stent placement Stented coronary artery Family History Other No significant family history Social History Smoking Status: Never smoker Second Hand Exposure: No; Hx Alcohol Use: No Hx Substance Use: No Preferred Language: Azeri Communication Ability: Impaired Data Reviewer Required: No Beliefs That Will Affect Care: None Current Living Situation: Spouse Current Living Situation Comment: House Other Information That Helps Us Care for You: No Feels Safe at Home: Yes Safety Concerns: Feels Safe At This Time Assistive Devices: Glasses Review of Systems See HPI for pertinent positives & negatives. and A total of 10 systems reviewed and were otherwise negative Physical Exam Vital signs reviewed. Rectal temp is normal General: Tearful and anxious 79 yo male, in no significant distress. HEENT: No scleral icterus, PERRLA, neck supple. Atraumatic. Cardiovascular: Regular rate and rhythm, no extra sounds. Pulmonary: Clear to auscultation bilaterally, normal work of breathing. Abdomen: Soft, nontender, nondistended, positive bowel sounds. Musculoskeletal: Atraumatic, no peripheral edema. Neurologic: Patient awake alert and oriented x 3 Skin: Warm, dry, no rash Course Administered Medications Allopurinol (Allopurinol 100 Mg Tab) 200 mg PO DAILY ZOE Stop: 05/10/20 08:59 Last Admin: 04/11/20 09:29 Dose: 200 mg Documented by: [id number] Admin: 04/10/20 08:04 Dose: 200 mg Documented by: [id number] Aspirin (Aspirin 81 Mg Ectab) 81 mg PO DAILY ZOE Stop: 05/10/20 08:59 Last Admin: 04/11/20 09:30 Dose: 81 mg Documented by: [id number] Admin: 04/10/20 08:05 Dose: 81 mg Documented by: [id number] Brimonidine Tartrate (Brimonidine Tartrate 0.2% 5ml) 1 drops OP TID ZOE Stop: 05/10/20 08:59 Last Admin: 04/11/20 09:31 Dose: 1 drops Documented by: [id number] Admin: 04/10/20 19:49 Dose: 1 drops Documented by: [id number] Admin: 04/10/20 14:20 Dose: 1 drops Documented by: [id number] Admin: 04/10/20 08:03 Dose: 1 drops Documented by: [id number] Carvedilol (Carvedilol 3.125 Mg Tab) 3.125 mg PO BID ZOE Stop: 05/10/20 01:21 Last Admin: 04/11/20 09:29 Dose: 3.125 mg Documented by: [id number] Admin: 04/10/20 19:49 Dose: 3.125 mg Documented by: [id number] Admin: 04/10/20 08:04 Dose: 3.125 mg Documented by: [id number] Admin: 04/10/20 02:01 Dose: 3.125 mg Documented by: [id number] Dorzolamide HCl (Dorzolamide Hcl 2% Oph Soln 10 Ml Btl) 1 drops OP TID ZOE Stop: 05/10/20 08:59 Last Admin: 04/11/20 09:31 Dose: 1 drops Documented by: [id number] Admin: 04/10/20 19:52 Dose: 1 drops Documented by: [id number] Admin: 04/10/20 14:20 Dose: 1 drops Documented by: [id number] Admin: 04/10/20 08:05 Dose: 1 drops Documented by: [id number] Fluticasone Furoate (Fluticasone Furoate 200mcg 14 Puffs/Inhaler) 1 puffs INH DAILY ZOE Stop: 05/10/20 08:59 Last Admin: 04/11/20 09:38 Dose: Not Given Documented by: [id number] Admin: 04/10/20 08:02 Dose: 1 puffs Documented by: [id number] Haloperidol (Haloperidol 1 Mg Tab) 2 mg PO HS ZOE Stop: 05/10/20 20:59 Last Admin: 04/10/20 19:50 Dose: 2 mg Documented by: [id number] Heparin Sodium (Porcine) (Heparin Sod 5,000 Unit/0.5 Ml Vial) 5,000 units SQ Q12 ZOE Stop: 05/10/20 08:59 Last Admin: 04/11/20 09:30 Dose: Not Given Documented by: [id number] Admin: 04/10/20 20:32 Dose: Not Given Documented by: [id number] Admin: 04/10/20 08:02 Dose: 5,000 units Documented by: [id number] Isosorbide Mononitrate (Isosorbide [place] Extended Rel 30 Mg Tabcr) 30 mg PO BID ZOE Stop: 05/10/20 01:21 Last Admin: 04/11/20 09:30 Dose: 30 mg Documented by: [id number] Admin: 04/10/20 19:51 Dose: 30 mg Documented by: [id number] Admin: 04/10/20 08:03 Dose: 30 mg Documented by: [id number] Admin: 04/10/20 02:02 Dose: 30 mg Documented by: [id number] Latanoprost (Latanoprost 0.005% Op Soln 2.5 Ml Btl) 1 drops OP HS ZOE Stop: 05/10/20 20:59 Last Admin: 04/10/20 19:52 Dose: 1 drops Documented by: [id number] Memantine (Memantine Hcl 10 Mg Tab) 10 mg PO BID ZOE Stop: 05/10/20 01:21 Last Admin: 04/11/20 09:30 Dose: 10 mg Documented by: [id number] Admin: 04/10/20 19:51 Dose: 10 mg Documented by: [id number] Admin: 04/10/20 08:03 Dose: 10 mg Documented by: [id number] Admin: 04/10/20 02:02 Dose: 10 mg Documented by: [id number] Pantoprazole Sodium (Pantoprazole 40 Mg Tab) 40 mg PO DAILY ZOE Stop: 05/10/20 08:59 Last Admin: 04/11/20 09:30 Dose: 40 mg Documented by: [id number] Admin: 04/10/20 08:04 Dose: 40 mg Documented by: [id number] Polyethylene Glycol (Polyethylene (Miralax) 17 Gm Pack) 17 gm PO DAILY ZOE Stop: 05/10/20 09:59 Last Admin: 04/11/20 09:30 Dose: 17 gm Documented by: [id number] Admin: 04/10/20 11:52 Dose: 17 gm Documented by: [id number] Ranolazine (Ranolazine 500 Mg Er Tab) 500 mg PO BID ZOE Stop: 05/10/20 01:21 Last Admin: 04/11/20 09:30 Dose: 500 mg Documented by: [id number] Admin: 04/10/20 19:52 Dose: 500 mg Documented by: [id number] Admin: 04/10/20 08:03 Dose: 500 mg Documented by: [id number] Admin: 04/10/20 02:02 Dose: 500 mg Documented by: [id number] Discontinued Medications Haloperidol (Haloperidol 1 Mg Tab) 4 mg PO DAILY ZOE Stop: 05/10/20 08:59 Last Admin: 04/10/20 08:04 Dose: 4 mg Documented by: [id number] Sodium Chloride (Nss 1000ml) 1,000 mls @ 80 mls/hr IV .[id number] ZOE Stop: 05/10/20 01:21 Last Infusion: 04/10/20 18:45 Dose: 0 mls/hr Documented by: [id number] Admin: 04/10/20 14:20 Dose: 80 mls/hr Documented by: [id number] Infusion: 04/10/20 14:19 Dose: 0 mls/hr Documented by: [id number] Admin: 04/10/20 01:25 Dose: 80 mls/hr Documented by: [id number] Medical Decision Making Differential Diagnosis Infection, dehydration, metabolic abnormality, hypo/hyperglycemia, electrolyte disturbance, anemia, hypoxia, cardiac sources, intracerebral event, toxicologic, neurologic, as well as other pathologies. Medical Records Attestation: I reviewed the patient's medical records. Home Medications Current Medication List: was personally reviewed by me Laboratory Data Attestation: I reviewed the patient's lab results. Result diagrams: 04/09/20 18:45 04/11/20 07:29 Lab Results 04/09/20 04/09/20 04/09/20 Range/Units 18:40 18:45 18:45 WBC 4.92 (4.8-10.8) K/uL RBC 3.06 L (4.7-6.1) M/uL Hgb 9.4 L (14.0-18.0) g/dL Hct 26.1 L (42-52) % MCV 85.3 (80-100) fL MCH 30.7 (25-34) pg MCHC 36.0 (32-36) g/dL RDW Std Deviation 54.6 H (36.4-46.3) fL RDW Coeff of Agatha 17.6 H (11.5-14.5) % Plt Count 188 (130-400) K/uL MPV 11.4 H (7.4-10.4) fL Immature Gran % (Auto) 0.2 % Neut % (Auto) 66.3 % Lymph % (Auto) 22.4 % [place] % (Auto) 8.5 % Eos % (Auto) 2.2 % Baso % (Auto) 0.4 % Neut # (Auto) 3.26 (1.4-6.5) K/uL Lymph # (Auto) 1.10 L (1.2-3.4) K/uL [place] # (Auto) 0.42 (0.11-0.59) K/uL Eos # (Auto) 0.11 (0-0.5) K/uL Baso # (Auto) 0.02 (0-0.2) K/uL Immature Gran # (Auto) 0.01 (0.00-0.02) K/uL Sodium 138 (136-145) mmol/L Potassium 4.1 (3.5-5.1) mmol/L Chloride 104 (98-107) mmol/L Carbon Dioxide 26 (21-32) mmol/L Anion Gap 8.0 (3-11) BUN 39 H (7-18) mg/dl Creatinine 2.91 H (0.6-1.4) mg/dl Est Cr Clr Drug Dosing 17.9 ml/min Est GFR ( Amer) 22.7 Est GFR (Non-Af Amer) 19.6 BUN/Creatinine Ratio 13.4 (10-20) Glucose 100 H (70-99) mg/dl Lactate (0.4-2.0) mmol/L Calcium 9.0 (8.5-10.1) mg/dl Total Bilirubin 0.4 (0.2-1) mg/dl AST 19 (15-37) U/L ALT 15 (12-78) U/L Alkaline Phosphatase 137 H (45-117) U/L Troponin I < 0.015 (0-0.045) ng/ml Total Protein 6.7 (6.4-8.2) gm/dl Albumin 3.4 (3.4-5.0) gm/dl Globulin 3.3 (2.5-4.0) gm/dl Albumin/Globulin Ratio 1.0 (0.9-2) Lipase 151 (73-393) U/L Urine Color Dark Yellow Urine Appearance Clear (Clear) Urine pH 6.0 (4.5-7.5) Ur Specific [place] 1.014 (1.000-1.030) Urine Protein 1+ H (Negative) Urine Glucose (UA) Negative (Negative) Urine Ketones Negative (Negative) Urine Blood 1+ H (Negative) Urine Nitrite Negative (Negative) Urine Bilirubin Negative (Negative) Urine Urobilinogen Negative (Negative) Ur Leukocyte Esterase Trace H (Negative) Urine WBC (Auto) 1-5 (0-5) /hpf Urine RBC (Auto) 5-10 H (0-4) /hpf U Hyaline Cast (Auto) 1-5 (0-5) /lpf U Epithel Cells (Auto) >30 H (0-5) /lpf Urine Bacteria (Auto) Negative (Negative) Ur Renal Epithelial Cell Not Reportable COVID-19 Eval Order SARS-CoV-2, RNA, NAAT (NEGATIVE) 04/09/20 04/09/20 04/09/20 Range/Units 19:49 19:49 20:07 WBC (4.8-10.8) K/uL RBC (4.7-6.1) M/uL Hgb (14.0-18.0) g/dL Hct (42-52) % MCV (80-100) fL MCH (25-34) pg MCHC (32-36) g/dL RDW Std Deviation (36.4-46.3) fL RDW Coeff of Agatha (11.5-14.5) % Plt Count (130-400) K/uL MPV (7.4-10.4) fL Immature Gran % (Auto) % Neut % (Auto) % Lymph % (Auto) % [place] % (Auto) % Eos % (Auto) % Baso % (Auto) % Neut # (Auto) (1.4-6.5) K/uL Lymph # (Auto) (1.2-3.4) K/uL [place] # (Auto) (0.11-0.59) K/uL Eos # (Auto) (0-0.5) K/uL Baso # (Auto) (0-0.2) K/uL Immature Gran # (Auto) (0.00-0.02) K/uL Sodium (136-145) mmol/L Potassium (3.5-5.1) mmol/L Chloride (98-107) mmol/L Carbon Dioxide (21-32) mmol/L Anion Gap (3-11) BUN (7-18) mg/dl Creatinine (0.6-1.4) mg/dl Est Cr Clr Drug Dosing ml/min Est GFR ( Amer) Est GFR (Non-Af Amer) BUN/Creatinine Ratio (10-20) Glucose (70-99) mg/dl Lactate 1.0 (0.4-2.0) mmol/L Calcium (8.5-10.1) mg/dl Total Bilirubin (0.2-1) mg/dl AST (15-37) U/L ALT (12-78) U/L Alkaline Phosphatase (45-117) U/L Troponin I (0-0.045) ng/ml Total Protein (6.4-8.2) gm/dl Albumin (3.4-5.0) gm/dl Globulin (2.5-4.0) gm/dl Albumin/Globulin Ratio (0.9-2) Lipase (73-393) U/L Urine Color Urine Appearance (Clear) Urine pH (4.5-7.5) Ur Specific [place] (1.000-1.030) Urine Protein (Negative) Urine Glucose (UA) (Negative) Urine Ketones (Negative) Urine Blood (Negative) Urine Nitrite (Negative) Urine Bilirubin (Negative) Urine Urobilinogen (Negative) Ur Leukocyte Esterase (Negative) Urine WBC (Auto) (0-5) /hpf Urine RBC (Auto) (0-4) /hpf U Hyaline Cast (Auto) (0-5) /lpf U Epithel Cells (Auto) (0-5) /lpf Urine Bacteria (Auto) (Negative) Ur Renal Epithelial Cell COVID-19 Eval Order Covid19 [facility] SARS-CoV-2, RNA, NAAT NEGATIVE (NEGATIVE) Imaging Data Radiologist's Impression: KUB CLINICAL HISTORY: Constipation. Dementia. FINDINGS: An AP, portable, supine abdominal radiograph is correlated with abdominal CT dated 07/21/2019. There is a nonobstructed abdominal bowel gas pattern noting moderate to severe constipation. No evidence of intraperitoneal free air is seen on this supine image. Cholecystectomy clips are seen in the right upper quadrant. A calcification the right mid abdomen is unchanged, as is a metallic foreign body in the right lower quadrant. The skeletal structures are osteopenic. Moderate to advanced lumbosacral spondylosis is noted. IMPRESSION: Moderate to severe constipation. Electronically signed by: Maxwell Simon M.D. 04/09/2020 8:05 PM Dictated: 04/09/202002Transcribed: 04/09/202002 SINGLE VIEW CHEST CLINICAL HISTORY: Change in mental status. FINDINGS: An AP, portable, upright chest radiograph is compared to study dated 01/29/2019. The heart is enlarged. The pulmonary vasculature is noncongested. Scarring/atelectasis is seen at the lung bases. No airspace consolidation or pleural effusion is identified. No pneumothorax is seen. The skeletal structures are osteopenic. The bony thorax is grossly intact. Cholecystectomy clips are seen in the right upper quadrant. IMPRESSION: Cardiomegaly with no active disease in the chest. ACT 112: Negative or not required by law. Electronically signed by: Maxwell Simon M.D. 04/09/2020 8:06 PM Dictated: 04/09/202004Transcribed: 04/09/202004 ECG Data Attestation: I personally reviewed and interpreted this ECG as follows: Indication: + altered mental status Rate (beats per minute): 68 Rhythm: + normal sinus ECG Intervals/blocks: + First degree AV block, + Right Bundle branch block (incomplete) and + Normal QT-c ECG [place]: + Normal ECG ST segments: + Nonspecific ST abnormalities Blood Pressure Blood Pressure Findings: Elevated blood pressure Blood Pressure Disposition: further management by hospitalist NEELA Gerber Thi pt was evaluated and appeared to be in no distress. IV access was obtained and lab work was drawn, including blood cx and lactate. An order for cardiac monitoring was placed and the pt was noted to be in a SR with first degree AV block. Lab work reveals a normal WBC, negative lactate, a creatinine of 2.91 and a UA that is largely neagtive. COVID swab is negative. Pt was given a SSE but was unable to pass a hard BM at the rectum. A disimpaction was performed at the bedside with good results. Pt's called and stated she would lihe the pt placed in to a SNF. SHe is unable to manage him at home. Case management was consulted and recommended inpt admission. Impression & Plan Constipation, AMS (altered mental status), Dementia Discharge Plan Visit Data Chief Complaint: Illness Stated Complaint: CONTIPATION ED Provider: Ashley Delgado Discharge Problem: Constipation, AMS (altered mental status), Dementia Patient Disposition: Admitted As Inpatient Discharge Instructions Interventions: ED Discharge Assessment Last Done: 04/10/20 01:16 Discharge Problem: Constipation Qualifiers: Constipation type: slow transit constipation Qualified Code(s): K59.01 - Slow transit constipation AMS (altered mental status) Qualifiers: Altered mental status type: delirium Qualified Code(s): R41.0 - Disorientation, unspecified Dementia Qualifiers: Dementia type: Alzheimer's disease Alzheimer's disease onset: early-onset Dementia behavioral disturbance: with behavioral disturbance Qualified Code(s): G30.0 - Alzheimer's disease with early onset
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
[2020-04-11] MEDS: haloperidoL 1 MG TAB PO SCH (19:52)
[2020-04-11] MEDS: LATANOPROST 0.005% OP SOLN 2.5 ML BTL OP SCH (19:54)
[2020-04-12] MEDS: carvediloL 3.125 MG TAB PO SCH ×2 (07:59→20:27)
[2020-04-12] MEDS: MEMANTINE HCL 10 MG TAB PO SCH ×2 (07:59→20:28)
[2020-04-12] MEDS: ASPIRIN 81 MG ECTAB PO SCH (07:59)
[2020-04-12] MEDS: ISOSORBIDE MONO EXTENDED REL 30 MG TABCR PO SCH ×2 (07:59→20:27)
[2020-04-12] MEDS: allopurinoL 100 MG TAB PO SCH (08:00)
[2020-04-12] MEDS: PANTOprazole 40 MG TAB PO SCH (08:00)
[2020-04-12] MEDS: RANOLAZINE 500 MG ER TAB PO SCH ×2 (08:00→20:27)
[2020-04-12] MEDS: DORZOLAMIDE HCL 2% OPH SOLN 10 ML BTL OP SCH ×3 (08:01→20:29)
[2020-04-12] MEDS: POLYETHYLENE (MIRALAX) 17 GM PACK PO SCH (08:01)
[2020-04-12] MEDS: BRIMONIDINE TARTRATE 0.2% 5ML OP SCH ×3 (08:01→20:29)
[2020-04-12] MEDS: FLUTICASONE FUROATE 200MCG 14 PUFFS/INHALER INH SCH (08:02)
[2020-04-12] MEDS: HEPARIN SOD 5,000 UNIT/0.5 ML VIAL SQ SCH ×2 (08:10→20:29)
--- NOTE | 2020-04-12 17:55 | Hospitalist Progress Note ---
Date of Service April 12, 2020 Assessment & Plan (1) Confusion: Confusion/SDAT with behavioral changes - Blood cx negative at 24 hours - Continue Haldol 2mg po qhs and an additional 2mg po prn for agitation -- Avoid benzos and anticholinergic medications -- Per nursing staff, patient required 1-on-1 due to agitation overnight 04/10 --> 04/11 but he did not require the additional 2mg prn dose of Haldol - memantine 10 mg p.o. twice daily -- may consider decreasing this medication due to polypharmacy and ? limited clinical benefit - Patient's family reports that they are no longer able to take care of him at home, and are asking for jail placement (see phone discussion with patient's as noted below) - Phone call 04/10 with patient's , Josephine, and Dr. Hebert at 5:30pm to discuss case and plan of care - In summary: she brought him to the ED for increased confusion, constipation/impaction, and inability to care for him at home. She states that he has had progressive aggression/agitation at night, worsening, and he is on Haldol at night (Haldol 2mg nightly and then an additional 2mg prn for agitation). Specifically, she relays an event where he started hitting her at night. reports that patient has a hx of anemia and was getting EPO inje ctions --> there was also discussion about possible bone marrow transplant; however, they do not want to proceed with that now. Additionally, she does confirm that patient is DNR/DNI and that they only want measures to aid in patient comfort. - Will consult case management to assist with placement - PT/OT ordered for evaluation and recommendations - Planning for d/c to SNF with memory unit -- awaiting placement per case management CAD (coronary artery disease)/ Hypertension - Continue aspirin 81 mg daily, carvedilol 3.125 mg p.o. twice daily, isosorbide mononitrate extended release 30 mg daily and ranolazine 500 mg p.o. twice daily. - For now hold metolazone Chronic kidney disease - Creatinine on admission is 2.91 - Baseline creatinine ranges within past year from 2.18 to 3.04 - As patient's family only wishes for measures to aid in patient comfort, we will discontinue morning blood draws (will not follow BMP daily at this time) Sleep apnea - Wears CPAP at bedtime --> continue during hospitalization GERD (gastroesophageal reflux disease) - Continue Nexium 40 mg p.o. 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 Fatima. Agree with history, exam findings, assessment and plan of care as outlined. In brief, Mr. Hernandez is a 79 year old male with history of cognitive impairment with behavioral disturbance at baseline admitted with worsening behavioral issues and a decline in his cognition. Required a one to one overnight due to agitation and confusion. Vital signs and nursing notes reviewed. On exam, he is oriented to self. No complaints. Labs and imaging reviewed. 1. confusion and worsening behavioral disturbance in the setting of baseline severe cognitive impairment. Needing placement as family can no longer safely care for him at home. PT/OT evaluations pending. Will need locked memory unit on discharge for safe care. Unsure of the utility of continued memantine as it seems that his cognitive impairment is quite severe. Continue with haldol 2mg qhs with another 2mg PRN severe agitation. Avoid benzos and anticholinergic medications. 2. constipation. Had a bowel movement. Continue miralax scheduled daily. 3. CAD/HTN. stable. home medications continued. 4. CKD. Cr and eGFR are at baseline. 5. ARCELIA. continue with CPAP nightly Dispo: pending placement confirmation. Subjective Patient seen and evaluated at bedside this morning. At time of evaluation, patient is sitting in his chair at bedside. The history limited due to dementia. Patient states that he would like to "be able to get home to see his " but he has no concerns or complaints at this time. Per patient's nurse, patient did have a bowel movement today. He denies abdominal pain, chest pain, SOB, cough, nausea, or vomiting. He states that he is eating well. Review of Systems Constitutional: no fever and no chills Respiratory: no cough and no dyspnea Cardiovascular: no chest pain Gastrointestinal: no abdominal pain, no nausea and no vomiting Physical Exam Physical Exam: GENERAL: No acute distress. Well developed and well nourished. EYES: EOMI. Anicteric sclerae. HENT: Moist mucous membranes. RESPIRATORY: Clear to auscultation bilaterally. No wheezing, rales, or rhonchi. CARDIOVASCULAR: Regular rate and rhythm. No murmurs. ABDOMEN: Soft, non-tender and non-distended. Normal bowel sounds. EXTREMITIES: No edema. Non-tender. NEUROLOGIC: Awake, alert, oriented x1 (to person only). Results & Data Results & Data ([facility]) Vital Signs (Past 12 Hours) Vital Signs Temp Pulse Resp BP BP Pulse Ox 04/12/20 16:16 36.9 C 83 20 167/86 H 98 04/12/20 07:49 36.6 C 71 18 154/73 H 94 Resident Activity Tracking Resident Involvement: Resident Care Provided Care Provided: Adult Hospital Medicine (1) GERD (gastroesophageal reflux disease) Esophagitis presence: esophagitis presence not specified Qualified Code(s): K21.9 - Gastro-esophageal reflux disease without esophagitis (2) Hypertension Hypertension type: essential hypertension Qualified Code(s): I10 - Essential (primary) hypertension (3) Asthma Asthma complication type: unspecified Asthma persistence: intermittent Asthma severity: unspecified severity Qualified Code(s): J45.20 - Mild intermittent asthma, uncomplicated
[2020-04-12] MEDS: haloperidoL 1 MG TAB PO SCH (20:28)
[2020-04-12] MEDS: LATANOPROST 0.005% OP SOLN 2.5 ML BTL OP SCH (20:29)
[2020-04-13] MEDS: ACETAMINOPHEN 325 MG TAB PO PRN (04:22)
[2020-04-13] MEDS: DORZOLAMIDE HCL 2% OPH SOLN 10 ML BTL OP SCH ×3 (04:49→20:42)
[2020-04-13] MEDS: BRIMONIDINE TARTRATE 0.2% 5ML OP SCH ×3 (04:49→20:42)
[2020-04-13] MEDS: FLUTICASONE FUROATE 200MCG 14 PUFFS/INHALER INH SCH (08:36)
[2020-04-13] MEDS: carvediloL 3.125 MG TAB PO SCH ×2 (08:37→20:35)
[2020-04-13] MEDS: RANOLAZINE 500 MG ER TAB PO SCH ×2 (08:37→20:35)
[2020-04-13] MEDS: PANTOprazole 40 MG TAB PO SCH (08:37)
[2020-04-13] MEDS: ASPIRIN 81 MG ECTAB PO SCH (08:37)
[2020-04-13] MEDS: allopurinoL 100 MG TAB PO SCH (08:37)
[2020-04-13] MEDS: MEMANTINE HCL 10 MG TAB PO SCH ×2 (08:37→20:35)
[2020-04-13] MEDS: ISOSORBIDE MONO EXTENDED REL 30 MG TABCR PO SCH ×2 (08:37→20:35)
[2020-04-13] MEDS: POLYETHYLENE (MIRALAX) 17 GM PACK PO SCH (08:37)
[2020-04-13] MEDS: HEPARIN SOD 5,000 UNIT/0.5 ML VIAL SQ SCH ×2 (08:37→20:30)
--- NOTE | 2020-04-13 16:46 | Hospitalist Progress Note ---
Date of Service April 13, 2020 Assessment & Plan (1) Confusion: Confusion/SDAT with behavioral changes - No signs of infection, blood cultures without growth to date. -- Avoid benzos and anticholinergic medications -- Per nursing staff, patient required 1-on-1 due to agitation overnight 04/10 --> 04/11 but he did not require the additional 2mg prn dose of Haldol - memantine 10 mg p.o. twice daily -- may consider decreasing this medication due to polypharmacy and ? limited clinical benefit - Patient's family reports that they are no longer able to take care of him at home, and are asking for group home placement (see phone discussion with patient's as noted below) - Phone call 04/10 with patient's , Josephine, and Dr. Hebert at 5:30pm to discuss case and plan of care - In summary: she brought him to the ED for increased confusion, constipation/impaction, and inability to care for him at home. She states that he has had progressive aggression/agitation at night, worsening, and he is on Haldol at night (Haldol 2mg nightly and then an additional 2mg prn for agitation). Specifically, she relays an event where he started hitting her at night. reports that patient has a hx of anemia and was getting EPO injections --> there was also discussion about possible bone marrow transplant; however, they do not want to proceed with that now. Additionally, she does confirm that patient is DNR/DNI and that they only want measures to aid in patient comfort. - PT/OT ordered for evaluation and recommendations - Planning for d/c to SNF with memory unit -- awaiting placement - patient is unable to be d/c to either available SNF with Haldol. - Will start Zyprexa 2.5mg po qhs starting tonight (04/13). If patient has agitation, will try redirection and support -- will only give an additional dose of Zyprexa 2.5mg po prn for severe agitation that is not mitigated with redirection and support. CAD (coronary artery disease)/ Hypertension - Continue aspirin 81 mg daily, carvedilol 3.125 mg p.o. twice daily, isosorbide mononitrate extended release 30 mg daily and ranolazine 500 mg p.o. twice daily. - hold metolazone Chronic kidney disease - Creatinine on admission is 2.91 - Baseline creatinine ranges within past year from 2.18 to 3.04 - As patient's family only wishes for measures to aid in patient comfort, we will discontinue morning blood draws (will not follow BMP daily at this time) Sleep apnea - continue CPAP GERD (gastroesophageal reflux disease) - continue pantoprazole 40mg daily (on nexium 40mg at home) Asthma - Continue home inhaler Factor VIII deficiency hemophilia - Not on medication for this at this time, will monitor for bleeding Diet: Full diet DVT ppx: Heparin 5000 units q12h Code status: DNR/DNI Dispo: [facility] --> plan for d/c to SNF memory unit (2) Senile dementia of Alzheimer's type: (3) Chronic kidney disease: (4) CAD (coronary artery disease): (5) Sleep apnea: (6) GERD (gastroesophageal reflux disease): (7) Asthma: (8) Hypertension: Admission and Anticipated Discharge Date Admission Date: April 10, 2020 Supervising Physician Co-Signing Physician Notes Patient seen and examined at the bedside with PGY-1 Dr. Fatima. Agree with history, exam findings, assessment and plan of care as outlined. In brief, Mr. Hernandez is a 79 year old male with history of cognitive impairment with behavioral disturbance at baseline admitted with worsening behavioral issues and a decline in his cognition. No complaints. Vital signs and nursing notes reviewed. On exam, he is oriented to self. Will look at whiteboard in the room to orient himself. Labs and imaging reviewed. 1. confusion and worsening behavioral disturbance in the setting of baseline severe cognitive impairment. Needing placement as family can no longer safely care for him at home. Will not be able to send to SNF with Haldol, so switched to 2.5mg Zyprexa. If agitated overnight, will attempt one to one/conservative measures. Continue to avoid benzos and anticholinergic medications. 2. constipation. Continue miralax scheduled daily. 3. CAD/HTN. stable. home medications continued. 4. CKD. Cr and eGFR are at baseline. 5. ARCELIA. continue with CPAP nightly Dispo: Needs to be off haldol x 24 hours. Anticipate discharge tomorrow. Subjective Patient seen and evaluated at bedside this afternoon. History is limited due to dementia. Patient repeatedly stating that he "just wants to go home." He has no other complaints or concerns at this time. Patient denies any pain or symptoms. Review of Systems Cardiovascular: no chest pain Gastrointestinal: no abdominal pain Physical Exam Physical Exam: GENERAL: No acute distress. Well developed and well nourished. EYES: EOMI. Anicteric sclerae. HENT: Moist mucous membranes. RESPIRATORY: Clear to auscultation bilaterally. No wheezing, rales, or rhonchi. CARDIOVASCULAR: Regular rate and rhythm. No murmurs. ABDOMEN: Soft, non-tender and non-distended. Normal bowel sounds. EXTREMITIES: No edema. Non-tender. NEUROLOGIC: Awake and alert. When asked the day of the week and the year, vikki butler looked around me to the board, pointed and stated "the board says it's and 2019." Results & Data Results & Data ([facility]) Vital Signs (Past 12 Hours) Vital Signs Temp Pulse Pulse Resp BP BP Pulse Ox 04/13/20 15:25 37 C 64 18 147/72 H 98 04/13/20 08:38 72 04/13/20 06:56 35.9 C L 56 L 16 132/61 96 Resident Activity Tracking Resident Involvement: Resident Care Provided Care Provided: Adult Hospital Medicine (1) GERD (gastroesophageal reflux disease) Esophagitis presence: esophagitis presence not specified Qualified Code(s): K21.9 - Gastro-esophageal reflux disease without esophagitis (2) Hypertension Hypertension type: essential hypertension Qualified Code(s): I10 - Essential (primary) hypertension (3) Asthma Asthma complication type: unspecified Asthma persistence: intermittent Asthma severity: unspecified severity Qualified Code(s): J45.20 - Mild intermittent asthma, uncomplicated
[2020-04-13] MEDS: OLANZAPINE 2.5 MG TAB PO SCH (20:35)
[2020-04-13] MEDS: LATANOPROST 0.005% OP SOLN 2.5 ML BTL OP SCH (20:42)
[2020-04-14] MEDS: BRIMONIDINE TARTRATE 0.2% 5ML OP SCH ×3 (08:38→20:38)
[2020-04-14] MEDS: PANTOprazole 40 MG TAB PO SCH (08:38)
[2020-04-14] MEDS: ISOSORBIDE MONO EXTENDED REL 30 MG TABCR PO SCH ×2 (08:38→20:38)
[2020-04-14] MEDS: DORZOLAMIDE HCL 2% OPH SOLN 10 ML BTL OP SCH ×3 (08:38→20:39)
[2020-04-14] MEDS: carvediloL 3.125 MG TAB PO SCH ×2 (08:39→20:36)
[2020-04-14] MEDS: ASPIRIN 81 MG ECTAB PO SCH (08:39)
[2020-04-14] MEDS: MEMANTINE HCL 10 MG TAB PO SCH ×2 (08:39→20:39)
[2020-04-14] MEDS: HEPARIN SOD 5,000 UNIT/0.5 ML VIAL SQ SCH ×2 (08:40→20:38)
[2020-04-14] MEDS: allopurinoL 100 MG TAB PO SCH (08:40)
[2020-04-14] MEDS: FLUTICASONE FUROATE 200MCG 14 PUFFS/INHALER INH SCH (08:40)
[2020-04-14] MEDS: RANOLAZINE 500 MG ER TAB PO SCH ×2 (08:41→20:39)
[2020-04-14] MEDS: POLYETHYLENE (MIRALAX) 17 GM PACK PO SCH (08:41)
--- NOTE | 2020-04-14 14:25 | Hospitalist Progress Note ---
Date of Service April 14, 2020 Assessment & Plan (1) Confusion: Mr. Hernandez is a 79 year old male with history of cognitive impairment with behavioral disturbance at baseline admitted with worsening behavioral issues and a decline in his cognition. Confusion/SDAT with behavioral changes - Patient's family reports that they are no longer able to take care of him at home, and are asking for intermediate placement (see phone discussion with patient's as noted below) - Phone call 04/10 with patient's , Josephine, and Dr. Hebert at 5:30pm to discuss case and plan of care - In summary: she brought him to the ED for increased confusion, constipation/impaction, and inability to care for him at home. She states that he has had progressive aggression/agitation at night, worsening, and he is on Haldol at night (Haldol 2mg nightly and then an additional 2mg prn for agitation). Specifically, she relays an event where he started hitting her at night. reports that patient has a hx of anemia and was getting EPO injections --> there was also discussion about possible bone marrow transplant; however, they do not want to proceed with that now. Additionally, she does confirm that patient is DNR/DNI and that they only want measures to aid in patient comfort. - Blood cx negative at 48 hours - Patient originally on Haldol 2mg po qhs and 2mg po prn for agitation. However, as of 04/13, Haldol discontinued as he would not be able to be accepted to SNF/ H on Haldol. He has instead been started on Zyprexa 2.5mg qhs (this medication regimen changed 04/13/20) - Avoid benzos and anticholinergic medications - Per nursing staff, patient has been intermittently requiring 1-on-1 due to agitation overnight - memantine 10 mg p.o. twice daily -- may consider decreasing this medication due to polypharmacy and ? limited clinical benefit - PT/OT ordered for evaluation and recommendations - Per case management on 04/14/20, patient has been accepted to [facility] care on Friday, 04/17. Case management to arrange for transport that day. CAD (coronary artery disease)/ Hypertension - Continue aspirin 81 mg daily, carvedilol 3.125 mg p.o. twice daily, isosorbide mononitrate extended release 30 mg daily and ranolazine 500 mg p.o. twice daily. - For now hold metolazone Chronic kidney disease - Creatinine on admission is 2.91 - Baseline creatinine ranges within past year from 2.18 to 3.04 - As patient's family only wishes for measures to aid in patient comfort, we will discontinue morning blood draws (will not follow BMP daily at this time) Sleep apnea - Wears CPAP at bedtime --> continue during hospitalization GERD (gastroesophageal reflux disease) - Continue Nexium 40 mg p.o. 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 Fatima. In agreement with the documented findings as noted in the resident documentation with any exceptions or additions as noted here. 79 y/o male h/o cognitive impairment with new behavioral disturbance Pleasantly conversant and confused, meandering through answers to questions but without acute complaint On examination, S1/S2 nl RRR no MCG. CTAB. Abd NT/ND BS+ve Labs and imaging reviewed Behavioral disturbance with baseline severe cognitive impairment - pending placement at personal care facility. Zyprexa qHS, avoiding PRN antipsychotics where able. Constipation - BM as noted - continue regimen Else see resident documentation as noted. Subjective Patient seen and evaluated at bedside this afternoon. History is limited due to dementia. Patient has no specific complaints or concerns today. Review of Systems Review of Systems: Unobtainable due to cognitive status Physical Exam Physical Exam: GENERAL: No acute distress. Well developed and well nourished. EYES: EOMI. Anicteric sclerae. HENT: Moist mucous membranes. RESPIRATORY: Clear to auscultation bilaterally. No wheezing, rales, or rhonchi. CARDIOVASCULAR: Regular rate and rhythm. No murmurs. ABDOMEN: Soft, non-tender and non-distended. Normal bowel sounds. EXTREMITIES: No edema. Non-tender. NEUROLOGIC: Awake and alert. A/O x1 (person only). Results & Data Results & Data ([facility]) Vital Signs (Past 12 Hours) Vital Signs Temp Pulse Resp BP Pulse Ox 04/14/20 07:12 36.6 C 78 18 169/88 H 94 Resident Activity Tracking Resident Involvement: Resident Care Provided Care Provided: Adult Hospital Medicine (1) GERD (gastroesophageal reflux disease) Esophagitis presence: esophagitis presence not specified Qualified Code(s): K21.9 - Gastro-esophageal reflux disease without esophagitis (2) Hypertension Hypertension type: essential hypertension Qualified Code(s): I10 - Essential (primary) hypertension (3) Asthma Asthma complication type: unspecified Asthma persistence: intermittent Asthma severity: unspecified severity Qualified Code(s): J45.20 - Mild intermittent asthma, uncomplicated
[2020-04-14] MEDS: ACETAMINOPHEN 325 MG TAB PO PRN (16:37)
[2020-04-14] MEDS: OLANZAPINE 2.5 MG TAB PO SCH (20:39)
[2020-04-14] MEDS: LATANOPROST 0.005% OP SOLN 2.5 ML BTL OP SCH (20:39)
[2020-04-15] MEDS: PANTOprazole 40 MG TAB PO SCH (09:00)
[2020-04-15] MEDS: MEMANTINE HCL 10 MG TAB PO SCH ×2 (09:00→20:05)
[2020-04-15] MEDS: HEPARIN SOD 5,000 UNIT/0.5 ML VIAL SQ SCH ×2 (09:00→20:06)
[2020-04-15] MEDS: POLYETHYLENE (MIRALAX) 17 GM PACK PO SCH (09:00)
[2020-04-15] MEDS: allopurinoL 100 MG TAB PO SCH (09:00)
[2020-04-15] MEDS: carvediloL 3.125 MG TAB PO SCH ×2 (09:00→20:04)
[2020-04-15] MEDS: BRIMONIDINE TARTRATE 0.2% 5ML OP SCH ×3 (09:00→20:04)
[2020-04-15] MEDS: ASPIRIN 81 MG ECTAB PO SCH (09:00)
[2020-04-15] MEDS: DORZOLAMIDE HCL 2% OPH SOLN 10 ML BTL OP SCH ×3 (09:00→20:06)
[2020-04-15] MEDS: RANOLAZINE 500 MG ER TAB PO SCH ×2 (09:00→20:06)
[2020-04-15] MEDS: FLUTICASONE FUROATE 200MCG 14 PUFFS/INHALER INH SCH (09:00)
[2020-04-15] MEDS: ISOSORBIDE MONO EXTENDED REL 30 MG TABCR PO SCH ×2 (09:00→20:05)
--- NOTE | 2020-04-15 17:42 | Hospitalist Progress Note ---
Date of Service April 15, 2020 Assessment & Plan (1) Confusion: 79 y/o M w/ hx cognitive impairment with behavioral disturbance at baseline admitted with worsening behavioral issues and a decline in his cognition. No change in last several days. Patient is stable. Confusion w/ behavioral changes 2/2 Alzheimer dementia senile type - Patient's family reports that they are no longer able to take care of him at home, and are asking for [facility] placement (see phone discussion with patient's as noted below) - Phone call 04/10 with patient's , Josephine, and Dr. Hebert at 5:30pm to discuss case and plan of care - In summary: she brought him to the ED for increased confusion, constipation/impaction, and inability to care for him at home. She states that he has had progressive aggression/agitation at night, worsening, and he is on Haldol at night (Haldol 2mg nightly and then an additional 2mg prn for agitation). Specifically, she relays an event where he started hitting her at night. reports that patient has a hx of anemia and was getting EPO injections --> there was also discussion about possible bone marrow transplant; however, they do not want to proceed with that now. Additionally, she does confirm that patient is DNR/DNI and that they only want measures to aid in patient comfort. - Blood cx negative at 48 hours - Patient originally on Haldol 2mg po qhs and 2mg po prn for agitation. However, as of 04/13, Haldol discontinued as he would not be able to be accepted to SNF/[facility] on Haldol. He has instead been started on Zyprexa 2.5mg qhs (this medication regimen changed 04/13/20) - Avoid benzos and anticholinergic medications - Per nursing staff, patient has been intermittently requiring 1-on-1 due to agitation overnight - memantine 10 mg p.o. twice daily -- may consider decreasing this medication due to polypharmacy and ? limited clinical benefit - PT/OT ordered for evaluation and recommendations - f/u case management regarding dispo: personal skilled nursing likely 04/17/20 CAD (coronary artery disease)/ Hypertension - 149/78 today, stable - Continue aspirin 81 mg daily, carvedilol 3.125 mg p.o. twice daily, isosorbide mononitrate extended release 30 mg daily and ranolazine 500 mg p.o. twice daily. - For now hold metolazone Chronic kidney disease, stage 4 - Creatinine on admission is 2.91 - Baseline creatinine ranges within past year from 2.18 to 3.04 - staging based on trend of previous egfrs, most recent on 04/11/20 - As patient's family only wishes for measures to aid in patient comfort, we will discontinue morning blood draws (will not follow BMP daily at this time) Sleep apnea - Wears CPAP at bedtime --> continue during hospitalization GERD (gastroesophageal reflux disease) - Continue Nexium 40 mg p.o. daily or equivalent pantoprazole 40 mg daily Asthma - Continue home inhaler Factor VIII deficiency hemophilia - No on medication for this at this time, will monitor for bleeding Diet: Full diet DVT ppx: Heparin 5000 units q12h Code status: DNR/DNI Dispo: see above. likely personal skilled nursing on 04/17/20 (2) Senile dementia of Alzheimer's type: (3) Chronic kidney disease: (4) CAD (coronary artery disease): (5) Sleep apnea: (6) GERD (gastroesophageal reflux disease): (7) Asthma: (8) Hypertension: Admission and Anticipated Discharge Date Admission Date: April 10, 2020 Supervising Physician Co-Signing Physician Notes Attending attestation Pt seen and examined in concert with Dr. Fatima. In agreement with the documented findings as noted in the resident documentation with any exceptions or additions as noted here. 79 y/o male h/o cognitive impairment with new behavioral disturbance Continues to be pleasant but confused and tangential. On examination, S1/S2 nl RRR no MCG. CTAB. Abd NT/ND BS+ve Labs and imaging reviewed Behavioral disturbance with baseline severe cognitive impairment - pending placement at personal care facility. Zyprexa qHS, avoiding PRN antipsychotics where able. Constipation - continue regimen Else see resident documentation as noted. Subjective Patient denies any pain. No new complaints. Hx limited by patient's confusion. Per nursing, no agitation overnight. Has not needed Haldol since d/c'd on 04/13/20. Review of Systems Review of Systems: Unable to obtain review of systems due to confusion. Physical Exam Physical Exam: General: Alert and oriented x1 to self only, No acute distress. HEENT: Normocephalic, normal gross hearing. Slightly dry oral mucosa. Cardiovascular: Normal rate, Regular rhythm, No murmurs, rubs, or gallops. Radial pulses 2+ bilaterally. Respiratory: Clear to auscultation bilaterally. Breath sounds are equal. No respiratory distress. Gastrointestinal: Soft, Non-tender, Non-distended. Integumentary: Warm, dry, intact Results & Data Results & Data ([facility]) Vital Signs (Past 12 Hours) 1520: 36.5C. 75 pulse. 18 rr. 149/78. 97% RA Laboratory Results no new labs Resident Activity Tracking Resident Involvement: Resident Care Provided Care Provided: Adult [facility] Medicine (1) GERD (gastroesophageal reflux disease) Esophagitis presence: esophagitis presence not specified Qualified Code(s): K21.9 - Gastro-esophageal reflux disease without esophagitis (2) Hypertension Hypertension type: essential hypertension Qualified Code(s): I10 - Essential (primary) hypertension (3) Asthma Asthma complication type: unspecified Asthma persistence: intermittent Asthma severity: unspecified severity Qualified Code(s): J45.20 - Mild intermittent asthma, uncomplicated
[2020-04-15] MEDS: LATANOPROST 0.005% OP SOLN 2.5 ML BTL OP SCH (20:07)
[2020-04-15] MEDS: OLANZAPINE 2.5 MG TAB PO SCH (20:07)
[2020-04-16] MEDS: ACETAMINOPHEN 325 MG TAB PO PRN ×2 (00:24→20:00)
--- NOTE | 2020-04-16 06:57 | Hospitalist Progress Note ---
Date of Service April 16, 2020 Assessment & Plan (1) Confusion: Dima Hernandez is a 79 y/o male with h/o cognitive impairment with behavioral disturbance at baseline, admitted with worsening behavioral issues and a decline in his cognition. No change in last several days. Patient is stable and pending placement in personal care facility. Confusion w/ behavioral changes 2/2 Alzheimer dementia senile type - Patient's family reports that they are no longer able to take care of him at home, and are asking for correction placement (see phone discussion with patient's as noted below) - Phone call 04/10 with patient's , Josephine, and Dr. Hebert at 5:30pm to discuss case and plan of care - In summary: she brought him to the ED for increased confusion, constipation/impaction, and inability to care for him at home. She states that he has had progressive aggression/agitation at night, worsening, and he is on Haldol at night (Haldol 2mg nightly and then an additional 2mg PRN for agitation). Specifically, she relays an event where he started hitting her at night. reports that patient has a h/o anemia and was getting EPO injections --> there was also discussion about possible bone marrow transplant; however, they do not want to proceed with that now. Additionally, she does confirm that patient is DNR/DNI and that they only want measures to aid in patient comfort. - Patient originally on Haldol 2mg po qhs and 2mg po prn for agitation. However, as of 04/13, Haldol d/c'd as he would not be able to be accepted to SNF/[facility]CH on Haldol. He has instead been started on Zyprexa 2.5mg qhs (this medication regimen changed 04/13/20) - Avoid benzos and anticholinergic medications - memantine 10 mg p.o. twice daily -- may consider decreasing this medication due to polypharmacy and ? limited clinical benefit - will likely go to personal care facility on 04/17/20 CAD/HTN - Continue aspirin 81 mg daily, carvedilol 3.125 mg PO BID, Imdur ER 30 mg daily and ranolazine 500 mg PO BID - Continue to hold metolazone for now Chronic kidney disease, stage 4 - Creatinine on admission is 2.91 - Baseline creatinine ranges within past year from 2.18 to 3.04 - staging based on trend of previous egfrs, most recent on 04/11/20 - As patient's family only wishes for measures to aid in patient comfort, we will discontinue morning blood draws (will not follow BMP daily at this time) ARCELIA - Wears CPAP at bedtime --> continue during hospitalization GERD - Continue Protonix 40 mg PO daily per hospital formulary Asthma - Continue home inhalers 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) on 04/17/20 - COVID rapid ag ordered for today (2) Senile dementia of Alzheimer's type: (3) Chronic kidney disease: (4) CAD (coronary artery disease): (5) Sleep apnea: (6) GERD (gastroesophageal reflux disease): (7) Asthma: (8) Hypertension: Admission and Anticipated Discharge Date Admission Date: April 10, 2020 Supervising Physician Co-Signing Physician Notes Attending attestation Pt seen and examined in concert with Dr. Mike. In agreement with the documented findings as noted in the resident documentation with any exceptions or additions as noted here. 79 y/o male h/o cognitive impairment with new behavioral disturbance Ambulating with supervision. Continues to be pleasant but confused and tangential. On examination, S1/S2 nl RRR no MCG. CTAB. Abd NT/ND BS+ve Behavioral disturbance with baseline severe cognitive impairment - pending placement at personal care facility. Zyprexa qHS, avoiding PRN antipsychotics where able. Constipation - continue regimen Else see resident documentation as noted. Subjective No acute events overnight - no need for PRN Haldol for last 3 days. Patient continues to be A+O to self only and history is very limited by this. Denies pain. Review of Systems Review of Systems: Unobtainable due to cognitive status Physical Exam Constitutional: no acute distress Respiratory: normal respiratory effort, lungs clear to auscultation Cardiovascular: RRR, no murmur, no edema Gastrointestinal (Abdomen): normal bowel sounds, soft, nontender, no hepatosplenomegaly Skin: no rashes, warm and dry Psychiatric: Orientation: alert and oriented to person Results & Data Results & Data ([facility]) Vital Signs (Past 12 Hours) Vital Signs Temp Pulse Resp BP Pulse Ox 04/15/20 23:00 36.8 C 73 20 157/66 H 99 04/15/20 20:02 80 163/77 H Resident Activity Tracking Resident Involvement: Resident Care Provided Care Provided: Adult [facility] Medicine (1) GERD (gastroesophageal reflux disease) Esophagitis presence: esophagitis presence not specified Qualified Code(s): K21.9 - Gastro-esophageal reflux disease without esophagitis (2) Hypertension Hypertension type: essential hypertension Qualified Code(s): I10 - Essential (primary) hypertension (3) Asthma Asthma complication type: unspecified Asthma persistence: intermittent Asthma severity: unspecified severity Qualified Code(s): J45.20 - Mild intermittent asthma, uncomplicated
[2020-04-16] MEDS: ISOSORBIDE MONO EXTENDED REL 30 MG TABCR PO SCH ×2 (11:00→20:02)
[2020-04-16] MEDS: RANOLAZINE 500 MG ER TAB PO SCH ×2 (11:04→20:04)
[2020-04-16] MEDS: MEMANTINE HCL 10 MG TAB PO SCH ×2 (11:04→20:04)
[2020-04-16] MEDS: POLYETHYLENE (MIRALAX) 17 GM PACK PO SCH (11:04)
[2020-04-16] MEDS: allopurinoL 100 MG TAB PO SCH (11:05)
[2020-04-16] MEDS: FLUTICASONE FUROATE 200MCG 14 PUFFS/INHALER INH SCH (11:06)
[2020-04-16] MEDS: carvediloL 3.125 MG TAB PO SCH ×2 (11:06→20:03)
[2020-04-16] MEDS: ASPIRIN 81 MG ECTAB PO SCH (11:06)
[2020-04-16] MEDS: PANTOprazole 40 MG TAB PO SCH (11:06)
[2020-04-16] MEDS: BRIMONIDINE TARTRATE 0.2% 5ML OP SCH ×3 (11:07→20:00)
[2020-04-16] MEDS: DORZOLAMIDE HCL 2% OPH SOLN 10 ML BTL OP SCH ×3 (11:07→20:01)
[2020-04-16] MEDS: HEPARIN SOD 5,000 UNIT/0.5 ML VIAL SQ SCH ×2 (11:08→20:01)
[2020-04-16] MEDS: LATANOPROST 0.005% OP SOLN 2.5 ML BTL OP SCH (20:01)
[2020-04-16] MEDS: OLANZAPINE 2.5 MG TAB PO SCH (20:03)
[2020-04-17] MEDS: ACETAMINOPHEN 325 MG TAB PO PRN (03:26)
[2020-04-17] MEDS: FLUTICASONE FUROATE 200MCG 14 PUFFS/INHALER INH SCH (07:52)
[2020-04-17] MEDS: BRIMONIDINE TARTRATE 0.2% 5ML OP SCH (07:53)
[2020-04-17] MEDS: ASPIRIN 81 MG ECTAB PO SCH (07:53)
[2020-04-17] MEDS: POLYETHYLENE (MIRALAX) 17 GM PACK PO SCH (07:53)
[2020-04-17] MEDS: ISOSORBIDE MONO EXTENDED REL 30 MG TABCR PO SCH (07:53)
[2020-04-17] MEDS: carvediloL 3.125 MG TAB PO SCH (07:53)
[2020-04-17] MEDS: MEMANTINE HCL 10 MG TAB PO SCH (07:54)
[2020-04-17] MEDS: allopurinoL 100 MG TAB PO SCH (07:54)
[2020-04-17] MEDS: DORZOLAMIDE HCL 2% OPH SOLN 10 ML BTL OP SCH (07:54)
[2020-04-17] MEDS: RANOLAZINE 500 MG ER TAB PO SCH (07:54)
[2020-04-17] MEDS: PANTOprazole 40 MG TAB PO SCH (07:54)
[2020-04-17] MEDS: HEPARIN SOD 5,000 UNIT/0.5 ML VIAL SQ SCH (09:30)
--- NOTE | 2020-04-17 10:04 | Discharge Summary ---
Date of Service April 17, 2020 Admission HPI Per Admitting Provider The patient is a 79-year-old male with a past medical history including chronic kidney disease stage III, urinary incontinence, dementia, anemia, sleep apnea, stented coronary artery, SDAT, dyslipidemia, BPH with LUTS, peripheral neuropathy, reactive airway disease, sensory ataxia, CAD, von Willebrand disease, GERD, asthma, hypertension, STEMI, hypomagnesemia and hemophilia. Patient is brought to the emergency department due to issues with confusion, and family reports they are unable to Take care of him at home anymore and asking for senior living placement. Admission Exam Per Admitting Provider The patient is awake, alert and responsive, but intermittently confused, well developed and well nourished, normocephalic and atraumatic, lying in bed and in no acute distress. HEENT--PERRL, EOMI, mucous membranes and oropharynx dry. Neck--supple. No JVD. No bruits. Thyroid normal, trachea midline, no adenopathy. Heart--normal S1 and S2. No murmurs, rubs or gallops. Lungs--clear bilaterally, no respiratory distress, no accessory muscle use. Abdomen--normal bowel sounds and soft. Nontender. Nondistended. Extremities--no cyanosis or clubbing. No edema. Dermatologic--normal skin turgor, normal color, no abnormal lymph nodes, no rash. Neurologic--cranial nerves II through XII grossly intact. Rheumatologic--normal range of motion. Psychiatric--flat affect Principal Diagnosis confusion with behavioral changes secondary to Alzheimer dementia Discharge Exam GENERAL: No acute distress. Vital signs reviewed. Patient is sitting in chair, resting comfortably, eating breakfast - oatmeal and a banana. HENT: Moist mucous membranes. RESPIRATORY: No respiratory distress. No increased work of breathing. NEUROLOGIC: A/O x1 (to person only). PSYCHIATRIC: Cooperative. Flat affect. Discharge Data Allergies Allergy/AdvReac Type Severity Reaction Status Date / Time adhesive Allergy Unknown BANDAID-SKIN Verified 04/04/20 10:06 IRRITATION antihemophilic factor Allergy Unknown reaction Verified 04/04/20 10:06 (FVIII) rec, full length to recombinate products made in hamster, mice antihemophilic factor VIII, Allergy Unknown Verified 04/04/20 10:06 human recombinant [From Recombinate] codeine Allergy Unknown SOB/ N/V Verified 04/04/20 10:06 homatropine Allergy Unknown UNKNOWN Unverified 04/04/20 10:06 Horse/Equine Containing Allergy Unknown ILLNESS-ALMOST Unverified 04/04/20 10:06 Products IN hydrocodone Allergy Unknown UNKNOWN Unverified 04/04/20 10:06 niacin Allergy Unknown SKIN FLUSH Unverified 04/04/20 10:06 tetanus toxoid, adsorbed Allergy Unknown ILLNESS-ALMOST Verified 04/04/20 10:06 IN Consultations 04/09/20 23:28 ED Decision to Admit Stat 04/10/20 01:22 Consult Case Management - Discharge Planning Routine Hospital Course (1) Confusion: Dima Hernandez is a 79 y/o male with h/o cognitive impairment with behavioral disturbance at baseline, admitted with worsening behavioral issues and a decline in his cognition. No change in last several days. Patient is stable and pending placement in personal care facility. Confusion w/ behavioral changes 2/2 Alzheimer dementia senile type - Patient's family reports that they are no longer able to take care of him at home, and are asking for senior living placement (see phone discussion with patient's as noted below) - Phone call 04/10 with patient's , Josephine, and Dr. Hebert at 5:30pm to discuss case and plan of care - In summary: she brought him to the ED for increased confusion, constipati on/impaction, and inability to care for him at home. She states that he has had progressive aggression/agitation at night, worsening, and he is on Haldol at night (Haldol 2mg nightly and then an additional 2mg PRN for agitation). Specifically, she relays an event where he started hitting her at night. reports that patient has a h/o anemia and was getting EPO injections --> there was also discussion about possible bone marrow transplant; however, they do not want to proceed with that now. Additionally, she does confirm that patient is DNR/DNI and that they only want measures to aid in patient comfort. - Patient originally on Haldol 2mg po qhs and 2mg po prn for agitation. However, as of 04/13, Haldol d/c'd as he would not be able to be accepted to SNF/[facility]CH on Haldol. He has instead been started on Zyprexa 2.5mg qhs (this medication regimen changed 04/13/20) - Avoid benzos and anticholinergic medications - memantine 10 mg p.o. twice daily -- may consider decreasing this medication due to polypharmacy and ? limited clinical benefit - discharge to personal care facility on 04/17/20 CAD/HTN - Continue aspirin 81 mg daily, carvedilol 3.125 mg PO BID, Imdur ER 30 mg daily and ranolazine 500 mg PO BID - Continue to hold metolazone for now; will restart on d/c from hospital - Continue to monitor BP as outpatient; specifically recommend PCP f/u in 1 week after d/c Chronic kidney disease, stage 4 - Creatinine on admission is 2.91 - Baseline creatinine ranges within past year from 2.18 to 3.04 - Staging based on trend of previous egfrs, most recent on 04/11/20 - As patient's family only wishes for measures to aid in patient comfort, we will discontinue morning blood draws (will not follow BMP daily at this time) ARCELIA - Wears CPAP at bedtime --> continue during hospitalization and continue as outpatient at [facility] GERD - Continue Protonix 40 mg PO daily per hospital formulary Asthma - Continue home inhalers Factor VIII deficiency hemophilia - Not on medication for this at this time, will monitor for bleeding Constipation, resolved - BM x1 on 04/15 - Continue bowel regimen with Miralax Diet: Heart-healthy Code status: DNR/DNI Dispo: discharge to personal care facility ([facility]) on 04/17/20 (2) Senile dementia of Alzheimer's type: (3) Chronic kidney disease: (4) CAD (coronary artery disease): (5) Sleep apnea: (6) GERD (gastroesophageal reflux disease): (7) Asthma: (8) Hypertension: Total Time Total Time Spent Total Time Spent (In Minutes): See attending attestation Discharge Plan Discharge Items Patient Disposition: Personal Alf Reason For Visit: CONFUSION Discharge Diagnosis: confusion Condition on Discharge: Fair Activity: Resume your previous activity Non-emergency contact: Primary Care Provider Call non-emergency contact if: you have any medication questions Follow-up/Referrals: Timothy Yoder MD [Primary Care Provider] - Diet: Regular Addtl Attending Provider Instructions: Dima Hernandez is a 79 y/o male with h/o cognitive impairment with behavioral disturbance at baseline, admitted with worsening behavioral issues and a decline in his cognition. He was admitted at [facility] from 04/10/20 to 04/17/20. He has had no change in last several days. Patient is stable and medically optimized for discharge to [facility]. Confusion w/ behavioral changes 2/2 Alzheimer dementia senile type - Patient's family reports that they are no longer able to take care of him at home and are asking for senior living placement (see phone discussion with patient's as noted below) - Phone call 04/10 with patient's , Josephine, and Dr. Hebert at 5:30pm to discuss case and plan of care - In summary: she brought him to the ED for increased confusion, constipation/impaction, and inability to care for him at home. She states that he has had progressive aggression/agitation at night, worsening, and he is on Haldol at night (Haldol 2mg nightly and then an additional 2mg PRN for agitation). Specifically, she relays an event where he started hitting her at night. reports that patient has a h/o anemia and was getting EPO injections --> there was also discussion about possible bone marrow transplant; however, they do not want to proceed with that now. Additionally, she does confirm that patient is DNR/DNI and that they only want measures to aid in patient comfort. - Patient originally on Haldol 2mg po qhs and 2mg po prn for agitation. However, as of 04/13, Haldol d/c'd as he would not be able to be accepted to SNF/PCH on Haldol. He has instead been started on Zyprexa 2.5mg qhs (this medication regimen changed 04/13/20) - Avoid benzos and anticholinergic medications - Continue memantine 10 mg p.o. twice daily -- may consider decreasing this medication as outpatient due to polypharmacy and ? limited clinical benefit CAD/HTN - Continue aspirin 81 mg daily, carvedilol 3.125 mg PO BID, Imdur ER 30 mg daily, ranolazine 500 mg PO BID - Metolazone held during inpatient care; will restart it on discharge. Continue to monitor BP as outpatient. Chronic kidney disease, stage 4 - Creatinine on admission is 2.91 - Baseline creatinine ranges within past year from 2.18 to 3.04 - Staging based on trend of previous EGFRs, most recent on 04/11/20 (22.2) - As patient's family only wishes for measures to aid in patient comfort, we will discontinue morning blood draws (will not follow BMP daily at this time) ARCELIA - Wears CPAP at bedtime; continued during hospitalization - Plan to continue as outpatient as well GERD - Continued Protonix 40 mg PO daily per hospital formulary Asthma - Continue home inhalers Factor VIII deficiency hemophilia - Not on medication for this at this time, recommend continued monitoring for bleeding Constipation, resolved - BM x1 on 04/15 - continue PRN bowel regimen The new medications that he was started on - Zyprexa and Miralax - were sent to his preferred pharmacy at [place], [place]. Please have Mr. Hernandez follow up with his primary care physician within 1 week. Pending Studies at Discharge: No Stand-Alone Forms: [email or web address], Smoking Cessation Skilled Items Patient informed of condition?: Yes DNR: Yes Discharge Level of Care: Other Communicable Disease: No Discharge Prognosis: Stable Lines: None Urinary Catheter: No Medications and DC Order Prescriptions: New polyethylene glycol 3350 [Miralax] 17 gram Powder In Packet 17 g PO DAILY 30 Days Qty: 30 RF: 0 olanzapine 2.5 mg Tablet 2.5 mg PO HS 30 Days Qty: 30 RF: 0 Continued allopurinol 100 mg tablet 200 mg PO DAILY Qty: 180 RF: 3 memantine 10 mg tablet 10 mg PO BID Qty: 180 RF: 3 carvedilol 3.125 mg tablet 3.125 mg PO BID Qty: 180 RF: 0 isosorbide mononitrate 30 mg tablet extended release 24 hr See Rx Instructions .ROUTE .COMPLEX Qty: 180 RF: 3 ranolazine [Ranexa] 500 mg tablet extended release 12 hr 500 mg PO BID Qty: 180 RF: 0 latanoprost 0.005 % drops 1 drops OP DAILY RF: 0 brimonidine 0.2 % drops 1 drops OP TID RF: 0 nitroglycerin 0.4 mg tablet, sublingual 0.4 mg SL Q5M PRN (Reason: chest pain) Qty: 25 RF: 0 dorzolamide 2 % drops 1 drops OP TID RF: 0 esomeprazole magnesium 40 mg capsule,delayed release(DR/EC) 40 mg PO DAILY Qty: 90 RF: 3 beclomethasone dipropionate 80 mcg/actuation HFA aerosol breath activated 2 puffs inhalation BID Qty: 31.8 RF: 3 metolazone 5 mg tablet 5 mg PO .QOD Qty: 90 RF: 3 aspirin 81 mg Tablet,Delayed Release (Dr/Ec) 81 mg PO DAILY RF: 0 acetaminophen [Tylenol Extra Strength] 500 mg Tablet 1,000 mg PO Q6H PRN (Reason: Pain) RF: 0 Discontinued haloperidol 2 mg tablet 4 mg PO DAILY Qty: 14 RF: 0 Discharge Orders: Discharge Order (Routine); Ordered 04/17/20 Ordered By: Madiha Jackson/Other Patient Handouts: Dementia Patients Safety Tips Admission Data Admit Date/Time: 04/10/20 01:14 Attending Provider: Cristhian Trejo Admit Provider: Sergio Olsen Primary Care Provider: Timothy Yoder Other Providers: Sergio Olsen ; Weston Perez Other Interventions: Discharge Summary Assessment (RN) Last Done: 04/17/20 12:27 Supervising Physician Co-Signing Physician Notes I personally examined the patient and verified all steve points of history and exam, discussed case, and agree with decision making with Dr Fatima. no complaints, placement approved. appears to be tolerating meds well vitals noted nad heent nc at mmm breathig unlabored no accessory muscles good effort skin no rashes no pallor or icterus dementia - unsafe at home. now has safe placement. stable for transfer as above otherwise as above Resident Activity Tracking Resident Involvement: Resident Care Provided Care Provided: Adult Hospital Medicine
--- NOTE | 2020-04-17 16:09 | Billing Data ---
Date of Service April 17, 2020 Coding Level of Care Code D/C Day Management <30 mins
== END 2020-04-17 13:01 | disposition home or self-care (01) ==
LOC: ED 18:09 → INTOOBSV 04-10 01:14 → SUATTDRO 04-10 01:14 → 2N 04-10 01:14

== ENCOUNTER 2020-04-27 10:37 | Inpatient (IN) ==
[2020-04-27] MEDS ORDERED: SODIUM CHLORIDE 0.9% 1000ML 500 ML IV ONE (10:48)
--- NOTE | 2020-04-27 10:52 | Emergency Department Note ---
Impression & Plan Acute renal failure, Acute alteration in mental status, Hematoma of right thigh, COVID-19 virus infection, Abnormal ECG, Pneumonia ED Provider Note NAME: LINH SANDERS AGE: 79 SEX: M : 1940 ARRIVES VIA: Ambulance INFORMANT: Patient, prehospital personnel ED PROVIDER(S): Dustin Ward DO CHIEF COMPLAINT: Fall HPI: The patient is a 79-year-old male who presented to the emergency department for an evaluation after being found on the floor. The patient lives at a personal intermediate. He has multiple medical issues as well as history of underlying dementia. The patient was found on the floor. He has a history of frequent falls. He also has a history of bleeding disorder. The patient has severe ecchymosis over multiple areas of his body. The patient does not have any specific complaints but does have tenderness to palpation over multiple areas of his body. There is been no reported fever. There is been no nausea or vomiting. The patient was in his normal state of health prior to being found on the floor this morning by the staff at the personal intermediate. ROS: See above HPI for pertinent positives & negatives. A total of 10 systems reviewed and were otherwise negative. ROS and HPI were also obtained by the prehospital personnel. PAST MEDICAL HISTORY: See Below PAST SURGICAL HISTORY: See Below FAMILY HISTORY: See Below SOCIAL HISTORY: See Below HOME MEDICATIONS: See Below ALLERGIES: See Below VITALS: See Below PHYSICAL EXAMINATION: GENERAL: The patient is awake and looking around the room. He does follow commands slowly. EYES: The conjunctivae are clear. The pupils are round and reactive. EARS, NOSE, MOUTH AND THROAT: The nose is without any evidence of any deformity. Mucous members are dry. NECK: The neck is nontender and supple. RESPIRATORY: Shallow respirations were noted. Diminished breath sounds are noted throughout. CARDIOVASCULAR: Regular rate and rhythm noted there no murmurs rubs or gallops normal S1 normal S2. GASTROINTESTINAL: The abdomen is soft. Abdomen is nontender. BACK: No specific midline tenderness was appreciated. No step-off was noted. MUSCULOSKELETAL/EXTREMITIES: Multiple areas of ecchymosis were noted over both upper and lower extremities. There was ecchymosis over the lateral right hip. No deformity was noted. The patient appears to have no pain with range of motion testing of either shoulder. SKIN: Trace pedal edema was noted bilaterally. Skin was warm and dry. Pulses were symmetric in both feet. There were multiple skin tears in the upper extremities. Ecchymosis was noted over all extremities. NEUROLOGIC: Patient is looking around the room. He appears to be oriented to person but not place time or situation. Patient is moving all extremities. MEDICAL DECISION MAKING: The patient is a 79-year-old male who presented to the emergency department for an evaluation of after being found on the floor in his personal intermediate. The patient was able to give much history. He appeared very dehydrated on physical exam. The patient was found to have signs of renal failure. This appears to be prerenal in nature. The patient was treated with IV fluids. I discussed the patient's laboratory and radiographic studies with the [facility] group. The patient was found of a very abnormal EKG. It is unclear if this is ischemic in nature but may related to very severe metabolic abnormalities. The patient was reevaluated multiple times. Triage Nursing notes reviewed. Prior medical records reviewed Vital Signs: reviewed and remarkable for elevated blood pressure. Differential diagnosis: Fracture, dislocation, contusion, intra-abdominal, pneumothorax, intrathoracic, intracranial, neurologic, compartment syndrome, rhabdomyolysis, as well as other pathologies. ER treatment provided: See below Diagnostics interpreted by me: ECG: EKG was obtained in the emergency department. My interpretation is normal sinus rhythm at 82 bpm. Incomplete right bundle branch block pattern was noted. Anterior and lateral ST depressions were noted. This was compared to a tracing from April 09[address]. The ST segment abnormalities are new compared to the earlier tracing. Cardiac Monitoring: An order was placed for continuous cardiac monitoring. The monitor shows a rate of 85 bpm with sinus rhythm. Laboratory studies: As stated above and show below. Imaging studies: See below Consultation(s): 1250: I discussed this case with Leslee who is on-call for the [facility] hospitalist group. They will evaluate the patient in the emergency department for further management and disposition. Past Med/Surg History Medical History (Updated 04/27/20 @ 15:08 by Dustin Ward DO) Carpal tunnel syndrome, bilateral Clear cell carcinoma of kidney See [facility] note- 11/19/17 Diaphragmatic hernia Disc degeneration, lumbar Diverticulosis Dupuytren's contracture Fall Gout History of rib fracture Hx of hepatitis C See Dr. 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: No Beliefs That Will Affect Care: None Current Living Situation: Spouse Current Living Situation Comment: House Feels Safe at Home: Yes Assistive Devices: Glasses and Walker Allergies Allergies Allergy/AdvReac Type Severity Reaction Status Date / Time adhesive Allergy Unknown BANDAID-SKIN Verified 04/27/20 11:21 IRRITATION antihemophilic factor Allergy Unknown reaction Verified 04/27/20 11:21 (FVIII) rec, full length to recombinate products made in hamster, mice antihemophilic factor VIII, Allergy Unknown Verified 04/27/20 11:21 human recombinant [From Recombinate] codeine Allergy Unknown SOB/ N/V Verified 04/27/20 11:21 homatropine Allergy Unknown UNKNOWN Unverified 04/27/20 11:21 Horse/Equine Containing Allergy Unknown ILLNESS-ALMOST Unverified 04/27/20 11:21 Products IN hydrocodone Allergy Unknown UNKNOWN Unverified 04/27/20 11:21 niacin Allergy Unknown SKIN FLUSH Unverified 04/27/20 11:21 tetanus toxoid, adsorbed Allergy Unknown ILLNESS-ALMOST Verified 04/27/20 11:21 IN S Home Meds Home Medications Medication Instructions Recorded Confirmed brimonidine 0.2 % eye drops 1 drops OP TID ml 01/26/19 04/27/20 dorzolamide 2 % eye drops 1 drops OP TID ml 01/26/19 04/27/20 latanoprost 0.005 % eye drops 1 drops OP DAILY ml 01/26/19 04/27/20 nitroglycerin 0.4 mg sublingual 0.4 mg SL Q5M PRN #25 tab 01/26/19 04/27/20 tablet acetaminophen [Tylenol Extra 1,000 mg PO Q6H PRN 01/29/19 04/27/20 Strength] aspirin 81 mg PO DAILY 01/29/19 04/27/20 Previous Rx's Medication Instructions Recorded allopurinol 100 mg tablet 200 mg PO DAILY #180 tab 07/09/19 beclomethasone dipropionate 80 2 puffs INHALATION BID #31.8 gm 07/29/19 mcg/actuation HFA breath activated aerosol esomeprazole magnesium 40 mg 40 mg PO DAILY #90 cap 07/29/19 capsule,delayed release memantine 10 mg tablet 10 mg PO BID #180 tab 12/16/19 isosorbide mononitrate 30 mg See Rx Instructions .ROUTE 12/20/19 tablet,extended release 24 hr .COMPLEX #180 tab ranolazine 500 mg tablet,extended 500 mg PO BID #180 tab 03/07/20 release,12 hr carvedilol 3.125 mg tablet 3.125 mg PO BID #180 tab 03/13/20 metolazone 5 mg tablet 5 mg PO .QOD #90 tab 04/04/20 olanzapine 2.5 mg PO HS 30 Days #30 tab 04/17/20 polyethylene glycol 3350 [Miralax] 17 g PO DAILY 30 Days #30 ea 04/17/20 temazepam 15 mg capsule 15 mg PO .qhs #30 cap 04/21/20 Results & Data (ED) Vital Signs Vital Signs - 24 hr 04/27/20 10:41 04/27/20 10:49 04/27/20 10:52 Temperature 36.6 C Temperature Source Oral Pulse Rate 78 80 103 H Pulse Rate from SpO2 Sensor 78 78 Respiratory Rate 22 18 20 Blood Pressure 122/60 122/60 Blood Pressure Mean 78 80 Pulse Oximetry 100 100 100 Oxygen Delivery Method Room Air Sepsis Recent Fever Within 48 Hours No Sepsis New/Unexplained Change in Mental Status N/A Sepsis Action Taken by Nursing No Action Required 04/27/20 11:00 04/27/20 11:01 04/27/20 11:15 Temperature Temperature Source Pulse Rate 93 H 86 82 Pulse Rate from SpO2 Sensor 88 86 82 Respiratory Rate 24 22 22 Blood Pressure 138/85 Blood Pressure Mean 99 Pulse Oximetry 100 100 100 Oxygen Delivery Method Sepsis Recent Fever Within 48 Hours Sepsis New/Unexplained Change in Mental Status Sepsis Action Taken by Nursing 04/27/20 11:30 04/27/20 11:31 04/27/20 11:45 Temperature Temperature Source Pulse Rate 84 78 84 Pulse Rate from SpO2 Sensor 78 78 83 Respiratory Rate 24 20 22 Blood Pressure 137/94 Blood Pressure Mean 109 Pulse Oximetry 100 100 100 Oxygen Delivery Method Room Air Sepsis Recent Fever Within 48 Hours Sepsis New/Unexplained Change in Mental Status Sepsis Action Taken by Nursing 04/27/20 12:09 04/27/20 12:15 04/27/20 12:30 Temperature Temperature Source Pulse Rate 81 81 80 Pulse Rate from SpO2 Sensor 79 81 80 Respiratory Rate 26 H 26 H 21 Blood Pressure Blood Pressure Mean Pulse Oximetry 100 100 100 Oxygen Delivery Method Sepsis Recent Fever Within 48 Hours Sepsis New/Unexplained Change in Mental Status Sepsis Action Taken by Nursing 04/27/20 12:36 04/27/20 12:45 04/27/20 13:00 Temperature Temperature Source Pulse Rate 87 81 84 Pulse Rate from SpO2 Sensor 79 91 H 84 Respiratory Rate 25 H 14 22 Blood Pressure 153/80 H Blood Pressure Mean 108 Pulse Oximetry 100 100 Oxygen Delivery Method Sepsis Recent Fever Within 48 Hours Sepsis New/Unexplained Change in Mental Status Sepsis Action Taken by Nursing 04/27/20 13:15 04/27/20 13:21 04/27/20 13:30 Temperature Temperature Source Pulse Rate 86 84 Pulse Rate from SpO2 Sensor 88 87 84 Respiratory Rate 18 22 Blood Pressure 111/99 Blood Pressure Mean 104 Pulse Oximetry 100 100 97 Oxygen Delivery Method Sepsis Recent Fever Within 48 Hours Sepsis New/Unexplained Change in Mental Status Sepsis Action Taken by Nursing 04/27/20 13:31 Temperature Temperature Source Pulse Rate 84 Pulse Rate from SpO2 Sensor 84 Respiratory Rate 20 Blood Pressure 132/68 Blood Pressure Mean 95 Pulse Oximetry 100 Oxygen Delivery Method Sepsis Recent Fever Within 48 Hours Sepsis New/Unexplained Change in Mental Status Sepsis Action Taken by Group Home Medications Current Medication List: was personally reviewed by me Laboratory Data Attestation: I reviewed the patient's lab results. Result diagrams: 04/27/20 11:20 04/27/20 11:20 Lab Results 04/27/20 04/27/20 04/27/20 Range/Units 11:20 11:20 11:20 WBC 5.60 (4.8-10.8) K/uL RBC 2.93 L (4.7-6.1) M/uL Hgb 8.0 L (14.0-18.0) g/dL POC Hgb (14.0-18.0) g/dl Hct 24.9 L (42-52) % POC Hct (42-52) % MCV 85.0 (80-100) fL MCH 27.3 (25-34) pg MCHC 32.1 (32-36) g/dL RDW Std Deviation 63.8 H (36.4-46.3) fL RDW Coeff of Agatha 20.2 H (11.5-14.5) % Plt Count 191 (130-400) K/uL MPV 10.9 H (7.4-10.4) fL Immature Gran % (Auto) 0.4 % Neut % (Auto) 78.2 % Lymph % (Auto) 13.4 % [place] % (Auto) 8.0 % Eos % (Auto) 0.0 % Baso % (Auto) 0.0 % Neut # (Auto) 4.38 (1.4-6.5) K/uL Lymph # (Auto) 0.75 L (1.2-3.4) K/uL [place] # (Auto) 0.45 (0.11-0.59) K/uL Eos # (Auto) 0.00 (0-0.5) K/uL Baso # (Auto) 0.00 (0-0.2) K/uL Immature Gran # (Auto) 0.02 (0.00-0.02) K/uL Anisocytosis Present PT 11.9 (9.0-12.0) Seconds INR 1.1 (0.9-1.1) APTT 60.1 H* (21.0-31.0) Seconds PTT Ratio 2.2 VBG pH (7.36-7.41) VBG pCO2 (38-50) mmHg VBG pO2 mmHg VBG HCO3 mmol/L VBG O2 Saturation % VBG Base Excess mEq/L Barometric Pressure mm/Hg POC Sodium (135-144) mmol/L Sodium 142 (136-145) mmol/L POC Potassium (3.3-5.0) mmol/L Potassium 3.6 (3.5-5.1) mmol/L POC Chloride (101-112) mmol/L Chloride 106 (98-107) mmol/L Carbon Dioxide 20 L (21-32) mmol/L POC Total CO2 (24-31) mmol/L Anion Gap 16.0 H (3-11) POC Anion Gap (16-25) mmol/L POC BUN (7-18) mg/dl BUN 119 H (7-18) mg/dl Creatinine 5.72 H* (0.6-1.4) mg/dl POC Creatinine (0.6-1.3) mg/dl Est Cr Clr Drug Dosing 10.0 ml/min Est GFR ( Amer) 10.0 Est GFR (Non-Af Amer) 8.7 BUN/Creatinine Ratio 20.7 H (10-20) Glucose 94 (70-99) mg/dl POC Glucose (other) (70-99) mg/dl Lactate (0.4-2.0) mmol/L Calcium 9.3 (8.5-10.1) mg/dl POC Ioniz Calcium Zain (1.12-1.32) mmol/l Magnesium 1.6 L (1.8-2.4) mg/dl Total Bilirubin 0.9 (0.2-1) mg/dl AST 70 H (15-37) U/L ALT 32 (12-78) U/L Alkaline Phosphatase 105 (45-117) U/L Total Creatine Kinase 485 H (39-308) U/L Troponin I 0.150 H* (0-0.045) ng/ml Total Protein 6.7 (6.4-8.2) gm/dl Albumin 3.0 L (3.4-5.0) gm/dl Globulin 3.7 (2.5-4.0) gm/dl Albumin/Globulin Ratio 0.8 L (0.9-2) TSH 0.590 (0.300-4.500) uIu/ml Urine Color Urine Appearance (Clear) Urine pH (4.5-7.5) Ur Specific Franklin (1.000-1.030) Urine Protein (Negative) Urine Glucose (UA) (Negative) Urine Ketones (Negative) Urine Blood (Negative) Urine Nitrite (Negative) Urine Bilirubin (Negative) Urine Urobilinogen (Negative) Ur Leukocyte Esterase (Negative) Urine WBC (Auto) (0-5) /hpf Urine RBC (Auto) (0-4) /hpf U Hyaline Cast (Auto) (0-5) /lpf U Epithel Cells (Auto) (0-5) /lpf Urine Bacteria (Auto) (Negative) COVID-19 Eval Order SARS-CoV-2, RNA, NAAT (NEGATIVE) 04/27/20 04/27/20 04/27/20 Range/Units 11:29 12:25 12:25 WBC (4.8-10.8) K/uL RBC (4.7-6.1) M/uL Hgb (14.0-18.0) g/dL POC Hgb 7.5 L (14.0-18.0) g/dl Hct (42-52) % POC Hct 22 L (42-52) % MCV (80-100) fL MCH (25-34) pg MCHC (32-36) g/dL RDW Std Deviation (36.4-46.3) fL RDW Coeff of Agatha (11.5-14.5) % Plt Count (130-400) K/uL MPV (7.4-10.4) fL Immature Gran % (Auto) % Neut % (Auto) % Lymph % (Auto) % [place] % (Auto) % Eos % (Auto) % Baso % (Auto) % Neut # (Auto) (1.4-6.5) K/uL Lymph # (Auto) (1.2-3.4) K/uL [place] # (Auto) (0.11-0.59) K/uL Eos # (Auto) (0-0.5) K/uL Baso # (Auto) (0-0.2) K/uL Immature Gran # (Auto) (0.00-0.02) K/uL Anisocytosis PT (9.0-12.0) Seconds INR (0.9-1.1) APTT (21.0-31.0) Seconds PTT Ratio VBG pH (7.36-7.41) VBG pCO2 (38-50) mmHg VBG pO2 mmHg VBG HCO3 mmol/L VBG O2 Saturation % VBG Base Excess mEq/L Barometric Pressure mm/Hg POC Sodium 139 (135-144) mmol/L Sodium (136-145) mmol/L POC Potassium 3.5 (3.3-5.0) mmol/L Potassium (3.5-5.1) mmol/L POC Chloride 104 (101-112) mmol/L Chloride (98-107) mmol/L Carbon Dioxide (21-32) mmol/L POC Total CO2 19 L (24-31) mmol/L Anion Gap (3-11) POC Anion Gap 20.0 (16-25) mmol/L POC BUN 102 H* (7-18) mg/dl BUN (7-18) mg/dl Creatinine (0.6-1.4) mg/dl POC Creatinine 6.3 H* (0.6-1.3) mg/dl Est Cr Clr Drug Dosing ml/min Est GFR ( Amer) Est GFR (Non-Af Amer) BUN/Creatinine Ratio (10-20) Glucose (70-99) mg/dl POC Glucose (other) 97 (70-99) mg/dl Lactate (0.4-2.0) mmol/L Calcium (8.5-10.1) mg/dl POC Ioniz Calcium Zain 1.09 L (1.12-1.32) mmol/l Magnesium (1.8-2.4) mg/dl Total Bilirubin (0.2-1) mg/dl AST (15-37) U/L ALT (12-78) U/L Alkaline Phosphatase (45-117) U/L Total Creatine Kinase (39-308) U/L Troponin I (0-0.045) ng/ml Total Protein (6.4-8.2) gm/dl Albumin (3.4-5.0) gm/dl Globulin (2.5-4.0) gm/dl Albumin/Globulin Ratio (0.9-2) TSH (0.300-4.500) uIu/ml Urine Color Urine Appearance (Clear) Urine pH (4.5-7.5) Ur Specific Franklin (1.000-1.030) Urine Protein (Negative) Urine Glucose (UA) (Negative) Urine Ketones (Negative) Urine Blood (Negative) Urine Nitrite (Negative) Urine Bilirubin (Negative) Urine Urobilinogen (Negative) Ur Leukocyte Esterase (Negative) Urine WBC (Auto) (0-5) /hpf Urine RBC (Auto) (0-4) /hpf U Hyaline Cast (Auto) (0-5) /lpf U Epithel Cells (Auto) (0-5) /lpf Urine Bacteria (Auto) (Negative) COVID[facility]19 [facility] SARS-[facility]-2, RNA, NAAT POSITIVE A* (NEGATIVE) 04/27/20 04/27/20 04/27/20 Range/Units 13:09 13:09 13:30 WBC (4.8-10.8) K/uL RBC (4.7-6.1) M/uL Hgb (14.0-18.0) g/dL POC Hgb (14.0-18.0) g/dl Hct (42-52) % POC Hct (42-52) % MCV (80-100) fL MCH (25-34) pg MCHC (32-36) g/dL RDW Std Deviation (36.4-46.3) fL RDW Coeff of Agatha (11.5-14.5) % Plt Count (130-400) K/uL MPV (7.4-10.4) fL Immature Gran % (Auto) % Neut % (Auto) % Lymph % (Auto) % [place] % (Auto) % Eos % (Auto) % Baso % (Auto) % Neut # (Auto) (1.4-6.5) K/uL Lymph # (Auto) (1.2-3.4) K/uL [place] # (Auto) (0.11-0.59) K/uL Eos # (Auto) (0-0.5) K/uL Baso # (Auto) (0-0.2) K/uL Immature Gran # (Auto) (0.00-0.02) K/uL Anisocytosis PT (9.0-12.0) Seconds INR (0.9-1.1) APTT (21.0-31.0) Seconds PTT Ratio VBG pH 7.53 H (7.36-7.41) VBG pCO2 23 L (38-50) mmHg VBG pO2 22 mmHg VBG HCO3 19 mmol/L VBG O2 Saturation < 60.0 % VBG Base Excess -3.7 mEq/L Barometric Pressure 734.1 mm/Hg POC Sodium (135-144) mmol/L Sodium (136-145) mmol/L POC Potassium (3.3-5.0) mmol/L Potassium (3.5-5.1) mmol/L POC Chloride (101-112) mmol/L Chloride (98-107) mmol/L Carbon Dioxide (21-32) mmol/L POC Total CO2 (24-31) mmol/L Anion Gap (3-11) POC Anion Gap (16-25) mmol/L POC BUN (7-18) mg/dl BUN (7-18) mg/dl Creatinine (0.6-1.4) mg/dl POC Creatinine (0.6-1.3) mg/dl Est Cr Clr Drug Dosing ml/min Est GFR ( Amer) Est GFR (Non-Af Amer) BUN/Creatinine Ratio (10-20) Glucose (70-99) mg/dl POC Glucose (other) (70-99) mg/dl Lactate 3.0 H* (0.4-2.0) mmol/L Calcium (8.5-10.1) mg/dl POC Ioniz Calcium Zain (1.12-1.32) mmol/l Magnesium (1.8-2.4) mg/dl Total Bilirubin (0.2-1) mg/dl AST (15-37) U/L ALT (12-78) U/L Alkaline Phosphatase (45-117) U/L Total Creatine Kinase (39-308) U/L Troponin I (0-0.045) ng/ml Total Protein (6.4-8.2) gm/dl Albumin (3.4-5.0) gm/dl Globulin (2.5-4.0) gm/dl Albumin/Globulin Ratio (0.9-2) TSH (0.300-4.500) uIu/ml Urine Color Yellow Urine Appearance Turbid A (Clear) Urine pH >= 9.0 H (4.5-7.5) Ur Specific Franklin 1.014 (1.000-1.030) Urine Protein 2+ H (Negative) Urine Glucose (UA) Negative (Negative) Urine Ketones Trace H (Negative) Urine Blood 1+ H (Negative) Urine Nitrite Positive A (Negative) Urine Bilirubin Negative (Negative) Urine Urobilinogen Negative (Negative) Ur Leukocyte Esterase 3+ H (Negative) Urine WBC (Auto) >30 H (0-5) /hpf Urine RBC (Auto) 0-4 (0-4) /hpf U Hyaline Cast (Auto) 10-30 H (0-5) /lpf U Epithel Cells (Auto) 10-20 H (0-5) /lpf Urine Bacteria (Auto) 2+ H (Negative) COVID-19 Eval Order SARS-CoV-2, RNA, NAAT (NEGATIVE) Administered Medications Sodium Chloride (Nss 1000ml) 500 mls @ 999 mls/hr IV .Q31M ONE Stop: 04/27/20 11:18 Last Infusion: 04/27/20 12:48 Dose: 0 mls/hr Documented by: [id number] Admin: 04/27/20 11:44 Dose: 999 mls/hr Documented by: [id number] Sodium Chloride (Nss 1000ml) 1,000 mls @ 999 mls/hr IV .Q1H1M ONE Stop: 04/27/20 12:48 Last Infusion: 04/27/20 13:49 Dose: 0 mls/hr Documented by: [id number] Admin: 04/27/20 12:48 Dose: 999 mls/hr Documented by: [id number] Piperacillin Sod/Tazobactam Sod (Zosyn) 4.5 gm in 120 mls @ 240 mls/hr IV NOW ONE Stop: 04/27/20 13:07 Last Infusion: 04/27/20 13:58 Dose: 0 mls/hr Documented by: [id number] Admin: 04/27/20 13:15 Dose: 240 mls/hr Documented by: [id number] Lorazepam (Ativan) 0.5 mg in 1 mls @ 1 mls/min IV NOW STA Stop: 04/27/20 13:07 Last Admin: 04/27/20 13:14 Dose: 1 mls/min Documented by: [id number] Imaging Data Radiologist's Impression: Patient: LINH SANDERSAdmit Date: 04/27/20MR#: [id number]: [address] DRAcct ID:[id number]: Date: [address] [place] [address] Zip: [place], [place] [address]Iny: 79Location: EDSex: MRoom/Bed:Att Phy:Diagnosis: FALLPri Phy: Timothy Yoder MDService Date: 04/27/20Fam Phy:Interpreting Phy: Trey Amaro MDAdmit Phy: Ordering Phy: Dustin Ward DO cc: ~ CT head/brain wo con CLINICAL HISTORY: Head pain status post trauma COMPARISON STUDY: July 2019 TECHNIQUE: Axial CT of the brain is performed from the vertex to the skull base. IV contrast was not administered for this examination. A dose lowering technique was utilized adhering to the principles of ALARA. CT DOSE: 690.05 mGycm FINDINGS: No intra or extra-axial mass lesions are visualized. There is no CT evidence of acute cortical infarction. There is no evidence of midline shift. There is no acute hemorrhage. No calvarial fractures are visualized. There are patchy white matter hypodensities likely on a small vessel basis. There is no evidence of pathologic ventricular dilatation. There is no evidence of acute sinusitis IMPRESSION: No acute intracranial findings ACT 112: Negative or not required by law. Electronically signed by: Trey Amaro M.D. 04/27/2020 12:14 PM Dictated: 04/27/20 1210Transcribed: 04/27/20 1211 Patient: LINH SANDERSAdmit Date: 04/27/20MR#: [id number]: [address] DRAcct ID:[id number]: Date: [address] [place] [address] Zip: [place], [place] [address]Xxk: 79Location: EDSex: MRoom/Bed:Att Phy:Diagnosis: FALLPri Phy: Timothy Yoder MDService Date: 04/27/20Fam Phy:Interpreting Phy: Trey Amaro MDAdmit Phy: Ordering Phy: Dustin Ward DO cc: ~ CT chest wo con CLINICAL HISTORY: Chest pain status post trauma COMPARISON STUDY: October 2011, CT DOSE: 566.23 mGycm TECHNIQUE: CT of the thorax was performed from the thoracic inlet to the lung bases. Images are reviewed in the axial, sagittal, and coronal planes. IV contrast was not administered for this examination. A dose lowering technique was utilized adhering to the principles of ALARA. FINDINGS: Thyroid: Imaged portions of the thyroid gland are normal in appearance. Thoracic aorta: The thoracic aorta is normal in course and caliber, noting standard 3 vessel arch anatomy. Heart: There is no pericardial effusion. There are coronary artery calcifications. Lungs and pleural spaces: There is no pneumothorax. There are no pleural eff usions. There are patchy bilateral groundglass pulmonary opacities. The findings are concerning for a multifocal focal pneumonitis. Correlation with Covid 19 testing is recommended. Mediastinum: There is no evidence of pathologic mediastinal lymphadenopathy. There is no evidence of mediastinal hematoma. Irma: There is no evidence of pathologic hilar adenopathy given the limitations of a noncontrast study Axilla: There is no evidence of pathologic axillary lymphadenopathy Upper abdomen: Partially visualized upper abdominal viscera is within normal limits. Skeletal structures: There are old right-sided rib fractures. IMPRESSION: 1. Patchy bilateral groundglass pulmonary opacities. The findings are suggestive of a multifocal pneumonitis. Correlation with Covid 19 testing is recommended 2. No evidence of acute intrathoracic injury given the limitations of a noncontrast study. ACT 112: Negative or not required by law. Electronically signed by: Trey Amaro M.D. 04/27/2020 12:20 PM Dictated: 04/27/204Transcribed: 04/27/204 Patient: LINH SANDERSAdmit Date: 04/27/20MR#: [id number]: [address] Acct ID:[id number]: [facility] Zip[facility] [place], [place] [address]Jqc: 79Location: EDSex: MRoom/Bed:Att Phy:Diagnosis: FALLPri Phy: Timothy Yoder MDService Date: 04/27/20Fam Phy:Interpreting Phy: Austen Renee MDAdmit Phy: Ordering Phy: Dustin Ward DO cc: ~ ABDOMEN AND PELVIS CT WITHOUT CONTRAST CT DOSE: 779.06 mGycm HISTORY: Trauma. fall TECHNIQUE: Multiaxial CT images of the abdomen and pelvis were performed without contrast. A dose lowering technique was utilized adhering to the principles of ALARA. COMPARISON STUDY: Abdomen and pelvis CT 07/21/2019. FINDINGS: Please refer to the same day chest CT for further evaluation of the lung bases. No pneumoperitoneum. No pneumatosis. Old, healed bilateral rib fractures. No acute fractures within the visualized osseous structures. There is mild elevation of the left hemidiaphragm. Motion artifact. Subcutaneous hematoma seen within the right lateral hip. This measures approximately 6 x 3 cm in size. No retroperitoneal hematoma. No pelvic free fluid. Mild diffuse bladder wall thickening. The prostate gland is mildly enlarged. Suboptimal evaluation for bowel pathology due to the lack of intravenous and oral contrast. However, there is no definite bowel wall thickening or obstruction. The visualized appendix is unremarkable. The tip the appendix is obscured by a surgical clip. No retroperitoneal lymphadenopathy. Normal caliber abdominal aorta. Cholecystectomy. The unenhanced liver, spleen, adrenal glands, and pancreas are within normal limits. Moderate bilateral cortical renal scarring/thinning. No renal stones or hydronephrosis. A 1.3 cm exophytic hypodense lesion within the right kidney remain stable. This is incompletely characterized on this noncontrast study but favors a cyst. IMPRESSION: 1. A 6 x 3 cm subcutaneous hematoma within the right lateral hip. 2. No acute fracture or dislocation within the visualized osseous structures of the abdomen and pelvis. 3. Additional findings as described above. ACT 112: Negative or not required by law. Electronically signed by: Austen Renee M.D. 04/27/2020 12:34 PM Dictated: 04/27/20 1220Transcribed: 04/27/20 1220 Patient: LINH SANDERSAdmit Date: 04/27/20MR#: [id number]: [address] DRAcct ID:[id number]: Date: [address] [place] [address] Zip: [place], [place] [address]Xkh: 79Location: EDSex: MRoom/Bed:Att Phy:Diagnosis: FALLPri Phy: Timothy Yoder MDService Date: 04/27/20Fa Phy:Interpreting Phy: Trey Amaro MDAdmit Phy: Ordering Phy: Dustin Ward DO cc: ~ XR femur RT 2V routine CLINICAL HISTORY: Right femur pain status post trauma COMPARISON: X-ray of the knee performed April 2018 DISCUSSION: There is chondrocalcinosis at the level of the knee. Degenerative changes are evident. No acute fractures or dislocations are visualized. Fragmentation of the inferior patellar pole is felt to be chronic. There is a chronic deformity in the right supra-acetabular region. IMPRESSION: No acute fractures or dislocations identified. ACT 112: Negative or not required by law. Electronically signed by: Trey Amaro M.D. 04/27/2020 12:28 PM Dictated: 04/27/20 1227Transcribed: 04/27/207 Patient: LINH SANDERSAdmit Date: 04/27/20MR#: [id number]: [address] DRAcct ID:[id number]: Date: [address] [place] [address] Zip: [place], [place] [address]Gvq: 79Location: EDSex: MRoom/Bed:Att Phy:Diagnosis: FALLPri Phy: Timothy Yoder MDService Date: 04/27/20 Phy:Interpreting Phy: Trey Amaro MDAdmit Phy: Ordering Phy: Dustin Ward DO cc: ~ XR chest 1V portable CLINICAL HISTORY: weakness COMPARISON STUDY: 04/09/2020 FINDINGS: The cardiac and mediastinal contours are normal. There is no evidence of focal pulmonary consolidation. There is no evidence of failure. No pleural effusions are visualized.[ IMPRESSION: No active disease in the chest. ACT 112: Negative or not required by law. Electronically signed by: Trey Amaro M.D. 04/27/2020 12:27 PM Dictated: 04/27/20 1226Transcribed: 04/27/206 Patient: LINH SANDERSAdmit Date: 04/27/20MR#: [id number]: [address] DRAcct ID:[id number]: Date: [address] [place] [address] Zip: [place], [place] [address]Bdh: 79Location: EDSex: MRoom/Bed:Att Phy:Diagnosis: FALLPri Phy: Timothy Yoder MDService Date: 04/27/20Fa Phy:Interpreting Phy: Trey Amaro MDAdmit Phy: Ordering Phy: Dustin Ward DO cc: ~ CT OF THE CERVICAL SPINE CLINICAL HISTORY: Neck pain status post trauma COMPARISON STUDY: April 2018 CT DOSE: 404.08 mGycm TECHNIQUE: CT scan of the cervical spine was performed from the skull base to the thoracic inlet. Images are reviewed in the axial, sagittal, and coronal planes. IV contrast was not administered for this examination. A dose lowering technique was utilized adhering to the principles of ALARA. FINDINGS: The visualized portions of the lung apices reveal no evidence of pneumothorax. There is a trace right mastoid effusion The prevertebral soft tissues are normal. No fractures or traumatic subluxations are visualized. There are multilevel degenerative changes. Minimal anterolisthesis of C4 on C5 is felt to be degenerative. IMPRESSION: No evidence of acute fracture or traumatic subluxation. ACT 112: Negative or not required by law. Electronically signed by: Trey Amaro M.D. 04/27/2020 12:14 PM Dictated: 04/27/20 1211Transcribed: 04/27/20 1214 Blood Pressure Blood Pressure Findings: Elevated blood pressure Blood Pressure Disposition: further management by hospitalist Discharge Plan Visit Data Chief Complaint: Fall ED Provider: Dustin Ward Discharge Problem: Acute renal failure, Acute alteration in mental status, Hematoma of right thigh, COVID-19 virus infection, Abnormal ECG, Pneumonia Patient Disposition: Being Evaluated by Hospitalist Condition: Good Discharge Instructions Interventions: ED Discharge Assessment Last Done: 04/27/20 14:05 Discharge Problem: Acute renal failure Qualifiers: Acute renal failure type: unspecified Qualified Code(s): N17.9 - Acute kidney failure, unspecified Hematoma of right thigh Qualifiers: Encounter type: initial encounter Qualified Code(s): S70.11XA - Contusion of right thigh, initial encounter Pneumonia Qualifiers: Pneumonia type: due to unspecified organism Laterality: bilateral Lung location: unspecified part of lung Qualified Code(s): J18.9 - Pneumonia, unspecified organism
[2020-04-27 11:36] LABS: Hematocrit (blood only) 24.9 % (42-52); Mean Corpuscular Hemoglobin 27.3 pg (25-34); Mean Corpuscular Hgb Conc 32.1 g/dL (32-36); Mean Platelet Volume 10.9 fL (7.4-10.4); Platelet Count 191 K/uL (130-400); RDW Coefficient of Variation 20.2 % (11.5-14.5); RDW Standard Deviation 63.8 fL (36.4-46.3); Red Blood Count 2.93 M/uL (4.7-6.1)
[2020-04-27 11:45] LABS: iSTAT Creatinine 6.3 mg/dl (0.6-1.3); iSTAT Hemoglobin 7.5 g/dl (14.0-18.0); iSTAT Ionized Calcium 1.09 mmol/l (1.12-1.32); iSTAT Potassium 3.5 mmol/L (3.3-5.0)
[2020-04-27] MEDS ORDERED: SODIUM CHLORIDE 0.9% 1000ML 1,000 ML IV ONE (11:48)
--- NOTE | 2020-04-27 12:15 | CT Scan Report ---
CT head/brain wo con CLINICAL HISTORY: Head pain status post trauma COMPARISON STUDY: July 2019 TECHNIQUE: Axial CT of the brain is performed from the vertex to the skull base. IV contrast was not administered for this examination. A dose lowering technique was utilized adhering to the principles of ALARA. CT DOSE: 690.05 mGycm FINDINGS: No intra or extra-axial mass lesions are visualized. There is no CT evidence of acute cortical infarc tion. There is no evidence of midline shift. There is no acute hemorrhage. No calvarial fractures ar e visualized. There are patchy white matter hypodensities likely on a small vessel basis. There is no evidence of pathologic ventricular dilatation. There is no evidence of acute sinusitis IMPRESSION: No acute intracranial findings ACT 112: Negative or not required by law. Electronically signed by: Trey Amaro M.D. 04/27/2020 12:14 PM
--- NOTE | 2020-04-27 12:15 | CT Scan Report ---
CT OF THE CERVICAL SPINE CLINICAL HISTORY: Neck pain status post trauma COMPARISON STUDY: April 2018 CT DOSE: 404.08 mGycm TECHNIQUE: CT scan of the cervical spine was performed from the skull base to the thoracic inlet. Caty ges are reviewed in the axial, sagittal, and coronal planes. IV contrast was not administered for thi s examination. A dose lowering technique was utilized adhering to the principles of ALARA. FINDINGS: The visualized portions of the lung apices reveal no evidence of pneumothorax. There is a trace right mastoid effusion The prevertebral soft tissues are normal. No fractures or traumatic subluxations are visualized. There are multilevel degenerative changes. Minimal anterolisthesis of C4 on C5 is felt to be degenera tive. IMPRESSION: No evidence of acute fracture or traumatic subluxation. ACT 112: Negative or not required by law. Electronically signed by: Trey Amaro M.D. 04/27/2020 12:14 PM
[2020-04-27 12:20] LABS: Albumin Globulin Ratio 0.8 (0.9-2); BUN Creatinine Ratio 20.7 (10-20); Bilirubin,Total 0.9 mg/dl (0.2-1); Calcium 9.3 mg/dl (8.5-10.1); Est GFR (Non-African American) 8.7; Globulin 3.7 gm/dl (2.5-4.0); Magnesium 1.6 mg/dl (1.8-2.4); Potassium 3.6 mmol/L (3.5-5.1); Thyroid Stimulating Hormone 0.59 uIu/ml (0.300-4.500); Total Protein 6.7 gm/dl (6.4-8.2); Troponin I 0.15 ng/ml (0-0.045)
--- NOTE | 2020-04-27 12:21 | CT Scan Report ---
CT chest wo con CLINICAL HISTORY: Chest pain status post trauma COMPARISON STUDY: October 2011, CT DOSE: 566.23 mGycm TECHNIQUE: CT of the thorax was performed from the thoracic inlet to the lung bases. Images are revi ewed in the axial, sagittal, and coronal planes. IV contrast was not administered for this examinatio n. A dose lowering technique was utilized adhering to the principles of ALARA. FINDINGS: Thyroid: Imaged portions of the thyroid gland are normal in appearance. Thoracic aorta: The thoracic aorta is normal in course and caliber, noting standard 3 vessel arch krishna isatu. Heart: There is no pericardial effusion. There are coronary artery calcifications. Lungs and pleural spaces: There is no pneumothorax. There are no pleural effusions. There are patchy bilateral groundglass pulmonary opacities. The findings are concerning for a multifocal focal pneumon itis. Correlation with Covid 19 testing is recommended. Mediastinum: There is no evidence of pathologic mediastinal lymphadenopathy. There is no evidence of mediastinal hematoma. Irma: There is no evidence of pathologic hilar adenopathy given the limitations of a noncontrast stud y Axilla: There is no evidence of pathologic axillary lymphadenopathy Upper abdomen: Partially visualized upper abdominal viscera is within normal limits. Skeletal structures: There are old right-sided rib fractures. IMPRESSION: 1. Patchy bilateral groundglass pulmonary opacities. The findings are suggestive of a multifocal pneu monitis. Correlation with Covid 19 testing is recommended 2. No evidence of acute intrathoracic injury given the limitations of a noncontrast study. ACT 112: Negative or not required by law. Electronically signed by: Trey Amaro M.D. 04/27/2020 12:20 PM
[2020-04-27 12:24] LABS: INR 1.1 (0.9-1.1); Partial Thromboplastin Ratio 2.2; Prothrombin Time 11.9 Seconds (9.0-12.0)
[2020-04-27 12:26] LABS: Anisocytosis Present; Immature Granulocytes # (auto) 0.02 K/uL (0.00-0.02); Immature Granulocytes % (auto) 0.4 %; Lymphocytes # (auto) 0.75 K/uL (1.2-3.4); Lymphocytes % (auto) 13.4 %; Monocytes # (auto) 0.45 K/uL (0.11-0.59); Neutrophils # (auto) 4.38 K/uL (1.4-6.5); Neutrophils % (auto) 78.2 %
--- NOTE | 2020-04-27 12:28 | XRay Report ---
XR chest 1V portable CLINICAL HISTORY: weakness COMPARISON STUDY: 04/09/2020 FINDINGS: The cardiac and mediastinal contours are normal. There is no evidence of focal pulmonary co nsolidation. There is no evidence of failure. No pleural effusions are visualized.[ IMPRESSION: No active disease in the chest. ACT 112: Negative or not required by law. Electronically signed by: Trey Amaro M.D. 04/27/2020 12:27 PM
--- NOTE | 2020-04-27 12:30 | XRay Report ---
XR femur RT 2V routine CLINICAL HISTORY: Right femur pain status post trauma COMPARISON: X-ray of the knee performed April 2018 DISCUSSION: There is chondrocalcinosis at the level of the knee. Degenerative changes are evident. No acute fractures or dislocations are visualized. Fragmentation of the inferior patellar pole is felt to be chronic. There is a chronic deformity in the right supra-acetabular region. IMPRESSION: No acute fractures or dislocations identified. ACT 112: Negative or not required by law. Electronically signed by: Trey Amaro M.D. 04/27/2020 12:28 PM
[2020-04-27 12:34] LABS: Partial Thromboplastin Time 60.1 Seconds (21.0-31.0)
--- NOTE | 2020-04-27 12:35 | CT Scan Report ---
ABDOMEN AND PELVIS CT WITHOUT CONTRAST CT DOSE: 779.06 mGycm HISTORY: Trauma. fall TECHNIQUE: Multiaxial CT images of the abdomen and pelvis were performed without contrast. A dose lo wering technique was utilized adhering to the principles of ALARA. COMPARISON STUDY: Abdomen and pelvis CT 07/21/2019. FINDINGS: Please refer to the same day chest CT for further evaluation of the lung bases. No pneumope ritoneum. No pneumatosis. Old, healed bilateral rib fractures. No acute fractures within the visualiz ed osseous structures. There is mild elevation of the left hemidiaphragm. Motion artifact. Subcutaneo us hematoma seen within the right lateral hip. This measures approximately 6 x 3 cm in size. No retro peritoneal hematoma. No pelvic free fluid. Mild diffuse bladder wall thickening. The prostate gland i s mildly enlarged. Suboptimal evaluation for bowel pathology due to the lack of intravenous and oral contrast. However, there is no definite bowel wall thickening or obstruction. The visualized appendix is unremarkable. The tip the appendix is obscured by a surgical clip. No retroperitoneal lymphadenop athy. Normal caliber abdominal aorta. Cholecystectomy. The unenhanced liver, spleen, adrenal glands, and pancreas are within normal limits. Moderate bilateral cortical renal scarring/thinning. No renal stones or hydronephrosis. A 1.3 cm exophytic hypodense lesion within the right kidney remain stable. This is incompletely characterized on this noncontrast study but favors a cyst. IMPRESSION: 1. A 6 x 3 cm subcutaneous hematoma within the right lateral hip. 2. No acute fracture or dislocation within the visualized osseous structures of the abdomen and pelvi s. 3. Additional findings as described above. ACT 112: Negative or not required by law. Electronically signed by: Austen Renee M.D. 04/27/2020 12:34 PM
[2020-04-27] MEDS ORDERED: PIPERACILL/TAZOBAC CONSULT ACTIVE PRN ×2 (12:38→15:13)
[2020-04-27] MEDS ORDERED: PIPERACILLIN/TAZOBACTAM 4.5 GM/120 ML BAG IV ONE (12:38)
[2020-04-27] MEDS ORDERED: MAGNESIUM SULFATE / D5W 1 GM/100 ML BAG IV STA (12:49)
[2020-04-27] MEDS ORDERED: LORazepam 0.5 MG/1 ML VIAL IV STA (13:06)
[2020-04-27 13:25] LABS: Base Excess VBG -3.7 mEq/L; HCO3 VBG 19 mmol/L; PCO2 VBG 23 mmHg (38-50); PO2 VBG 22 mmHg; pH VBG 7.53 (7.36-7.41)
[2020-04-27 13:49] LABS: Appearance Urine Turbid (Clear); Bacteria Urine Automated 2+ (Negative); Bilirubin Urine Negative (Negative); Blood Urine 1+ (Negative); Color Urine Yellow; Glucose Urine UA Negative (Negative); Ketones Urine Trace (Negative); Leukocyte Esterase Urine 3+ (Negative); Nitrite Urine Positive (Negative); RBC Urine Automated 0-4 /hpf (0-4); Specific Gravity Urine 1.014 (1.000-1.030); Urobilinogen Urine Negative (Negative); WBC Urine Automated >30 /hpf (0-5); pH Urine >= 9.0 (4.5-7.5)
[2020-04-27 14:06] LABS: Protein Urine 2+ (Negative); Sulfosalicylic Acid Urine Positive (Negative)
[2020-04-27 14:06] LABS: Oxygen Saturation VBG < 60.0 %
[2020-04-27] MEDS ORDERED: NSS + 20MEQ KCL 20 MEQ/1,000 ML BAG IV SCH (15:30)
--- NOTE | 2020-04-27 15:36 | History & Physical Report ---
Date of Service April 27, 2020 Assessment & Plan (1) COVID-19 virus infection: Evidence of pneumonia on imaging although not currently hypoxic. Spoke with facility who has not noted respiratory complaints but has noted that patient "has not been himself" and has been falling more frequently - Spoke with patient's , Josephine, who requests more conservative management. Pt would not be a candidate for remdesivir due to kidney function. Does not meet criteria for convalescent plasma or dexamethasone since not hypoxic. - Isolation precautions - Continue outpatient inhaler for underlying RAD - no wheezing on exam so will defer short-acting inhalers for now - Multi-focal pneumonitis on CT - may be due to underlying COVID but there is also a question of aspiration. Will cover with Zosyn for now - pharm consult to dose. NPO except meds (as mental status permits). (2) Acute kidney injury superimposed on CKD: Suspect multi-factorial, including component of dehydration - Gentle IVF - Consult nephrology for additional recommendations - Follow labs (3) Acute alteration in mental status: Suspect due to #1 - per facility pt has not been himself the past few days although his is unsure that current mental status is significantly worsened from baseline of progressive severe dementia (4) Recurrent falls: Multiple areas of ecchymosis on exam but no fractures on imaging. Once medical condition more stable, would consider PT/OT (5) Dementia: Per pt's , this has been progressive. During last admission, it was decided that family could no longer keep pt safe at home so he was discharged from [facility] to [facility] a few weeks ago. Pt's is aware of pt's overall poor prognosis and progressive cognitive decline so she requests more conservative management and that we "keep him comfortable." Consult palliative care to assist with goals of care and further planning. (6) CAD (coronary artery disease): Elevated troponin with EKG changes on presentation. Per , pt has had a stent placed previously and was told that there are "multiple blockages" but that with the history of hemophilia they would not do additional stents here. - serial troponins - repeat EKG this evening - If troponin is trending up and EKG with persistent changes, consider cardiology consultation. prefers to manage as conservatively as possible at this time. - Continue outpatient cardiac meds (7) GERD (gastroesophageal reflux disease): On PPI therapy as outpatient - will continue IV Pepcid and transition back to oral PPI (8) Hypertension: BP stable at present - continue home meds if mental status is adequate to take oral medications. 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 Dodson. Plan of care discussed and as outlined above. Pt's , Josephine, was updated multiple times by phone and she asked for me to update the staff at [facility]. All questions were answered. She requests to be updated frequently - phone is [phone]. Leonarda Gómez PA-C Admission and Anticipated Discharge Date Admission Date: April 27, 2020 History of Present Illness Chief Complaint: Falls Primary Care Provider: Timothy Yoder MD This is a 79 y/o male with a PMH of chronic kidney disease stage III, urinary incontinence, dementia, anemia, sleep apnea, stented coronary artery, SDAT, dyslipidemia, BPH with LUTS, peripheral neuropathy, reactive airway disease, sensory ataxia, CAD, von Willebrand disease, GERD, asthma, hypertension, STEMI, hypomagnesemia and hemophilia who presents to ED via EMS after being found on the floor this morning at [facility] after a fall. History from the patient is unobtainable so the records were reviewed and history was obtained from the pt's and the ED physician. Pt was just admitted to [facility] a few weeks ago after he was admitted here 04/10-04/17/20 due to progressive confusion and behavioral changes related to underlying Alzheimer's dementia. reports that they were no longer able to manage patient safely at home. Pt reportedly with increased falls recently and was found on the floor this morning so they requested ED evaluation. Staff at [facility] report that pt "just hasn't been himself" this week but they deny any specific respiratory symptoms or evidence of hypoxia. Allergies Allergy/AdvReac Type Severity Reaction Status Date / Time adhesive Allergy Unknown BANDAID-SKIN Verified 04/27/20 11:21 IRRITATION antihemophilic factor Allergy Unknown reaction Verified 04/27/20 11:21 (FVIII) rec, full length to recombinate products made in hamster, mice antihemophilic factor VIII, Allergy Unknown Verified 04/27/20 11:21 human recombinant [From Recombinate] codeine Allergy Unknown SOB/ N/V Verified 04/27/20 11:21 homatropine Allergy Unknown UNKNOWN Unverified 04/27/20 11:21 Horse/Equine Containing Allergy Unknown ILLNESS-ALMOST Unverified 04/27/20 11:21 Products IN 1949'S hydrocodone Allergy Unknown UNKNOWN Unverified 04/27/20 11:21 niacin Allergy Unknown SKIN FLUSH Unverified 04/27/20 11:21 tetanus toxoid, adsorbed Allergy Unknown ILLNESS-ALMOST Verified 04/27/20 11:21 IN 1949'S Home Medications Medication Instructions Recorded Confirmed Type brimonidine 0.2 % eye drops 1 drops OP TID ml 01/26/19 04/27/20 History dorzolamide 2 % eye drops 1 drops OP TID ml 01/26/19 04/27/20 History latanoprost 0.005 % eye drops 1 drops OP DAILY ml 01/26/19 04/27/20 History nitroglycerin 0.4 mg sublingual 0.4 mg SL Q5M PRN #25 tab 01/26/19 04/27/20 History tablet acetaminophen [Tylenol Extra 1,000 mg PO Q6H PRN 01/29/19 04/27/20 History Strength] aspirin 81 mg PO DAILY 01/29/19 04/27/20 History allopurinol 100 mg tablet 200 mg PO DAILY #180 tab 07/09/19 04/27/20 Rx beclomethasone dipropionate 80 2 puffs INHALATION BID #31.8 gm 07/29/19 04/27/20 Rx mcg/actuation HFA breath activated aerosol esomeprazole magnesium 40 mg 40 mg PO DAILY #90 cap 07/29/19 04/27/20 Rx capsule,delayed release memantine 10 mg tablet 10 mg PO BID #180 tab 12/16/19 04/27/20 Rx isosorbide mononitrate 30 mg See Rx Instructions .ROUTE 12/20/19 04/27/20 Rx tablet,extended release 24 hr .COMPLEX #180 tab ranolazine 500 mg tablet,extended 500 mg PO BID #180 tab 03/07/20 04/27/20 Rx release,12 hr carvedilol 3.125 mg tablet 3.125 mg PO BID #180 tab 03/13/20 04/27/20 Rx metolazone 5 mg tablet 5 mg PO .QOD #90 tab 04/04/20 04/27/20 Rx olanzapine 2.5 mg PO HS 30 Days #30 tab 04/17/20 04/27/20 Rx polyethylene glycol 3350 [Miralax] 17 g PO DAILY 30 Days #30 ea 04/17/20 04/27/20 Rx temazepam 15 mg capsule 15 mg PO .qhs #30 cap 04/21/20 04/27/20 Rx Past Med/Surg History Medical History (Updated 04/27/20 @ 17:10 by Catie Gómez PA-C) Carpal tunnel syndrome, bilateral Clear cell carcinoma of kidney See [facility] [place] [facility] note- 11/19/17 Diaphragmatic hernia Disc degeneration, lumbar Diverticulosis Dupuytren's contracture Fall Gout History of rib fracture Hx of hepatitis C See Dr. Yoder's note 06/10/2011 Sciatica, right side Septic arthritis Sleep apnea Wears CPAP Solitary thyroid nodule Spinal stenosis in cervical region Testicular hypofunction Surgical History Hx of cataract surgery Hx of cholecystectomy Hx of shoulder surgery S/P coronary artery stent placement Stented coronary artery Family History Other No significant family history Social History Smoking Status: Unknown if ever smoked Second Hand Exposure: No; Hx Alcohol Use: No Hx Substance Use: No Preferred Language: Bermudian Communication Ability: Impaired Strategies Analyst Required: No Beliefs That Will Affect Care: None Current Living Situation: Personal Care Facility Current Living Situation Comment: [facility] Feels Safe at Home: Yes Assistive Devices: Glasses and Walker Review of Systems Review of Systems: Unobtainable due to cognitive status Physical Exam Constitutional: agitated, pulling at lines and wires, confused Eyes: + anicteric sclerae ENMT: Mouth: + dry oral mucous membranes Neck: trachea midline Respiratory: no respiratory distress and no labored breathing Auscultation: lungs clear to auscultation bilaterally and + diminished lung sounds; no rales, no rhonchi and no wheezes Cardiovascular: Rate/Rhythm: regular rate and regular rhythm Heart Sounds: no gallop and no cardiac rub Vessels: dorsalis pedis pulses present and radial pulses present Gastrointestinal (Abdomen): Inspection/Auscultation: normal bowel sounds; abdomen not distended Percussion/Palpation: abdomen soft Musculoskeletal: moving all extremities Skin: + ecchymosis (multiple areas of ecchymosis on upper and lower extremities) Neurologic: + confused Results & Data Results & Data ([facility]) Vital Signs (Past 12 Hours) Vital Signs Temp Pulse Pulse Resp BP BP Pulse Ox 04/27/20 14:31 37.2 C 84 18 142/71 H 100 04/27/20 13:45 82 21 100 04/27/20 13:31 84 20 132/68 100 04/27/20 13:30 84 22 97 04/27/20 13:21 86 18 111/99 100 04/27/20 13:15 100 04/27/20 13:00 84 22 100 04/27/20 12:45 81 14 04/27/20 12:36 87 25 H 153/80 H 100 04/27/20 12:30 80 21 100 04/27/20 12:15 81 26 H 100 04/27/20 12:09 81 26 H 100 04/27/20 11:45 84 22 100 04/27/20 11:31 78 20 100 04/27/20 11:30 84 24 137/94 100 04/27/20 11:15 82 22 100 04/27/20 11:01 86 22 138/85 100 04/27/20 11:00 93 H 24 100 04/27/20 10:52 36.6 C 103 H 20 122/60 100 04/27/20 10:49 80 18 100 04/27/20 10:41 78 22 122/60 100 Laboratory Results Laboratory Results - last 24 hr 04/27/20 04/27/20 04/27/20 11:20 11:20 11:20 WBC 5.60 RBC 2.93 L Hgb 8.0 L POC Hgb Hct 24.9 L POC Hct MCV 85.0 MCH 27.3 MCHC 32.1 RDW Std Deviation 63.8 H RDW Coeff of Agatha 20.2 H Plt Count 191 MPV 10.9 H Immature Gran % (Auto) 0.4 Neut % (Auto) 78.2 Lymph % (Auto) 13.4 Pitkin % (Auto) 8.0 Eos % (Auto) 0.0 Baso % (Auto) 0.0 Neut # (Auto) 4.38 Lymph # (Auto) 0.75 L Pitkin # (Auto) 0.45 Eos # (Auto) 0.00 Baso # (Auto) 0.00 Immature Gran # (Auto) 0.02 Anisocytosis Present PT 11.9 INR 1.1 APTT 60.1 H* PTT Ratio 2.2 VBG pH VBG pCO2 VBG pO2 VBG HCO3 VBG O2 Saturation VBG Base Excess Barometric Pressure POC Sodium Sodium 142 POC Potassium Potassium 3.6 POC Chloride Chloride 106 Carbon Dioxide 20 L POC Total CO2 Anion Gap 16.0 H POC Anion Gap POC BUN BUN 119 H Creatinine 5.72 H* POC Creatinine Est Cr Clr Drug Dosing 10.0 Est GFR ( Amer) 10.0 Est GFR (Non-Af Amer) 8.7 BUN/Creatinine Ratio 20.7 H Glucose 94 POC Glucose (other) Lactate Calcium 9.3 POC Ioniz Calcium Zain Magnesium 1.6 L Total Bilirubin 0.9 AST 70 H ALT 32 Alkaline Phosphatase 105 Total Creatine Kinase 485 H Troponin I 0.150 H* Total Protein 6.7 Albumin 3.0 L Globulin 3.7 Albumin/Globulin Ratio 0.8 L TSH 0.590 Urine Color Urine Appearance Urine pH Ur Specific [place] Urine Protein Urine Glucose (UA) Urine Ketones Urine Blood Urine Nitrite Urine Bilirubin Urine Urobilinogen Ur Leukocyte Esterase Urine WBC (Auto) Urine RBC (Auto) U Hyaline Cast (Auto) U Epithel Cells (Auto) Urine Bacteria (Auto) COVID-19 Eval Order SARS-CoV-2, RNA, NAAT 04/27/20 04/27/20 04/27/20 11:29 12:25 12:25 WBC RBC Hgb POC Hgb 7.5 L Hct POC Hct 22 L MCV MCH MCHC RDW Std Deviation RDW Coeff of Agatha Plt Count MPV Immature Gran % (Auto) Neut % (Auto) Lymph % (Auto) [place] % (Auto) Eos % (Auto) Baso % (Auto) Neut # (Auto) Lymph # (Auto) Pitkin # (Auto) Eos # (Auto) Baso # (Auto) Immature Gran # (Auto) Anisocytosis PT INR APTT PTT Ratio VBG pH VBG pCO2 VBG pO2 VBG HCO3 VBG O2 Saturation VBG Base Excess Barometric Pressure POC Sodium 139 Sodium POC Potassium 3.5 Potassium POC Chloride 104 Chloride Carbon Dioxide POC Total CO2 19 L Anion Gap POC Anion Gap 20.0 POC BUN 102 H* BUN Creatinine POC Creatinine 6.3 H* Est Cr Clr Drug Dosing Est GFR ( Amer) Est GFR (Non-Af Amer) BUN/Creatinine Ratio Glucose POC Glucose (other) 97 Lactate Calcium POC Ioniz Calcium Zain 1.09 L Magnesium Total Bilirubin AST ALT Alkaline Phosphatase Total Creatine Kinase Troponin I Total Protein Albumin Globulin Albumin/Globulin Ratio TSH Urine Color Urine Appearance Urine pH Ur Specific [place] Urine Protein Urine Glucose (UA) Urine Ketones Urine Blood Urine Nitrite Urine Bilirubin Urine Urobilinogen Ur Leukocyte Esterase Urine WBC (Auto) Urine RBC (Auto) U Hyaline Cast (Auto) U Epithel Cells (Auto) Urine Bacteria (Auto) COVID-19 Eval Order Covid19 IDNow atMPAC SARS-CoV-2, RNA, NAAT POSITIVE A* 04/27/20 04/27/20 04/27/20 13:09 13:09 13:30 WBC RBC Hgb POC Hgb Hct POC Hct MCV MCH MCHC RDW Std Deviation RDW Coeff of Agatha Plt Count MPV Immature Gran % (Auto) Neut % (Auto) Lymph % (Auto) [place] % (Auto) Eos % (Auto) Baso % (Auto) Neut # (Auto) Lymph # (Auto) [place] # (Auto) Eos # (Auto) Baso # (Auto) Immature Gran # (Auto) Anisocytosis PT INR APTT PTT Ratio VBG pH 7.53 H VBG pCO2 23 L VBG pO2 22 VBG HCO3 19 VBG O2 Saturation < 60.0 VBG Base Excess -3.7 Barometric Pressure 734.1 POC Sodium Sodium POC Potassium Potassium POC Chloride Chloride Carbon Dioxide POC Total CO2 Anion Gap POC Anion Gap POC BUN BUN Creatinine POC Creatinine Est Cr Clr Drug Dosing Est GFR ( Amer) Est GFR (Non-Af Amer) BUN/Creatinine Ratio Glucose POC Glucose (other) Lactate 3.0 H* Calcium POC Ioniz Calcium Zain Magnesium Total Bilirubin AST ALT Alkaline Phosphatase Total Creatine Kinase Troponin I Total Protein Albumin Globulin Albumin/Globulin Ratio TSH Urine Color Yellow Urine Appearance Turbid A Urine pH >= 9.0 H Ur Specific [place] 1.014 Urine Protein 2+ H Urine Glucose (UA) Negative Urine Ketones Trace H Urine Blood 1+ H Urine Nitrite Positive A Urine Bilirubin Negative Urine Urobilinogen Negative Ur Leukocyte Esterase 3+ H Urine WBC (Auto) >30 H Urine RBC (Auto) 0-4 U Hyaline Cast (Auto) 10-30 H U Epithel Cells (Auto) 10-20 H Urine Bacteria (Auto) 2+ H COVID-19 Eval Order SARS-CoV-2, RNA, NAAT Diagnostic Findings CT C-spine 04/27/20 - IMPRESSION: No evidence of acute fracture or traumatic subluxation. Chest X-ray 04/27/20 - IMPRESSION: No active disease in the chest. Femur X-ray 04/27/20 - IMPRESSION: No acute fractures or dislocations identified. CT abd/pel 04/27/20 - IMPRESSION: 1. A 6 x 3 cm subcutaneous hematoma within the right lateral hip. 2. No acute fracture or dislocation within the visualized osseous structures of the abdomen and pelvis. 3. Additional findings as described above. CT Chest 04/27/20 - IMPRESSION: 1. Patchy bilateral groundglass pulmonary opacities. The findings are suggestive of a multifocal pneumonitis. Correlation with Covid 19 testing is recommended 2. No evidence of acute intrathoracic injury given the limitations of a noncontrast study. CT Head 04/27/20 - IMPRESSION: No acute intracranial findings Medications Administered Sodium Chloride (Nss 1000ml) 500 mls @ 999 mls/hr IV .Q31M ONE Stop: 04/27/20 11:18 Last Infusion: 04/27/20 12:48 Dose: 0 mls/hr Documented by: [id number] Admin: 04/27/20 11:44 Dose: 999 mls/hr Documented by: [id number] Sodium Chloride (Nss 1000ml) 1,000 mls @ 999 mls/hr IV .Q1H1M ONE Stop: 04/27/20 12:48 Last Infusion: 04/27/20 13:49 Dose: 0 mls/hr Documented by: [id number] Admin: 04/27/20 12:48 Dose: 999 mls/hr Documented by: [id number] Piperacillin Sod/Tazobactam Sod (Zosyn) 4.5 gm in 120 mls @ 240 mls/hr IV NOW ONE Stop: 04/27/20 13:07 Last Infusion: 04/27/20 13:58 Dose: 0 mls/hr Documented by: [id number] Admin: 04/27/20 13:15 Dose: 240 mls/hr Documented by: [id number] Lorazepam (Ativan) 0.5 mg in 1 mls @ 1 mls/min IV NOW STA Stop: 04/27/20 13:07 Last Admin: 04/27/20 13:14 Dose: 1 mls/min Documented by: [id number] Supervising Physician Co-Signing Physician Notes Pt was seen and examined. Agreed with Catie SILVER exam, assessment and plan. 79 y/o male with a PMH of chronic kidney disease stage III, urinary incontinence, dementia, anemia, sleep apnea, stented coronary artery, SDAT, dyslipidemia, BPH with LUTS, peripheral neuropathy, reactive airway disease, sensory ataxia, CAD, von Willebrand disease, GERD, asthma, hypertension, STEMI, hypomagnesemia and hemophilia who presents to ED via EMS after found on the floor at [facility]. Pt was recently discharge to [facility] on 04/17 due to confusion and behavioral changes. History obtained from , ED chart due to pt confusion and agitation. said that pt is at his baseline. In the ER pt was tested positive for COVID 19. CT chest showed patchy bilateral ground glass pulmonary opacities. The findings are suggestive of a multifocal pneumonitis. CT abd/pelvis showed A 6 x 3 cm subcutaneous hematoma within the right lateral hip and no acute fracture or dislocation within the visualized osseous st ructures of the abdomen and pelvis. CT head showed no acute intracranial finding. Lab on admission showed troponin 0.15, Lactate 3, creatinine 5.7 and hemoglobin 8 and COVID 19 positive. Received IV Zosyn and IVF on admission, will continue IV abx and IVF. Will trend troponin and will get an echo. Will repeat ECHO. Will not start on any anticoagulant even if troponin continue to elevate due to hematoma finding on CT right lateral hip. Covid 19 positive and pt is saturated well on RA. Will not meet criteria for Remdesivir even if develops hypoxia due to worsening renal function. Pt does not meet criteria for Dexamethasone and plasma convaslecent since pt does not require any oxygen supplement. Will monitor H/H and transfuse if hgb drops. Will hold aspirin if hgb drops. Continue monitor CBC and BMP. Continue monitor closely telemetry. MD [place] (1) Hematoma of right thigh Encounter type: initial encounter Qualified Code(s): S70.11XA - Contusion of right thigh, initial encounter (2) Dementia Alzheimer's disease onset: early-onset Dementia behavioral disturbance: with behavioral disturbance Dementia type: Alzheimer's disease Qualified Code(s): G30.0 - Alzheimer's disease with early onset; F02.81 - Dementia in other diseases classified elsewhere with behavioral disturbance (3) Anemia in chronic kidney disease (CKD) Chronic kidney disease stage: unspecified stage Qualified Code(s): N18.9 - Chronic kidney disease, unspecified; D63.1 - Anemia in chronic kidney disease (4) GERD (gastroesophageal reflux disease) Esophagitis presence: esophagitis presence not specified Qualified Code(s): K21.9 - Gastro-esophageal reflux disease without esophagitis (5) Hypertension Hypertension type: essential hypertension Qualified Code(s): I10 - Essential (primary) hypertension
[2020-04-27] MEDS: carvediloL 3.125 MG TAB PO SCH (18:48)
[2020-04-27] MEDS: BRIMONIDINE TARTRATE 0.2% 5ML OP SCH (21:00)
[2020-04-27] MEDS: DORZOLAMIDE HCL 2% OPH SOLN 10 ML BTL OP SCH (21:02)
[2020-04-27] MEDS: ISOSORBIDE MONO EXTENDED REL 30 MG TABCR PO SCH (21:11)
[2020-04-27] MEDS: RANOLAZINE 500 MG ER TAB PO SCH (21:11)
[2020-04-27] MEDS: MEMANTINE HCL 10 MG TAB PO SCH (21:11)
[2020-04-27] MEDS: OLANZAPINE 2.5 MG TAB PO SCH (21:12)
[2020-04-27] MEDS: TEMAZEPAM 15 MG CAPSULE PO SCH (21:17)
[2020-04-27] MEDS ORDERED: SODIUM CHLORIDE 0.9% 1000ML 1,000 ML IV SCH (22:15)
[2020-04-27] MEDS: PIPERACILLIN/TAZOBACTAM 3.375 GM in DEXTROSE 5% 100 ML IV SCH (22:22)
[2020-04-28] MEDS ORDERED: ACETAMINOPHEN 65 ML IV PRN (00:53)
[2020-04-28 01:17] LABS: Hematocrit (blood only) 20.1 % (42-52); Hemoglobin 6.6 g/dL (14.0-18.0)
[2020-04-28] MEDS ORDERED: ACETAMINOPHEN 65 ML IV ONE (01:30)
[2020-04-28] MEDS ORDERED: SODIUM CHLORIDE 0.9% 250 ML IV PRN (01:35)
[2020-04-28] MEDS ORDERED: FACTOR 8/HUMATE-P/ADVATE ONE (03:16)
--- NOTE | 2020-04-28 03:37 | Communication Note ---
Date of Service: April 28, 2020 Made aware by RN of hemoglobin drop from admission of 8 to 6.6. Patient comfortable as per RN. AP Anemia, hemoglobin drop from baseline Subcutaneous hematoma, right hip secondary to fall Hemophilia A Transfuse PRBC to maintain hemoglobin > 8, given history CAD (Patient provided telephone consent for transfusion given patient dementia.) Hold aspirin for now until hemoglobin stable Touch base with Dr. Man (Transfusion medicine) regarding factor VIII use. ADDENDUM : Dr. Man recommended contacting [facility] Hematology. Case discussed with Dr. Villatoro who recommends 1 dose of Factor VIII/Humate-P administration (given prior history of recombinant factor allergy) computed at 50 units/kg. Will relay to AM provider.
[2020-04-28] MEDS ORDERED: [UNRECOGNIZED DRUG - MIXTURE] IV ONE (04:30)
[2020-04-28] MEDS: HYDROmorphone INJ 0.5 MG/0.5 ML SYR IV PRN ×2 (08:26→21:43)
[2020-04-28] MEDS ORDERED: ASPIRIN 81 MG ECTAB PO SCH (09:00)
[2020-04-28] MEDS: FAMOTIDINE 20 MG in SYRINGE 3 ML IV SCH (09:28)
--- NOTE | 2020-04-28 09:48 | Palliative Care Consultation ---
Date of Consultation April 28, 2020 Assessment & Plan (1) Palliative care encounter: 79 yo gentleman with advanced dementia and functional decline, now admitted with Covid and acute on chronic renal failure. He is established as DNR/DNI. I called his twice at [phone] to discuss goals of care, there was no answer. Will continue to try to reach out to family History of Present Illness Reason for Consultation: Goals of care Requesting Physician: Catie Gómez Attending Physician: Jerica Meng, History of Present Illness 79 yo gentleman with advanced dementia and CAD with h/o STEMI and stent placement. He was admitted after fall at SNF. Xray of right hip was negative for fracture but he does have a right thigh hematoma. He has a h/o anemia and current hemoglobin level is 6.6 and is currently being transfused. He is noted to be covid positive and has acute on chronic kidney disease with current creatinine of 5.72 and BUN of 102. He is not a candidate for remdesivir with renal failure. He was hospitalized about two weeks ago with mental status changes and has had progressive functional decline. Per RN he did c/o pain earlier and had been very restless. He received IV dilaudid low dose and has been resting comfortably since. He had not been tolerating Cpap. Allergies Allergy/AdvReac Type Severity Reaction Status Date / Time adhesive Allergy Unknown BANDAID-SKIN Verified 04/27/20 11:21 IRRITATION antihemophilic factor Allergy Unknown reaction Verified 04/27/20 11:21 (FVIII) rec, full length to recombinate products made in hamster, mice antihemophilic factor VIII, Allergy Unknown Verified 04/27/20 11:21 human recombinant [From Recombinate] codeine Allergy Unknown SOB/ N/V Verified 04/27/20 11:21 homatropine Allergy Unknown UNKNOWN Unverified 04/27/20 11:21 Horse/Equine Containing Allergy Unknown ILLNESS-ALMOST Unverified 04/27/20 11:21 Products IN hydrocodone Allergy Unknown UNKNOWN Unverified 04/27/20 11:21 niacin Allergy Unknown SKIN FLUSH Unverified 04/27/20 11:21 tetanus toxoid, adsorbed Allergy Unknown ILLNESS-ALMOST Verified 04/27/20 11:21 IN Home Medications Medication Instructions Recorded Confirmed Type brimonidine 0.2 % eye drops 1 drops OP TID ml 01/26/19 04/27/20 History dorzolamide 2 % eye drops 1 drops OP TID ml 01/26/19 04/27/20 History latanoprost 0.005 % eye drops 1 drops OP DAILY ml 01/26/19 04/27/20 History nitroglycerin 0.4 mg sublingual 0.4 mg SL Q5M PRN #25 tab 01/26/19 04/27/20 History tablet acetaminophen [Tylenol Extra 1,000 mg PO Q6H PRN 01/29/19 04/27/20 History Strength] aspirin 81 mg PO DAILY 01/29/19 04/27/20 History allopurinol 100 mg tablet 200 mg PO DAILY #180 tab 07/09/19 04/27/20 Rx beclomethasone dipropionate 80 2 puffs INHALATION BID #31.8 gm 07/29/19 04/27/20 Rx mcg/actuation HFA breath activated aerosol esomeprazole magnesium 40 mg 40 mg PO DAILY #90 cap 07/29/19 04/27/20 Rx capsule,delayed release memantine 10 mg tablet 10 mg PO BID #180 tab 12/16/19 04/27/20 Rx isosorbide mononitrate 30 mg See Rx Instructions .ROUTE 12/20/19 04/27/20 Rx tablet,extended release 24 hr .COMPLEX #180 tab ranolazine 500 mg tablet,extended 500 mg PO BID #180 tab 03/07/20 04/27/20 Rx release,12 hr carvedilol 3.125 mg tablet 3.125 mg PO BID #180 tab 03/13/20 04/27/20 Rx metolazone 5 mg tablet 5 mg PO .QOD #90 tab 04/04/20 04/27/20 Rx olanzapine 2.5 mg PO HS 30 Days #30 tab 04/17/20 04/27/20 Rx polyethylene glycol 3350 [Miralax] 17 g PO DAILY 30 Days #30 ea 04/17/20 04/27/20 Rx temazepam 15 mg capsule 15 mg PO .qhs #30 cap 04/21/20 04/27/20 Rx Patient History Medical History (Updated 04/28/20 @ 10:01 by Quin Saunders MD) Carpal tunnel syndrome, bilateral Clear cell carcinoma of kidney See [facility] note- 7/11/18 Diaphragmatic hernia Disc degeneration, lumbar Diverticulosis Dupuytren's contracture Fall Gout History of rib fracture Hx of hepatitis C See Dr. Yoder's note 06/10/2011 Sciatica, right side Septic arthritis Sleep apnea Wears CPAP Solitary thyroid nodule Spinal stenosis in cervical region Testicular hypofunction Surgical History Hx of cataract surgery Hx of cholecystectomy Hx of shoulder surgery S/P coronary artery stent placement Stented coronary artery Family History Other No significant family history Social History Smoking Status: Unknown if ever smoked Second Hand Exposure: No; Hx Alcohol Use: No Hx Substance Use: No Preferred Language: Turkmen Communication Ability: Impaired Senior Product Manager Required: No Beliefs That Will Affect Care: None Current Living Situation: Personal Care Facility Current Living Situation Comment: [facility] Feels Safe at Home: Yes Assistive Devices: None Review of Systems Review of Systems: Unobtainable due to cognitive status Physical Exam Physical Exam: deferred due to covid 19; discussed with RN Results & Data ([facility]) Vital Signs (Past 12 Hours) Vital Signs Temp Pulse Pulse Resp BP BP Pulse Ox 04/28/20 09:25 98.4 F 59 L 16 100/44 L 97 04/28/20 08:55 97.9 F 60 19 106/52 L 95 04/28/20 08:40 98.4 F 60 18 91/48 L 96 04/28/20 08:25 97.9 F 68 20 145/63 H 99 04/28/20 07:59 97.9 F 68 20 145/63 H 99 04/28/20 06:30 97.7 F 63 141/63 H 95 04/28/20 05:46 97.7 F 63 141/63 H 95 04/28/20 05:16 60 107/44 L 94 04/28/20 05:01 60 98/53 L 98 04/28/20 05:00 98.2 F 59 L 120/65 98 04/28/20 04:38 97.7 F 67 134/93 91 04/28/20 03:52 99.0 F 60 20 102/44 L 96 04/27/20 23:26 99.0 F 82 24 131/67 98 04/27/20 22:02 75 22 100 PG Care Time/CCT Total # of Minutes Spent Total Time Spent with Patient: Total time spent is greater than 50% in coordination of care (as documented) at patient's floor/unit and/or counseling patient:30 minutes Coding Level of Care Code 09482 Inpt Consult Level 2 Diagnoses Palliative care encounter Z51.5
[2020-04-28] MEDS: FLUTICASONE FUROATE 200MCG 14 PUFFS/INHALER INH SCH (10:57)
[2020-04-28] MEDS: BRIMONIDINE TARTRATE 0.2% 5ML OP SCH ×3 (10:57→23:50)
[2020-04-28] MEDS: carvediloL 3.125 MG TAB PO SCH ×2 (10:57→16:36)
[2020-04-28] MEDS: ISOSORBIDE MONO EXTENDED REL 30 MG TABCR PO SCH ×2 (10:57→23:51)
[2020-04-28] MEDS: LATANOPROST 0.005% OP SOLN 2.5 ML BTL OP SCH (10:59)
[2020-04-28] MEDS: DORZOLAMIDE HCL 2% OPH SOLN 10 ML BTL OP SCH ×3 (10:59→23:51)
[2020-04-28] MEDS: MEMANTINE HCL 10 MG TAB PO SCH ×2 (10:59→23:51)
[2020-04-28] MEDS: RANOLAZINE 500 MG ER TAB PO SCH ×2 (10:59→23:51)
[2020-04-28] MEDS: PIPERACILLIN/TAZOBACTAM 3.375 GM in DEXTROSE 5% 100 ML IV SCH ×2 (11:37→23:50)
--- NOTE | 2020-04-28 12:14 | Nephrology Consultation ---
Date of Consultation April 28, 2020 Assessment & Plan (1) Factor VIII deficiency hemophilia: (2) Chronic renal insufficiency: Mr. Hernandez has had a progressive decline in his cognitive and functional capacity over the course of the past 2 years. He has a history of a factor VIII hemophilia. He has chronic renal disease of uncertain etiology but probably secondary to a chronic glomerulonephritis or interstitial nephritis. His renal function had been fairly stable over many years but has declined somewhat over the course of the past 6 months and more acutely recently. He can no longer take care of himself. The degree of his intake of late is uncertain. He now presents with a more rapid recent decline in his overall status. He is found to have COVID-19. From the standpoint of his renal function, he appears to have a degree of prerenal azotemia. That might respond to some aggressive fluid resuscitation with intravenous saline. He also has a profound anemia. That is in part related to his chronic renal disease. Additionally, he has been iron deficient in the past and when his iron stores were measured last in December of this year his ferritin and transferrin saturations were both quite low. His declined the opportunity to have him get intravenous iron at the time. He is now being transfused after his hemoglobin dropped to 6.6. His iron deficiency may well relate to some blood loss associated with his hemophilia. He certainly is not a dialysis candidate and I know that his and family do not want or expect dialysis. Only question would be how aggressive we should be in the management of his acute condition. Given the decisions made by the fam gus, it would seem to me that they would mostly be concerned about comfort measures for him. Certainly giving him IV saline at the current time would make his BUN and creatinine improve but I doubt that it would improve his overall status or outlook. I doubt that he will have any significant improvement in his hemoglobin with anything short of transfusions. His iron deficiency will make a response to erythrocyte stimulating agents quite limited. His preferred that he not get IV iron in the past. At this point, it would be my opinion that only supportive and comfort measures be administered assuming this is the continued preference of his . Thank you for giving me the opportunity to see this very fine gentleman. (3) Acute renal failure: (4) Anemia in chronic kidney disease (CKD): (5) COVID-19 virus infection: History of Present Illness Attending Physician: Jerica Meng DO History of Present Illness Mr. Hernandez is a patient well-known to me. He was admitted to the hospital from his [facility] because of a relatively rapid decline in his overall status. At the time of admission, he was found to be positive for Covid19. He has a history of factor VIII hemophilia. He has been followed at the [facility] for this problem for many years. Additionally, he has a history of chronic renal disease the etiology of which is unclear. He never had a renal biopsy because of his hemophilia as well as the level of his renal function when he was first referred to nephrology. He also has a history of benign prostatic hypertrophy. He has had elevated PSAs. However, urology did not feel that a prostate biopsy was in order, again, because of his hemophilia. However, he has had no evidence of an obstructive uropathy and no evidence of renovascular disease. His other significant medical illness is 1 of coronary artery disease for which he underwent an angioplasty and the deployment of a stent in the past. More recently, he has had a slow decline in his renal function. He has had a significant anemia that has been disproportionate to his level of renal function. His serum creatinine, at least until recently, was generally in the range of 2 to 3 mg/Jeanine. Initially, his anemia did respond to erythrocyte stimulating agents. However, he was also noted to be significantly iron depleted with very low ferritin levels and a very low transferrin saturation. However, his preferred that he not be given IV iron. He has taken oral iron for quite some time. The etiology of his iron deficiency is presumably blood loss related to trauma and his hemophilia. He has had no obvious symptoms of GI blood loss. Over the course of the past year to 2 years he has had a progressive functional and cognitive decline. This has been attributed to Alzheimer's dementia although it could well be vascular dementia. Nonetheless, the patient's and family found it increasingly difficult to care for him at home and he has subsequently been transferred to a [facility] for continued care and support. Apparently, he has had a more acute decline in his functional status of late. When he presented, his creatinine was in excess of 5 and his BUN in excess of 100. He was significantly anemic with a hemoglobin as low as 6.6. He is now being transfused. His and family have requested that he be a DNR candidate. Additionally, they have refused aggressive interventions particularly over the course of the past 6 months. Allergies Allergy/AdvReac Type Severity Reaction Status Date / Time adhesive Allergy Unknown BANDAID-SKIN Verified 04/27/20 11:21 IRRITATION antihemophilic factor Allergy Unknown reaction Verified 04/27/20 11:21 (FVIII) rec, full length to recombinate products made in hamster, mice antihemophilic factor VIII, Allergy Unknown Verified 04/27/20 11:21 human recombinant [From Recombinate] codeine Allergy Unknown SOB/ N/V Verified 04/27/20 11:21 homatropine Allergy Unknown UNKNOWN Unverified 04/27/20 11:21 Horse/Equine Containing Allergy Unknown ILLNESS-ALMOST Unverified 04/27/20 11:21 Products IN S hydrocodone Allergy Unknown UNKNOWN Unverified 04/27/20 11:21 niacin Allergy Unknown SKIN FLUSH Unverified 04/27/20 11:21 tetanus toxoid, adsorbed Allergy Unknown ILLNESS-ALMOST Verified 04/27/20 11:21 IN 1949'S Home Medications Medication Instructions Recorded Confirmed Type brimonidine 0.2 % eye drops 1 drops OP TID ml 01/26/19 04/27/20 History dorzolamide 2 % eye drops 1 drops OP TID ml 01/26/19 04/27/20 History latanoprost 0.005 % eye drops 1 drops OP DAILY ml 01/26/19 04/27/20 History nitroglycerin 0.4 mg sublingual 0.4 mg SL Q5M PRN #25 tab 01/26/19 04/27/20 History tablet acetaminophen [Tylenol Extra 1,000 mg PO Q6H PRN 01/29/19 04/27/20 History Strength] aspirin 81 mg PO DAILY 01/29/19 04/27/20 History allopurinol 100 mg tablet 200 mg PO DAILY #180 tab 07/09/19 04/27/20 Rx beclomethasone dipropionate 80 2 puffs INHALATION BID #31.8 gm 07/29/19 04/27/20 Rx mcg/actuation HFA breath activated aerosol esomeprazole magnesium 40 mg 40 mg PO DAILY #90 cap 07/29/19 04/27/20 Rx capsule,delayed release memantine 10 mg tablet 10 mg PO BID #180 tab 12/16/19 04/27/20 Rx isosorbide mononitrate 30 mg See Rx Instructions .ROUTE 12/20/19 04/27/20 Rx tablet,extended release 24 hr .COMPLEX #180 tab ranolazine 500 mg tablet,extended 500 mg PO BID #180 tab 03/07/20 04/27/20 Rx release,12 hr carvedilol 3.125 mg tablet 3.125 mg PO BID #180 tab 03/13/20 04/27/20 Rx metolazone 5 mg tablet 5 mg PO .QOD #90 tab 04/04/20 04/27/20 Rx olanzapine 2.5 mg PO HS 30 Days #30 tab 04/17/20 04/27/20 Rx polyethylene glycol 3350 [Miralax] 17 g PO DAILY 30 Days #30 ea 04/17/20 04/27/20 Rx temazepam 15 mg capsule 15 mg PO .qhs #30 cap 04/21/20 04/27/20 Rx Patient History Medical History (Updated 04/28/20 @ 10:01 by Quin Saunders MD) Carpal tunnel syndrome, bilateral Clear cell carcinoma of kidney See [facility] note- 11/19/17 Diaphragmatic hernia Disc degeneration, lumbar Diverticulosis Dupuytren's contracture Fall Gout History of rib fracture Hx of hepatitis C See Dr. Yoder's note 06/10/2011 Sciatica, right side Septic arthritis Sleep apnea Wears CPAP Solitary thyroid nodule Spinal stenosis in cervical region Testicular hypofunction Surgical History Hx of cataract surgery Hx of cholecystectomy Hx of shoulder surgery S/P coronary artery stent placement Stented coronary artery Family History Other No significant family history Social History Smoking Status: Unknown if ever smoked Second Hand Exposure: No; Hx Alcohol Use: No Hx Substance Use: No Preferred Language: Panamanian Communication Ability: Impaired Inventory Control Analyst Required: No Beliefs That Will Affect Care: None Current Living Situation: Personal Care Facility Current Living Situation Comment: [facility] Feels Safe at Home: Yes Assistive Devices: None Physical Exam Physical Exam: When seen by me, Mr. Hernandez was lying apparently comfortably in bed. He was difficult to arouse. He has been a very poor historian for the past 1 to 2 years. His blood pressure today was 129/58 with a pulse of 63 and regular. Respiratory rate was 20. His pulse ox 96% on room air. His respiratory rate is 20. His skin showed diffuse chronic skin discoloration from previous subcutaneous hemorrhage. He did have a few scattered ecchymoses that would appear to be more recent. Skin turgor is somewhat diminished. There is no palpable lymphadenopathy. His head is grossly normal. Eyes are grossly normal. The fundi were not examined. Ears, nose, mouth and throat are unremarkable. I could not get a good look at his oral mucous membranes. His neck is supple. He has no obvious jugular venous distention. I hear no carotid bruit and there is no thyromegaly. His chest was clear to auscultation. Cardiac exam showed a regular rhythm. His abdomen is nontender. There is no obvious organomegaly or mass. He has no peripheral edema. On neurologic exam he was somewhat obtunded and I could not get him to respond at all to my questions. He had no obvious lateralizing changes. Results & Data ([facility]) Vital Signs (Past 12 Hours) Vital Signs Temp Pulse Pulse Resp BP BP Pulse Ox 04/28/20 11:25 36.8 C 63 20 129/58 L 96 04/28/20 10:25 36.5 C 69 19 150/57 H 97 04/28/20 09:25 36.9 C 59 L 16 100/44 L 97 04/28/20 08:55 36.6 C 60 19 106/52 L 95 04/28/20 08:40 36.9 C 60 18 91/48 L 96 04/28/20 08:25 36.6 C 68 20 145/63 H 99 04/28/20 07:59 36.6 C 68 20 145/63 H 99 04/28/20 06:30 36.5 C 63 141/63 H 95 04/28/20 05:46 36.5 C 63 141/63 H 95 04/28/20 05:16 60 107/44 L 94 04/28/20 05:01 60 98/53 L 98 04/28/20 05:00 36.8 C 59 L 120/65 98 04/28/20 04:38 36.5 C 67 134/93 91 04/28/20 03:52 37.2 C 60 20 102/44 L 96 PG Care Time/CCT Total # of Minutes Spent Total Time Spent with Patient: Total time spent is greater than 50% in coordination of care (as documented) at patient's floor/unit and/or counseling patient: Coding Level of Care Code 21327 Inpt Consult Level 4 Diagnoses Factor VIII deficiency hemophilia D66 Chronic renal insufficiency N18.9 Acute renal failure N17.9 Acute renal failure type: unspecified Anemia in chronic kidney disease (CKD) N18.9; D63.1 Chronic kidney disease stage: unspecified stage COVID-19 virus infection U07.1 (1) Acute renal failure Acute renal failure type: unspecified Qualified Code(s): N17.9 - Acute kidney failure, unspecified (2) Anemia in chronic kidney disease (CKD) Chronic kidney disease stage: unspecified stage Qualified Code(s): N18.9 - Chronic kidney disease, unspecified; D63.1 - Anemia in chronic kidney disease
[2020-04-28 12:49] LABS: Hemoglobin 8.7 g/dL (14.0-18.0); Mean Corpuscular Hemoglobin 27.7 pg (25-34); Mean Corpuscular Hgb Conc 32.2 g/dL (32-36); Mean Platelet Volume 11.4 fL (7.4-10.4); Platelet Count 114 K/uL (130-400); RDW Coefficient of Variation 18.9 % (11.5-14.5); RDW Standard Deviation 58.7 fL (36.4-46.3); Red Blood Count 3.14 M/uL (4.7-6.1); White Blood Count 4.21 K/uL (4.8-10.8)
[2020-04-28 13:15] LABS: Basophils # (auto) 0.01 K/uL (0-0.2); Basophils % (auto) 0.2 %; Echinocytes 1+; Immature Granulocytes # (auto) 0.02 K/uL (0.00-0.02); Immature Granulocytes % (auto) 0.5 %; Lymphocytes % (auto) 9.5 %; Monocytes # (auto) 0.36 K/uL (0.11-0.59); Monocytes % (auto) 8.6 %; Neutrophils # (auto) 3.42 K/uL (1.4-6.5); Neutrophils % (auto) 81.2 %; Ovalocytes 1+; Poikilocytosis Present
[2020-04-28 13:25] LABS: BUN Creatinine Ratio 20.2 (10-20); Calcium 8.1 mg/dl (8.5-10.1); Creatinine Clr Calc Pharmacy 11.2 ml/min; Est GFR (African American) 12.2; Est GFR (Non-African American) 10.5; Potassium 3.4 mmol/L (3.5-5.1); Troponin I 1.45 ng/ml (0-0.045)
--- NOTE | 2020-04-28 17:15 | Hospitalist Progress Note ---
Date of Service April 28, 2020 Assessment & Plan (1) COVID-19 virus infection: Pneumonia present on CT scan, no hypoxia--no decadron given. 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 Remdesivir not indicated in renal failure patient-also no increased oxygen needs. Cont supportive care. Follow CRP, procalcitonin to monitor for changes. Consider steroids if patient becomes hypoxic (2) Pneumonia: broad spectrum antibiotic coverage pending culture results. (3) Acute kidney injury superimposed on CKD: Suspect multi-factorial, including component of dehydration. IVf held with recent blood administration. No increased respiratory distress and he ap pears to have handled that volume well. Will cont with some IVF now with some free water added in setting of NPO delirious patient with a Na 147. (4) Recurrent falls: Multiple areas of ecchymosis on exam but no fractures on imaging. Once medical condition more stable, would consider PT/OT (5) Dementia: Per pt's , this has been progressive. During last admission, it was decided that family could no longer keep pt safe at home so he was discharged from [facility] to [facility] a few weeks ago. Pt's is aware of pt's overall poor prognosis and progressive cognitive decline so she requests more conservative management and that we "keep him comfortable." Consult palliative care to assist with goals of care and further planning. (6) CAD (coronary artery disease): Elevated troponin with EKG changes on presentation. Possibly related to covid infection in setting of known h/o CAD. Per , pt has had a stent placed previously and was told that there are "multiple blockages" but that with the history of hemophilia they would not do additional stents here. -serial trops with elevation and peak overnight -peripherally discussed case with cardiology who does not recommend pursuing cardiac intervention or workup further at this time. (Pt is known to this group from outpatient encounters). Restart PO meds when able. (7) GERD (gastroesophageal reflux disease): On PPI therapy as outpatient - will continue IV Pepcid and transition back to oral PPI (8) Hypertension: acceptable. Attempt to improve pain control with higher dose scheduled Tylenol, PRN pain meds. May require intravenous antihypertensives. Cont PCU monitoring. (9) Hematoma of right thigh: Likely related to recurrent falls, scheduled Tylenol to help with pain (grimacing with movement and coreen delirium present) (10) Sleep apnea: Uses CPAP at HS - will continue (11) Anemia in chronic kidney disease (CKD): Pt was on Aranesp previously but this was stopped several weeks ago as family felt this was more in line with aggressive measures that pt would not want and they did not notice significant benefit required 2 units pRBC this morning. 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 (14) DVT prophylaxis: SCDs. chemoprophy contraindicated in setting of acutely worse anemia and hematoma DNR Dispo-cont supportive care and plan as above with close PCU monitoring for now. Updated by phone. Jerica Meng DO [facility] Hospitalist Admission and Anticipated Discharge Date Admission Date: April 27, 2020 Review of Systems Review of Systems: Other (pt is mumbling and has a dry mouth with difficulty articulating, appears deliriuous) Physical Exam Physical Exam: CONSTITUTIONAL: thin, frail, vitals as above, generally ill- appearing and weak EYES: normal conjunctivae, no scleral icterus ENT: external ear and nose normal, oral mucous membranes very dry. RESPIRATORY: coarse rhonchi throughout, no rales or wheezes, normal respiratory effort CARDIOVASCULAR: regular rate and rhythm, S1 and 2 heard without murmurs, gallops or rubs, no JVD, no peripheral edema, no carotid bruits GASTROINTESTINAL: soft, nontender, nondistended, no guarding MUSCULOSKELETAL: very weak generally, grimaces with any minimal movements. SKIN: warm and dry NEUROLOGIC: fatigued, confused Results & Data Results & Data ([facility]) Vital Signs (Past 12 Hours) Vital Signs Temp Pulse Pulse Resp BP BP Pulse Ox 04/28/20 15:44 36.9 C 72 18 154/82 H 99 04/28/20 11:25 36.8 C 63 20 129/58 L 96 04/28/20 10:25 36.5 C 69 19 150/57 H 97 04/28/20 09:25 36.9 C 59 L 16 100/44 L 97 04/28/20 08:55 36.6 C 60 19 106/52 L 95 04/28/20 08:40 36.9 C 60 18 91/48 L 96 04/28/20 08:25 36.6 C 68 20 145/63 H 99 04/28/20 07:59 36.6 C 68 20 145/63 H 99 04/28/20 06:30 36.5 C 63 141/63 H 95 04/28/20 05:46 36.5 C 63 141/63 H 95 04/28/20 05:16 60 107/44 L 94 Laboratory Results Short CBC 04/27/20 04/28/20 Range/Units 23:37 12:15 WBC 4.21 L (4.8-10.8) K/uL Hgb 6.6 L* 8.7 L (14.0-18.0) g/dL Hct 20.1 L* 27.0 L (42-52) % Plt Count 114 L (130-400) K/uL BMP 04/28/20 12:15 Sodium 147 H Potassium 3.4 L Chloride 116 H Carbon Dioxide 20 L BUN 98 H Creatinine 4.88 H* D Glucose 94 Calcium 8.1 L Cardiac Enzymes 04/27/20 04/27/20 04/28/20 Range/Units 17:05 23:37 12:15 Troponin I 0.875 H* 1.950 H* 1.450 H* (0-0.045) ng/ml 04/28/20 Range/Units 12:15 Troponin I Cancelled (0-0.045) ng/ml Medications Administered Current Inpatient Medications Brimonidine Tartrate (Brimonidine Tartrate 0.2% 5ml) 1 drops OP TID [facility] Stop: 05/27/20 20:59 Last Admin: 04/28/20 16:02 Dose: 1 drops Documented by: Carvedilol (Carvedilol 3.125 Mg Tab) 3.125 mg PO BIDM [facility] Stop: 05/27/20 17:14 Last Admin: 04/28/20 16:36 Dose: Not Given Documented by: Dorzolamide HCl (Dorzolamide Hcl 2% Oph Soln 10 Ml Btl) 1 drops OP TID [facility] Stop: 05/27/20 20:59 Last Admin: 04/28/20 16:03 Dose: 1 drops Documented by: Fluticasone Furoate (Fluticasone Furoate 200mcg 14 Puffs/Inhaler) 1 puffs INH DAILY [facility]; Protocol Stop: 05/28/20 08:59 Last Admin: 04/28/20 10:57 Dose: Not Given Documented by: Hydromorphone HCl (Hydromorphone Inj 0.5 Mg/0.5 Ml Syr) 0.25 mg IV Q6H PRN PRN Reason: Pain Stop: 05/12/20 00:51 Last Admin: 04/28/20 08:26 Dose: 0.25 mg Documented by: Piperacillin Sod/Tazobactam (Sod 3.375 gm/ Dextrose) 115 mls @ 28.75 mls/hr IV Q12H [facility]; Protocol Stop: 05/04/20 21:59 Last Infusion: 04/28/20 16:36 Dose: Infused Documented by: Famotidine 20 mg/ Syringe 5 mls @ 2.5 mls/min IV QD@08 [facility] Stop: 05/28/20 07:59 Last Admin: 04/28/20 09:28 Dose: 2.5 mls/min Documented by: Acetaminophen (Ofirmev) 1,000 mg in 100 mls @ 400 mls/hr IV Q8H [facility] Stop: 05/01/20 17:14 Influenza Virus Vaccine (Influenza Vaccine High Dose 65+ 0.7 Ml Syr) 0.7 ml IM .ONCE ONE Stop: 04/29/20 17:59 Isosorbide Mononitrate (Isosorbide [place] Extended Rel 30 Mg Tabcr) 30 mg PO BID [facility] Stop: 05/27/20 20:59 Last Admin: 04/28/20 10:57 Dose: Not Given Documented by: Latanoprost (Latanoprost 0.005% Op Soln 2.5 Ml Btl) 1 drops OP DAILY [facility] Stop: 05/28/20 08:59 Last Admin: 04/28/20 10:59 Dose: Not Given Documented by: Memantine (Memantine Hcl 10 Mg Tab) 10 mg PO BID [facility] Stop: 05/27/20 20:59 Last Admin: 04/28/20 10:59 Dose: Not Given Documented by: Miscellaneous Information (Piperacill/Tazobac Consult Active) 1 ea N/A UD PRN PRN Reason: Consult Stop: 05/27/20 15:12 Olanzapine (Olanzapine 2.5 Mg Tab) 2.5 mg PO HS [facility] Stop: 05/27/20 20:59 Last Admin: 04/27/20 21:12 Dose: 2.5 mg Documented by: Pneumococcal Polyvalent Vaccine (Pneumococcal Polysaccharides 25 Mcg/0.5 Ml Vial/Syr) 25 mcg IM .ONCE ONE Stop: 04/29/20 17:59 Ranolazine (Ranolazine 500 Mg Er Tab) 500 mg PO BID [facility] Stop: 05/27/20 20:59 Last Admin: 04/28/20 10:59 Dose: Not Given Documented by: Temazepam (Temazepam 15 Mg Capsule) 15 mg PO HS [facility] Stop: 05/27/20 20:59 Last Admin: 04/27/20 21:17 Dose: 15 mg Documented by: (1) Hematoma of right thigh Encounter type: initial encounter Qualified Code(s): S70.11XA - Contusion of right thigh, initial encounter (2) Dementia Alzheimer's disease onset: early-onset Dementia behavioral disturbance: with behavioral disturbance Dementia type: Alzheimer's disease Qualified Code(s): G30.0 - Alzheimer's disease with early onset; F02.81 - Dementia in other diseases classified elsewhere with behavioral disturbance (3) Anemia in chronic kidney disease (CKD) Chronic kidney disease stage: unspecified stage Qualified Code(s): N18.9 - Chronic kidney disease, unspecified; D63.1 - Anemia in chronic kidney disease (4) GERD (gastroesophageal reflux disease) Esophagitis presence: esophagitis presence not specified Qualified Code(s): K21.9 - Gastro-esophageal reflux disease without esophagitis (5) Hypertension Hypertension type: essential hypertension Qualified Code(s): I10 - Essential (primary) hypertension (6) Pneumonia Laterality: bilateral Lung location: unspecified part of lung Pneumonia type: due to unspecified organism Qualified Code(s): J18.9 - Pneumonia, unspecified organism
[2020-04-28] MEDS: D5W AND 1/2NSS 1,000 ML IV SCH (18:04)
[2020-04-28] MEDS: ACETAMINOPHEN 1,000 MG/100 ML VIAL IV SCH (18:05)
--- NOTE | 2020-04-28 23:06 | Electrocardiogram Report ---
Test Reason : Blood Pressure : / mmHG Vent. Rate : 082 BPM Atrial Rate : 082 BPM P-R Int : 200 ms QRS Dur : 118 ms QT Int : 438 ms P-R-T Axes : 061 058 041 degrees QTc Int : 511 ms Poor data quality, interpretation may be adversely affected Sinus rhythm with Premature atrial complexes Incomplete right bundle branch block Abnormal ECG When compared with ECG of 09-APR-2020 18:20, ST now depressed in Anterolateral leads T wave inversion now evident in Anterolateral leads Confirmed by Sean Nichols ([id number]) on 04/28/2020 11:06:03 PM Referred By: REFERRED SELF Confirmed By:Sean Nichols
[2020-04-28] MEDS: OLANZAPINE 2.5 MG TAB PO SCH (23:51)
[2020-04-28] MEDS: TEMAZEPAM 15 MG CAPSULE PO SCH (23:51)
[2020-04-29] MEDS: ACETAMINOPHEN 1,000 MG/100 ML VIAL IV SCH ×3 (02:38→17:25)
[2020-04-29] MEDS: D5W AND 1/2NSS 1,000 ML IV SCH ×3 (02:39→17:26)
[2020-04-29 08:34] LABS: Hematocrit (blood only) 30.9 % (42-52); Mean Corpuscular Hemoglobin 27.7 pg (25-34); Mean Corpuscular Hgb Conc 32.4 g/dL (32-36); Mean Corpuscular Volume 85.6 fL (80-100); Platelet Count 153 K/uL (130-400); RDW Coefficient of Variation 19.2 % (11.5-14.5); RDW Standard Deviation 60.9 fL (36.4-46.3); Red Blood Count 3.61 M/uL (4.7-6.1); White Blood Count 4.44 K/uL (4.8-10.8)
[2020-04-29 09:11] LABS: BUN Creatinine Ratio 18.3 (10-20); Calcium 8.7 mg/dl (8.5-10.1); Creatinine Clr Calc Pharmacy 12.6 ml/min; Est GFR (Non-African American) 12.1; Potassium 3.3 mmol/L (3.5-5.1)
[2020-04-29 09:13] LABS: C Reactive Protein 5.81 mg/dl (0-0.29)
[2020-04-29] MEDS: carvediloL 3.125 MG TAB PO SCH ×2 (09:37→16:16)
[2020-04-29] MEDS: HYDROmorphone INJ 0.5 MG/0.5 ML SYR IV PRN ×3 (09:37→22:23)
[2020-04-29] MEDS: FAMOTIDINE 20 MG in SYRINGE 3 ML IV SCH (09:39)
[2020-04-29] MEDS: RANOLAZINE 500 MG ER TAB PO SCH ×2 (09:39→22:36)
[2020-04-29] MEDS: MEMANTINE HCL 10 MG TAB PO SCH ×2 (09:39→22:36)
[2020-04-29] MEDS: ISOSORBIDE MONO EXTENDED REL 30 MG TABCR PO SCH ×2 (09:39→22:36)
[2020-04-29] MEDS: DORZOLAMIDE HCL 2% OPH SOLN 10 ML BTL OP SCH ×3 (09:40→22:36)
[2020-04-29] MEDS: FLUTICASONE FUROATE 200MCG 14 PUFFS/INHALER INH SCH (09:40)
[2020-04-29] MEDS: LATANOPROST 0.005% OP SOLN 2.5 ML BTL OP SCH (09:41)
[2020-04-29] MEDS: BRIMONIDINE TARTRATE 0.2% 5ML OP SCH ×3 (09:41→22:35)
[2020-04-29] MEDS: PIPERACILLIN/TAZOBACTAM 3.375 GM in DEXTROSE 5% 100 ML IV SCH ×2 (09:41→22:58)
[2020-04-29] MEDS ORDERED: PNEUMOCOCCAL POLYSACCHARIDES 25 MCG/0.5 ML VIAL/SYR IM ONE (17:58)
[2020-04-29] MEDS ORDERED: PNEUMOCOCCAL ADMINISTRATION CHARGE ONE (17:58)
[2020-04-29] MEDS ORDERED: INFLUENZA VACCINE HIGH DOSE 65+ 0.7 ML SYR IM ONE (17:58)
[2020-04-29] MEDS ORDERED: INFLUENZA ADMINISTRATION CHARGE ONE (17:58)
--- NOTE | 2020-04-29 18:26 | Hospitalist Progress Note ---
Date of Service April 29, 2020 Assessment & Plan (1) COVID-19 virus infection: Pneumonia present on CT scan, no hypoxia--although he doesn't exactly qualify for the steroids, he does have an elevated CRP and may benefit somewhat from this therapy. This may cause increased confusion/agitation so will watch closely for development of this. 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 Remdesivir not indicated in renal failure patient-also no increased oxygen needs. Cont supportive care. Follow CRP, procalcitonin to monitor for changes. (2) Pneumonia: broad spectrum antibiotic coverage pending culture results. (3) UTI (urinary tract infection): Pansensitive proteus, covered with current abx therapy. (4) Acute metabolic encephalopathy: multifactorial and 2/2 pulm and bladder infections. (5) Acute kidney injury superimposed on CKD: Suspect multi-factorial, including component of dehydration. IVF currently at 125cc/hr, will decrease rate to 100cc/hr. Improved creatinine with continued hydration efforts. (6) Recurrent falls: Multiple areas of ecchymosis on exam but no fractures on imaging. Once medical condition more stable, would consider PT/OT (7) Dementia: Per pt's , this has been progressive. During last admission, it was decided that family could no longer keep pt safe at home so he was discharged from [facility] to [facility] a few weeks ago. Pt's is aware of pt's overall poor prognosis and progressive cognitive decline so she requests more con servative management and that we "keep him comfortable." Consult palliative care to assist with goals of care and further planning. (8) CAD (coronary artery disease): Elevated troponin with EKG changes on presentation. Possibly related to covid infection in setting of known h/o CAD. Per , pt has had a stent placed previously and was told that there are "multiple blockages" but that with the history of hemophilia they would not do additional stents here. -serial trops with elevation and peak overnight -peripherally discussed case with cardiology who does not recommend pursuing cardiac intervention or workup further at this time. (Pt is known to this group from outpatient encounters). Restart PO meds when able. (9) GERD (gastroesophageal reflux disease): On PPI therapy as outpatient - will continue IV Pepcid and transition back to oral PPI (10) Hypertension: BP currently at goal. Attempt to improve pain control with higher dose scheduled Tylenol, PRN pain meds. May require intravenous antihypertensives. Cont PCU monitoring. (11) Hematoma of right thigh: Likely related to recurrent falls, scheduled Tylenol to help with pain (grimacing with movement and coreen delirium present) (12) Sleep apnea: Uses CPAP at HS - will continue (13) Anemia in chronic kidney disease (CKD): Anemia likely multifactorial 2/2 phlebotomy, recent ecchymosis with falls and anemia of chronic disease. Pt was on Aranesp previously but this was stopped several weeks ago as family felt this was more in line with aggressive measures that pt would not want and they did not notice significant benefit; required 2 units pRBC with appropriate rise in H/H. 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 chemoprophy contraindicated in setting of acutely worse anemia and hematoma/ecchymosis DNR Dispo-cont supportive care and plan as above with close PCU monitoring for now. Updated by phone. Jerica Meng DO [facility] Hospitalist Admission and Anticipated Discharge Date Admission Date: April 27, 2020 Subjective 79 yo M admitted for treatment of COVID pneumonia. h/o recurrent falls patient remains delirious and unable to converse with me today, answer questions or follow instructions. He does appear somewhat brighter, but is still unsafe to feed per nursing staff. Review of Systems Review of Systems: Unobtainable due to mental health condition (delirium) Physical Exam Physical Exam: CONSTITUTIONAL: thin, frail, vitals as above, generally ill-a ppearing and weak EYES: normal conjunctivae, no scleral icterus ENT: external ear and nose normal, oral mucous membranes very dry. RESPIRATORY: occasional rhonchi, appears improved (limited exam as patient unable to follow instructions), no rales or wheezes, normal respiratory effort CARDIOVASCULAR: regular rate and rhythm, S1 and 2 heard without murmurs, gallops or rubs, no JVD, no peripheral edema GASTROINTESTINAL: soft, nontender, nondistended, no guarding MUSCULOSKELETAL: very weak generally, grimaces with any minimal movements. SKIN: warm and dry, ecchymosis of upper right thigh NEUROLOGIC: fatigued, confused Results & Data Results & Data ([facility]) Vital Signs (Past 12 Hours) Vital Signs Temp Pulse Resp BP Pulse Ox 04/29/20 15:19 36.4 C L 67 18 120/66 100 04/29/20 12:10 37.5 C 64 21 119/74 98 04/29/20 08:42 37.3 C 95 H 24 156/82 H 91 Laboratory Results Short CBC 04/29/20 Range/Units 08:05 WBC 4.44 L (4.8-10.8) K/uL Hgb 10.0 L (14.0-18.0) g/dL Hct 30.9 L (42-52) % Plt Count 153 (130-400) K/uL BMP 04/29/20 08:05 Sodium 145 Potassium 3.3 L Chloride 113 H Carbon Dioxide 22 BUN 79 H Creatinine 4.34 H D Glucose 99 Calcium 8.7 Cardiac Enzymes 04/29/20 Range/Units 08:05 Total Creatine Kinase 522 H (39-308) U/L Medications Administered Current Inpatient Medications Brimonidine Tartrate (Brimonidine Tartrate 0.2% 5ml) 1 drops OP TID [facility] Stop: 05/27/20 20:59 Last Admin: 04/29/20 14:01 Dose: 1 drops Documented by: Carvedilol (Carvedilol 3.125 Mg Tab) 3.125 mg PO BIDM [facility] Stop: 05/27/20 17:14 Last Admin: 04/29/20 16:16 Dose: Not Given Documented by: Dorzolamide HCl (Dorzolamide Hcl 2% Oph Soln 10 Ml Btl) 1 drops OP TID [facility] Stop: 05/27/20 20:59 Last Admin: 04/29/20 14:01 Dose: 1 drops Documented by: Fluticasone Furoate (Fluticasone Furoate 200mcg 14 Puffs/Inhaler) 1 puffs INH DAILY [facility]; Protocol Stop: 05/28/20 08:59 Last Admin: 04/29/20 09:40 Dose: Not Given Documented by: Hydromorphone HCl (Hydromorphone Inj 0.5 Mg/0.5 Ml Syr) 0.25 mg IV Q6H PRN PRN Reason: Pain Stop: 05/12/20 00:51 Last Admin: 04/29/20 16:24 Dose: 0.25 mg Documented by: Piperacillin Sod/Tazobactam (Sod 3.375 gm/ Dextrose) 115 mls @ 28.75 mls/hr IV Q12H [facility]; Protocol Stop: 05/04/20 21:59 Last Infusion: 04/29/20 14:01 Dose: Infused Documented by: Famotidine 20 mg/ Syringe 5 mls @ 2.5 mls/min IV QD@08 [facility] Stop: 05/28/20 07:59 Last Admin: 04/29/20 09:39 Dose: 2.5 mls/min Documented by: Acetaminophen (Ofirmev) 1,000 mg in 100 mls @ 400 mls/hr IV Q8H [facility] Stop: 05/01/20 17:59 Last Infusion: 04/29/20 17:47 Dose: Infused Documented by: Dextrose/Sodium Chloride (D5w And 1/2nss) 1,000 mls @ 100 mls/hr IV .Q10H [facility] Stop: 05/28/20 17:44 Last Admin: 04/29/20 17:26 Dose: 100 mls/hr Documented by: Isosorbide Mononitrate (Isosorbide [place] Extended Rel 30 Mg Tabcr) 30 mg PO BID [facility] Stop: 05/27/20 20:59 Last Admin: 04/29/20 09:39 Dose: Not Given Documented by: Latanoprost (Latanoprost 0.005% Op Soln 2.5 Ml Btl) 1 drops OP DAILY [facility] Stop: 05/28/20 08:59 Last Admin: 04/29/20 09:41 Dose: 1 drops Documented by: Memantine (Memantine Hcl 10 Mg Tab) 10 mg PO BID [facility] Stop: 05/27/20 20:59 Last Admin: 04/29/20 09:39 Dose: Not Given Documented by: Miscellaneous Information (Piperacill/Tazobac Consult Active) 1 ea N/A UD PRN PRN Reason: Consult Stop: 05/27/20 15:12 Olanzapine (Olanzapine 2.5 Mg Tab) 2.5 mg PO HS [facility] Stop: 05/27/20 20:59 Last Admin: 04/28/20 23:51 Dose: Not Given Documented by: Ranolazine (Ranolazine 500 Mg Er Tab) 500 mg PO BID [facility] Stop: 05/27/20 20:59 Last Admin: 04/29/20 09:39 Dose: Not Given Documented by: Temazepam (Temazepam 15 Mg Capsule) 15 mg PO HS [facility] Stop: 05/27/20 20:59 Last Admin: 04/28/20 23:51 Dose: Not Given Documented by: (1) Pneumonia Laterality: bilateral Lung location: unspecified part of lung Pneumonia type: due to unspecified organism Qualified Code(s): J18.9 - Pneumonia, unspecified organism (2) Dementia Alzheimer's disease onset: early-onset Dementia behavioral disturbance: with behavioral disturbance Dementia type: Alzheimer's disease Qualified Code(s): G30.0 - Alzheimer's disease with early onset; F02.81 - Dementia in other diseases classified elsewhere with behavioral disturbance (3) GERD (gastroesophageal reflux disease) Esophagitis presence: esophagitis presence not specified Qualified Code(s): K21.9 - Gastro-esophageal reflux disease without esophagitis (4) Hypertension Hypertension type: essential hypertension Qualified Code(s): I10 - Essential (primary) hypertension (5) Hematoma of right thigh Encounter type: initial encounter Qualified Code(s): S70.11XA - Contusion of right thigh, initial encounter (6) Anemia in chronic kidney disease (CKD) Chronic kidney disease stage: unspecified stage Qualified Code(s): N18.9 - Chronic kidney disease, unspecified; D63.1 - Anemia in chronic kidney disease
[2020-04-29] MEDS: DEXAMETHASONE SOD PHOSPHATE 6 MG in SYRINGE 0 ML IV SCH (20:29)
[2020-04-29] MEDS: POTASSIUM CHLORIDE / WTR 10 MEQ/100 ML PLCT IV SCH ×2 (20:30→21:31)
[2020-04-29] MEDS: OLANZAPINE 2.5 MG TAB PO SCH (22:36)
[2020-04-29] MEDS: TEMAZEPAM 15 MG CAPSULE PO SCH (22:36)
[2020-04-29] MEDS ORDERED: OLANZapine 10 MG/2.1 ML SDV IM PRN (22:42)
[2020-04-29] MEDS ORDERED: LORazepam 0.25 MG/0.5 ML VIAL IV STA (22:44)
[2020-04-29] MEDS ORDERED: HALOPERIDOL LACTATE 5 MG/ML 1 ML VIAL IV STA (22:50)
[2020-04-29] MEDS ORDERED: LORazepam 2 MG/4 ML VIAL ONE (22:50)
[2020-04-30] MEDS: ACETAMINOPHEN 1,000 MG/100 ML VIAL IV SCH ×3 (02:07→17:26)
[2020-04-30] MEDS: D5W AND 1/2NSS 1,000 ML IV SCH ×2 (03:21→13:28)
[2020-04-30 08:47] LABS: Hematocrit (blood only) 29.3 % (42-52); Hemoglobin 9.4 g/dL (14.0-18.0); Mean Corpuscular Hemoglobin 27.6 pg (25-34); Mean Corpuscular Hgb Conc 32.1 g/dL (32-36); Mean Corpuscular Volume 85.9 fL (80-100); Mean Platelet Volume 11.2 fL (7.4-10.4); Platelet Count 122 K/uL (130-400); RDW Standard Deviation 59.9 fL (36.4-46.3); Red Blood Count 3.41 M/uL (4.7-6.1); White Blood Count 2.17 K/uL (4.8-10.8)
[2020-04-30 09:14] LABS: BUN Creatinine Ratio 18.4 (10-20); C Reactive Protein 5.8 mg/dl (0-0.29); Calcium 8.3 mg/dl (8.5-10.1); Creatinine Clr Calc Pharmacy 16.7 ml/min; Est GFR (Non-African American) 16.4; Potassium 3.7 mmol/L (3.5-5.1)
[2020-04-30] MEDS: HYDROmorphone INJ 0.5 MG/0.5 ML SYR IV PRN ×2 (10:16→21:49)
[2020-04-30] MEDS: FAMOTIDINE 20 MG in SYRINGE 3 ML IV SCH (10:16)
[2020-04-30] MEDS: PIPERACILLIN/TAZOBACTAM 3.375 GM in DEXTROSE 5% 100 ML IV SCH ×2 (10:16→22:26)
[2020-04-30] MEDS: DEXAMETHASONE SOD PHOSPHATE 6 MG in SYRINGE 0 ML IV SCH (10:17)
[2020-04-30] MEDS: DORZOLAMIDE HCL 2% OPH SOLN 10 ML BTL OP SCH ×2 (10:17→13:28)
[2020-04-30] MEDS: RANOLAZINE 500 MG ER TAB PO SCH (10:18)
[2020-04-30] MEDS: carvediloL 3.125 MG TAB PO SCH ×2 (10:18→13:28)
[2020-04-30] MEDS: BRIMONIDINE TARTRATE 0.2% 5ML OP SCH ×2 (10:18→13:28)
[2020-04-30] MEDS: ISOSORBIDE MONO EXTENDED REL 30 MG TABCR PO SCH (10:18)
[2020-04-30] MEDS: MEMANTINE HCL 10 MG TAB PO SCH (10:18)
[2020-04-30] MEDS: LATANOPROST 0.005% OP SOLN 2.5 ML BTL OP SCH (10:18)
[2020-04-30] MEDS: FLUTICASONE FUROATE 200MCG 14 PUFFS/INHALER INH SCH (10:18)
--- NOTE | 2020-04-30 13:34 | Hospitalist Progress Note ---
Date of Service April 30, 2020 Assessment & Plan (1) COVID-19 virus infection: Pneumonia present on CT scan, no hypoxia--although he doesn't exactly qualify for the steroids, he does have an elevated CRP and may benefit somewhat from this therapy. This may cause increased confusion/agitation so will watch closely for development of this. 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 Remdesivir not indicated in renal failure patient-also no increased oxygen needs. Cont supportive care. Follow CRP, procalcitonin to monitor for changes. (2) Pneumonia: broad spectrum antibiotic coverage as it is possible to have superimposed bacterial infection. (3) UTI (urinary tract infection): Pansensitive proteus, covered with current abx therapy. (4) Acute metabolic encephalopathy: multifactorial and 2/2 pulm and bladder infections. (5) Myocardial infarction type 2: elevated troponin, EKG changes. Known history of severe disease. Stress on cardiac system from infections above. No planned cardiac intervention. Cont medical management. (6) Acute kidney injury superimposed on CKD: Suspect multi-factorial, including component of dehydration. IVF currently at 125cc/hr, will decrease rate to 100cc/hr. Improved creatinine with continued hydration efforts. (7) Recurrent falls: Multiple areas of ecchymosis on exam but no fractures on imaging. Once medical condition more stable, would consider PT/OT (8) Dementia: Per pt's , this has been progressive. During last admission, it was decided that family could no longer keep pt safe at home so he was discharged from [facility] to [facility] a few weeks ago. Pt's is aware of pt's overall poor prognosis and progressive cognitive decline so she requests more conservative management and that we "keep him comfortable." Consult palliative care to assist with goals of care and further planning. (9) CAD (coronary artery disease): Elevated troponin with EKG changes on presentation. Possibly related to covid infection in setting of known h/o CAD. Per , pt has had a stent placed previously and was told that there are "multiple blockages" but that with the history of hemophilia they would not do additional stents here. -serial trops with elevation and peak overnight -peripherally discussed case with cardiology who does not recommend pursuing cardiac intervention or workup further at this time. (Pt is known to this group from outpatient encounters). Restart PO meds when able. Likely litigation claim representative of a Type II AK as listed above. (10) GERD (gastroesophageal reflux disease): On PPI therapy as outpatient - will continue IV Pepcid and transition back to oral PPI (11) Hypertension: BP currently at goal. Attempt to improve pain control with higher dose scheduled Tylenol, PRN pain meds. May require intravenous antihypertensives. Cont PCU monitoring. (12) Hematoma of right thigh: Likely related to recurrent falls, scheduled Tylenol to help with pain (grimacing with movement and coreen delirium present) (13) Sleep apnea: Uses CPAP at HS - will continue (14) Anemia in chronic kidney disease (CKD): Anemia likely multifactorial 2/2 phlebotomy, recent ecchymosis with falls and anemia of chronic disease. Pt was on Aranesp previously but this was stopped several weeks ago as family felt this was more in line with aggressive measures that pt would not want and they did not notice significant benefit; required 2 units pRBC with appropriate rise in H/H. 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 chemoprophy contraindicated in setting of acutely worse anemia and hematoma/ecchymosis DNR Dispo-cont supportive care and plan as above with close PCU monitoring for now. Jerica Meng DO [facility] Hospitalist Admission and Anticipated Discharge Date Admission Date: April 27, 2020 Subjective 79 yo M admitted for treatment of COVID pneumonia. h/o recurrent falls patient remains delirious and unable to converse with me today, answer questions or follow instructions. He is able to correctly answer "i don't know" but that is all he will say and he only said it once or twice. Review of Systems Review of Systems: Unobtainable due to cognitive status Physical Exam Physical Exam: CONSTITUTIONAL: thin, frail, vitals as above, generally ill- appearing and weak EYES: normal conjunctivae, no scleral icterus ENT: external ear and nose normal, mucous membranes moist. RESPIRATORY: occasional rhonchi, appears improved (limited exam as patient unable to follow instructions), no rales or wheezes, normal respiratory effort CARDIOVASCULAR: regular rate and rhythm, S1 and 2 heard without murmurs, gallops or rubs, no JVD, no peripheral edema GASTROINTESTINAL: soft, nontender, nondistended, no guarding MUSCULOSKELETAL: very weak generally, grimaces with any minimal movements. SKIN: warm and dry, ecchymosis of upper right thigh NEUROLOGIC: fatigued, confused Results & Data Results & Data ([place]) Vital Signs (Past 12 Hours) Vital Signs Temp Pulse Pulse Resp BP BP Pulse Ox 04/30/20 11:14 36.5 C 61 16 139/78 98 04/30/20 07:42 36.4 C L 69 20 153/80 H 100 04/30/20 04:48 73 18 97 04/30/20 03:53 36 C L 75 18 150/70 H 100 Laboratory Results Short CBC 04/30/20 Range/Units 07:47 WBC 2.17 L (4.8-10.8) K/uL Hgb 9.4 L (14.0-18.0) g/dL Hct 29.3 L (42-52) % Plt Count 122 L (130-400) K/uL BMP 04/30/20 07:47 Sodium 143 Potassium 3.7 Chloride 113 H Carbon Dioxide 22 BUN 62 H Creatinine 3.37 H D Glucose 201 H Calcium 8.3 L Medications Administered Current Inpatient Medications Brimonidine Tartrate (Brimonidine Tartrate 0.2% 5ml) 1 drops OP TID [facility] Stop: 05/27/20 20:59 Last Admin: 04/30/20 13:28 Dose: 1 drops Documented by: Carvedilol (Carvedilol 3.125 Mg Tab) 3.125 mg PO BIDM [facility] Stop: 05/27/20 17:14 Last Admin: 04/30/20 13:28 Dose: Not Given Documented by: Dorzolamide HCl (Dorzolamide Hcl 2% Oph Soln 10 Ml Btl) 1 drops OP TID [facility] Stop: 05/27/20 20:59 Last Admin: 04/30/20 13:28 Dose: 1 drops Documented by: Fluticasone Furoate (Fluticasone Furoate 200mcg 14 Puffs/Inhaler) 1 puffs INH DAILY [facility]; Protocol Stop: 05/28/20 08:59 Last Admin: 04/30/20 10:18 Dose: Not Given Documented by: Hydromorphone HCl (Hydromorphone Inj 0.5 Mg/0.5 Ml Syr) 0.25 mg IV Q6H PRN PRN Reason: Pain Stop: 05/12/20 00:51 Last Admin: 04/30/20 10:16 Dose: 0.25 mg Documented by: Piperacillin Sod/Tazobactam (Sod 3.375 gm/ Dextrose) 115 mls @ 28.75 mls/hr IV Q12H [facility]; Protocol Stop: 05/04/20 21:59 Last Infusion: 04/30/20 13:29 Dose: Infused Documented by: Famotidine 20 mg/ Syringe 5 mls @ 2.5 mls/min IV QD@08 [facility] Stop: 05/28/20 07:59 Last Admin: 04/30/20 10:16 Dose: 2.5 mls/min Documented by: Acetaminophen (Ofirmev) 1,000 mg in 100 mls @ 400 mls/hr IV Q8H [facility] Stop: 05/01/20 17:59 Last Infusion: 04/30/20 10:35 Dose: Infused Documented by: Dextrose/Sodium Chloride (D5w And 1/2nss) 1,000 mls @ 100 mls/hr IV .Q10H [facility] Stop: 05/28/20 17:44 Last Admin: 04/30/20 13:28 Dose: 100 mls/hr Documented by: Dexamethasone Sodium Phosphate (6 mg/ Syringe) 1.5 mls @ 1 mls/min IV DAILY [facility] Stop: 05/29/20 18:44 Last Admin: 04/30/20 10:17 Dose: 1 mls/min Documented by: Isosorbide Mononitrate (Isosorbide Schleicher Extended Rel 30 Mg Tabcr) 30 mg PO BID [facility] Stop: 05/27/20 20:59 Last Admin: 04/30/20 10:18 Dose: Not Given Documented by: Latanoprost (Latanoprost 0.005% Op Soln 2.5 Ml Btl) 1 drops OP DAILY [facility] Stop: 05/28/20 08:59 Last Admin: 04/30/20 10:18 Dose: 1 drops Documented by: Memantine (Memantine Hcl 10 Mg Tab) 10 mg PO BID [facility] Stop: 05/27/20 20:59 Last Admin: 04/30/20 10:18 Dose: Not Given Documented by: Miscellaneous Information (Piperacill/Tazobac Consult Active) 1 ea N/A UD PRN PRN Reason: Consult Stop: 05/27/20 15:12 Olanzapine (Olanzapine 2.5 Mg Tab) 2.5 mg PO HS [facility] Stop: 05/27/20 20:59 Last Admin: 04/29/20 22:36 Dose: Not Given Documented by: Ranolazine (Ranolazine 500 Mg Er Tab) 500 mg PO BID [facility] Stop: 05/27/20 20:59 Last Admin: 04/30/20 10:18 Dose: Not Given Documented by: Temazepam (Temazepam 15 Mg Capsule) 15 mg PO HS [facility] Stop: 05/27/20 20:59 Last Admin: 04/29/20 22:36 Dose: Not Given Documented by: (1) Hematoma of right thigh Encounter type: initial encounter Qualified Code(s): S70.11XA - Contusion of right thigh, initial encounter (2) Dementia Alzheimer's disease onset: early-onset Dementia behavioral disturbance: with behavioral disturbance Dementia type: Alzheimer's disease Qualified Code(s): G30.0 - Alzheimer's disease with early onset; F02.81 - Dementia in other diseases classified elsewhere with behavioral disturbance (3) Anemia in chronic kidney disease (CKD) Chronic kidney disease stage: unspecified stage Qualified Code(s): N18.9 - Chronic kidney disease, unspecified; D63.1 - Anemia in chronic kidney disease (4) GERD (gastroesophageal reflux disease) Esophagitis presence: esophagitis presence not specified Qualified Code(s): K21.9 - Gastro-esophageal reflux disease without esophagitis (5) Hypertension Hypertension type: essential hypertension Qualified Code(s): I10 - Essential (primary) hypertension (6) Pneumonia Laterality: bilateral Lung location: unspecified part of lung Pneumonia type: due to unspecified organism Qualified Code(s): J18.9 - Pneumonia, unspecified organism
[2020-04-30] MEDS ORDERED: HALOPERIDOL LACTATE 5 MG/ML 1 ML VIAL IV STA (22:01)
[2020-05-01] MEDS: OLANZAPINE 2.5 MG TAB PO SCH (01:05)
[2020-05-01] MEDS: BRIMONIDINE TARTRATE 0.2% 5ML OP SCH ×2 (01:05→08:32)
[2020-05-01] MEDS: DORZOLAMIDE HCL 2% OPH SOLN 10 ML BTL OP SCH ×2 (01:05→08:32)
[2020-05-01] MEDS: D5W AND 1/2NSS 1,000 ML IV SCH ×2 (01:06→09:22)
[2020-05-01] MEDS: ACETAMINOPHEN 1,000 MG/100 ML VIAL IV SCH ×2 (02:11→09:18)
[2020-05-01] MEDS ORDERED: LORazepam 0.25 MG/0.5 ML VIAL IV STA (02:18)
[2020-05-01] MEDS: FAMOTIDINE 20 MG in SYRINGE 3 ML IV SCH (08:31)
[2020-05-01] MEDS: DEXAMETHASONE SOD PHOSPHATE 6 MG in SYRINGE 0 ML IV SCH (08:32)
[2020-05-01] MEDS: LATANOPROST 0.005% OP SOLN 2.5 ML BTL OP SCH (08:32)
[2020-05-01] MEDS: FLUTICASONE FUROATE 200MCG 14 PUFFS/INHALER INH SCH (08:33)
[2020-05-01] MEDS: HYDROmorphone INJ 0.5 MG/0.5 ML SYR IV PRN (09:13)
[2020-05-01] MEDS ORDERED: OLANZapine 10 MG/2.1 ML SDV IM STA (09:55)
--- NOTE | 2020-05-01 10:22 | Palliative Care Progress Note ---
Date of Service May 01, 2020 Assessment & Plan (1) Palliative care encounter: Mr. David Burton' called me in the office. She was able to find the patients living will that indicating no artificial nutrition. She has full understanding that the patient is declining. I explained how his behavioral disturbances are worsening, requiring medication (Olanzepine) and a 1:1. His expressed that she just wants him to be comfortable and understands that he will eventually pass away when we make a transition to [employer]. Josephine is agreeable to the patient being transitioned to [employer]. We will discontinue all blood work, vital signs, non-essential medications including IV abx or any medications that do not focus on comfort. As patient requiring a 1:1 and having behavioral disturbance, unlikely patient will be able to leave the hospital. Life expectancy days to a week. Offered to do an iPAD visit with Josephine and she declined for now. She will reach out to her children to see if they would like to join for one call. The above has been discussed with nursing, case management and the hospitalist. Update: Mr. David Mcdaniel' nurse messaged me on qliq informing me that she had given him one dose of Morphine and the patient ceased to breathe around 1230. Dr. Meng to pronounce patient. Nursing and myself calling family to offer support. Thank you for allowing us to be involved with this individual. Admission and Anticipated Discharge Date Admission Date: April 27, 2020 Subjective 79 yo M admitted for treatment of COVID pneumonia. h/o recurrent falls patient remains delirious and unable to converse with me today, answer questions or follow instructions. He does appear somewhat brighter, but is still unsafe to feed per nursing staff. Review of Systems Review of Systems: Unobtainable due to cognitive status Physical Exam Physical Exam: deferred due to covid 19 Results & Data ([facility]) Vital Signs (Past 12 Hours) Vital Signs Temp Pulse Resp BP Pulse Ox 05/01/20 07:54 34.8 C L 109 H 26 H 162/97 H 05/01/20 03:28 36.5 C 98 H 17 134/76 98 04/30/20 23:17 36.4 C L 79 17 142/75 H 98 PG Care Time/CCT Total # of Minutes Spent Total Time Spent with Patient: Total time spent is greater than 50% in coordination of care (as documented) at patient's floor/unit and/or counseling patient: 45 Coding Level of Care Code 79098 Subseq Hosp Care Lvl 3 Diagnoses Palliative care encounter Z51.5 Time Spent (min) 45 Time Spent Midlevel Total time spent 45 minutes with > 50% of that time spent discussing goals of care with the patients , providing symptom management, and collaborating with the IDT
[2020-05-01] MEDS: PIPERACILLIN/TAZOBACTAM 3.375 GM in DEXTROSE 5% 100 ML IV SCH (10:24)
[2020-05-01] MEDS ORDERED: MoRPHine SULFATE 2 MG/ML CARP IV PRN (10:33)
[2020-05-01] MEDS ORDERED: OLANZapine 10 MG/2.1 ML SDV IM PRN (10:33)
[2020-05-01 10:39] LABS: BUN Creatinine Ratio 18.8 (10-20); C Reactive Protein 2.99 mg/dl (0-0.29); Calcium 8.6 mg/dl (8.5-10.1); Creatinine Clr Calc Pharmacy 18.7 ml/min; Est GFR (African American) 22.3; Est GFR (Non-African American) 19.3; Magnesium 1.4 mg/dl (1.8-2.4); Potassium 3.3 mmol/L (3.5-5.1)
[2020-05-01 10:40] LABS: Phosphorus 3.9 mg/dl (2.5-4.9)
[2020-05-01 10:48] LABS: Basophils # (auto) 0.01 K/uL (0-0.2); Basophils % (auto) 0.1 %; Echinocytes 1+; Hematocrit (blood only) 31.7 % (42-52); Hemoglobin 10.2 g/dL (14.0-18.0); Immature Granulocytes # (auto) 0.06 K/uL (0.00-0.02); Immature Granulocytes % (auto) 0.4 %; Lymphocytes % (auto) 3.6 %; Mean Corpuscular Hemoglobin 27.4 pg (25-34); Mean Corpuscular Hgb Conc 32.2 g/dL (32-36); Mean Corpuscular Volume 85.2 fL (80-100); Mean Platelet Volume 10.9 fL (7.4-10.4); Monocytes # (auto) 0.29 K/uL (0.11-0.59); Monocytes % (auto) 2.1 %; Neutrophils % (auto) 93.8 %; Ovalocytes 1+; Platelet Count 241 K/uL (130-400); RDW Coefficient of Variation 18.7 % (11.5-14.5); RDW Standard Deviation 57.5 fL (36.4-46.3); Red Blood Count 3.72 M/uL (4.7-6.1); White Blood Count 13.76 K/uL (4.8-10.8)
--- NOTE | 2020-05-01 13:34 | Death Pronouncement Note ---
Date of Service May 01, 2020 Pronouncement Note Admission Date Admission Date: April 27, 2020 Date and Time of Date of : 05/01/20 Time of : 12:30 PCOD Preliminary cause of : COVID-19 Summary Additional details: Patient ceased to breathe at 12:30 PM. PRELIMINARY CAUSE OF : pneumonia secondary to SARS-CoV-2 Additional Data Confirmation of : no pulse, no respirations, no heart sounds and pupils fixed and dilated Attending physician: Jerica Meng DO
--- NOTE | 2020-05-01 14:27 | Discharge Summary ---
Date of Service May 01, 2020 Admission HPI Per Admitting Provider This is a 79 y/o male with a PMH of chronic kidney disease stage III, urinary incontinence, dementia, anemia, sleep apnea, stented coronary artery, SDAT, dyslipidemia, BPH with LUTS, peripheral neuropathy, reactive airway disease, sensory ataxia, CAD, von Willebrand disease, GERD, asthma, hypertension, STEMI, hypomagnesemia and hemophilia who presents to ED via EMS after being found on the floor this morning at [facility] after a fall. History from the patient is unobtainable so the records were reviewed and history was obtained from the pt's and the ED physician. Pt was just admitted to [facility] a few weeks ago after he was admitted here 04/10-04/17/20 due to progressive confusion and behavioral changes related to underlying Alzheimer's dementia. reports that they were no longer able to manage patient safely at home. Pt reportedly with increased falls recently and was found on the floor this morning so they requested ED evaluation. Staff at [facility] report that pt "just hasn't been himself" this week but they deny any specific respiratory symptoms or evidence of hypoxia. Admission Exam Per Admitting Provider Constitutional: agitated, pulling at lines and wires, confused Eyes: + anicteric sclerae ENMT: Mouth: + dry oral mucous membranes Neck: trachea midline Respiratory: no respiratory distress and no labored breathing Auscultation: lungs clear to auscultation bilaterally and + diminished lung sounds; no rales, no rhonchi and no wheezes Cardiovascular: Rate/Rhythm: regular rate and regular rhythm Heart Sounds: no gallop and no cardiac rub Vessels: dorsalis pedis pulses present and radial pulses present Gastrointestinal (Abdomen): Inspection/Auscultation: normal bowel sounds; abdomen not distended Percussion/Palpation: abdomen soft Musculoskeletal: moving all extremities Skin: + ecchymosis (multiple areas of ecchymosis on upper and lower extremities) Neurologic: + confused Principal Diagnosis Pneumonia 2/2 COVID-19 UTI Acute metabolic encephalopathy Acute renal failure Recurrent falls 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 Pierre Paz) Admission Date Admission Date: April 27, 2020 Date and Time of Date of : 05/01/20 Time of : 12:30 PCOD Preliminary cause of : COVID-19 Summary Additional details: Patient ceased to breathe at 12:30 PM. PRELIMINARY CAUSE OF : pneumonia secondary to SARS-CoV-2 Additional Data Confirmation of : no pulse, no respirations, no heart sounds and pupils fixed and dilated Attending physician: Jerica Meng, DO Discharge Data Allergies Allergy/AdvReac Type Severity Reaction Status Date / Time adhesive Allergy Unknown BANDAID-SKIN Verified 04/27/20 11:21 IRRITATION antihemophilic factor Allergy Unknown reaction Verified 04/27/20 11:21 (FVIII) rec, full length to recombinate products made in hamster, mice antihemophilic factor VIII, Allergy Unknown Verified 04/27/20 11:21 human recombinant [From Recombinate] codeine Allergy Unknown SOB/ N/V Verified 04/27/20 11:21 homatropine Allergy Unknown UNKNOWN Unverified 04/27/20 11:21 Horse/Equine Containing Allergy Unknown ILLNESS-ALMOST Unverified 04/27/20 11:21 Products IN hydrocodone Allergy Unknown UNKNOWN Unverified 04/27/20 11:21 niacin Allergy Unknown SKIN FLUSH Unverified 04/27/20 11:21 tetanus toxoid, adsorbed Allergy Unknown ILLNESS-ALMOST Verified 04/27/20 11:21 IN Consultations 04/27/20 12:40 ED Decision to Admit Stat 04/27/20 15:07 Consult Nephrology Routine Consult Palliative Care Routine Ordered Studies 04/27/20 10:47 CT cervical spine wo con Stat 04/27/20 11:34 CT abd pelvis wo con Stat CT chest wo con Stat 04/27/20 11:58 CT head/brain wo con Stat Hospital Course (1) COVID-19 virus infection: (2) Pneumonia: (3) UTI (urinary tract infection): (4) Acute metabolic encephalopathy: (5) Myocardial infarction type 2: (6) Acute kidney injury superimposed on CKD: (7) Recurrent falls: (8) Dementia: (9) CAD (coronary artery disease): (10) Hematoma of right thigh: (11) Anemia in chronic kidney disease (CKD): (12) Factor VIII deficiency hemophilia: The patient is a 79-year-old man with dementia with behavioral disturbance who presents after being found on the floor at [facility] after a fall. He was confused and was sent to the ER. He had no evidence of hypoxia or sepsis and work-up revealed evidence of COVID-19 virus infection, acute renal failure superimposed on CKD, and elevated troponin with EKG changes on presentation, and anemia. He was transfused packed red blood cells to maintain a hemoglobin greater than 8 given his history of CAD and with a history of hemophilia was also dosed with factor VIII/Humate-P administered after consultation with Dr. Villatoro from [facility] hematology. He remained encephalopathic his entire hospital stay. Peripheral discussion with cardiology revealed that the patient was well known to the cardiology team and no further intervention was warranted. On record review he had [place] [facility] [place] on 12/20/2019 noting muscle multivessel CAD status post STEMI in 2015 status post LAD stenting. The note specifically states patient is not a candidate for PCI unless acute threatening life-threatening situation exists. Elevated troponin and EKG changes were likely the result of significant infection including pneumonia secondary to COVID-19 virus as well as a pansensitive Proteus UTI and were consistent with type II myocardial infarction. he was weak and deconditioned with ecchymosis in his upper right thigh from a fall. He had a history of recurrent falls on record review. He was confused to the point he was unable to tolerate p.o. during this hospitalization adding stress to his system. Palliative care was consulted and he was switched to comfort care measures only on the morning of 04/30 when he failed to improve after several days of therapy. Later that afternoon he . 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
== END 2020-05-01 17:32 | disposition expired | DRG 177 ==
LOC: ED 10:37 → SUATTDRO 13:40 → 2S 13:40